=== PATIENT | female | born 1980 | race Hispanic/Latino ===

== ENCOUNTER 2017-07-19 12:28 | Inpatient (IN) | payer MEDICAID, SELFPAY ==
[2017-07-19] MEDS ORDERED: Sodium Chloride 0.9% 100 ML ONE (12:53)
[2017-07-19] MEDS ORDERED: cefTRIAXone\\ROCEPHIN 2 GM VIAL ONE (12:53)
[2017-07-19 12:58] LABS: Oxyhemoglobin 93.2 % (94.0-97.0); Sodium 129 mmol/L (135-148)
[2017-07-19 12:59] LABS: Mode RA; Modified Allen's Test POSITIVE; Vent NO
[2017-07-19 13:22] LABS: #Lymphocytes 0.6 thou/uL (1.20-3.40); #Monocytes 0.1 thou/uL (0.11-0.59); #Neutrophils 3.4 thou/uL (1.40-6.50); %Basophils 0.3 % (0.0-1.0); %Eosinophils 0.2 % (0.0-10.0); %Monocytes 2.4 % (0.0-10.0); Hematocrit 30.3 % (36.0-47.0); Mean Platelet Volume 7.8 fL (7.4-10.4); Red Blood Cell (RBC) Count 3.73 mill/uL (4.20-5.40); White Blood Cell (WBC) Count 4.1 thou/uL (4.8-10.8)
[2017-07-19] MEDS ORDERED: Dexamethasone 4 mg/ml Vial ONE (13:22)
[2017-07-19] MEDS ORDERED: Albuterol Sulfate 1.25 MG/3 ML NEB ONE (13:32)
[2017-07-19 13:33] LABS: PTT 41.7 SEC (22.9-36.1)
[2017-07-19] MEDS ORDERED: Albuterol Sulfate 2.5 mg/0.5 ml Neb ONE (13:33)
[2017-07-19 13:34] LABS: Prothrombin Time 13.9 SEC (12.0-14.7)
[2017-07-19 13:36] LABS: Lactic Acid - Sepsis 1.5 mmol/L (0.5-2.2)
[2017-07-19 13:45] LABS: ALT (SGPT) 10 U/L (8-55); AST (SGOT) 33 U/L (5-34); Acetaminophen Less than 6.0 mcg/mL (10.0-30.0); Alkaline Phosphatase 41 U/L (40-150); Anion Gap 12 mmol/L (10-20); BUN (Urea Nitrogen) 30 mg/dL (7.0-18.7); Bilirubin, Total 0.4 mg/dL (0.2-1.2); CK (CPK) 84 U/L (29-168); Calc. Creatinine Clearance 0 mL/min (70-130); Calcium 7.7 mg/dL (7.8-10.44); Carbon Dioxide 19 mmol/L (22-29); Chloride 98 mmol/L (98-107); Estimated GFR-MDRD 48; Globulin 6.5 g/dL (2.4-3.5); Lipase 135 U/L (8-78); Protein, Total 9.1 g/dL (6.0-8.3); Salicylate Less than 8.0 mg/dL (15.0-30.0)
[2017-07-19 13:47] LABS: Troponin I Less than 0.010 ng/mL (< 0.028)
--- NOTE | 2017-07-19 13:49 | RAD ---
PORTABLE CHEST: HISTORY: Cough. COMPARISON: 06/26/2017 FINDINGS: Heart size is enlarged. No signs of overt failure or any confluent infiltrative process. The film is of suboptimal inspiration. IMPRESSION: Cardiomegaly. No definite acute process. POS: [facility]
[2017-07-19] MEDS ORDERED: Norepinephrine 8 MG/0.9% NS 250 ML ONE (14:24)
--- NOTE | 2017-07-19 15:06 | CT ---
CTA OF THE CHEST WITH CONTRAST: COMPARISON: 06/26/17. HISTORY: Dyspnea and cough for the past several days. Shortness of breath. Chest pain. TECHNIQUE: Multiple contiguous axial images were obtained in a CTA of the chest with contrast. Three-D oblique MIP reformats and direct coronal reformats were performed. FINDINGS: The pulmonary arteries are well opacified without filling defect to suggest pulmonary emboli. The h eart is normal in size. There is a moderate pericardial effusion which appears high-density with a mean Hounsfield unit value of 40. There is no significant compression of the right atrium by the pe ricardial effusion. No obvious hilar or mediastinal lymphadenopathy are seen. Atelectasis is seen in the lung bases with a small adjacent pleural effusion. No focal infiltrates are seen in the lungs. No pneumothorax is seen. The visualized subdiaphragmatic structures are unremarkable. Degenerative changes are seen in the s pine. The chest wall soft tissues are unremarkable. IMPRESSION: 1. There has been development of a higher density pericardial effusion. This is nonspecific and co uld represent purulent material or hemopericardium. 2. Small bilateral pleural effusions with adjacent atelectasis. 3. No evidence of pulmonary thromboembolism. POS: [facility]
[2017-07-19] MEDS ORDERED: Midazolam HCl 2 mg/2 ml Vial ONE (16:26)
[2017-07-19] MEDS ORDERED: Fentanyl 100 MCG/2 ML VIAL ONE (16:26)
[2017-07-19] MEDS ORDERED: Hydrocortisone Sod Succ/PF 100 mg/2 ml Vial ONE ×2 (16:54→17:10)
[2017-07-19] MEDS ORDERED: PHENYLEPHRINE-NS 100 MCG/ML 10 ML SYRINGE ONE (16:54)
[2017-07-19] MEDS ORDERED: Propofol 200 MG/20 ML VIAL ONE (16:54)
[2017-07-19] MEDS ORDERED: Lidocaine 1% PF 5 ML VIAL ONE (16:54)
[2017-07-19] MEDS ORDERED: Succinylcholine Chloride 20 MG/ML 10 ml SYRINGE FS ONE (16:54)
[2017-07-19] MEDS ORDERED: Hydrocortisone Sod Succ/PF 250 mg/2 ml Vial ONE (17:10)
[2017-07-19 18:03] LABS: Sodium 133 mmol/L (135-148)
[2017-07-19 18:04] LABS: Mechanical Tidal Volume 400 ml; Mode SIMV; Pressure Support 10 cmH2O; Vent YES
[2017-07-19] MEDS ORDERED: Fentanyl 20 MCG/ML 250 ML ONE (18:15)
[2017-07-19] MEDS ORDERED: Sedation Protocol FS ONE (18:20)
[2017-07-19] MEDS ORDERED: Ondansetron HCl/PF 4 MG/2 ML Vial IVP PRN ×2 (18:22→19:51)
[2017-07-19] MEDS ORDERED: Calcium Chloride 1 GM/10 ML Abboject SYRINGE IVP SCH (18:30)
[2017-07-19] MEDS ORDERED: Sodium Chloride 0.9% 1,000 ML IV SCH ×2 (18:30)
[2017-07-19] MEDS ORDERED: Fentanyl 20 MCG/ML 250 ML IVPB SCH (18:35)
[2017-07-19] MEDS ORDERED: Morphine Sulfate 2 MG/ML SYRINGE SLOW IVP PRN (18:35)
[2017-07-19] MEDS ORDERED: DISCONTINUE PREVIOUS NARCOTIC PAIN MEDICATIONS AND BENZODIAZEPINES FS SCH (18:35)
[2017-07-19] MEDS ORDERED: Sodium Bicarb 50 MEQ/50 ML Abboject 8.4% SYRINGE IVP SCH (18:45)
--- NOTE | 2017-07-19 18:50 | CON ---
EMERGENCY ROOM CONSULTATION NOTE DATE OF CONSULTATION: 07/19/2017 HISTORY OF PRESENT ILLNESS: Ms. Byrd presented to the Emergency Department tonight with sever e shortness of breath and bilateral pleuritic type chest pain. She has been placed on noninvasive v entilation in the Emergency Department. She was recently diagnosed with lupus and placed on steroids at home. Her other discharge diagnosis of note was community-acquired pneumonia. She was sent home on 500 mg of Levaquin q. day and predn isone 10 mg q. day at home. At presentation she was worrisome for having had a pulmonary embolism, a CT angio of the chest was obtained, which shows no evidence of pulmonary embolism. She did have a pericardial effusion and a follow up echocardiogram has been performed, which shows some evidence o f tamponade with right ventricular and right atrial compression. On my arrival, she had 3 liters of fluid, 10 mg of Decadron, 2 grams of Rocephin and 500 mg of Levaquin. She was on a Levophed drip a t 16 mcg/kg/minute. She had a pulse of 100 and a blood pressure of 94/76. Her oxygen saturations w ere 100% on noninvasive ventilation. PAST MEDICAL HISTORY: 1. Lupus. 2. ? thyroid dysfunction. PAST SURGICAL HISTORY: 1. Tubal ligation. 2. Thyroid surgery. ALLERGIES: None. MEDICATIONS AT HOME: 1. Levothyroxine. 2. Prednisone 10 mg q. day. 3. Hydroxychloroquine. 4. Ibuprofen. SOCIAL HISTORY: She does not use tobacco or alcohol. She is accompanied by her who is inte rpreted for me. PHYSICAL EXAMINATION: GENERAL: She is resting fairly comfortably on the stretcher, although I cannot really speak much wi th the noninvasive ventilator functioning. NECK: Supple, with no adenopathy. LUNGS: Have very diminished breath sounds due to little air movement. HEART: Rhythm is regular. ABDOMEN: Soft and nontender. EXTREMITIES: There is no edema. IMAGING DATA: I have reviewed the echocardiogram and CT angiogram myself. LABORATORY DATA: White blood cell count is 4.1, which is up from 2.2 at discharge, hemoglobin is 9. 7 and platelet count is 116,000. Creatinine is 1.24, potassium is 4.2, PT/INR is 1.1. On her arter ial blood gas, her pH is 7.47, pCO2 is 26 and pO2 is 68. ASSESSMENT AND PLAN: I was asked to see her for pericardial tamponade. She has early tamponade on echocardiogram, but I did not think this is the total of what is causing her severe pulmonary dysfun ction and cardiovascular near collapse. We will continue giving her IV fluid and plan for an urgent pericardial window. She has received 10 mg of Decadron very recently and been given Rocephin and L evaquin. After the window, she can be further worked up for sepsis or other lupus related issues.
[2017-07-19] MEDS ORDERED: Sodium Chloride 0.9% 2,000 ML IV SCH (19:00)
[2017-07-19 19:29] LABS: Oxyhemoglobin 96.1 % (94.0-97.0); Sodium 136 mmol/L (135-148)
[2017-07-19 19:39] LABS: Mechanical Tidal Volume 400 ml; Pressure Support 10 cmH2O
[2017-07-19 19:40] LABS: Mode SIMV
[2017-07-19] MEDS ORDERED: Ondansetron ODT 4 MG TAB PO PRN (19:51)
[2017-07-19] MEDS ORDERED: Acetaminophen 650 MG Suppository PR PRN (19:51)
--- NOTE | 2017-07-19 20:01 | OP ---
DATE OF OPERATION: 07/19/2017 PREOPERATIVE DIAGNOSES: History of lupus with pericardial effusion and early tamponade. POSTOPERATIVE DIAGNOSES: History of lupus with pericardial effusion and early tamponade. PROCEDURE: Pericardial window. DRAINS: 24-Turkish Jonathon drain. SPECIMEN: Fluid sent for Gram stain, culture, AFB, and cytology. SURGEON: Ab Kumari M.D. ANESTHESIA: General endotracheal. DESCRIPTION OF PROCEDURE: The patient was brought to the operating room urgently and placed under g eneral anesthesia. Chest was prepped and draped in usual sterile fashion. Skin incision was made o do the xiphoid. Xiphoid was resected. The fascia overlying the pericardium was incised. The ster num had to be retracted superiorly to access the pericardium. Pericardium was grasped with an Allis clamp and withdrawn. A 15 blade was used to enter the pericardium and fluid extracted. 300 mL tot al fluid was aspirated. Fluid was sent for both cultures. A 24-Turkish drain was placed within the pericardium. Fascia was closed with 0 Vicryl suture. Wounds were then irrigated, closed in multipl e layers, and Dermabond applied to the skin. Patient tolerated procedure well and was transferred t o the Intensive Care Unit in critical condition.
--- NOTE | 2017-07-19 20:05 | RAD ---
PORTABLE AP CHEST X-RAY 07/19/17 HISTORY: Post pericardial window. COMPARISON: 07/19/17. Endotracheal tube is noted in place with the tip overlying the T3 vertebral body and above the level of the erika. Nasogastric tube has been placed in the interim with tip overlying the expected loca tion of the gastric body. The custom harvester leads overlie the chest. Radiopaque catheter overlies the midline lower mediastinum. The cardiac silhouette is magnified by projection but does appear mil dly enlarged. There is atelectasis present at the left lung base. Right lung is clear. IMPRESSION: 1. Lines and tubes in place as described above. 2. Cardiomegaly. 3. Atelectasis left lung base. POS: [facility]
[2017-07-19] MEDS ORDERED: Hydrocortisone Sod Succ/PF 100 mg/2 ml Vial IVP SCH ×2 (20:15→21:00)
[2017-07-19] MEDS ORDERED: Piperacillin/Tazobactam 3.375 GM in Sodium Chloride 0.9% 100 ML IVPB SCH (20:15)
[2017-07-19] MEDS: Sodium Chloride 0.9% 1,000 ML IV SCH ×2 (20:29→20:56)
[2017-07-19] MEDS: Albumin 25% 25 GM/100 ML BOT IVPB SCH (20:33)
[2017-07-19] MEDS: Famotidine/PF 20 mg/2ml Vial SLOW IVP SCH (20:37)
[2017-07-19] MEDS: Vancomycin HCl 1 GM in Premix Bag 1 BAG IVPB SCH (20:43)
--- NOTE | 2017-07-19 20:48 | HP ---
DATE OF ADMISSION: 07/19/2017 PRIMARY CARE PHYSICIAN: Obed eddy. CHIEF COMPLAINT: Shortness of breath. HISTORY OF PRESENT ILLNESS: This is a 37-year-old female with significant history of syste yeni lupus erythematosus recently diagnosed presenting with increased shortness of breath, cough, and fever. The patient states these symptoms began over the last 2-3 days prior to this evaluation wit h associated chest pain when taking a deep breath. The patient denied any known sick contacts, rece nt travel history or prior history of pneumonia. The patient's history is significant for recent ad mission and discharge on 06/29/2017 for questionable community-acquired pneumonia with bibasilar ate lectasis in the context of new diagnosis of systemic lupus erythematosus. The patient was apparentl y treated with IV antibiotics and released on Levaquin, Synthroid, prednisone, and Plaquenil. The p atient states she had done fairly well after discharge, presenting to the emergency room on 07/19/20 17 with symptoms as described previously. Patient underwent extensive evaluation in the emergency r oom including chest imaging showing no acute infiltrate. CT angiogram of the chest was undertaken a fter D-dimer was noted elevated showing a questionable density consistent with pericardial effusion. The patient was also noted with small bilateral pleural effusions with associated atelectasis. Th e patient underwent a 2D transthoracic echocardiogram in the emergency room showing evidence of medi um sized pericardial effusion with mild right atrial collapse suggesting early tamponade. Consultat ion was obtained by the Cardiovascular Surgery service for consideration of pericardiocentesis versu s pericardial window. The patient was noted hypotensive in the emergency room, treated with IV flui ds x2 liters and initiated on Levophed infusion. The patient also was placed on BiPAP noninvasive m echanical ventilation, given IV Levaquin and vancomycin, and Rocephin, bronchodilator therapy and Bi PAP noninvasive mechanical ventilation. PAST MEDICAL HISTORY: 1. Systemic lupus erythematosus. 2. Hypothyroidism, status post thyroidectomy. 3. Recent community-acquired pneumonia in 06/2017. 4. Normocytic anemia. PAST SURGICAL HISTORY: 1. Status post bilateral tubal ligation. 2. Status post thyroidectomy. CURRENT MEDICATIONS: 1. Feosol 325 mg 1 tablet p.o. b.i.d. 2. Plaquenil 200 mg p.o. b.i.d. 3. Levothyroxine 50 mcg 1 tablet p.o. daily. ALLERGIES: No known drug allergies. FAMILY HISTORY: No inheritable diseases per patient report. SOCIAL HISTORY: The patient is , accompanied by her in the hospital. No current alc ohol, tobacco or illicit drug use. Smoked for approximately 2 years, quitting in the last 5 years. REVIEW OF SYSTEMS: The following complete review of systems was negative, unless otherwise mentione d in the HPI or below: Constitutional: Weight loss or gain, ability to conduct usual activities. Skin: Rash, itching. Eyes: Double vision, pain. ENT/Mouth: Nose bleeding, neck stiffness, pain, tenderness. Cardiovascular: Palpitations, dyspnea on exertion, orthopnea. Respiratory: Shortness of breath, wheezing, cough, hemoptysis, fever or night sweats. Gastrointestinal: Poor appetite, abdominal pain, heartburn, nausea, vomiting, constipation, or diar mary. Genitourinary: Urgency, frequency, dysuria, nocturia. Musculoskeletal: Pain, swelling. Neurologic/Psychiatric: Anxiety, depression. Allergy/Immunologic: Skin rash, bleeding tendency. Otherwise negative except as stated per HPI. PHYSICAL EXAMINATION: VITAL SIGNS: On admission, blood pressure 83/57, pulse 107, respiratory rate is 42, temperature 100 degrees Fahrenheit, O2 saturation 98% on BiPAP noninvasive mechanical ventilation at 50% FiO2. GENERAL APPEARANCE: This is a 37-year-old female on current noninvasive mechanical ventila tion with BiPAP, lethargic, but opens eyes to questions and name. HEENT: Pupils are equal, round, and reactive to light and accommodation. Extraocular muscles are i ntact. No scleral icterus, no conjunctival injection. Nares patent. OP is clear. BiPAP noninvasi ve mechanical ventilation, face mask in place. NECK: Supple, no cervical adenopathy, no thyromegaly, no carotid bruits, no JVD appreciated. Cervi erik spine with full active and passive range of motion. CHEST: Diminished breath sounds in the bases bilaterally. CARDIOVASCULAR: S1 and S2 with distant heart sounds. No audible friction rub noted. ABDOMEN: Rounded, soft, nontender, nondistended. Bowel sounds are positive in all four quadrants. There is no hepatosplenomegaly, no abdominal bruits, no rebound or guarding appreciated. EXTREMITIES: Warm and dry with fair turgor. No clubbing, cyanosis or asymmetric edema appreciated. Pulses palpable distally at the dorsalis pedis, posterior tibial, and popliteal arteries bilateral ly. Capillary refill less than 2 seconds. NEUROLOGIC: Cranial nerves II-XII are grossly intact. No focal or lateralizing signs appreciated. PERTINENT LABORATORY DATA AND X-RAY FINDINGS: Sodium 125, potassium 4.2, chloride 98, CO2 of 19, an ion gap of 12, BUN 30, creatinine 1.24 with estimated GFR of 48, glucose 110. Lactic acid level 1.5 . Calcium 7.7. LFTs within normal limits. Troponin I negative x1. Serum ammonia level 20. BNP 2 01, albumin 2.6, and lipase 135. TSH 15.2, previously noted at 10.7 on 06/28/2017. CBC showed whit e blood cell count 4.1, hemoglobin 9.7, hematocrit 30, platelet count 116 with 82% neutrophils. PT 13.9, INR 1.1, PTT 41.7, D-dimer 19.21. ABG dated 07/19/2017 at 12:40 p.m. showed pH 7.47, pCO2 of 26, pO2 of 69, bicarbonate of 18.6, O2 saturation 95% on room air. Plasma alcohol level less than 1 0. Portable chest x-ray dated 07/19/2017 showed cardiomegaly without acute infiltrate. CT angiogra m of the chest dated 07/19/2017 showed questionable development of pericardial effusion. Small bila teral pleural effusions with adjacent atelectasis. No evidence for pulmonary embolus. A 2D transth oracic echocardiogram dated 07/19/2017 showed ejection fraction of 55%-60%. Mild right atrial colla pse in diastole. Medium pericardial effusion noted. Question of early tamponade. EKG dated 2016 by my interpretation shows sinus tachycardia with heart rates in the 130s. Normal R-wave progr ession noted in the precordial leads. Normal axis. No acute ST-T wave changes appreciated. ASSESSMENT AND PLAN: 1. Acute hypoxic respiratory failure secondary to #2. 2. We will continue bilevel positive airway pressure noninvasive mechanical ventilation at 10/5 wit h FIO2 of 50%. Continue general pulmonary supportive measures and see treatment plan as outlined in #2. Portable chest x-ray in the a.m. Consult Pulmonology Service for further evaluation. 3. Question of acute cardiac tamponade. Cardiovascular Surgery Service consulted for evaluation an d potential surgical intervention. Plan for surgical intervention with transfer to critical care un it postoperatively. 4. Hypotension. Suspect secondary to #2. Continue Levaquin to titrate for systolic greater than 1 00. Continue intravenous normal saline at 125 mL per hour. Hydrocortisone 150 mg IV x1 dose now fo llowed by hydrocortisone 25 mg IV q.6 hours. 5. Question of sepsis. Exact etiology unclear. Continue vancomycin 1 gram IV q.12 hours with harpreet tional Zosyn 3.375 grams IV q.6 hours. Blood cultures pending. Continue general sepsis protocol. 6. Systemic lupus erythematosus. Suspect component of presentation due to lupus. Continue hydroco rtisone as outlined previously. Consider Rheumatology consult. 7. Hyponatremia. We will continue intravenous normal saline and repeat sodium level in the a.m. 9. Acute kidney injury. Suspect secondary to volume depletion and sepsis. Avoid nephrotoxic agent s and contrast media. Repeat creatinine in the a.m. Continue IV fluids as outlined previously. 10. Hypothyroidism. Resume home Synthroid and check free T4 level. Appears patient may be undertr eated with current thyroid replacement. 11. Chronic pancytopenia. Suspect secondary to lupus as stated previously. Repeat CBC and monitor trend. 12. Prophylaxis. Sequential compression devices while in bed and Pepcid 20 mg IV q.12 hours. 13. Code status is FULL. Surrogate medical decision maker is patient's spouse. Total critical care time is 45 minutes.
[2017-07-19] MEDS ORDERED: Norepinephrine 8 MG/250 ML BAG IVPB PRN (20:52)
[2017-07-19] MEDS ORDERED: Famotidine/PF 20 mg/2ml Vial SLOW IVP SCH (21:00)
[2017-07-19] MEDS ORDERED: Vancomycin HCl 1.25 GM in Sodium Chloride 0.9% 250 ML 250 ML IVPB SCH (21:00)
--- NOTE | 2017-07-19 22:51 | CON ---
DATE OF CONSULTATION: 07/19/2017 REASON FOR CONSULTATION: Pericardial effusion, now status post drainage. HISTORY OF PRESENT ILLNESS: Ms. Byrd is a 37-year-old female who presented to the hospital today with apparent shortness of breath. She was found to have rapid heart rate and lo w blood pressure and a pericardial effusion. Echocardiogram revealed early tamponade that she went to the operating room for drainage of the pericardial fluid, which was done. She is currently intub ated on the ventilator. The other history is not available to me. Other past history available [place] by oral report that she had a history of lupus, but I do not have documentation of that. Her ma in symptom initially was shortness of breath. REVIEW OF SYSTEMS: Not obtainable now, she is intubated on the ventilator. PAST MEDICAL HISTORY: Thyroidectomy, hysterectomy, lupus. ALLERGIES: None known. MEDICATIONS: She is on thyroid, she is also on prednisone. Initial blood pressure was 90/60, now s he is on Levophed, it is 114/57, pulse 130. PHYSICAL EXAMINATION: GENERAL: She is intubated on the ventilator. VITAL SIGNS: Blood pressure 120/60, pulse 130 - it is sinus. HEENT: Eyes, sclerae nonicteric. Mouth, mucous membranes moist. NECK: Supple, no lymphadenopathy. LUNGS: Clear anteriorly and laterally. CARDIAC: She is tachycardic. No murmur, rub or gallop. ABDOMEN: Soft, nontender, no hepatosplenomegaly. EXTREMITIES: No clubbing, no cyanosis or edema. SKIN: Currently warm and dry. LABORATORY AND X-RAY FINDINGS: The hemoglobin is 9.7, potassium 4.2, sodium is 125, albumin 2.6. T SH is 15.1. BNP 200. Echocardiogram showed normal left ventricular function with a moderate sized pericardial effusion with evidence of early tamponade. ASSESSMENT: 1. Tamponade, status post drainage. 2. Pattern suggest sepsis syndrome. PLAN: 1. The pericardial fluid has been drained. 2. Antibiotics. 3. Pressors were given to maintain blood pressure.
[2017-07-19] MEDS: Piperacillin/Tazobactam 3.375 GM in Sodium Chloride 0.9% 100 ML IVPB SCH (23:06)
[2017-07-19] MEDS: Hydrocortisone Sod Succ/PF 100 mg/2 ml Vial IVP SCH (23:07)
[2017-07-20] MEDS: Albumin 25% 25 GM/100 ML BOT IVPB SCH ×3 (01:40→13:29)
--- NOTE | 2017-07-20 01:47 | CON ---
DATE OF CONSULTATION: 07/19/2017 HISTORY: She was just recently discharged from the hospital. An echocardiogram done on the showed no pericardial effusion. She presented today with hypertension. An echocardiogram was repeated showing a large pericardial effusion with early tamponade and small b ilateral effusions are seen on CT. The pericardial effusion was picked up on CT at 1356 and an ech o was done after that. She subsequently is being scheduled for an operative procedure i.e., pericardial window. She was no ninvasively ventilated. PAST MEDICAL HISTORY: 1. Remarkable for community-acquired pneumonia diagnosed last admission. 2. Lupus. 3. History of pancytopenia. 4. History of hypothyroidism. 5. History of strep pneumonia with bacteremia in the past. 6. History of resection of thyroid nodule. 7. History of tubal ligation. SOCIAL HISTORY: Nonsmoker, nondrinker. FAMILY HISTORY: Negative for any disease at an early age. PHYSICAL EXAMINATION: VITAL SIGNS: Blood pressure is in the 90s, she has had 3 liters of fluid, 4th liter has been ordere d. She is on pressors. GENERAL: She is awake. She nods. She is reasonably comfortable. She has noninvasive mask in plac e. NECK: Supple. LUNGS: Clear anteriorly. HEART: Regular rhythm. ABDOMEN: Soft. EXTREMITIES: Without asymmetry. IMPRESSION: 1. Impending tamponade with hypertension. 2. Rule out sepsis with a history of bacteremia in the past with pneumococcus. 3. Lupus possibly because of her pericardial effusion. 4. Rule out adrenal crisis with stress dose steroids for surgery. I will be happy to follow will h er, she should remain intubated postoperatively.
[2017-07-20] MEDS: Lorazepam 2 MG/ML VIAL SLOW IVP PRN ×2 (02:22→08:33)
[2017-07-20] MEDS: Sodium Chloride 0.9% 1,000 ML IV SCH ×2 (02:49→19:11)
[2017-07-20] MEDS ORDERED: Vancomycin HCl 1.25 GM in Sodium Chloride 0.9% 250 ML 250 ML IVPB SCH (03:00)
[2017-07-20] MEDS ORDERED: Cefepime 2 GM in Sodium Chloride 0.9% 100 ML IVPB SCH (04:00)
[2017-07-20] MEDS ORDERED: Vancomycin HCl 1 GM in Premix Bag 1 BAG IVPB SCH (04:00)
[2017-07-20 04:13] LABS: Band 10 % (5-11); Elliptocytes SLIGHT = 2-5 cells (100X) (0-1/hpf); Hematocrit 20.4 % (36.0-47.0); Mean Platelet Volume 7.5 fL (7.4-10.4); Neutrophil 76 % (42-75); White Blood Cell (WBC) Count 1.6 thou/uL (4.8-10.8)
[2017-07-20 04:48] LABS: ALT (SGPT) 17 U/L (8-55); AST (SGOT) 30 U/L (5-34); Alkaline Phosphatase 43 U/L (40-150); Anion Gap 12 mmol/L (10-20); BUN (Urea Nitrogen) 16 mg/dL (7.0-18.7); Bilirubin, Total 0.2 mg/dL (0.2-1.2); Calc. Creatinine Clearance 103 mL/min (70-130); Calcium 6.9 mg/dL (7.8-10.44); Carbon Dioxide 12 mmol/L (22-29); Chloride 113 mmol/L (98-107); Estimated GFR-MDRD 74; Globulin 4.2 g/dL (2.4-3.5); Protein, Total 6.9 g/dL (6.0-8.3)
[2017-07-20] MEDS ORDERED: Dextrose 5% in Water 1,000 ML IV PRN ×2 (05:06→08:34)
[2017-07-20] MEDS ORDERED: Insulin Regular 300 UNITS/3 ML VIAL SC PRN (05:06)
[2017-07-20] MEDS ORDERED: Dextrose 50% Abboject 50 ML SYRINGE IVP PRN (05:06)
[2017-07-20] MEDS ORDERED: Potassium Phosphate 9 MMOL in Sodium Chloride 0.9% 100 ML IVPB PRN (05:08)
[2017-07-20] MEDS ORDERED: Potassium Chloride 40 MEQ in Sodium Chloride 0.9% 250 ML 250 ML IVPB PRN (05:08)
[2017-07-20] MEDS ORDERED: Potassium Chloride 20 MEQ TAB PO PRN (05:08)
[2017-07-20] MEDS ORDERED: Magnesium Oxide 400 MG TAB PO PRN ×2 (05:08)
[2017-07-20] MEDS ORDERED: Potassium Chloride 40 MEQ in Premix Bag 1 BAG IVPB PRN (05:08)
[2017-07-20] MEDS ORDERED: CCU ELECTROLYTE REPLACEMENT PROTOCOL FS PRN (05:08)
[2017-07-20] MEDS ORDERED: Potassium Phosphate 15 MMOL in Sodium Chloride 0.9% 250 ML 250 ML IV PRN (05:08)
[2017-07-20] MEDS ORDERED: Magnesium 2 GM/NS 0.9% 100 ML 2 GM in Premix Bag 1 BAG IVPB PRN (05:08)
[2017-07-20] MEDS ORDERED: Potassium Phosphate 12 MMOL in Sodium Chloride 0.9% 250 ML 250 ML IV PRN (05:08)
[2017-07-20] MEDS: Piperacillin/Tazobactam 3.375 GM in Sodium Chloride 0.9% 100 ML IVPB SCH ×4 (05:34→23:39)
[2017-07-20] MEDS: Hydrocortisone Sod Succ/PF 100 mg/2 ml Vial IVP SCH (05:40)
[2017-07-20 07:05] LABS: Oxyhemoglobin 98.5 % (94.0-97.0); Sodium 138 mmol/L (135-148)
[2017-07-20 07:06] LABS: Mechanical Tidal Volume 400 ml; Mode SIMV; Pressure Support 10 cmH2O; Vent YES
--- NOTE | 2017-07-20 07:56 | RAD ---
SINGLE VIEW CHEST: Date: 07/20/17 COMPARISON: 07/19/17. HISTORY: Status post pericardial window. FINDINGS: Single view of the chest shows an enlarged but stable cardiomediastinal silhouette. The endotracheal tube and NG tube are unchanged in position. There appear to be small bilateral pleural effusions. N o pneumothorax is appreciated. IMPRESSION: Bilateral pleural effusions. POS: [facility]
[2017-07-20] MEDS: Vancomycin HCl 1 GM in Premix Bag 1 BAG IVPB SCH (08:31)
[2017-07-20] MEDS: Famotidine/PF 20 mg/2ml Vial SLOW IVP SCH ×2 (08:33→22:01)
[2017-07-20] MEDS ORDERED: Dextrose 50% Abboject 50 ML SYRINGE SLOW IVP PRN (08:34)
--- NOTE | 2017-07-20 09:03 | PDOC.PN ---
- Subjective Encounter Start Date: 07/20/17 Encounter Start Time: 09:01 Ms. Byrd is post Pericardial Window. She is intubated, and has light sedation. She is able to answer a questions by shaking or nodding her head. She indicates that she is not having pain in her chest or trouble breathing. - Objective Resuscitation Status: Resuscitation Status FULL:Full Resuscitation MAR Reviewed: Yes Vital Signs & Weight: Vital Signs (12 hours) Temp Pulse Resp Pulse Ox 07/20/17 07:42 98 F 100 24 H 100 07/20/17 06:53 58 L 07/20/17 06:44 97.7 F 07/20/17 06:30 97.7 F 07/20/17 06:00 24 H 07/20/17 04:00 97.8 F 24 H 07/20/17 02:00 24 H 07/20/17 00:00 98.1 F 24 H 07/19/17 23:37 91 24 H 100 07/19/17 22:00 24 H Weight Weight 161 lb 9.581 oz Most Recent Monitor Data Heart Rate from ECG 59 NIBP 110/75 NIBP BP-Mean 87 Respiration from ECG 24 SpO2 100 I&O: 07/19/17 07/20/17 07/21/17 06:59 06:59 06:59 Intake Total 4822.4 Output Total 1245 Balance 3577.4 Result Diagrams: 07/20/17 03:28 07/20/17 03:28 Additional Labs: Accuchecks 07/20/17 05:50 POC Glucose 336 H Phys Exam - Physical Examination HEENT: PERRLA Respiratory: no wheezing + coarse breath sounds Cardiovascular: RRR, no significant murmur Gastrointestinal: soft, positive bowel sounds trace edema Dx/Plan (1) Pericardial effusion Code(s): I31.3 - PERICARDIAL EFFUSION (NONINFLAMMATORY) Status: Acute (2) Hypotension Status: Acute (3) Pancytopenia Code(s): D61.818 - OTHER PANCYTOPENIA Status: Acute (4) Systemic lupus erythematosus Code(s): M32.9 - SYSTEMIC LUPUS ERYTHEMATOSUS, UNSPECIFIED Status: Chronic - Plan * Pericardial effusion- thought to be due to SLE- in review of her records she does not have an elevated Double stranded DNA level documented- will check- it should be elevated during an acute illness. Will also check her complement levels * Pancytopenia- this is likely from SLE, but as above will check her titers- and will also consult Hematology once again * ? sepsis- will consult ID to aid in antibiotic choice * Elevated glucose- from steroids * Hypotension- she is now off pressors- she has responded to fluids * Hypothyroidism- patient had a significantly elevated TSH on her previous admission, as well as a low free T4, will go ahead and replace her thyroid IV while she is intubated given her low blood pressure * Ventilator wean as per Pulmonology. * DVT prophylaxis is being held due to Low Platelet count and anemia- SCD's only for now
[2017-07-20] MEDS: Propofol 1,000 MG/100 ML VIAL IV PRN (10:04)
[2017-07-20] MEDS: Levothyroxine Sodium 200 MCG VIAL IVP SCH ×2 (12:11→13:22)
[2017-07-20] MEDS: HumaLOG 300 UNITS/3 ML VIAL SC PRN ×2 (12:18→18:20)
[2017-07-20] MEDS: Levothyroxine Sodium 100 MCG VIAL IVP SCH (14:10)
[2017-07-20] MEDS ORDERED: Sodium Chloride 0.9% 1,000 ML IV SCH (14:36)
[2017-07-20] MEDS ORDERED: Insulin Detemir 100 UNITS/ML 15 UNITS in Pre-Filled Syringe 1 EACH SC SCH (14:45)
--- NOTE | 2017-07-20 14:46 | PRG ---
DATE OF SERVICE: 07/20/2017 SERVICE: Pulmonary Medicine. INTERVAL HISTORY: The patient did well overnight. Her oxygen requirements are decreasing. She has been weaned off of her Levophed. Her blood pressures remain stable. Her creatinine is stable, and her urine output remains good. She remains under the influence a little bit of sedation. She is mechanically ventilated. Otherwise, there has been no significant change in her condition and there were no overnight events. She did tolerate the pericardial window quite well. PHYSICAL EXAMINATION: VITAL SIGNS: Afebrile, pulse 61, blood pressure 87/59, respirations 22, saturation 100% on 40% FiO2 and PEEP of 5. HEENT: Normocephalic, atraumatic. Sclerae are white, conjunctivae pink. Oral and nasal mucosa is moist without lesions. LUNGS: Decent air entry bilaterally. Dependent crackles are present, but I do not appreciate wheezing or rhonchi. There is no prolonged expiratory phase. HEART: Normal rate, regular. ABDOMEN: Soft, nontender, and nondistended. Bowel sounds positive. MUSCULOSKELETAL: No cyanosis or clubbing. No pitting in the bilateral lower extremities. NEUROLOGIC: Grossly nonfocal. LABORATORY DATA: WBC 1.6, hemoglobin 6.7, platelets 62,000. INR 1.1, D-dimer 19.21. A pH 7.42, pCO2 20, pO2 203 on 50% FiO2 with a PEEP of 5. Potassium 3.3. Basic metabolic profile is otherwise unremarkable. Creatinine is down trending to 0.85. Blood sugar 343. Lactate is negative. Liver function studies are unremarkable. TSH is elevated with a free T4 just below the lower limits of normal. Lipase was minimally elevated previously. BNP was elevated on presentation. Urine drug screen is unremarkable. C3 and C4 levels are both low. Serologies are currently pending. Blood cultures x2 and pericardial fluid culture is currently negative to date. IMAGING: Chest x-ray demonstrates bilateral pleural effusions with other findings consistent with some volume overload. Endotracheal tube is in good position. ASSESSMENT: 1. Acute hypoxic respiratory failure. 2. Shock. 3. Severe sepsis, possible. 4. Pancytopenia. 5. Systemic lupus erythematosus. PLAN: We will continue supportive care. The patient's ins and outs are positive 4 liters over the last 24 hours. She got an additional 4-6 liters in the emergency department. As such, we will need to let the dust settle over the next 24-48 hours before we consider extubation. For this period of time, antibiotics and ventilator support will be continued. In the morning, we will introduced a small dose of Lasix. Hematology consultation is currently pending. The etiology of this shock is currently unknown. I believe tamponade played a role here, but I cannot exclude the possibility of sepsis. Pulmonary or Critical Care will continue to follow. IV fluids will be minimized today. Critical care time: 30 minutes. MTDD
--- NOTE | 2017-07-20 15:20 | CON ---
DATE OF CONSULTATION: 07/20/2017 HISTORY OF PRESENT ILLNESS: A 37-year-old whom I had seen a couple of times prior to this visit who has a history of systemic lupus erythematous managed with prednisone, mostly with joint and skin ma nifestations. She has had 2 episodes of strep pneumonia bacteremia in 2016 and 2014. Those were tr eated without any major complications. Following that, the patient was seen on 06/26/2017 with dysp sin and fever for 2 days and at that time, she had experienced a 22 pound of weight loss with anorex ia. She had been on acyclovir, acetaminophen and some prednisone as well. The patient was discharg ed 2 days later with the diagnosis of dyspnea on exertion, community-acquired pneumonia, bibasilar a telectases, hypotension on Levaquin. HIV was negative. White cell count 2.2, hemoglobin 8.9, plate lets 121. CT angio was negative for PE. Echocardiogram was normal. This time, she is admitted wit h worsening of dyspnea again, cough, and fever and a CT angio showed an effusion in the pericardial space which was moderate. Echocardiogram showed findings that were consistent with early tamponade; therefore, Cardiovascular Surgery was consulted and she underwent pericardial window placement, abou t 300 mL was aspirated and a drain placed. Currently, she is intubated in the ICU where she has had no diarrhea, no seizure activity. It is not clear if the patient has seen a biometric technician or ad lam any sort of formal followup for her systemic lupus. MEDICAL HISTORY: Includes SLE with mostly joint manifestations in the past, hypothyroidism, pneumon ia x2 with strep pneumonia with bacteremia. PAST SURGICAL HISTORY: Includes tubal ligation, thyroidectomy. MEDICATIONS: She had been on Plaquenil, Feosol and levofloxacin. ALLERGIES: None. FAMILY HISTORY: Noncontributory. SOCIAL HISTORY: , former smoker. PHYSICAL EXAMINATION: VITAL SIGNS: T-max 99, now 98, blood pressure 87/59, pulse 61, respirations 22. I's and O's have be en positive, particularly yesterday with 3500. SKIN: With no areas of skin breakdown, no petechiae or purpura. Peripheral IV access. She has the chest tubes after the pericardial window placement, Aiken catheter in place and a ET tube. HEENT: No lymphadenopathy, sclerae are white. Pupils are miotic and symmetric. LUNGS: Sounds with diminished sounds at bases. HEART: S1, S2 with diminished heart sounds. ABDOMEN: Soft. Not distended. EXTREMITIES: Moves all extremities. NEUROLOGICAL: She is sedated at this time, could not test her neurological function. LABORATORY DATA: White cell count is 4.1. INR 1.6, hemoglobin 9.7 and 6.7 with an MCV 81, platelet s 62,000, 76% neutrophils and INR 1.1. PH 7.4, pCO2 20, po2 203. Sodium 134, creatinine 10.85 with normal transaminases, calcium 6.9, glucose 236. Albumin 2.7 and toxicology was negative. Co mplements were low, C4 was very low. The cultures and pathology from these pericardial fluid are pe nding. ASSESSMENT: Systemic lupus erythematosus with mostly joint manifestations on Plaquenil now, develop ing more aggressive form most likely with pericarditis. We will wait for the final cultures, but I believe that this will garment turner to be just activity from the systemic lupus erythematosus and probab ly she will have to be managed with more aggressive immunosuppression going forward. Evidently, if the cultures turn positive, then we will have to change our assessment and frame changer, but co ntinuation of corticosteroids and eventually she will have to be transitioned to steroid sparing imm unosuppressive regimen in the outpatient setting.
--- NOTE | 2017-07-20 20:06 | CON ---
DATE OF CONSULTATION: 07/20/2017 REASON FOR CONSULTATION: Pancytopenia. HISTORY OF PRESENT ILLNESS: Ms. Byrd is a 37-year-old female with a 7-year history of systemic lupus erythematosus and hypothyroidism, who presented to the emergency room on 07/19/2017 with chest pain and shortness of breath. The patient was discharged from this facility on 06/29/2017 with community-acquired pneumonia. She was pancytopenic during that admission. In the ER, she had a CT angiogram of the chest, which showed small bilateral pleural effusions and a pericardial effusion. Dr. Kumari was consulted and performed a pericardial window. She had acute respiratory failure and remains intubated after the procedure. On admission at this visit, the patient had a white count of 4.1, hemoglobin of 9.7 and a platelet count of 116,000. She had 82% neutrophils. Overnight, her white count dropped to 1.6 with 76% neutrophils and 10% bands, her hemoglobin dropped to 6.7 and her platelet count dropped to 62,000. We were asked to see the patient regarding her pancytopenia. PAST MEDICAL HISTORY: 1. Systemic lupus, erythematosus. 2. Hypothyroidism. 3. Recent community-acquired pneumonia. 4. History of pancytopenia. PAST SURGICAL HISTORY: 1. Thyroidectomy. 2. Bilateral tubal ligation. HOME MEDICATIONS: 1. Ferrous sulfate 325 mg daily. 2. Hydroxychloroquine sulfate 200 mg daily. 3. Levothyroxine 50 mcg daily. FAMILY HISTORY: Positive for coronary artery disease. SOCIAL HISTORY: , 4 children, prior smoker. No alcohol or illicit drug use. REVIEW OF SYSTEMS: Unable to obtain secondary to intubation and sedation. PHYSICAL EXAMINATION: VITAL SIGNS: Temperature is 98.2, pulse is 61, respiratory rate is 18, blood pressure is 100/57, O2 saturation 100% on 50% FiO2. GENERAL: Well-developed female, in no acute distress. HEENT: Normocephalic, atraumatic. Pupils are equal and reactive to light. NECK: Supple. CARDIOVASCULAR: Regular rate and rhythm. RASTA drain in place with serous drainage. LUNGS: Diminished throughout. ABDOMEN: Soft, nontender, bowel sounds are positive. She has an NG tube in place.. GENITOURINARY: Aiken catheter with yellow urine. EXTREMITIES: No clubbing, cyanosis or edema. SKIN: No rash. HEMATOLOGIC: No petechia or purpura. NEUROLOGIC: The patient is sedated with propofol. PERTINENT LABORATORY AND X-RAYS: Current WBCs are 1.6, hemoglobin 6.7, hematocrit 20.4, platelet count is 62,000, 76% neutrophils, 10% bands. PT is 13.9, INR is 1.1, PTT is 41.7. D-dimer is 19.2. Sodium is 134, potassium is 3.3, chloride 113, CO2 is 12, BUN is 6, creatinine is 0.85. Lactic acid is 1.5 , calcium 6.9, total bilirubin is 0.4, AST is 33, ALT is 10, alkaline phosphatase is 41. BNP is 200. Serum total protein is 9.1, albumin 2.6, globulin 6.5. Lipase is 135. B12 was 593, folic acid is 9.2. TSH is 15.188. Troponin is negative. Radiology per HPI. ASSESSMENT: 1. Pericardial effusion status post window. 2. Acute respiratory failure. 3. Pancytopenia. 4. History of lupus erythematosus. DISCUSSION: The patient has been transfused 2 units packed RBCs. Her low hemoglobin is likely dilutional. She is not neutropenic at this time as her ANC is 1.376. The dramatic drop overnight is unclear; however, we will follow over the next few days and hopefully she will recover. The patient's pancytopenia is probably a combination of lupus, immunosuppressive medication, and acute illness. She has a hyperglobulinemia which can be seen with lupus and is likely polyclonal. Prior x-ray showed no evidence of any osteolytic lesions. We will follow her CBC closely during the hospital stay. Thank you for the consult. KANA
[2017-07-21] MEDS: Propofol 1,000 MG/100 ML VIAL IV PRN ×2 (05:01→15:19)
[2017-07-21] MEDS: Piperacillin/Tazobactam 3.375 GM in Sodium Chloride 0.9% 100 ML IVPB SCH ×3 (05:01→17:14)
[2017-07-21] MEDS: Furosemide 20 MG/2 ML VIAL SLOW IVP SCH (05:01)
[2017-07-21 05:16] LABS: #Lymphocytes 0.4 thou/uL (1.20-3.40); #Monocytes 0.2 thou/uL (0.11-0.59); %Basophils 0.2 % (0.0-1.0); %Monocytes 4.7 % (0.0-10.0); Anion Gap 11 mmol/L (10-20); BUN (Urea Nitrogen) 14 mg/dL (7.0-18.7); Calc. Creatinine Clearance 103 mL/min (70-130); Carbon Dioxide 14 mmol/L (22-29); Chloride 116 mmol/L (98-107); Estimated GFR-MDRD 74; Hematocrit 27.8 % (36.0-47.0); Magnesium 1.7 mg/dL (1.6-2.6); Mean Platelet Volume 11.8 fL (7.4-10.4); Red Blood Cell (RBC) Count 3.31 mill/uL (4.20-5.40); White Blood Cell (WBC) Count 4.6 thou/uL (4.8-10.8)
[2017-07-21 07:24] LABS: Oxyhemoglobin 97.3 % (94.0-97.0); Sodium 141 mmol/L (135-148)
[2017-07-21 07:25] LABS: Modified Allen's Test NOT DONE; Vent YES
[2017-07-21 07:26] LABS: Mechanical Tidal Volume 330 ml; Mode SIMV.PSV; Pressure Support 19 cmH2O
--- NOTE | 2017-07-21 08:35 | PRG ---
DATE OF SERVICE: 07/21/2017 Ms. Byrd remains intubated on the ventilator. PHYSICAL EXAMINATION: VITAL SIGNS: Her blood pressure 126/75, pulse 72. She is off pressors. LUNGS: Clear. CARDIAC: Normal S1 and S2. ABDOMEN: Soft, nontender. EXTREMITIES: There is no significant edema. Chest x-ray yesterday showed bilateral pleural effusions. ASSESSMENT: 1. Pericardial and pleural effusions thought to be likely related to lupus. 2. Cardiac status appears stable. 3. Left ventricular function was normal. EKG initially had relatively low voltage due to pericardi al effusion, otherwise normal. The voltage on the monitor now looks normal. The patient's cardiac status is stable at this time. We will sign off. Please consultation if need ed.
[2017-07-21] MEDS ORDERED: Sodium Bicarbonate Tab 325 MG TAB PER TUBE PRN (09:30)
[2017-07-21] MEDS ORDERED: Pancrelipase DR 12000 1 CAP FS PRN (09:30)
[2017-07-21] MEDS: Famotidine/PF 20 mg/2ml Vial SLOW IVP SCH ×2 (09:45→21:04)
[2017-07-21] MEDS: Insulin Detemir 100 UNITS/ML 15 UNITS in Pre-Filled Syringe 1 EACH SC SCH (09:45)
[2017-07-21] MEDS ORDERED: Magnesium 2 GM/NS 0.9% 100 ML 2 GM in Premix Bag 1 BAG IVPB SCH (09:45)
--- NOTE | 2017-07-21 09:53 | PRG ---
DATE OF SERVICE: 07/21/2017 SERVICE: Pulmonary Medicine. INTERVAL HISTORY: The patient is doing fantastic from a cardiovascular and respiratory standpoint. She denies any current fevers, chills, nausea or vomiting. She is on mechanical ventilation. Whenever we dropped her pressure support a little bit, her volumes go from 400 down to 150. She is very sensitive to these drops in volume. Otherwise, there were no overnight events. She has been weaned off her pressors. PHYSICAL EXAMINATION: VITAL SIGNS: Afebrile, pulse 70, blood pressure 118/71, respirations 20, saturation 98% on 27% FIO2 with a PEEP of 5. GENERAL: Patient is awake, alert, no apparent distress. LUNGS: Excellent air entry. It is clear to auscultation on the right. She is having some left-sided and bibasilar crackles. HEART: Normal rate, regular. ABDOMEN: Soft, nontender, nondistended. Bowel sounds positive. MUSCULOSKELETAL: No cyanosis or clubbing. There is pitting edema that is 1-2+ at the hip. No pitting in the bilateral lower extremities or upper extremities at this time. GENITOURINARY: Aiken catheter in place. NEUROLOGIC: Grossly nonfocal. LABORATORY DATA: WBC 4.6, hemoglobin 9.1. Platelets 101,000. Neutrophil count is 86%, lymphocytes are 9% and decreasing. PH 7.33, pCO2 of 28 and improving. PO2 134, this was on 37% FiO2 and a PEEP of 5 at that time. Creatinine 0.85. Bicarbonate has improved to 14. Anion gap remains normal. Chloride 116, sodium is increasing to 137. Phosphorus 2.0, magnesium 1.7. All culture results are negative and unremarkable to date. ASSESSMENT: 1. Acute hypoxic respiratory failure, improving. 2. Shock, likely secondary to tamponade, but sepsis profile has not been completely excluded. 3. Septic shock, possible. 4. Pancytopenia. 5. Systemic lupus erythematosus. 6. 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 PLAN: The patient certainly does not have any interstitial changes. There is a possibility she could be suffering from a vanishing lung type of syndrome. That being said, that would not cause any significant hypotension. She would be certainly ill-equipped to compensate for anything that puts anymore demands on her respiratory system. She remains 7 liters up for this hospital stay. We will continue diuresing her 1-2 times on a daily basis. Potassium, phosphorus, and magnesium will once again be replaced this morning. Adjustments to the ventilator had been made in order to decrease support slightly. Empiric antibiotics will be continued, but I will back off of her Levaquin. Critical care time: 30 minutes. KANA
[2017-07-21] MEDS ORDERED: Potassium Phosphate 15 MMOL in Sodium Chloride 0.9% 250 ML 250 ML IVPB SCH (10:00)
--- NOTE | 2017-07-21 10:33 | PDOC.PN ---
- Subjective Encounter Start Date: 07/21/17 Encounter Start Time: 10:32 Ms. Byrd indicates that she was feeling a little bt short of breath, she denies any chest pain. - Objective Resuscitation Status: Resuscitation Status FULL:Full Resuscitation MAR Reviewed: Yes Vital Signs & Weight: Vital Signs (12 hours) Temp Pulse Resp BP Pulse Ox 07/21/17 08:00 97.7 F 70 19 07/21/17 06:45 60 24 H 99 07/21/17 06:38 58 L 111/67 07/21/17 06:00 16 07/21/17 04:00 98.9 F 30 H 07/21/17 02:00 25 H 07/21/17 00:00 98.5 F 24 H 07/20/17 23:28 61 24 H 100 Weight Admit Weight 161 lb 9.581 oz Weight 165 lb 5.547 oz Most Recent Monitor Data Heart Rate from ECG 52 NIBP 104/73 NIBP BP-Mean 83 Respiration from ECG 26 SpO2 90 I&O: 07/20/17 07/21/17 07/22/17 06:59 06:59 06:59 Intake Total 4822.4 1207.2 0 Output Total 1245 847 135 Balance 3577.4 360.2 -135 Result Diagrams: 07/21/17 04:15 07/21/17 04:15 Additional Labs: Accuchecks 07/21/17 07/20/17 07/20/17 04:17 22:00 18:18 POC Glucose 131 H 145 H 166 H 07/20/17 12:14 POC Glucose 269 H Phys Exam - Physical Examination HEENT: PERRLA Respiratory: no wheezing, no rales, no rhonchi, clear to auscultation bilateral Cardiovascular: RRR, no significant murmur, no rub Gastrointestinal: soft, non-tender, positive bowel sounds Musculoskeletal: no edema Dx/Plan (1) Pericardial effusion Code(s): I31.3 - PERICARDIAL EFFUSION (NONINFLAMMATORY) Status: Acute (2) Hypotension Status: Acute (3) Pancytopenia Code(s): D61.818 - OTHER PANCYTOPENIA Status: Acute (4) Systemic lupus erythematosus Code(s): M32.9 - SYSTEMIC LUPUS ERYTHEMATOSUS, UNSPECIFIED Status: Chronic - Plan * Pericardial effusion- s/p pericardial window- stable- with minimal output from the drain * SLE- will consult Rheumatology to help with her management- continue Solumedrol * Respiratory failure- 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
[2017-07-21] MEDS: Levothyroxine Sodium 100 MCG VIAL IVP SCH (13:17)
[2017-07-21] MEDS: Lorazepam 2 MG/ML VIAL SLOW IVP PRN (21:06)
[2017-07-22] MEDS: Piperacillin/Tazobactam 3.375 GM in Sodium Chloride 0.9% 100 ML IVPB SCH ×5 (00:29→23:49)
[2017-07-22 04:48] LABS: Anion Gap 10 mmol/L (10-20); BUN (Urea Nitrogen) 24 mg/dL (7.0-18.7); Calc. Creatinine Clearance 98 mL/min (70-130); Calcium 6.9 mg/dL (7.8-10.44); Carbon Dioxide 15 mmol/L (22-29); Chloride 118 mmol/L (98-107); Estimated GFR-MDRD 69; Magnesium 2.2 mg/dL (1.6-2.6); Phosphorus 2.4 mg/dL (2.3-4.7)
[2017-07-22] MEDS: Propofol 1,000 MG/100 ML VIAL IV PRN ×2 (05:05→23:49)
[2017-07-22] MEDS: Furosemide 20 MG/2 ML VIAL SLOW IVP SCH (05:05)
[2017-07-22] MEDS: HumaLOG 300 UNITS/3 ML VIAL SC PRN ×2 (05:06→15:09)
[2017-07-22 05:34] LABS: #Lymphocytes 0.3 thou/uL (1.20-3.40); #Monocytes 0.2 thou/uL (0.11-0.59); #Neutrophils 5.3 thou/uL (1.40-6.50); %Basophils 0.4 % (0.0-1.0); %Lymphocytes 4.7 % (21.0-51.0); %Monocytes 3.7 % (0.0-10.0); Hematocrit 28.5 % (36.0-47.0); Mean Platelet Volume 9.2 fL (7.4-10.4); Red Blood Cell (RBC) Count 3.41 mill/uL (4.20-5.40); White Blood Cell (WBC) Count 5.8 thou/uL (4.8-10.8)
[2017-07-22 07:16] LABS: Oxyhemoglobin 95.6 % (94.0-97.0); Sodium 142 mmol/L (135-148)
[2017-07-22 07:17] LABS: Mechanical Tidal Volume 330 ml; Modified Allen's Test NOT DONE; Pressure Support 19 cmH2O; Vent YES
[2017-07-22 07:18] LABS: Mode SIMV.PSV
--- NOTE | 2017-07-22 08:28 | PDOC.PN ---
- Subjective Encounter Start Date: 07/22/17 Encounter Start Time: 08:26 Ms. Byrd is awake and alert. She seems agitated, but can be calmed down. - Objective Resuscitation Status: Resuscitation Status FULL:Full Resuscitation MAR Reviewed: Yes Vital Signs & Weight: Vital Signs (12 hours) Temp Pulse Resp BP Pulse Ox 07/22/17 07:30 98.8 F 77 24 H 07/22/17 07:00 98.8 F 07/22/17 06:53 92 113/73 07/22/17 06:51 59 L 22 H 97 07/22/17 06:00 20 07/22/17 04:00 98.4 F 26 H 07/22/17 02:00 30 H 07/22/17 00:00 97.9 F 28 H 07/21/17 23:18 75 19 97 07/21/17 22:00 20 Weight Admit Weight 161 lb 9.581 oz Weight 168 lb 3.403 oz Most Recent Monitor Data Heart Rate from ECG 79 NIBP 109/84 NIBP BP-Mean 91 Respiration from ECG 31 SpO2 97 I&O: 07/21/17 07/22/17 07/23/17 06:59 06:59 06:59 Intake Total 1207.2 2163.9 Output Total 1047 680 25 Balance 160.2 1483.9 -25 Result Diagrams: 07/22/17 04:00 07/22/17 04:00 Additional Labs: Accuchecks 07/22/17 07/21/17 07/21/17 03:59 21:10 16:12 POC Glucose 197 H 146 H 140 H 07/21/17 09:39 POC Glucose 132 H Phys Exam - Physical Examination HEENT: PERRLA Respiratory: no wheezing, no rales, no rhonchi, clear to auscultation bilateral Cardiovascular: RRR, no significant murmur Gastrointestinal: soft + mild distention trace edema Dx/Plan (1) Pericardial effusion Code(s): I31.3 - PERICARDIAL EFFUSION (NONINFLAMMATORY) Status: Acute (2) Hypotension Status: Acute (3) Pancytopenia Code(s): D61.818 - OTHER PANCYTOPENIA Status: Acute (4) Systemic lupus erythematosus Code(s): M32.9 - SYSTEMIC LUPUS ERYTHEMATOSUS, UNSPECIFIED Status: Chronic - Plan * Pericardial effusion due to SLE- s/p pericardial window. * She remains intubated. 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 Nesbitt's Office yesterday, and left the information for Consult- will call back on Monday * Renal function is stable
[2017-07-22] MEDS: Famotidine/PF 20 mg/2ml Vial SLOW IVP SCH ×2 (08:52→21:51)
[2017-07-22] MEDS: Insulin Detemir 100 UNITS/ML 15 UNITS in Pre-Filled Syringe 1 EACH SC SCH (08:52)
[2017-07-22] MEDS: Sodium Bicarbonate 50 MEQ, Admixture Fee 1 EACH in Sodium Chloride 0.45% 1,000 ML IV SCH ×2 (09:42→23:47)
--- NOTE | 2017-07-22 09:47 | PRG ---
DATE OF SERVICE: 07/22/2017 A 35 minutes critical care time. SUBJECTIVE: The patient remains intubated on mechanical ventilation. I tried her on spontaneous br eathing trial this morning and she could not pull any tidal volume and began desaturating. PHYSICAL EXAMINATION: VITAL SIGNS: Temperature 98.8, pulse 79, blood pressure 134/85. She is off Levophed. A 24-hour in take was 2163, output 680. HEENT: Unremarkable. NECK: No JVD. LUNGS: She has coarse rhonchi. CARDIOVASCULAR: S1, S2 regular. ABDOMEN: Soft, protuberant with hypoactive bowel sounds. EXTREMITIES: Trace edema. LABORATORY DATA: White blood cell count 5.8, hemoglobin 9.4, hematocrit 28.5, platelet count 141. PH 7.39, pCO2 24, pO2 76 on SIMV rate 13, tidal volume 330, PEEP 5, pressure support 19, FIO2 23%. Sodium 139, potassium 3.9, chloride 118, CO2 15, BUN 24, creatinine 0.9, glucose 201. X-RAY FINDINGS: No chest x-ray was done today. ASSESSMENT: 1. Acute hypoxic respiratory failure. 2. Shock, most likely obstructive in nature secondary to tamponade. 3. Pancytopenia. 4. Systemic lupus erythematosus. 5. 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 6. Right femoral central line. 8. Right radial arterial line. PLAN: 1. Discontinue the arterial line. 2. Obtain consent to move the central line and anticipated she will need IV access for much longer. 3. Not weanable at this time. 4. Need a laxative for gut stimulation. 5. I would hold Lasix and actually give her some volume. 6. Following with you.
[2017-07-22] MEDS: Levothyroxine Sodium 100 MCG VIAL IVP SCH (13:28)
[2017-07-22] MEDS: Lorazepam 2 MG/ML VIAL SLOW IVP PRN (16:20)
[2017-07-23] MEDS: Lorazepam 2 MG/ML VIAL SLOW IVP PRN ×3 (00:03→15:06)
[2017-07-23 04:31] LABS: #Lymphocytes 0.3 thou/uL (1.20-3.40); #Monocytes 0.2 thou/uL (0.11-0.59); #Neutrophils 4.5 thou/uL (1.40-6.50); %Eosinophils 0.2 % (0.0-10.0); %Lymphocytes 6.7 % (21.0-51.0); %Monocytes 4.2 % (0.0-10.0); Hematocrit 31.3 % (36.0-47.0); Mean Platelet Volume 11.7 fL (7.4-10.4); Red Blood Cell (RBC) Count 3.72 mill/uL (4.20-5.40); White Blood Cell (WBC) Count 5.1 thou/uL (4.8-10.8)
[2017-07-23 04:47] LABS: Anion Gap 11 mmol/L (10-20); BUN (Urea Nitrogen) 27 mg/dL (7.0-18.7); Calc. Creatinine Clearance 120 mL/min (70-130); Calcium 6.9 mg/dL (7.8-10.44); Carbon Dioxide 16 mmol/L (22-29); Chloride 116 mmol/L (98-107); Estimated GFR-MDRD 85; Magnesium 2.2 mg/dL (1.6-2.6); Phosphorus 2.3 mg/dL (2.3-4.7)
[2017-07-23] MEDS: Piperacillin/Tazobactam 3.375 GM in Sodium Chloride 0.9% 100 ML IVPB SCH ×4 (05:13→23:31)
[2017-07-23 07:33] LABS: Oxyhemoglobin 95.2 % (94.0-97.0); Sodium 143 mmol/L (135-148)
[2017-07-23 07:34] LABS: Mechanical Tidal Volume 330 ml; Mode SIMV.PSV; Modified Allen's Test POSITIVE; Pressure Support 19 cmH2O; Vent YES
--- NOTE | 2017-07-23 08:52 | PRG ---
DATE OF SERVICE: 07/23/2017 PULMONARY OR CRITICAL CARE PROGRESS NOTE Thirty-five minutes of critical care time. SUBJECTIVE: The patient remains intubated on mechanical ventilation. PHYSICAL EXAMINATION: VITAL SIGNS: Temperature 98.0, pulse 79, blood pressure 108/73, A 24-hour intake 3070, output 770, currently not requiring any vasopressors. HEENT: Unremarkable. NECK: No adenopathy or JVD. LUNGS: Diminished breath sounds in the bases. CARDIAC: S1 and S2 regular. She has a pericardial drain in place. ABDOMEN: Distended and tympanic. EXTREMITIES: No edema. LABORATORY DATA AND IMAGING: Sodium 139, potassium 3.6, chloride 116, CO2 16, BUN 27, creatinine 0. 7, glucose 158, white blood cell count 5.1, hemoglobin 10, hematocrit 31, platelet count 147. ABG; pH 7.40, pCO2 of 25, pO2 of 64 on SIMV rate 13, tidal volume of 330, PEEP 5, pressure support 19, Fi O2 23%. Chest x-ray demonstrates atelectasis in both lung bases, prominent distention. ASSESSMENT: 1. Acute respiratory failure requiring mechanical ventilation. 2. Shock, which has resolved. 3. Pancytopenia. 4. Systemic lupus erythematosus. 5. Bowel distention. 6. Right femoral central line has been discontinued. 7. Right radial art line has been discontinued. PLAN: 1. Continue IV antibiotics. 2. Continue IV fluid infusion with bicarbonate. 3. Continue methylprednisolone. 4. Not weanable yet.
--- NOTE | 2017-07-23 09:13 | PDOC.PN ---
- Subjective Encounter Start Date: 07/23/17 Encounter Start Time: 09:12 Ms. Byrd is intubated and sedated. - Objective Resuscitation Status: Resuscitation Status FULL:Full Resuscitation MAR Reviewed: Yes Vital Signs & Weight: Vital Signs (12 hours) Temp Pulse Resp BP Pulse Ox 07/23/17 08:00 98.4 F 27 H 07/23/17 07:00 98.4 F 07/23/17 06:33 79 115/77 07/23/17 06:31 65 28 H 99 07/23/17 06:00 30 H 07/23/17 04:00 98.0 F 21 H 07/23/17 02:19 63 07/23/17 02:00 23 H 07/23/17 00:27 57 L 27 H 93 L 07/23/17 00:00 98.9 F 31 H 07/22/17 22:12 60 07/22/17 22:00 34 H Weight Admit Weight 161 lb 9.581 oz Weight 168 lb 3.403 oz Most Recent Monitor Data Heart Rate from ECG 79 NIBP 108/73 NIBP BP-Mean 79 Respiration from ECG 20 SpO2 96 I&O: 07/22/17 07/23/17 07/24/17 06:59 06:59 06:59 Intake Total 2163.9 3070.6 Output Total 740 770 130 Balance 1423.9 2300.6 -130 Result Diagrams: 07/23/17 03:59 07/23/17 03:59 Additional Labs: Accuchecks 07/23/17 07/22/17 07/22/17 04:12 21:50 15:02 POC Glucose 149 H 132 H 153 H Phys Exam - Physical Examination HEENT: PERRLA Respiratory: no wheezing, no rales, no rhonchi, clear to auscultation bilateral Cardiovascular: RRR, no significant murmur Gastrointestinal: soft + distended, tympanic to percussion Musculoskeletal: edema present trace pedal edema Dx/Plan (1) Pericardial effusion Code(s): I31.3 - PERICARDIAL EFFUSION (NONINFLAMMATORY) Status: Acute (2) Hypotension Status: Acute (3) Pancytopenia Code(s): D61.818 - OTHER PANCYTOPENIA Status: Acute (4) Systemic lupus erythematosus Code(s): M32.9 - SYSTEMIC LUPUS ERYTHEMATOSUS, UNSPECIFIED Status: Chronic - Plan * Pericardial Effusion due to SLE, s/p Pericardial Window * Respiratory failure- continue to wean slowly as per Pulmonology * SLE- continue Solumedrol * Bowel Distention- She is tolerating tube feeds, there has not been fever, or Leukocytosis- will give a trial of Mylicon
[2017-07-23] MEDS: Famotidine/PF 20 mg/2ml Vial SLOW IVP SCH ×2 (09:37→20:49)
[2017-07-23] MEDS: Insulin Detemir 100 UNITS/ML 15 UNITS in Pre-Filled Syringe 1 EACH SC SCH (09:37)
[2017-07-23] MEDS: HumaLOG 300 UNITS/3 ML VIAL SC PRN ×3 (09:41→23:31)
--- NOTE | 2017-07-23 10:15 | RAD ---
RADIOGRAPH CHEST 1 VIEW: Date: 07/23/17 Time: 0526 HOURS HISTORY: 37-year-old female in respiratory failure. COMPARISON: 07/20/17 at 0445 hours. FINDINGS: Shallow inspiration. Cardiomegaly. No evidence of pneumothorax. Diffusely prominent interstitial mar kings. Endotracheal tube and NG tube. Large amount of bowel gas in distended loops in the upper abdo men, incompletely visualized. This is worse than on prior study. IMPRESSION: 1. Interval worsening of bowel dilation, incompletely imaged. 2. No interval change in the appearance of the chest. 3. Cardiomegaly. 4. Mild interstitial densities. LUCIE [] POS: VALENTIN
[2017-07-23] MEDS: Sodium Bicarbonate 50 MEQ, Admixture Fee 1 EACH in Sodium Chloride 0.45% 1,000 ML IV SCH ×2 (11:47→19:52)
[2017-07-23] MEDS: Levothyroxine Sodium 100 MCG VIAL IVP SCH (13:17)
[2017-07-23] MEDS ORDERED: Simethicone Chewable 80 MG TAB PER TUBE SCH (15:00)
[2017-07-23] MEDS: Propofol 1,000 MG/100 ML VIAL IV PRN ×2 (15:16→23:42)
[2017-07-24] MEDS: Lorazepam 2 MG/ML VIAL SLOW IVP PRN (01:28)
[2017-07-24 04:54] LABS: #Lymphocytes 0.4 thou/uL (1.20-3.40); #Monocytes 0.2 thou/uL (0.11-0.59); #Neutrophils 2.9 thou/uL (1.40-6.50); %Eosinophils 0.2 % (0.0-10.0); %Lymphocytes 10.9 % (21.0-51.0); %Monocytes 5.7 % (0.0-10.0); Hematocrit 32.5 % (36.0-47.0); Mean Platelet Volume 11.4 fL (7.4-10.4); White Blood Cell (WBC) Count 3.5 thou/uL (4.8-10.8)
[2017-07-24 05:28] LABS: Anion Gap 8 mmol/L (10-20); BUN (Urea Nitrogen) 28 mg/dL (7.0-18.7); Calc. Creatinine Clearance 137 mL/min (70-130); Calcium 6.8 mg/dL (7.8-10.44); Carbon Dioxide 19 mmol/L (22-29); Chloride 114 mmol/L (98-107); Estimated GFR-MDRD Greater than 90; Magnesium 2.2 mg/dL (1.6-2.6); Phosphorus 2.1 mg/dL (2.3-4.7)
[2017-07-24] MEDS: Piperacillin/Tazobactam 3.375 GM in Sodium Chloride 0.9% 100 ML IVPB SCH ×4 (06:18→23:26)
[2017-07-24] MEDS: HumaLOG 300 UNITS/3 ML VIAL SC PRN (06:19)
[2017-07-24] MEDS: Sodium Bicarbonate 50 MEQ, Admixture Fee 1 EACH in Sodium Chloride 0.45% 1,000 ML IV SCH ×2 (07:15→11:16)
--- NOTE | 2017-07-24 09:26 | RAD ---
PORTABLE AP CHEST: Date: 07/24/17 HISTORY: On ventilator. COMPARISON: 07/23/17. FINDINGS: Endotracheal tube and nasogastric tubes remain in place and unchanged in position. Tip of the endotr acheal tube is difficult to visualize, but does appear at or just above the level of the erika. Med iastinal drain remains in place. This exam is obtained in shallow depth of inspiration which accentu ates the cardiac silhouette and bronchovascular markings. However, there is mild atelectasis at the left lung base. No pneumothorax or definite pleural effusion is seen. There has been no significant interval change from the prior exam. IMPRESSION: Stable chest with volume loss at the left lung base. POS: VALENTIN
[2017-07-24] MEDS: Insulin Detemir 100 UNITS/ML 15 UNITS in Pre-Filled Syringe 1 EACH SC SCH (09:59)
[2017-07-24] MEDS: Famotidine/PF 20 mg/2ml Vial SLOW IVP SCH ×2 (09:59→20:57)
--- NOTE | 2017-07-24 10:20 | PDOC.PN ---
- Subjective Encounter Start Date: 07/24/17 Encounter Start Time: 10:19 is intubated and sedated. - Objective Resuscitation Status: Resuscitation Status FULL:Full Resuscitation MAR Reviewed: Yes Vital Signs & Weight: Vital Signs (12 hours) Temp Pulse Resp BP Pulse Ox 07/24/17 10:11 63 113/76 07/24/17 08:00 97.7 F 79 28 H 99 07/24/17 06:00 25 H 07/24/17 04:00 97.9 F 30 H 07/24/17 02:44 75 07/24/17 02:00 28 H 07/24/17 00:26 69 28 H 99 07/24/17 00:00 98.1 F 21 H 07/23/17 22:38 71 Weight Admit Weight 161 lb 9.581 oz Weight 177 lb 14.609 oz Most Recent Monitor Data Heart Rate from ECG 73 NIBP 109/81 NIBP BP-Mean 92 Respiration from ECG 28 SpO2 100 I&O: 07/23/17 07/24/17 07/25/17 06:59 06:59 06:59 Intake Total 3070.6 3758 30 Output Total 770 900 181 Balance 2300.6 2858 -151 Result Diagrams: 07/24/17 03:46 07/24/17 03:46 Additional Labs: Accuchecks 07/23/17 07/23/17 23:29 15:44 POC Glucose 198 H 169 H Phys Exam - Physical Examination HEENT: PERRLA Respiratory: no wheezing + coarse breath sounds Cardiovascular: RRR, no significant murmur, no rub Gastrointestinal: soft Distended Musculoskeletal: edema present + edema in her upper extremities Dx/Plan (1) Pericardial effusion Code(s): I31.3 - PERICARDIAL EFFUSION (NONINFLAMMATORY) Status: Acute (2) Hypotension Status: Acute (3) Pancytopenia Code(s): D61.818 - OTHER PANCYTOPENIA Status: Acute (4) Systemic lupus erythematosus Code(s): M32.9 - SYSTEMIC LUPUS ERYTHEMATOSUS, UNSPECIFIED Status: Chronic - Plan * Pericardial Effusion from SLE with Cardiac Tamponade. She is s/p Pericardial Window * She remain intubated- ? Vanishing Lung Syndrome- will continue treatment as per Pulmonary Medicine * Will try Contacting Rheumatology again today * Thrombocytopenia has improved * Her HBG has been stable.
[2017-07-24] MEDS ORDERED: Sterile Water 10 ML ONE (11:44)
[2017-07-24] MEDS: Levothyroxine Sodium 100 MCG VIAL IVP SCH (13:58)
[2017-07-24] MEDS ORDERED: Potassium Chloride 20 MEQ TAB PO SCH (16:30)
--- NOTE | 2017-07-24 16:30 | PRG ---
DATE OF SERVICE: 07/24/2017 SERVICE: Pulmonary Medicine. INTERVAL HISTORY: The patient is doing okay from a respiratory standpoint. That being said, her lungs are fairly stiff and once again whenever we decrease her pressure support, her tidal volumes are typically 200 and a rate goes up to 44. She looks visibly a little bit less comfortable and we abort the spontaneous breathing trial. She currently denies any fevers, chills, nausea, or vomiting. There were no overnight events. PHYSICAL EXAMINATION: VITAL SIGNS: Afebrile, pulse 88, blood pressure 106/76, respirations 36, saturation 98% on 21% FiO2 and a PEEP of 5. GENERAL: The patient is awake and alert. No apparent distress. LUNGS: Decent air entry. I do not appreciate crackles today. No wheezing or rhonchi are significant. ABDOMEN: Distended. Soft. Bowel sounds are hyperactive with some that are bordering on high pitch. No rebound or guarding is appreciated. HEART: Normal rate, regular. MUSCULOSKELETAL: No cyanosis or clubbing. There is trace pitting at the sacral region. GENITOURINARY: Aiken catheter in place. LABORATORY DATA: WBC 3.5, hemoglobin 10.7 and roughly stable. Platelets 155, 000 and improving. INR 1.1. PH 7.4, pCO2 25.9, pO2 of 64 on 23% FiO2 at that time. Potassium 3.3, chloride 114, bicarbonate 19, anion gap 8, BUN 28, creatinine 0.70. Phosphorus 2.1, calcium 6.8. All culture results remain negative to date. IMAGING: Chest x-ray demonstrates volume loss in the left lung base. Cardiomegaly is evident on this AP film though there are smaller lung volumes. There is a significant amount of air throughout and what I can only assume is the colon. Endotracheal tube remains in place. I cannot really see the tip. There is an enteric catheter in good position below the level of the diaphragm. ASSESSMENT: 1. Acute hypoxic respiratory failure, resolved. 2. Shock, improved. 3. Severe sepsis, possible. 4. Pancytopenia, improving. 5. Systemic lupus erythematosus. 6. Vanishing lung syndrome, possible. PLAN: We will continue working on promoting a bowel movement in this patient. I will start on Precedex, Seroquel, and Klonopin. We will reattempt a sedation holiday, and spontaneous breathing trial first thing in the morning. Pulmonary and Critical Care will continue to follow. CRITICAL CARE TIME: 30 minutes. MTDD
[2017-07-24] MEDS: SODIUM CHLORIDE IVPB SCH ×2 (16:34→22:32)
[2017-07-24] MEDS: ADMIXTURE FEE IVPB SCH ×2 (16:34→22:32)
[2017-07-24] MEDS: DEXMEDETOMIDINE IVPB SCH ×2 (16:34→22:32)
[2017-07-24] MEDS ORDERED: Potassium Phosphate 15 MMOL in Sodium Chloride 0.9% 250 ML 250 ML IVPB SCH (17:30)
[2017-07-24] MEDS: clonazePAM 1 MG TAB PO SCH (20:56)
[2017-07-24] MEDS: Senokot S 8.6-50 MG TAB PO SCH (20:57)
[2017-07-24] MEDS ORDERED: Enoxaparin Sodium 40 MG/0.4 ML SYRINGE SC SCH (21:00)
[2017-07-25 04:51] LABS: Anion Gap 12 mmol/L (10-20); BUN (Urea Nitrogen) 27 mg/dL (7.0-18.7); Band 3 % (5-11); Calc. Creatinine Clearance 139 mL/min (70-130); Calcium 6.9 mg/dL (7.8-10.44); Carbon Dioxide 16 mmol/L (22-29); Chloride 115 mmol/L (98-107); Elliptocytes SLIGHT = 2-5 cells (100X) (0-1/hpf); Estimated GFR-MDRD Greater than 90; Hematocrit 37.1 % (36.0-47.0); Magnesium 2.3 mg/dL (1.6-2.6); Mean Platelet Volume 11.8 fL (7.4-10.4); Neutrophil 83 % (42-75); Phosphorus 3.1 mg/dL (2.3-4.7); Red Blood Cell (RBC) Count 4.43 mill/uL (4.20-5.40); White Blood Cell (WBC) Count 3.9 thou/uL (4.8-10.8)
[2017-07-25] MEDS: Piperacillin/Tazobactam 3.375 GM in Sodium Chloride 0.9% 100 ML IVPB SCH ×3 (05:10→17:31)
[2017-07-25] MEDS: HumaLOG 300 UNITS/3 ML VIAL SC PRN (06:20)
[2017-07-25 08:18] LABS: Smith IgG Autoabs >8.0 AI (0.0-0.9)
[2017-07-25] MEDS: clonazePAM 1 MG TAB PO SCH ×2 (08:44→21:06)
[2017-07-25] MEDS: Famotidine 20 MG TAB PER TUBE SCH ×2 (08:45→21:06)
[2017-07-25] MEDS: Enoxaparin Sodium 40 MG/0.4 ML SYRINGE SC SCH (08:45)
[2017-07-25] MEDS: Insulin Detemir 100 UNITS/ML 15 UNITS in Pre-Filled Syringe 1 EACH SC SCH (08:46)
[2017-07-25] MEDS: Senokot S 8.6-50 MG TAB PO SCH ×2 (08:47→21:05)
--- NOTE | 2017-07-25 08:51 | PDOC.PN ---
- Subjective Encounter Start Date: 07/25/17 Encounter Start Time: 08:50 Ms. Byrd is currently on CPAP trial. She appears comfortable. She indicates no complaints. - Objective Resuscitation Status: Resuscitation Status FULL:Full Resuscitation MAR Reviewed: Yes Vital Signs & Weight: Vital Signs (12 hours) Temp Pulse Resp Pulse Ox 07/25/17 08:00 26 H 07/25/17 07:26 97.6 F 51 L 22 H 100 07/25/17 07:25 50 L 07/25/17 07:00 97.6 F 07/25/17 04:00 97.7 F 07/25/17 02:00 19 07/25/17 00:00 97.6 F 24 H 07/24/17 23:18 59 L 13 100 07/24/17 22:00 20 Weight Admit Weight 161 lb 9.581 oz Weight 182 lb 1.629 oz Most Recent Monitor Data Heart Rate from ECG 65 NIBP 102/73 NIBP BP-Mean 82 Respiration from ECG 27 SpO2 100 I&O: 07/24/17 07/25/17 07/26/17 06:59 06:59 06:59 Intake Total 3758 2952.8 30 Output Total 900 1227 65 Balance 2858 1725.8 -35 Result Diagrams: 07/25/17 04:08 07/25/17 04:08 Additional Labs: Accuchecks 07/25/17 07/24/17 07/24/17 06:18 21:29 16:29 POC Glucose 222 H 120 H 145 H 07/24/17 11:13 POC Glucose 122 H Phys Exam - Physical Examination HEENT: PERRLA Respiratory: no wheezing, no rales, no rhonchi, clear to auscultation bilateral Cardiovascular: RRR, no significant murmur Gastrointestinal: soft, non-tender, positive bowel sounds + distended, and high pitched bowel sounds Musculoskeletal: edema present Dx/Plan (1) Pericardial effusion Code(s): I31.3 - PERICARDIAL EFFUSION (NONINFLAMMATORY) Status: Acute (2) Hypotension Status: Acute (3) Pancytopenia Code(s): D61.818 - OTHER PANCYTOPENIA Status: Acute (4) Systemic lupus erythematosus Code(s): M32.9 - SYSTEMIC LUPUS ERYTHEMATOSUS, UNSPECIFIED Status: Chronic - Plan * Pericardial Effusion with Cardiac Tamponade due to SLE- s/p Pericardial window * Acute respiratory failure- ? Vanishing Lung Syndrome- continue IV steroids * DM- blood glucose is stable * Continue wean from ventilator as tolerated.
--- NOTE | 2017-07-25 09:25 | RAD ---
PORTABLE AP CHEST: Date: 07-25-17 History: On ventilator. Follow up evaluation. Comparison: 07-24-17 FINDINGS/IMPRESSION: Endotracheal tube, nasogastric tube, and what appears to be a mediansternotomy drain again overlie t he chest. There are small bilateral pleural effusions and associated bibasilar atelectasis. Cardiac silhouette is enlarged. Bronchovascular markings are accentuated by the shallow depth of inspiration . There is gaseous distention of multiple loops of bowel overlying the upper abdomen, also noted on prior study. Given the large amount of bowel gas, findings could be related to either bowel obstruct ion or ileus. Views of the abdomen may be helpful for further evaluation. POS: [facility]
[2017-07-25] MEDS: Sodium Bicarbonate 150 MEQ in Dextrose 5% in Water 1,000 ML IV SCH ×2 (10:06)
--- NOTE | 2017-07-25 12:22 | PRG ---
DATE OF SERVICE: 07/25/2017 SERVICE: Pulmonary Medicine. INTERVAL HISTORY: The patient is doing really quite well from a cardiovascular and respiratory matias dpoint. Her breathing is much improved today. On Precedex, she is taking jimenes volumes. She cont inues to breathe a little bit rapidly but this is also much improved. She denies any fevers, chills , nausea, vomiting. There were no overnight events. She has had multiple bowel movements overnight and they are all liquidy. Nothing has been sent off for analysis to date. PHYSICAL EXAMINATION: VITAL SIGNS: Afebrile, pulse 80, blood pressure 106/80, respirations 17, saturation 100% on 21% FiO 2 and a PEEP of 5. HEENT: Normocephalic, atraumatic. Sclerae are white, conjunctivae pink. Oral and nasal mucosa is moist without lesions. LUNGS: Excellent air entry. There is no prolonged expiratory phase, wheezing, rhonchi or crackles. HEART: Normal rate, regular. ABDOMEN: Soft, nontender, and nondistended. Bowel sounds positive. They are actually hyperactive with high pitch to them. MUSCULOSKELETAL: No cyanosis or clubbing. There is diffuse trace to 1+ pitting throughout. GENITOURINARY: Aiken catheter in place. NEUROLOGIC: Grossly nonfocal. LABORATORY DATA: WBC 3.9, hemoglobin 11.9, and platelets 150,000. INR 1.1. Bicarbonate 16, anion gap 12. Chloride 115. Basic metabolic profile is otherwise unremarkable. Magnesium and phosphorus fall within the normal range. Her double stranded DNA is greater than greater than the assay limit of 300. Anti-nelson and anti-UNP antibodies are all abnormal. Blood cultures x2, anaerobic culture s, urine cultures are all negative to date. IMAGING: Chest x-ray demonstrates stable endotracheal tube, nasogastric tube, and mediastinal drain . Small bilateral pleural effusions with associated bibasilar atelectasis. Decreased inspiration. ASSESSMENT: 1. Acute hypoxic respiratory failure, resolved. 2. Bowel obstruction, suspected. 3. Shock, resolved. 4. Severe sepsis, possible. 5. Systemic lupus erythematosus. 6. Vanishing lung syndrome, possible. PLAN: We will check the residuals. If they are considerably elevated, we will put the NG tube to l ow intermittent suction. A stool sample will be collected and sent off for analysis including C. di ff, ova and parasite, and lactoferrin. She was previously tolerating tube feeds and continues to rivero ve multiple bowel movements. As such, my suspicion is for dealing with a partial obstruction. Her clinical exam of the belly is actually slightly improved today compared to yesterday. As such, we w ill continue supportive care. CRITICAL CARE TIME: 30 minutes.
--- NOTE | 2017-07-25 13:01 | RAD ---
ABDOMEN ONE VIEW: History: Abdominal pain and distention. Comparison: 06-26-17 FINDINGS: There is prominent gaseous distention of the colon. No dilated gas filled loops of small bowel are a lso present throughout the abdomen. Radiopaque wire overlies the urinary bladder. IMPRESSION: Gaseous distention of the colon. POS: [facility]
[2017-07-25 13:16] LABS: Anti-Striation AB Negative (Neg:<1:40); Complement C4 3 mg/dL (14-44); Mitochondrial (M2) ABS 28.7 Units (0.0-20.0); SCL-70 IgG AutoAb 0.2 AI (0.0-0.9); Smith IgG AutoAb >8.0 AI (0.0-0.9); Smooth Muscle AB 37 Units (0-19); Thyroid Peroxidase Abs 12 IU/mL (0-34); U1 RNP/SNRNP IgG AutoAb >8.0 AI (0.0-0.9)
[2017-07-25] MEDS: Levothyroxine Sodium 100 MCG VIAL IVP SCH (13:32)
[2017-07-26] MEDS: Piperacillin/Tazobactam 3.375 GM in Sodium Chloride 0.9% 100 ML IVPB SCH ×4 (00:06→17:50)
[2017-07-26] MEDS: Furosemide 40 MG/4 ML VIAL SLOW IVP SCH (05:36)
[2017-07-26 06:48] LABS: #Lymphocytes 0.5 thou/uL (1.20-3.40); #Monocytes 0.5 thou/uL (0.11-0.59); #Neutrophils 5.5 thou/uL (1.40-6.50); %Eosinophils 0.1 % (0.0-10.0); %Lymphocytes 8.1 % (21.0-51.0); %Monocytes 7.3 % (0.0-10.0); Hematocrit 42.2 % (36.0-47.0); Mean Platelet Volume 9.7 fL (7.4-10.4); Red Blood Cell (RBC) Count 4.95 mill/uL (4.20-5.40); White Blood Cell (WBC) Count 6.5 thou/uL (4.8-10.8)
[2017-07-26 07:08] LABS: Anion Gap 13 mmol/L (10-20); BUN (Urea Nitrogen) 25 mg/dL (7.0-18.7); Calc. Creatinine Clearance 156 mL/min (70-130); Calcium 7.4 mg/dL (7.8-10.44); Carbon Dioxide 20 mmol/L (22-29); Chloride 112 mmol/L (98-107); Estimated GFR-MDRD Greater than 90; Magnesium 2.1 mg/dL (1.6-2.6); Phosphorus 3.7 mg/dL (2.3-4.7)
--- NOTE | 2017-07-26 07:36 | RAD ---
AP VIEW OF CHEST: Date: 07/26/17 INDICATION: Intubation. COMPARISON: Prior exam dated 07/25/17. FINDINGS: Gastric catheter and ET tube is unchanged. Cardiomegaly with pulmonary vascular congestion is simila r. There are low lung volumes present. There is increasing opacity within both lower lobes, possibly related to atelectasis; however, developing pneumonia cannot be excluded. There is a suspected surg ical drain within the upper abdomen. Osseous structures are similar. IMPRESSION: 1. Low lung volumes. 2. Increased opacity both lower lobes may reflect developing atelectasis or pneumonia. Recommend co ntinued follow-up. 3. ET tube and gastric catheter are unchanged. There is a catheter within the upper abdomen that ma y reflect a surgical drain. 4. No pneumothorax. POS: LINDA
[2017-07-26] MEDS: clonazePAM 1 MG TAB PO SCH ×2 (08:56→21:04)
[2017-07-26] MEDS: Famotidine 20 MG TAB PER TUBE SCH ×2 (08:56→21:03)
[2017-07-26] MEDS: Enoxaparin Sodium 40 MG/0.4 ML SYRINGE SC SCH (08:56)
[2017-07-26] MEDS: Senokot S 8.6-50 MG TAB PO SCH ×2 (08:56→21:04)
[2017-07-26] MEDS: Insulin Detemir 100 UNITS/ML 15 UNITS in Pre-Filled Syringe 1 EACH SC SCH (08:57)
--- NOTE | 2017-07-26 09:45 | PRG ---
DATE OF SERVICE: 07/26/2017 SERVICE: Pulmonary Medicine INTERVAL HISTORY: The patient is doing okay overnight. After having multiple bowel movements, we o rdered some stool studies. Then she subsequently has not had any bowel movements. She currently is a little under the influence of some sedation and cannot provide any elements of the history. Ther e were no reported events overnight. She continues to have increasing abdominal distention. PHYSICAL EXAMINATION: VITAL SIGNS: Afebrile, pulse 85, blood pressure 85/63, respirations 30, saturation 93% on 21% FiO2 and a PEEP of 5. HEENT: Normocephalic, atraumatic. Sclerae are white, conjunctivae pink. Oral and nasal mucosa is moist without lesions. LUNGS: Decent air entry. There is no prolonged expiratory phase, wheezing or crackles. HEART: Normal rate, regular. ABDOMEN: Soft. Distended. Bowel sounds are hyperactive and bordering on high pitch. GENITOURINARY: Aiken catheter in place. NEUROLOGIC: Grossly nonfocal. LABORATORY: WBC 6.5, hemoglobin 13.4, platelets 166,000. Chloride is improved to 112, bicarbonate is improved to 20. Basic metabolic profile, magnesium and phosphorus are otherwise unremarkable. A ll culture results are negative to date. IMAGING: Chest x-ray demonstrates no acute cardiopulmonary abnormality. There are some low lung vo lumes, which accentuate the interstitial markings. There are dilated loops of bowel identified. KUB demonstrates dilated loops of large bowel. There is no obvious small bowel dilation. ASSESSMENT: 1. Acute hypoxic respiratory failure, resolved. 2. Bowel obstruction, possible. 3. Shock, resolved. 4. Severe sepsis, possible. 5. Systemic lupus erythematosus. 6. Vanishing lung syndrome, versus abdominal distention causing low lung volumes. PLAN: We will put a rectal tube in to see if we can decompress the bowel. A GI consultation will b e performed. We will hold tube feeds for the time being. Potassium will be replaced. We will cont inue to diurese the patient to keep her close to the volume neutral over the next 24-48 hours. I wi ll return her mechanical ventilation from her spontaneous breathing trial until the GI issue is reso lved, we are not going to be able to extubate her. Critical care time: 30 minutes.
[2017-07-26] MEDS: Sodium Bicarbonate 75 MEQ in Dextrose 5% in Water 1,000 ML IV SCH ×2 (10:35)
[2017-07-26 11:32] LABS: Oxyhemoglobin 93.7 % (94.0-97.0); Sodium 143 mmol/L (135-148)
[2017-07-26 11:52] LABS: Mechanical Tidal Volume 330 ml; Modified Allen's Test POSITIVE; Pressure Support 19 cmH2O; Vent YES
[2017-07-26 11:53] LABS: Mode SIMV.PSV
[2017-07-26] MEDS: Sodium Bicarbonate 150 MEQ in Dextrose 5% in Water 1,000 ML IV SCH ×2 (13:18)
--- NOTE | 2017-07-26 13:18 | PDOC.PN ---
- Subjective Encounter Start Date: 07/26/17 Encounter Start Time: 13:16 pt doing good had multiple bm still intubated has increasing abd distention - Objective Resuscitation Status: Resuscitation Status FULL:Full Resuscitation MAR Reviewed: Yes Vital Signs & Weight: Vital Signs (12 hours) Temp Pulse Resp BP Pulse Ox 07/26/17 12:00 98.7 F 26 H 07/26/17 10:43 69 85/68 L 07/26/17 10:00 26 H 07/26/17 08:00 98.5 F 73 25 H 96 07/26/17 07:00 98.5 F 07/26/17 06:40 77 114/86 07/26/17 06:36 74 34 H 99 07/26/17 06:00 31 H 07/26/17 04:00 97.6 F 32 H 07/26/17 02:00 21 H Weight Admit Weight 161 lb 9.581 oz Weight 190 lb 4.143 oz Most Recent Monitor Data Heart Rate from ECG 68 NIBP 96/69 NIBP BP-Mean 78 Respiration from ECG 18 SpO2 95 I&O: 07/25/17 07/26/17 07/27/17 06:59 06:59 06:59 Intake Total 2952.8 2987 Output Total 1227 1059 1045 Balance 1725.8 1928 -1045 Result Diagrams: 07/26/17 06:24 07/26/17 06:24 Additional Labs: Accuchecks 07/26/17 07/26/17 07/25/17 10:14 04:05 22:14 POC Glucose 114 H 110 122 H Phys Exam - Physical Examination intubated HEENT: moist MMs Neck: no JVD Respiratory: no wheezing Cardiovascular: RRR Gastrointestinal: soft distented sedated on vent Dx/Plan (1) Acute hypoxemic respiratory failure Code(s): J96.01 - ACUTE RESPIRATORY FAILURE WITH HYPOXIA Status: Resolved (2) Bowel obstruction Code(s): K56.609 - UNSP INTESTNL OBST, UNSP TO PARTIAL VERSUS COMPLETE OBST Status: Acute (3) Shock Code(s): R57.9 - SHOCK, UNSPECIFIED Status: Resolved (4) Hypothyroidism Code(s): E03.9 - HYPOTHYROIDISM, UNSPECIFIED Status: Chronic (5) Normocytic anemia Code(s): D64.9 - ANEMIA, UNSPECIFIED Status: Chronic (6) Systemic lupus erythematosus Code(s): M32.9 - SYSTEMIC LUPUS ERYTHEMATOSUS, UNSPECIFIED Status: Chronic (7) Pericardial effusion Code(s): I31.3 - PERICARDIAL EFFUSION (NONINFLAMMATORY) Status: Acute - Plan * f/u gi consult * f/u geometry professor plan * Pericardial Effusion with Cardiac Tamponade due to SLE- s/p Pericardial window * Acute respiratory failure- ? Vanishing Lung Syndrome- continue IV steroids * DM- blood glucose is stable * Continue wean from ventilator as tolerated.
[2017-07-26] MEDS: Levothyroxine Sodium 100 MCG VIAL IVP SCH (14:39)
[2017-07-27] MEDS: Piperacillin/Tazobactam 3.375 GM in Sodium Chloride 0.9% 100 ML IVPB SCH ×5 (00:17→23:37)
[2017-07-27] MEDS: Furosemide 40 MG/4 ML VIAL SLOW IVP SCH ×2 (05:04→13:53)
[2017-07-27 05:15] LABS: Anion Gap 11 mmol/L (10-20); BUN (Urea Nitrogen) 23 mg/dL (7.0-18.7); Calc. Creatinine Clearance 177 mL/min (70-130); Calcium 7.2 mg/dL (7.8-10.44); Carbon Dioxide 23 mmol/L (22-29); Chloride 110 mmol/L (98-107); Estimated GFR-MDRD Greater than 90
[2017-07-27 05:34] LABS: Anisocytosis MODERATE=16-30 cells (100X) (0-5/hpf); Band 4 % (5-11); Hematocrit 34.8 % (36.0-47.0); Mean Platelet Volume 11.4 fL (7.4-10.4); Neutrophil 77 % (42-75); Reactive Lymphocytes 1 % (0-10); Red Blood Cell (RBC) Count 4.12 mill/uL (4.20-5.40); Spherocytes SLIGHT = 1-5 cells (100X) (None Seen); Tear Drops SLIGHT = 2-5 cells (100X) (0-1/hpf); White Blood Cell (WBC) Count 6.2 thou/uL (4.8-10.8)
[2017-07-27] MEDS: clonazePAM 1 MG TAB PO SCH (09:18)
[2017-07-27] MEDS: Enoxaparin Sodium 40 MG/0.4 ML SYRINGE SC SCH (09:18)
[2017-07-27] MEDS: Insulin Detemir 100 UNITS/ML 15 UNITS in Pre-Filled Syringe 1 EACH SC SCH (09:19)
[2017-07-27] MEDS: Senokot S 8.6-50 MG TAB PO SCH (09:19)
[2017-07-27] MEDS: Famotidine 20 MG TAB PER TUBE SCH (09:19)
[2017-07-27] MEDS: Sodium Bicarbonate 75 MEQ in Dextrose 5% in Water 1,000 ML IV SCH ×2 (09:19)
[2017-07-27] MEDS ORDERED: Insulin Detemir 100 UNITS/ML 10 UNITS in Pre-Filled Syringe 1 EACH SC SCH (10:22)
[2017-07-27] MEDS ORDERED: Potassium Chloride 40 MEQ in Sodium Chloride 0.9% 250 ML 250 ML IVPB SCH (10:30)
--- NOTE | 2017-07-27 10:44 | PRG ---
DATE OF SERVICE: 07/27/2017 SERVICE: Pulmonary Medicine. INTERVAL HISTORY: The patient has done very well from a respiratory standpoint. The compliance of her lungs has greatly improved. This is likely secondary to decompression of her large bowel with placement of the rectal tube yesterday. She currently denies any abdominal discomfort, chest pain, or difficulty breathing. She is on a CPAP trial this morning, and is already doing quite well. PHYSICAL EXAMINATION: VITAL SIGNS: Afebrile, pulse 86, blood pressure 128/96, respirations 33, saturation 100% on 21% FIO2 and PEEP of 5. GENERAL: Patient is awake and alert, in no apparent distress. LUNGS: Excellent air entry with no prolonged expiratory phase, wheezing, rhonchi, or crackles. HEART: Normal rate, regular. ABDOMEN: Soft, nontender, nondistended. Bowel sounds positive. MUSCULOSKELETAL: No cyanosis or clubbing. Diffuse 1+ to 2+ pitting throughout. LABORATORY DATA: WBC 6.2, hemoglobin 11.4, platelets 117. Creatinine 0.59, BUN 23. Chloride is down trending to 110. Potassium 3.7, calcium 7.2. All stool cultures are unremarkable at this time. ASSESSMENT: 1. Acute hypoxic respiratory failure, resolved. 2. Partial bowel obstruction, possible. 3. Systemic lupus erythematosus, poorly controlled. 4. Shock secondary to possible tamponade versus septic shock. 5. Vanishing lung syndrome, possible. PLAN: The patient is doing much, much better on her spontaneous breathing trial with decompression of the bowel yesterday. As such, we will consider her for extubation at the end of her CPAP trial. If she tolerates this, rectal tube will be removed and we will start focusing on mobilizing the patient as much as tolerated. I will transition her off of the bicarbonate drip. We will intensify her diuretic. Pulmonary Critical Care will continue to follow and she will certainly remain in the ICU today. Critical care time: 30 minutes. KANA
--- NOTE | 2017-07-27 13:00 | PDOC.PN ---
- Subjective Encounter Start Date: 07/27/17 Encounter Start Time: 12:58 extubated doing well no f/c no n/v - Objective Resuscitation Status: Resuscitation Status FULL:Full Resuscitation MAR Reviewed: Yes Vital Signs & Weight: Vital Signs (12 hours) Temp Pulse Resp BP Pulse Ox 07/27/17 09:07 89 35 H 99 07/27/17 08:00 97 F L 90 19 97 07/27/17 07:00 97 F L 07/27/17 06:53 92 105/79 07/27/17 06:46 72 16 99 07/27/17 06:00 19 07/27/17 04:00 97.7 F 20 07/27/17 02:00 25 H Weight Admit Weight 161 lb 9.581 oz Weight 193 lb 4.8 oz Most Recent Monitor Data Heart Rate from ECG 76 NIBP 125/88 NIBP BP-Mean 104 Respiration from ECG 27 SpO2 100 I&O: 07/26/17 07/27/17 07/28/17 06:59 06:59 06:59 Intake Total 2987 1577 Output Total 5172 1965 540 Balance 1928 -388 -540 Result Diagrams: 07/27/17 04:06 07/27/17 04:06 Additional Labs: Accuchecks 07/27/17 07/27/17 07/26/17 10:09 04:04 21:15 POC Glucose 72 82 75 07/26/17 16:59 POC Glucose 98 Phys Exam - Physical Examination Constitutional: NAD HEENT: PERRLA Neck: no JVD Respiratory: no wheezing decreased at bases Cardiovascular: RRR Gastrointestinal: soft Musculoskeletal: pulses present Neurological: moves all 4 limbs Dx/Plan (1) Acute hypoxemic respiratory failure Code(s): J96.01 - ACUTE RESPIRATORY FAILURE WITH HYPOXIA Status: Resolved (2) Bowel obstruction Code(s): K56.609 - UNSP INTESTNL OBST, UNSP TO PARTIAL VERSUS COMPLETE OBST Status: Acute (3) Shock Code(s): R57.9 - SHOCK, UNSPECIFIED Status: Resolved (4) Hypothyroidism Code(s): E03.9 - HYPOTHYROIDISM, UNSPECIFIED Status: Chronic (5) Normocytic anemia Code(s): D64.9 - ANEMIA, UNSPECIFIED Status: Chronic (6) Systemic lupus erythematosus Code(s): M32.9 - SYSTEMIC LUPUS ERYTHEMATOSUS, UNSPECIFIED Status: Chronic (7) Pericardial effusion Code(s): I31.3 - PERICARDIAL EFFUSION (NONINFLAMMATORY) Status: Acute - Plan * doing well * extubated * f/u business transformation analyst plan * pt/ot as tolerated * Pericardial Effusion with Cardiac Tamponade due to SLE- s/p Pericardial window * Acute respiratory failure- ? Vanishing Lung Syndrome- continue IV steroids * DM- blood glucose is stable
[2017-07-27] MEDS: Levothyroxine Sodium 100 MCG VIAL IVP SCH (13:53)
[2017-07-27] MEDS: Famotidine 20 MG TAB PO SCH (20:49)
--- NOTE | 2017-07-27 21:19 | CON ---
DATE OF CONSULTATION: 07/27/2017 REQUESTING PHYSICIAN: Dr. Brenner. REASON FOR CONSULTATION: Abdominal distention. HISTORY OF PRESENT ILLNESS: Kimberley Byrd is a 37-year-old woman who speaks Bulgarian only, here today on hospital day 9. We were consulted for acute abdominal distention over the past few days, which is actually improved today. Briefly, she had a recent diagnoses of systemic lupus erythematos us as well as community-acquired pneumonia. She presented on 07/19/2017 with increasing shortness o f breath and pleuritic chest pain and was diagnosed with a pericardial effusion and cardiac tamponad e. She subsequently underwent a pericardial window. She has been treated with broad-spectrum antib iotics, is briefly on the ventilator and then several days ago, she was noted to have significantly increasing abdominal distention and worsening respiratory status. Abdominal x-ray from 2 days ago d emonstrated massive dilation of the loops of the colon with relative nondistention of the small katrina l loops. A rectal tube was placed yesterday and there was quite a bit of output in terms of gas and stool from the rectal tube and actually the patient's abdominal distention seems to have significan tly improved. With reduction in the distention, her respiratory status improved and she was actuall y able to be extubated and is breathing quite comfortably now. She is actually started on a full li quid diet today and seems to be tolerating this well. Nursing report she had a large bowel movement earlier today. Currently, the patient denies any abdominal pain, nausea or vomiting. REVIEW OF SYSTEMS: Full review of systems including constitutional, head, eyes, ears, nose, throat, GI, , cardiovascular, respiratory, musculoskeletal and neurologic systems is negative except as n oted in the HPI. PAST MEDICAL HISTORY: Systemic lupus erythematosus; hypothyroidism, status post thyroidectomy; rece nt community-acquired pneumonia 06/2017; normocytic anemia; bilateral tubal ligation; pericardial ef fusion with cardiac tamponade, status post pericardial window. ALLERGIES: No known drug allergies. OUTPATIENT MEDICATIONS: Feosol, Plaquenil, levothyroxine. INPATIENT MEDICATIONS: DuoNeb, Lovenox, Pepcid, Lasix, insulin sliding scale, Synthroid, IV methylp rednisolone 40 mg twice daily, and Zosyn. FAMILY HISTORY: Noncontributory. SOCIAL HISTORY: No current alcohol, tobacco or drug use. She is a former smoker. PHYSICAL EXAMINATION: VITAL SIGNS: Temperature 98.5, pulse 76, blood pressure 125/88 and 100% oxygen saturation on room a ir. GENERAL: A 37-year-old woman lying in bed comfortably, in no distress. SKIN: No jaundice. EYES: No scleral icterus. Extraocular movements intact. ENT: Mucous membranes moist, no oral lesions. LYMPH: No submandibular, supraclavicular lymphadenopathy. THYROID: Nontender to palpation. HEART: Regular rate and rhythm. LUNGS: Clear to auscultation bilaterally. ABDOMEN: Obese, mild distention but soft and nontender to deep palpation throughout. Bowel sounds are normoactive throughout. EXTREMITIES: No peripheral edema. VESSELS: Radial pulses 2+ bilaterally. NEUROLOGICAL: Cranial nerves II through XII intact bilaterally. No focal deficits. LABORATORY STUDIES: WBC 6.2, hemoglobin 11.4, platelets 117. BUN is 23, creatinine 0.59, sodium 14 0, potassium 3.7, glucose 72. IMAGING STUDIES: Abdominal plain film from 07/25/2017 showed massive dilation essentially the entir e colon with small bowel loops also filled with gas, but relatively nondistended. ASSESSMENT AND PLAN: 1. Abdominal distention, improved. 2. Ileus, resolving. It appears the patient has already had great success after rectal tube placement yesterday. I think she must have just had an acute colonic ileus, which appears to have resolved now. Would mobilize her as much as possible. Advance diet as tolerated. Avoid narcotic or benzodiazepine medications i f possible. No further recommendations from a GI perspective at this time. GI will go ahead and si gn off, but please call back with questions or concerns.
[2017-07-28 05:18] LABS: Band 9 % (5-11); Hematocrit 38.8 % (36.0-47.0); Mean Platelet Volume 7.3 fL (7.4-10.4); Myelocyte 1 % (0-0); Neutrophil 82 % (42-75); Nucleated RBC 2 % (0); Red Blood Cell (RBC) Count 4.56 mill/uL (4.20-5.40); White Blood Cell (WBC) Count 6.8 thou/uL (4.8-10.8)
[2017-07-28 05:27] LABS: Anion Gap 13 mmol/L (10-20); BUN (Urea Nitrogen) 20 mg/dL (7.0-18.7); Calc. Creatinine Clearance 158 mL/min (70-130); Calcium 7.8 mg/dL (7.8-10.44); Carbon Dioxide 25 mmol/L (22-29); Chloride 106 mmol/L (98-107); Estimated GFR-MDRD Greater than 90; Magnesium 2.3 mg/dL (1.6-2.6); Phosphorus 3.6 mg/dL (2.3-4.7)
[2017-07-28] MEDS: Piperacillin/Tazobactam 3.375 GM in Sodium Chloride 0.9% 100 ML IVPB SCH (06:06)
[2017-07-28] MEDS: Furosemide 40 MG/4 ML VIAL SLOW IVP SCH ×2 (06:06→09:39)
--- NOTE | 2017-07-28 08:59 | PDOC.PN ---
- Subjective Encounter Start Date: 07/28/17 Encounter Start Time: 08:57 Patient seen and examined. No new complaints. No overnight events - Objective Resuscitation Status: Resuscitation Status FULL:Full Resuscitation MAR Reviewed: Yes Vital Signs & Weight: Vital Signs (12 hours) Temp Pulse Resp Pulse Ox 07/28/17 07:36 93 28 H 99 07/28/17 04:00 98.5 F 07/28/17 00:00 98.4 F 07/27/17 23:29 81 28 H 100 Weight Admit Weight 161 lb 9.581 oz Weight 190 lb 4.143 oz Most Recent Monitor Data Heart Rate from ECG 86 NIBP 131/91 NIBP BP-Mean 107 Respiration from ECG 28 SpO2 98 I&O: 07/27/17 07/28/17 07/29/17 06:59 06:59 06:59 Intake Total 1577 1418 Output Total 1965 2760 Balance -388 1347 Result Diagrams: 07/28/17 04:14 07/28/17 04:14 Additional Labs: Accuchecks 07/28/17 07/27/17 07/27/17 04:13 21:45 21:20 POC Glucose 95 105 52 L* 07/27/17 07/27/17 07/27/17 20:46 16:25 10:09 POC Glucose 54 L* 95 72 Phys Exam - Physical Examination Constitutional: NAD HEENT: PERRLA Neck: no JVD Respiratory: no wheezing Cardiovascular: no significant murmur Gastrointestinal: non-tender Musculoskeletal: pulses present Neurological: moves all 4 limbs Psychiatric: A&O x 3 Dx/Plan (1) Acute hypoxemic respiratory failure Code(s): J96.01 - ACUTE RESPIRATORY FAILURE WITH HYPOXIA Status: Resolved (2) Bowel obstruction Code(s): K56.609 - UNSP INTESTNL OBST, UNSP TO PARTIAL VERSUS COMPLETE OBST Status: Resolved Comment: rectal tube removed (3) Shock Code(s): R57.9 - SHOCK, UNSPECIFIED Status: Resolved (4) Hypothyroidism Code(s): E03.9 - HYPOTHYROIDISM, UNSPECIFIED Status: Chronic (5) Normocytic anemia Code(s): D64.9 - ANEMIA, UNSPECIFIED Status: Chronic (6) Systemic lupus erythematosus Code(s): M32.9 - SYSTEMIC LUPUS ERYTHEMATOSUS, UNSPECIFIED Status: Chronic (7) Pericardial effusion Code(s): I31.3 - PERICARDIAL EFFUSION (NONINFLAMMATORY) Status: Resolved (8) Physical deconditioning Code(s): R53.81 - OTHER MALAISE Status: Acute - Plan gi consult appreciated advance diet pt/ot
[2017-07-28] MEDS: Famotidine 20 MG TAB PO SCH ×2 (09:37→20:54)
[2017-07-28] MEDS: Enoxaparin Sodium 40 MG/0.4 ML SYRINGE SC SCH (09:37)
--- NOTE | 2017-07-28 09:52 | PRG ---
DATE OF SERVICE: 07/28/2017 SERVICE: Pulmonary Medicine INTERVAL HISTORY: The patient is doing really well from a respiratory standpoint. She tolerated extubation just fine yesterday. She denies any shortness of breath or chest discomfort, though she does remain a little tachypneic. She is weak, but otherwise, her strength is improving a little bit. Her color is much improved. PHYSICAL EXAMINATION: VITAL SIGNS: Afebrile, pulse 93, blood pressure 131/91, respirations 28, saturation 99% on room air. GENERAL: The patient is awake and alert, in no apparent distress. LUNGS: Decent air entry with no prolonged expiratory phase, wheezing, rhonchi or crackles. HEART: Normal rate, regular. ABDOMEN: Soft, nontender, nondistended. Bowel sounds positive. MUSCULOSKELETAL: No cyanosis or clubbing. No pitting in the bilateral lower extremities. NEUROLOGIC: Grossly nonfocal. LABORATORY DATA: WBC 6.8, hemoglobin 12.9, platelets 127,000. Basic metabolic profile, magnesium, and phosphorus are unremarkable. Blood sugars were 52 and 54 yesterday evening. Culture results are unremarkable at this time. ASSESSMENT: 1. Acute hypoxic respiratory failure, resolved. 2. Systemic lupus erythematosus. 3. Pericardial effusion with tamponade, status post window and subsequent removal of drain. 4. Ileus versus a partial large bowel obstruction, resolved. 5. Shock, likely secondary to tamponade, but septic shock was not ruled out. 6. Septic shock, possible, resolved with no source ever identified, s/p empiric Zosyn x 8 days. 7. Vanishing lung syndrome, possible. PLAN: The patient will remain on her glucocorticoids. She will need to be discharged on these medications. Once she recovers and is fully tolerating p.o. , she can be switched over to an oral steroid. She will need to have close followup in the outpatient setting with Rheumatology. Ultimately, she failed Plaquenil therapy and is going to require a different combination of disease modifying therapy. We will continue our efforts at mobilizing the patient. She will be [facility]ed to the [facility] as she is still a little bit weak and would not do well on the floor at this time. KANA
[2017-07-28 12:45] VITALS: BMI 37.1
[2017-07-28] MEDS ORDERED: Sterile Water 10 ML ONE (14:37)
[2017-07-28] MEDS: Levothyroxine Sodium 100 MCG VIAL IVP SCH (14:39)
[2017-07-29] MEDS: Famotidine 20 MG TAB PO SCH ×2 (08:56→20:57)
[2017-07-29] MEDS: Furosemide 40 MG/4 ML VIAL SLOW IVP SCH (08:56)
[2017-07-29] MEDS: Enoxaparin Sodium 40 MG/0.4 ML SYRINGE SC SCH (08:56)
[2017-07-29 12:23] LABS: Anion Gap 10 mmol/L (10-20); BUN (Urea Nitrogen) 20 mg/dL (7.0-18.7); Calc. Creatinine Clearance 130 mL/min (70-130); Calcium 8.8 mg/dL (7.8-10.44); Carbon Dioxide 30 mmol/L (22-29); Chloride 101 mmol/L (98-107); Estimated GFR-MDRD Greater than 90
--- NOTE | 2017-07-29 14:00 | PDOC.PN ---
- Subjective Encounter Start Date: 07/29/17 Encounter Start Time: 13:58 doing good eating no sob/cp no f/c - Objective Resuscitation Status: Resuscitation Status FULL:Full Resuscitation MAR Reviewed: Yes Vital Signs & Weight: Vital Signs (12 hours) Temp Pulse Resp BP Pulse Ox 07/29/17 11:41 98.2 F 100 18 100/74 100 07/29/17 08:00 98.4 F 94 18 100 07/29/17 07:00 98.4 F 94 18 107/77 100 07/29/17 06:31 95 20 99 07/29/17 03:35 98.8 F 84 20 123/71 98 Weight Admit Weight 161 lb 9.581 oz Weight 165 lb 6.4 oz Most Recent Monitor Data Heart Rate from ECG 116 NIBP 115/90 NIBP BP-Mean 99 Respiration from ECG 34 SpO2 97 I&O: 07/28/17 07/29/17 07/30/17 06:59 06:59 06:59 Intake Total 1418 862 240 Output Total 0820 0245 Balance -1392 -1324 240 Result Diagrams: 07/28/17 04:14 07/29/17 11:41 Additional Labs: Accuchecks 07/29/17 07/29/17 07/28/17 10:20 05:34 20:36 POC Glucose 101 84 95 07/28/17 07/28/17 19:45 16:53 POC Glucose 91 63 L Phys Exam - Physical Examination Constitutional: NAD HEENT: PERRLA Neck: no JVD Respiratory: no rales Cardiovascular: no significant murmur Gastrointestinal: no distention Musculoskeletal: pulses present Neurological: moves all 4 limbs Psychiatric: A&O x 3 Dx/Plan (1) Acute hypoxemic respiratory failure Code(s): J96.01 - ACUTE RESPIRATORY FAILURE WITH HYPOXIA Status: Resolved (2) Bowel obstruction Code(s): K56.609 - UNSP INTESTNL OBST, UNSP TO PARTIAL VERSUS COMPLETE OBST Status: Resolved Comment: rectal tube removed (3) Shock Code(s): R57.9 - SHOCK, UNSPECIFIED Status: Resolved (4) Hypothyroidism Code(s): E03.9 - HYPOTHYROIDISM, UNSPECIFIED Status: Chronic (5) Normocytic anemia Code(s): D64.9 - ANEMIA, UNSPECIFIED Status: Chronic (6) Systemic lupus erythematosus Code(s): M32.9 - SYSTEMIC LUPUS ERYTHEMATOSUS, UNSPECIFIED Status: Chronic (7) Pericardial effusion Code(s): I31.3 - PERICARDIAL EFFUSION (NONINFLAMMATORY) Status: Resolved (8) Physical deconditioning Code(s): R53.81 - OTHER MALAISE Status: Acute - Plan * cont current care * pt/ot
[2017-07-29] MEDS: Levothyroxine Sodium 100 MCG VIAL IVP SCH (14:41)
--- NOTE | 2017-07-29 16:15 | PRG ---
DATE OF SERVICE: 07/29/2017 SUBJECTIVE: Mr. Byrd had no complaints. She is resting comfortably. OBJECTIVE: VITAL SIGNS: She is afebrile, heart rate is 92, respiratory rate is 18, oximetry is 100%. LUNGS: Clear. HEART: Regular rhythm. ABDOMEN: Soft. EXTREMITIES: Without asymmetry. IMPRESSION: 1. Lupus with recent tamponade, most likely related to a lupus flare. 2. ?lupus-induced diaphragm dysfunction. 3. Deconditioning. PLAN: Continue current supportive care. She is stable to move out of a monitor bed.
[2017-07-30 05:12] LABS: #Lymphocytes 0.4 thou/uL (1.20-3.40); #Monocytes 0.1 thou/uL (0.11-0.59); #Neutrophils 4.2 thou/uL (1.40-6.50); %Eosinophils 0.2 % (0.0-10.0); %Lymphocytes 8.8 % (21.0-51.0); Hematocrit 32.4 % (36.0-47.0); Red Blood Cell (RBC) Count 3.72 mill/uL (4.20-5.40); White Blood Cell (WBC) Count 4.7 thou/uL (4.8-10.8)
[2017-07-30 05:46] LABS: Anion Gap 9 mmol/L (10-20); BUN (Urea Nitrogen) 21 mg/dL (7.0-18.7); BUN/Creatinine Ratio 33.33; Calc. Creatinine Clearance 137 mL/min (70-130); Calcium 8.4 mg/dL (7.8-10.44); Carbon Dioxide 28 mmol/L (22-29); Chloride 104 mmol/L (98-107); Estimated GFR-MDRD Greater than 90; Phosphorus 3.8 mg/dL (2.3-4.7)
[2017-07-30] MEDS: Enoxaparin Sodium 40 MG/0.4 ML SYRINGE SC SCH (08:50)
[2017-07-30] MEDS: Famotidine 20 MG TAB PO SCH ×2 (08:50→20:19)
[2017-07-30] MEDS: Furosemide 40 MG/4 ML VIAL SLOW IVP SCH (08:50)
--- NOTE | 2017-07-30 15:28 | PRG ---
DATE OF SERVICE: 07/30/2017 SUBJECTIVE: Ms. Byrd is afebrile. OBJECTIVE: VITAL SIGNS: Heart rate 81, respiratory rate 16, blood pressure 107/69, oximetry is 96% on room air . IMPRESSION: Lupus flare with tamponade. PLAN: Ongoing treatment of her lupus. Follow up for her severe lupus will be the next priority.
[2017-07-30] MEDS: Levothyroxine Sodium 100 MCG VIAL IVP SCH (16:26)
--- NOTE | 2017-07-30 17:33 | PDOC.PN ---
- Subjective Encounter Start Date: 07/30/17 Encounter Start Time: 17:32 Patient seen and examined. No new complaints. No overnight events - Objective Resuscitation Status: Resuscitation Status FULL:Full Resuscitation MAR Reviewed: Yes Vital Signs & Weight: Vital Signs (12 hours) Temp Pulse Resp BP Pulse Ox 07/30/17 14:17 81 16 96 07/30/17 08:00 98.4 F 81 18 107/69 93 L 07/30/17 07:08 88 18 95 Weight Admit Weight 161 lb 9.581 oz Weight 160 lb 0.184 oz Most Recent Monitor Data Heart Rate from ECG 116 NIBP 115/90 NIBP BP-Mean 99 Respiration from ECG 34 SpO2 97 I&O: 07/29/17 07/30/17 07/31/17 06:59 06:59 06:59 Intake Total 862 480 720 Output Total 3875 Balance -3013 480 720 Result Diagrams: 07/30/17 04:54 07/30/17 04:54 Additional Labs: Accuchecks 07/30/17 07/30/17 07/30/17 16:45 11:55 04:03 POC Glucose 121 H 98 112 H 07/29/17 07/29/17 20:48 17:28 POC Glucose 189 H 108 Phys Exam - Physical Examination Constitutional: NAD HEENT: moist MMs Neck: no JVD Respiratory: no rales Cardiovascular: no significant murmur Gastrointestinal: no distention Musculoskeletal: pulses present Neurological: normal sensation Psychiatric: A&O x 3 Dx/Plan (1) Acute hypoxemic respiratory failure Code(s): J96.01 - ACUTE RESPIRATORY FAILURE WITH HYPOXIA Status: Resolved (2) Bowel obstruction Code(s): K56.609 - UNSP INTESTNL OBST, UNSP TO PARTIAL VERSUS COMPLETE OBST Status: Resolved Comment: rectal tube removed (3) Shock Code(s): R57.9 - SHOCK, UNSPECIFIED Status: Resolved (4) Hypothyroidism Code(s): E03.9 - HYPOTHYROIDISM, UNSPECIFIED Status: Chronic (5) Normocytic anemia Code(s): D64.9 - ANEMIA, UNSPECIFIED Status: Chronic (6) Systemic lupus erythematosus Code(s): M32.9 - SYSTEMIC LUPUS ERYTHEMATOSUS, UNSPECIFIED Status: Chronic (7) Pericardial effusion Code(s): I31.3 - PERICARDIAL EFFUSION (NONINFLAMMATORY) Status: Resolved Comment: s/p window (8) Physical deconditioning Code(s): R53.81 - OTHER MALAISE Status: Acute - Plan * doing well * cont pt/ot
[2017-07-31 06:36] LABS: Anion Gap 11 mmol/L (10-20); BUN (Urea Nitrogen) 22 mg/dL (7.0-18.7); BUN/Creatinine Ratio 34.92; Calc. Creatinine Clearance 139 mL/min (70-130); Calcium 8.5 mg/dL (7.8-10.44); Carbon Dioxide 26 mmol/L (22-29); Chloride 105 mmol/L (98-107); Estimated GFR-MDRD Greater than 90; Phosphorus 3.8 mg/dL (2.3-4.7)
[2017-07-31] MEDS ORDERED: predniSONE 20 MG TAB PO SCH (08:00)
[2017-07-31] MEDS: Enoxaparin Sodium 40 MG/0.4 ML SYRINGE SC SCH (10:02)
[2017-07-31] MEDS: Famotidine 20 MG TAB PO SCH (10:03)
[2017-07-31] MEDS: Furosemide 40 MG/4 ML VIAL SLOW IVP SCH (10:04)
[2017-07-31] MEDS ORDERED: traMADol HCl 50 MG TAB PO PRN (12:59)
[2017-07-31 14:59] VITALS: BP 107/75; TEMP 98.7
--- NOTE | 2017-07-31 16:56 | PRG ---
DATE OF SERVICE: 07/31/2017 SERVICE: Pulmonary Medicine. INTERVAL HISTORY: The patient is doing fine from a cardiovascular and respiratory standpoint. She denies any current fevers, chills, nausea, vomiting , shortness of breath or chest discomfort. She has returned to her usual state of health. She is being considered for discharge from the hospital today. PHYSICAL EXAMINATION: VITAL SIGNS: Afebrile, pulse 94, blood pressure 107/75, respirations 20, saturation 95% on room air. GENERAL: The patient is awake, alert, in no apparent distress. LUNGS: Excellent air entry with prolonged expiratory phase, wheezing, rhonchi or crackles. HEART: Normal rate, regular. ABDOMEN: Soft, nontender, nondistended, bowel sounds positive. MUSCULOSKELETAL: No cyanosis or clubbing. No pitting in the bilateral lower extremities. NEUROLOGIC: Grossly nonfocal. LABORATORY DATA: Blood sugars ranged from 89-145. Basic metabolic profile, phosphorus is unremarkable. ASSESSMENT: 1. Acute hypoxic respiratory failure, resolved. 2. Systemic lupus erythematosus with acute flare. 3. Tamponade secondary to pericardial effusion from lupus. 4. Ileus versus partial large bowel obstruction, resolved. 5. Shock, resolved. 6. Vanishing lung syndrome, possible. PLAN: The patient will remain on glucocorticoids in the outpatient setting. I told her and her family members that it is absolutely imperative that she touch base with a soft sugar operator head so that she gets good disease modifying therapy. Plaquenil will not be adequate as she had a flare on it previously. At this point, she has no further requirement for inpatient Pulmonary or Critical Care opinion. As such, we will sign off. I would like to see her in my clinic within 4 weeks in the outpatient setting. KANA
--- NOTE | 2017-08-01 05:58 | DIS ---
DATE OF ADMISSION: 07/19/2017 DATE OF DISCHARGE: 07/31/2017 DISCHARGE DIAGNOSES: 1. Acute hypoxic respiratory failure, resolved. 2. Pericardial effusion, status post window, stable. 3. Lupus exacerbation, stable. 4. Bowel obstruction, resolved. 5. Shock, resolved. 6. Hypothyroidism, stable. 7. Physical deconditioning, improved. DISCHARGE MEDICATIONS: Include all home medications plus tramadol 50 mg p.o. q.6 hours p.r.n. for p ain, prednisone 20 mg p.o. daily, omeprazole 40 mg p.o. daily. CONSULTANTS ON THE CASE: Cardiovascular thoracic surgeon garment inspector, Dr. Rosales. BRIEF HOSPITAL COURSE: A 37-year-old pleasant lady came into the hospital with shortness of breath. Please refer to the admitting physician's H and P for further details. The patient was admitted a nd was found to have pericardial effusion on the CT scan. Cardiovascular thoracic surgeon was consu lted, they put the window. The patient had episode of respiratory failure after that she was intuba philip, she took some time to be extubated, but she did well and then she was transferred to the floor. The patient did have some small-bowel obstruction which resolved when a rectal tube was placed. G I was consulted and they were happy with the recovery and did not recommend anything else. Patient right now is doing much better. She is walking with physical therapy. She is asked [facility] managed care manager as an outpatient and told lack of insurance would be a problem. She understands a ll this, but she also understands the importance of following up with managed care manager. The patient i s doing well. Right now, her systemic lupus erythematosus is under control. Her shock probably sec ondary to tamponade was resolved and back in the ICU. The patient right now is medically stable to be discharged on oral prednisone. She is asked to follow up with managed care manager and come back to [facility] emergency room in case symptoms recur. Total time for this discharge took 35 minutes.
== END 2017-07-31 15:55 | disposition home or self-care (01) | DRG 270 ==
LOC: ERS 12:28 → CCU 18:13 → IMCU/EMU 07-28 13:19 → T4-A 07-29 15:17
PROVIDERS: ADMIT Thoracic Surgery (Cardiothoracic Vascular Surgery); ATTEND Thoracic Surgery (Cardiothoracic Vascular Surgery)
PROC: 0W9D0ZZ Drainage of Pericardial Cavity, Open Approach (ICD-10-PCS; principal; 2017-07-19)
PROC: 5A1955Z Respiratory Ventilation, Greater than 96 Consecutive Hours (ICD-10-PCS; 2017-07-19)
PROC: 06HM33Z Insertion of Infusion Device into Right Femoral Vein, Percutaneous Approach (ICD-10-PCS; 2017-07-19)
PROC: 5A09357 Assistance with Respiratory Ventilation, Less than 24 Consecutive Hours, Continuous Positive Airway Pressure (ICD-10-PCS; 2017-07-19)
PROC: 30233N1 Transfusion of Nonautologous Red Blood Cells into Peripheral Vein, Percutaneous Approach (ICD-10-PCS; 2017-07-20)
DX: I30.8 Other forms of acute pericarditis (principal); J96.01 Acute respiratory failure with hypoxia; R57.0 Cardiogenic shock; I31.4 Cardiac tamponade; N17.9 Acute kidney failure, unspecified; K56.609 Unspecified intestinal obstruction, unspecified as to partial versus complete obstruction; D61.818 Other pancytopenia; E87.1 Hypo-osmolality and hyponatremia; J98.11 Atelectasis; M32.12 Pericarditis in systemic lupus erythematosus; M32.13 Lung involvement in systemic lupus erythematosus; E03.9 Hypothyroidism, unspecified; Z87.01 Personal history of pneumonia (recurrent); Z87.891 Personal history of nicotine dependence; E86.9 Volume depletion, unspecified; M32.19 Other organ or system involvement in systemic lupus erythematosus; I10 Essential (primary) hypertension; J44.9 Chronic obstructive pulmonary disease, unspecified
CPT/HCPCS: 36415; 36416; 36430; 36556; 71010; 71275; 74000; 80048; 80053; 80069; 80307; 82140; 82550; 82553; 82805; 83520; 83605; 83630; 83690; 83735; 83880; 84100; 84439; 84443; 84484; 85007; 85025; 85027; 85379; 85610; 85652; 85730; 86160; 86225; 86235; 86376; 86431; 86850; 86900; 86901; 87015; 87040; 87045; 87046; 87070; 87086; 87116; 87205; 87206; 87324; 87328; 87329; 87449; 87899; 88112; 88305; 93005; 93010; 93306; 94002; 94003; 94640; 94660; 94760; 96365; 96366; 96367; 96368; 96375; 99292; A4216; C1751; G8978-GP-CL; G8979-GP-CJ; J0692; J0696; J1100; J1650; J1720; J1815; J1940; J1956; J2001; J2060; J2250; J2543; J2704; J2920; J3010; J3370; J3475; J3480; J7050; J7070; J7506; J7611; J7620; P9016; P9047; S0028

== ENCOUNTER 2018-10-29 00:12 | Inpatient (IN) | payer MEDICAID, SELFPAY ==
[2018-10-29 01:31] LABS: ALT (SGPT) 23 U/L (8-55); AST (SGOT) 60 U/L (5-34); Albumin 2.4 g/dL (3.5-5.0); Alkaline Phosphatase 138 U/L (40-150); Anion Gap 16 mmol/L (10-20); BUN (Urea Nitrogen) 11 mg/dL (7.0-18.7); Bilirubin, Total 0.6 mg/dL (0.2-1.2); Calc. Creatinine Clearance 0 mL/min (70-130); Calcium 7.9 mg/dL (7.8-10.44); Carbon Dioxide 18 mmol/L (22-29); Chloride 105 mmol/L (98-107); Estimated GFR-MDRD Greater than 90; Glucose 66 mg/dL (70-105); Lipase 20 U/L (8-78); Potassium 3.6 mmol/L (3.5-5.1); Protein, Total 7.4 g/dL (6.0-8.3); Sodium 135 mmol/L (136-145)
[2018-10-29 01:47] LABS: #Lymphocytes 0.5 thou/uL (1.20-3.40); #Monocytes 0.3 thou/uL (0.11-0.59); #Neutrophils 3.5 thou/uL (1.40-6.50); %Eosinophils 0.3 % (0.0-10.0); %Lymphocytes 11.4 % (21.0-51.0); %Neutrophils 81.3 % (42.0-75.0); Anisocytosis SLIGHT = 6-15 cells (100X) (0-5/hpf); Hemoglobin 10.3 g/dL (12.0-16.0); MDiff Complete? YES; Mean Corpuscular HGB CONC 33.7 g/dL (32.0-36.0); Mean Corpuscular Hemoglobin 30.3 pg (27.0-31.0); Mean Corpuscular Volume 89.8 fL (78.0-98.0); Mean Platelet Volume 8.1 fL (7.4-10.4); Ovalocytes SLIGHT = 2-5 cells (100X) (0-1/hpf); Platelet Count 81 thou/uL (130-400); Platelet Morphology Comment Appears Decreased; RBC Distribution Width 15.4 % (11.5-14.5); Red Blood Cell (RBC) Count 3.41 mill/uL (4.20-5.40); White Blood Cell (WBC) Count 4.4 thou/uL (4.8-10.8)
[2018-10-29] MEDS ORDERED: Piperacillin/Tazobactam 3.375 GM VIAL ONE (01:49)
[2018-10-29] MEDS ORDERED: Acetaminophen 500 MG TAB ONE (01:49)
[2018-10-29] MEDS ORDERED: Ibuprofen 800 MG TAB ONE (01:49)
[2018-10-29] MEDS ORDERED: Midazolam HCl 2 mg/2 ml Vial ONE ×2 (02:45→05:16)
[2018-10-29] MEDS ORDERED: Vancomycin HCl 1.25 GM in Sodium Chloride 0.9% 250 ML 250 ML IVPB SCH (03:00)
[2018-10-29] MEDS ORDERED: Midazolam HCl 5 mg/ml Vial ONE (05:16)
[2018-10-29] MEDS ORDERED: KETAMINE 100 MG/ML (5ML VIAL) ONE (05:26)
[2018-10-29 05:50] LABS: Bilirubin Negative (Negative); Blood, Urine Negative (Negative); Clarity CLEAR (Clear); Glucose, Urine (Dipstick) Negative (Negative); Leukocyte Negative (Negative); Nitrite Negative (Negative); Protein, Urine (Dipstick) Negative (Neg-Trace); Specific Gravity, Urine 1.012 (1.002-1.036); pH, Urine 7.5 (5.0-9.0)
[2018-10-29] MEDS ORDERED: Norepinephrine 8 MG/0.9% NS 250 ML ONE (05:50)
[2018-10-29] MEDS ORDERED: Loperamide HCl 2 MG CAP PO PRN (07:15)
[2018-10-29] MEDS ORDERED: Eucerin (Mineral Oil/Petrolatum,White) 30 gm Jar TOP PRN (07:15)
[2018-10-29] MEDS ORDERED: Senokot S 8.6-50 MG TAB PO PRN (07:15)
[2018-10-29] MEDS ORDERED: Sodium Chloride 0.65% Nasal 44 ML BOT EA NARE PRN (07:15)
[2018-10-29] MEDS ORDERED: VANCOMYCIN IVPB PRN (07:15)
[2018-10-29] MEDS ORDERED: Ondansetron ODT 4 MG TAB PO PRN (07:15)
[2018-10-29] MEDS ORDERED: Acetaminophen 650 MG Suppository PR PRN (07:15)
[2018-10-29] MEDS ORDERED: Calcium Carbonate 500 MG ChewTAB PO PRN (07:15)
[2018-10-29] MEDS ORDERED: Acetaminophen 325 MG TAB PO PRN (07:15)
[2018-10-29] MEDS ORDERED: Bisacodyl 10 MG SUPP PR PRN (07:15)
[2018-10-29] MEDS ORDERED: Artificial Tears 18 DROP/0.9 ML EA EYE PRN (07:15)
[2018-10-29] MEDS ORDERED: Diabetic Tussin 200 MG/10 ML UDCUP PO PRN (07:15)
[2018-10-29] MEDS ORDERED: Ondansetron PF 4 MG/2 ML Vial IVP PRN (07:15)
[2018-10-29] MEDS ORDERED: Loratadine 10 MG TAB PO PRN (07:15)
[2018-10-29] MEDS ORDERED: Cepastat Lozenges 1 LOZ PO PRN (07:15)
--- NOTE | 2018-10-29 07:58 | CT ---
HEAD CT NONCONTRAST: Indication: Altered mental status. FINDINGS: There is added CSF density overlying the right convexity. No significant mass effect or midline shift . There is mild prominence of the ventricular system. Parenchymal atrophy is present, advanced for pa tient's age. There are scattered punctate calcifications of the left basal ganglia. There is no fluid level of the paranasal sinuses. IMPRESSION: 1. Added CSF density overlying the right convexity which could relate to subdural hydroma versus drying room attendant mariel subdural hematoma. No acute intracranial hemorrhage is identified. 2. Parenchymal atrophy, not typical for the patient's age. Correlate clinically. 3. Multifocal punctate calcification of the left basal ganglia. Given constellation of findings, consider follow up with brain MRI to fully evaluate. Neurology consu ltation would also prove useful. POS: DANIELLE
[2018-10-29] MEDS: Sodium Chloride 0.9% 1,000 ML IV SCH ×2 (08:15→18:12)
[2018-10-29] MEDS: Famotidine/PF 20 mg/2ml Vial SLOW IVP SCH ×2 (08:21→21:11)
[2018-10-29] MEDS: Piperacillin/Tazobactam 3.375 GM in Sodium Chloride 0.9% 100 ML IVPB SCH ×3 (08:21→21:09)
[2018-10-29] MEDS: Albumin 5% 500 ML ONE (08:35)
--- NOTE | 2018-10-29 08:40 | CT ---
PRELIMINARY REPORT/[facility]/EMERGENTY AFTER-HOURS PROCEDURE CT Angiography Chest With Contrast EXAM DATE/TIME: 10/29/2018 3:43 AM CLINICAL HISTORY: 38 years old, female; Pain; Chest pain; Type not specified; Patient HX: PT is non-verbal, HX of lupus , recent HX of degenerative changes, thyroid removal, chest pain that started this evening. No shortn ess of breath. Daughter states she said her "heart hurts". TECHNIQUE: Axial computed tomographic angiography images of the chest with intravenous contrast using CT angiogr aphy protocol. MIP reconstructed images were created and reviewed. COMPARISON: No relevant prior studies available. FINDINGS: Pulmonary arteries: Normal. No pulmonary emboli. Aorta: Normal. No aortic aneurysm. No aortic dissection. Lungs: Lungs are clear aside from mild multifocal subsegmental atelectasis. Pleural space: Normal. No pneumothorax. No pleural effusion. Heart: Normal. No cardiomegaly. No pericardial effusion. Mediastinum: Esophagus is unremarkable. Liver: Hepatic steatosis. Spleen: Spleen is incompletely visualized; however, there is suggestion of splenomegaly. Lymph nodes: Unremarkable. No enlarged lymph nodes. Bones/joints: Unremarkable. No acute fracture. Soft tissues: Unremarkable. Other findings: IMPRESSION: Spleen is incompletely visualized; however, there is suggestion of splenomegaly. Thank you for allowing us to participate in the care of your patient. Dictated and Authenticated by: Venkatesh Hadley MD 10/29/2018 4:54 AM Central Time ([place] & [place]) FINAL REPORT CT ANGIOGRAM OF THE CHEST WITH CONTRAST: History: Pulmonary embolism. Chest pain. Comparison: Radiograph same day. Technique: CT angiogram of the chest was performed after the intravenous administration of contrast. 3D rendering was provided. FINDINGS: Findings and impression are concordant with the preliminary report. Code QA. POS: CET
--- NOTE | 2018-10-29 08:51 | RAD ---
CHEST RADIOGRAPH: HISTORY: Shortness of breath. COMPARISON: Radiograph 07/26/2017. FINDINGS: No pneumothorax. No large effusion. Heart size was within normal limits. Atelectatic changes of the lung bases. IMPRESSION: No acute intrathoracic abnormality. POS: CET
[2018-10-29] MEDS ORDERED: Enoxaparin Sodium 40 MG/0.4 ML SYRINGE SC SCH (09:00)
--- NOTE | 2018-10-29 09:08 | RAD ---
SINGLE VIEW OF THE CHEST: Comparison: 10-29-18 at 1:37 a.m. History: Central line placement. FINDINGS: Single view of the chest shows a normal sized cardiomediastinal silhouette. There is left IJ central venous catheter with its tip at the aortocaval junction. No pneumothorax is seen. There is no evidenc e of consolidation, mass, or pleural effusion. IMPRESSION: Status post central line placement without evidence of complication. POS: LINDA
--- NOTE | 2018-10-29 09:34 | CON ---
DATE OF CONSULTATION: HISTORY OF PRESENT ILLNESS: Kimberley Byrd is a 38-year-old female, in spite of getting a superintendent gas distribution, she is unable to verbally give any significant history. She came into the hospital at 5:30 this morning. She is in the ICU, hypotensive with presumed sepsis secondary to a large decubitus. Her daughter was at the bedside. She is no longer here in the ER, stated that she has had fever, large decubitus for several weeks, unable to walk, unable to eat, unable to communicate now. Unclear who her primary care physician is. PAST MEDICAL HISTORY: Pertinent for lupus, hypothyroidism PAST SURGICAL HISTORY: Thyroid surgeries, hysterectomy. SOCIAL HISTORY: No alcohol or tobacco abuse. She had been in the hospital here numerous times with sepsis, has been seen by several different physician. Last time was almost about a year ago. She had presented at that time once again with respiratory failure, pneumonia, pericardial tamponade, shock. MEDICATIONS: List of medicines from home include; 1. Meclizine. 2. Synthroid 50. 3. Plaquenil 200 twice a day. 4. Iron tablets. ALLERGIES: NONE. REVIEW OF SYSTEMS: Otherwise unobtainable. PHYSICAL EXAMINATION: VITAL SIGNS: Cachectic looking female. Blood pressure is 80/60, on Levophed. Pulse is 95, saturations 100% on room air, respiratory rate 9. GENERAL: Appears to be in no acute distress, but is unable to communicate verbally in spite of getting a Romanian-speaking superintendent gas distribution at the bedside. CHEST: Decreased breath sounds. No wheezing. CARDIAC: Normal S1 and S2. No gallop or murmurs. ABDOMEN: Soft. NEUROLOGIC: Unremarkable. Large decubitus ulcer. LABORATORY DATA: Platelet count 81,000, white count 4,000, and hemoglobin and hematocrit of 10 and 30. Otherwise, lytes are normal. Albumin is 2.4. Urine was negative. She had a CT done of her chest at 2:00 in the morning. No acute CHF changes were seen. Emergency CT head and CT chest were ordered. Initial chest x-ray was normal. No obvious pulmonary emboli were seen with nonspecific bibasilar infiltrates, I doubt gross pneumonia was noted. IMPRESSION: 1. Sepsis syndrome, probably secondary to a large decubitus. 2. Cachexia. 3. History of lupus. 4. Thrombocytopenia. We will try and get additional information, once the patient's family arrives. In the meantime, I agree with broad-spectrum antibiotics. I have started stress dose of steroids, volume replacement. When blood pressure is stabilized, transferred out of the ICU, input from Surgery. This is a 45 minute critical time. Job ID: [id number]
[2018-10-29] MEDS ORDERED: Iopamidol 370 76% 100 ML VIAL ONE (11:53)
[2018-10-29] MEDS: Hydrocortisone Sod Succ/PF 100 mg/2 ml Vial IVP SCH ×2 (11:57→18:12)
--- NOTE | 2018-10-29 12:52 | HP ---
PRIMARY CARE PHYSICIAN: [facility]. REASON FOR ADMISSION: Septic shock. HISTORY OF PRESENT ILLNESS: A 38-year-old female who speaks Omani only, who is an extremely poor historian. Even with office professionals, she is not able to provide good history. The patient came to emergency room with fever, generalized weakness. The patient was found with large decubitus sacral ulcer. As per the patient's daughter, she was recently hospitalized at [facility] for low platelet count. She was discharged about a week ago and since then, the patient is going downhill. The patient was altered from her baseline. She was having very poor appetite. She was not ambulatory. The patient did not have any flu-like illness. She did not have any constipation, diarrhea, or UTI symptoms. In the emergency room, the patient was found with pancytopenia. She was hypotensive. She required a central line and Levophed support and subsequently, the patient was admitted to ICU. REVIEW OF SYSTEMS: CONSTITUTIONAL: Negative for weight loss or gain, ability to conduct usual activities. SKIN: Negative for rash, itching. EYES: Negative for double vision, pain. ENT/MOUTH: Negative for nose bleeding, neck stiffness, pain, tenderness. CARDIOVASCULAR: Negative for palpitations, dyspnea on exertion, orthopnea. RESPIRATORY: Negative for shortness of breath, wheezing, cough, hemoptysis, fever or night sweats. GASTROINTESTINAL: Negative for poor appetite, abdominal pain, heartburn, nausea , vomiting, constipation, or diarrhea. GENITOURINARY: Negative for urgency, frequency, dysuria, nocturia. MUSCULOSKELETAL: Negative for pain, swelling. NEUROLOGIC/PSYCHIATRIC: Negative for anxiety, depression. ALLERGY/IMMUNOLOGIC: Negative for skin rash, bleeding tendency. Please see my HPI for pertinent positive and negative. All other review of systems reviewed and negative except as mentioned in the HPI. PAST MEDICAL HISTORY: Systemic lupus erythematosus, hypothyroidism, pancytopenia. PAST SURGICAL HISTORY: Thyroidectomy, bilateral tubal ligation. PAST PSYCHIATRIC HISTORY: Reviewed and negative. SOCIAL HISTORY: The patient is , lives at home with her . No history of tobacco, alcohol, or illicit drug abuse. FAMILY HISTORY: No family history of coronary artery disease, stroke, or cancer. ALLERGIES: NO KNOWN DRUG ALLERGIES CURRENT HOME MEDICATION: SYNTHROID 50 mcg po daily, Prednisone daily EMERGENCY ROOM COURSE: The patient has received Levophed, vancomycin, Zosyn, Tylenol, IV fluid, ibuprofen. PHYSICAL EXAMINATION: VITAL SIGNS: On arrival, blood pressure lowest 84/57, pulse 137, respiratory rate 18, temperature 100.6, saturation 100% on room air, weight 52.2 kg. GENERAL: The patient is currently emaciated, appears chronically ill, hypotensive, poorly groomed, confused, cachectic. HEENT: Normocephalic, atraumatic. Eyes; pupils round, reactive to light. Extraocular muscle intact. ENT; dry mucous membranes. Dental caries noted. No oral thrush. NECK: Supple. No JVD. No thyromegaly. No carotid bruit. LUNGS: Clear to auscultation without any rhonchi or rales. CARDIAC: S1 and S2. Regular. Tachycardia. No murmur. No gallop. No rub. ABDOMEN: Soft. Bowel sounds present. Nontender. Nondistended. No organomegaly. No mass. No suprapubic tenderness. BACK: The patient does have stage IV large decubitus ulcer with the areas of necrosis. EXTREMITIES: Upper extremity; passive movement of all joints are normal. Lower extremity; no edema. Good distal pulsation. SKIN: The patient does have many bruises on her skin. PSYCHIATRIC: Normal affect. NEUROLOGIC: Nonfocal examination. She is moving all 4 limbs. No focal neurological deficit noted. SIGNIFICANT LABORATORY DATA: EKG showing sinus tachycardia. CT angiography showed no evidence of pulmonary embolism, possible splenomegaly, fatty liver. CT brain showed parenchymal atrophy. Multifocal punctate calcification in the left basal ganglia. Added CSF density overlying right convexity, which could relate to subdural hydroma versus chronic subdural hematoma. Chest x-ray, based on my review; no acute cardiopulmonary process. CBC; WBC 4.4, hemoglobin 10.3, platelets 81. D-dimer 1.62. BMP; sodium 135, potassium 3.6, chloride 105, carbon dioxide 18, BUN 11, creatinine 0.60, glucose 66, calcium 7.9. Lactic acid 1.9. LFT; AST 60 , ALT 23, alkaline phosphatase 138, albumin 2.4. Lipase normal. Random cortisol 7.9. TSH 2.09. Cardiac enzyme negative. Urinalysis unremarkable. ASSESSMENT AND PLAN: 1. Septic shock, likely due to infected decubitus ulcer. Currently, the patient has central line. She was given enough IV fluid in the emergency room despite she was hypotensive and that is why she is requiring vasopressor. We will titrate and wean the Levophed as tolerated. The patient was already started on broad-spectrum antibiotic therapy with vancomycin, Zosyn, and levofloxacin. 2. Infected stage IV decubitus ulcer on sacrum, present on admission, associated with sepsis with septic shock. The patient was already treated with broad- spectrum antibiotic therapy with vancomycin, Zosyn, and Levaquin for broad coverage. Wound Care Team will be consulted. We will decide if the patient needs any General Surgery consultation for possible debridement. 3. Hypoalbuminemia, related with severe protein-calorie malnutrition. Albumin is given. The patient will need nutritional support with Ensure and Babak b.i.d. 4. Pancytopenia, likely due to lupus. Because of low platelet count, we will avoid heparin product. The patient will be given folic acid and vitamin B12 therapy. We will check B12 and folate level. 5. Hypothyroidism. We will continue Synthroid 50 mcg p.o. daily. 6. Deep venous thrombosis prophylaxis, SCD boots; gastrointestinal prophylaxis, Pepcid 20 mg IV b.i.d. CODE STATUS: The patient is full code. The patient's is surrogate decision maker. DISPOSITION PLAN: Based on clinical course, we are expecting the patient's stay in hospital more than two midnights. Plan of care discussed with the patient in detail. Job ID: [id number] MTDD
[2018-10-29] MEDS: Vancomycin HCl 750 MG in Sodium Chloride 0.9% 250 ML 250 ML IVPB SCH (15:09)
[2018-10-30] MEDS: Sodium Chloride 0.9% 1,000 ML IV SCH ×3 (00:41→18:21)
[2018-10-30] MEDS: Hydrocortisone Sod Succ/PF 100 mg/2 ml Vial IVP SCH ×4 (00:41→17:34)
[2018-10-30] MEDS: Vancomycin HCl 750 MG in Sodium Chloride 0.9% 250 ML 250 ML IVPB SCH ×2 (02:12→15:16)
[2018-10-30] MEDS: Piperacillin/Tazobactam 3.375 GM in Sodium Chloride 0.9% 100 ML IVPB SCH ×4 (02:12→20:40)
[2018-10-30 05:42] LABS: ALT (SGPT) 43 U/L (8-55); AST (SGOT) 113 U/L (5-34); Albumin 2.1 g/dL (3.5-5.0); Alkaline Phosphatase 153 U/L (40-150); Anion Gap 16 mmol/L (10-20); BUN (Urea Nitrogen) 6 mg/dL (7.0-18.7); Bilirubin, Total 0.4 mg/dL (0.2-1.2); Calc. Creatinine Clearance 90 mL/min (70-130); Calcium 6.4 mg/dL (7.8-10.44); Carbon Dioxide 12 mmol/L (22-29); Chloride 119 mmol/L (98-107); Estimated GFR-MDRD Greater than 90; Globulin 3.4 g/dL (2.4-3.5); Glucose 190 mg/dL (70-105); Protein, Total 5.5 g/dL (6.0-8.3); Sodium 144 mmol/L (136-145)
[2018-10-30 06:02] LABS: #Lymphocytes 0.4 thou/uL (1.20-3.40); #Monocytes 0.2 thou/uL (0.11-0.59); #Neutrophils 6.3 thou/uL (1.40-6.50); %Basophils 0.2 % (0.0-1.0); %Eosinophils 0.1 % (0.0-10.0); %Lymphocytes 6.3 % (21.0-51.0); %Monocytes 3.2 % (0.0-10.0); %Neutrophils 90.2 % (42.0-75.0); Elliptocytes SLIGHT = 2-5 cells (100X) (0-1/hpf); Hemoglobin 9.3 g/dL (12.0-16.0); MDiff Complete? YES; Mean Corpuscular HGB CONC 32.5 g/dL (32.0-36.0); Mean Corpuscular Volume 92.1 fL (78.0-98.0); Mean Platelet Volume 11.3 fL (7.4-10.4); Platelet Count 72 thou/uL (130-400); Platelet Morphology Comment Appears Decreased; RBC Distribution Width 15.7 % (11.5-14.5)
[2018-10-30] MEDS: Famotidine/PF 20 mg/2ml Vial SLOW IVP SCH ×2 (08:01→20:40)
[2018-10-30] MEDS: Levothyroxine Sodium 50 MCG TAB PO SCH (08:01)
[2018-10-30] MEDS: Norepinephrine 8 MG/0.9% NS 250 ML IVPB SCH (08:11)
[2018-10-30] MEDS ORDERED: Albumin 25% 25 GM/100 ML BOT IVPB SCH (08:45)
[2018-10-30] MEDS ORDERED: Levothyroxine Sodium 50 MCG TAB PO SCH (09:00)
--- NOTE | 2018-10-30 09:24 | PRG ---
DATE OF SERVICE: 10/30/2018 SUBJECTIVE: Kimberley Byrd is a 38-year-old Russian female, remains in the ICU. PHYSICAL EXAMINATION: VITAL SIGNS: Blood pressure of 89/61 on Levophed, pulse , sats 100% on room air, respiratory rate 21. The temperature has been normal. GENERAL: No significant verbal communication. She speaks only Russian. I's and O's have been good. CHEST: Decreased breath sounds. No wheezing. CARDIAC: Normal S1 and S2. No gallops. ABDOMEN: No masses. LABORATORY DATA: White count 70,000; H and H 9 and 28; and platelet count is 72,000, low. Lytes are normal. Albumin is 2.1. IMPRESSION: 1. Sepsis syndrome. Rule out decubitus. 2. Adrenal insufficiency. Try and wean Levophed. Continue hydrocortisone, steroids, antibiotics input from surgery. Job ID: [id number]
--- NOTE | 2018-10-30 13:51 | PDOC.PN ---
- Subjective Encounter Start Date: 10/30/18 Encounter Start Time: 10:00 Patient seen and examined. pt is confused, very weak, still on levophed. No overnight events - Objective Resuscitation Status - Order Detail: 10/29/18 07:10 Resuscitation Status Routine Resuscitation Status: FULL: Full Resuscitation MAR Reviewed: Yes Vital Signs & Weight: Vital Signs (12 hours) Temp Pulse Ox 10/30/18 12:00 98.8 F 10/30/18 08:00 100 10/30/18 07:25 97.9 F 10/30/18 03:00 98 F Weight Admit Weight 95 lb Weight 95 lb 10.89 oz Most Recent Monitor Data Heart Rate from ECG 69 NIBP 120/80 NIBP BP-Mean 93 Respiration from ECG 17 SpO2 100 I&O: 10/29/18 10/30/18 10/31/18 06:59 06:59 06:59 Intake Total 4203.1 850 Output Total 3255 527 Balance 948.1 323 Result Diagrams: 10/30/18 04:30 10/30/18 04:30 Additional Labs: Accuchecks 10/29/18 20:05 POC Glucose 77 EKG Reviewed by me: Yes (nsr) Phys Exam - Physical Examination Constitutional: NAD cachectic HEENT: moist MMs, sclera anicteric Neck: no JVD, supple Respiratory: no wheezing, no rales, no rhonchi Cardiovascular: RRR, no significant murmur, no rub Gastrointestinal: soft, non-tender, no distention, positive bowel sounds Musculoskeletal: no edema, pulses present pressure ulcer with dressing Neurological: non-focal, normal sensation Lymphatic: no nodes Psychiatric: normal affect Skin: no rash, normal turgor Dx/Plan (1) Decubitus ulcer of coccygeal region, stage 4 Code(s): L89.154 - PRESSURE ULCER OF SACRAL REGION, STAGE 4 Status: Acute (2) Hypokalemia Code(s): E87.6 - HYPOKALEMIA Status: Acute (3) Septic shock Code(s): A41.9 - SEPSIS, UNSPECIFIED ORGANISM; R65.21 - SEVERE SEPSIS WITH SEPTIC SHOCK Status: Acute (4) Thrombocytopenia Code(s): D69.6 - THROMBOCYTOPENIA, UNSPECIFIED Status: Acute (5) Hypothyroidism Code(s): E03.9 - HYPOTHYROIDISM, UNSPECIFIED Status: Chronic (6) Normocytic anemia Code(s): D64.9 - ANEMIA, UNSPECIFIED Status: Chronic (7) Protein-calorie malnutrition, severe Code(s): E43 - UNSPECIFIED SEVERE PROTEIN-CALORIE MALNUTRITION Status: Chronic (8) Systemic lupus erythematosus Code(s): M32.9 - SYSTEMIC LUPUS ERYTHEMATOSUS, UNSPECIFIED Status: Chronic - Plan cont current plan of care, continue antibiotics * continue vancomycin, zosyn and levaquin * levophed drip weaning as tolerated * medication reviewed as below * symptomatic treatment * continue albumin * wound care * surgery consulted for possible debridement. * will consult ID Review of Systems - Review of Systems Constitutional: weakness. negative: fever, chills, sweats, malaise, other ENT: negative: Ear Pain, Ear Discharge, Nose Pain, Nose Discharge, Nose Congestion, Mouth Pain, Mouth Swelling, Throat Pain, Throat Swelling, Other Respiratory: negative: Cough, Dry, Shortness of Breath, Hemoptysis, SOB with Excertion, Pleuritic Pain, Sputum, Wheezing Cardiovascular: negative: chest pain, palpitations, orthopnea, paroxysmal nocturnal dyspnea, edema, light headedness, other Gastrointestinal: negative: Nausea, Vomiting, Abdominal Pain, Diarrhea, Constipation, Melena, Hematochezia, Other Genitourinary: negative: Dysuria, Frequency, Incontinence, Hematuria, Retention , Other Musculoskeletal: negative: Neck Pain, Shoulder Pain, Arm Pain, Back Pain, Hand Pain, Leg Pain, Foot Pain, Other Other: not reliable due to her level of cognitive status - Medications/Allergies Allergies/Adverse Reactions: Allergies Allergy/AdvReac Type Severity Reaction Status Date / Time No Known Allergies Allergy Verified 07/19/17 21:49 Medications: Current Medications Acetaminophen (Tylenol) 650 mg PO Q4H PRN PRN Reason: Headache/Fever/Mild Pain (1-3) Last Admin: 10/29/18 11:57 Dose: 650 mg Acetaminophen (Tylenol) 650 mg MI Q4H PRN PRN Reason: Headache/Fever/Mild Pain (1-3) Artificial Tears (Tears Naturale) 2 drop EA EYE PRN PRN PRN Reason: Dry Eyes Bisacodyl (Dulcolax) 10 mg MI DAILYPRN PRN PRN Reason: Constipation Calcium Carbonate (Tums) 1,000 mg PO Q4H PRN PRN Reason: Heartburn or Indigestion Famotidine (Pepcid) 20 mg SLOW IVP Q12HR [facility] Last Admin: 10/30/18 08:01 Dose: 20 mg Guaifenesin (Robitussin Sf) 200 mg PO Q4H PRN PRN Reason: Cough Hydrocortisone Sodium Succinate (Solu-Cortef) 50 mg IVP Q6HR [facility] Stop: 11/05/18 12:01 Last Admin: 10/30/18 12:10 Dose: 50 mg Norepinephrine Bitartrate (Levophed) 250 mls @ 0 mls/hr IVPB INF [facility]; Protocol Last Admin: 10/30/18 08:11 Dose: 250 mls Sodium Chloride (Normal Saline 0.9%) 1,000 mls @ 125 mls/hr IV .Q8H [facility] Last Admin: 10/30/18 08:42 Dose: 1,000 mls Piperacillin Sod/Tazobactam (Sod 3.375 gm/ Sodium Chloride) 100 mls @ 200 mls/ hr IVPB 0200,0800,1400,2000 [facility] Last Admin: 10/30/18 08:01 Dose: 100 mls Levofloxacin 500 mg/ Device 100 mls @ 100 mls/hr IVPB 0800 [facility] Last Admin: 10/30/18 08:32 Dose: 100 mls Vancomycin HCl 750 mg/ Sodium (Chloride) 250 mls @ 250 mls/hr IVPB 0300,1500 [facility] Last Admin: 10/30/18 02:12 Dose: 250 mls Levothyroxine Sodium (Synthroid) 50 mcg PO 0600 [facility] Last Admin: 10/30/18 08:01 Dose: 50 mcg Loperamide HCl (Imodium) 2 mg PO PRN PRN PRN Reason: Diarrhea/Loose Stools Loratadine (Claritin) 10 mg PO DAILYPRN PRN PRN Reason: Sinus Symptoms Mineral Oil/White Petrolatum (Eucerin Cream) 0 gm TOP BIDPRN PRN PRN Reason: Dry Skin Miscellaneous Medication (Pharmacy To Dose) 1 each IVPB PRN PRN PRN Reason: Pharmacy to dose Ondansetron HCl (Zofran Odt) 4 mg PO Q6H PRN PRN Reason: Nausea/Vomiting Ondansetron HCl (Zofran) 4 mg IVP Q6H PRN PRN Reason: Nausea/Vomiting Senna/Docusate Sodium (Senokot S) 2 tab PO BID PRN PRN Reason: Constipation Sodium Chloride ([place] Nasal [place] 0.65%) 0 ml EA NARE QIDPRN PRN PRN Reason: Nasal Congestion Throat Lozenges (Cepastat Lozenges) 1 qing PO Q2H PRN PRN Reason: Sore Throat
[2018-10-30] MEDS ORDERED: Potassium Chloride 20 MEQ in Premix Bag 1 BAG IVPB SCH (15:00)
--- NOTE | 2018-10-30 19:53 | CON ---
DATE OF CONSULTATION: REASON FOR CONSULTATION: Bradycardia. HISTORY OF PRESENT ILLNESS: Ms. Byrd is an unfortunate 38-year-old woman, who is a patient of Dr. Alma Shi. She recently presented with failure to thrive. She was initially found to be bradycardic. She was initially admitted for septic shock. She also has had failure to thrive. She has a large decubitus ulcer present. During my visit, her rhythm appeared stable. She is currently not on a beta rodolfo or calcium channel rodolfo. PAST MEDICAL HISTORY: Lupus, hypothyroidism, and hysterectomy. SOCIAL HISTORY: No current tobacco or alcohol use. HOME MEDICATIONS: Include; 1. Synthroid. 2. Meclizine. 3. Plaquenil. 4. Iron. ALLERGIES: NONE. REVIEW OF SYSTEMS: Difficult to obtain. She is difficult to understand. PHYSICAL EXAMINATION: GENERAL: She is nonverbal. VITAL SIGNS: Blood pressure 108/74, pulse 66, temperature afebrile. NEUROLOGIC: The patient is alert and oriented x3 with no focal neurologic deficits. HEENT: Sclerae without icterus. Mouth has moist mucous membranes with normal pallor. NECK: No JVD. Carotid upstroke brisk. No bruits bilaterally. LUNGS: Clear to auscultation with unlabored respirations. BACK: No scoliosis or kyphosis. CARDIAC: Regular rate and rhythm with normal S1 and S2. No S3 or S4 noted. No significant rubs, murmurs, thrills, or gallops noted throughout the precordium. PMI is not displaced. There is no parasternal heave. ABDOMEN: Soft, nontender, nondistended. No peritoneal signs present. No hepatosplenomegaly. No abnormal striae. EXTREMITIES: 2+ femoral and 2+ dorsalis pedis pulses. No cyanosis, clubbing, or edema. SKIN: No gross abnormalities. LABORATORY DATA: Hemoglobin 9.3, white blood cell count 7.0, creatinine 0.57. IMPRESSION: 1. Bradycardia. 2. Sepsis. RECOMMENDATIONS: Bradycardia likely related to underlying sepsis. This is currently resolved. We will continue close observation. At this point, I have no further recommendation. She is currently on Levophed for blood pressure support and may switch to epinephrine if bradycardia recurs. Otherwise, I have no recommendations. Close observation recommended. Job ID: [id number]
--- NOTE | 2018-10-30 22:39 | CON ---
DATE OF CONSULTATION: REASON FOR CONSULTATION: Change in mental status and decubitus ulcers. HISTORY OF PRESENT ILLNESS: Ms. Byrd is a 38-year-old patient who has a history of systemic lupus erythematosus, hypothyroidism, and has been admitted a few times to [facility] with complications related to immunosuppression, probably secondary to the treatment for systemic lupus. 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 At this time, she was brought in with fever, weakness, and a large sacral decubitus ulcer. Reportedly, had been admitted recently to a hospital in [place] with thrombocytopenia. I do not have records from that admission. She has developed a decrease in oral intake. On arrival, she had a BP of 84/57, pulse 137, respiratory rate 18, and temperature 100.6. She was emaciated chronically ill appearing, confused. Lungs are clear to auscultation. Heart examination with tachycardia, but no murmurs. Abdomen is soft. She appeared diffusely weak, but no focal weakness. CT of the brain showed punctate calcification in basal ganglia and a possible subdural hygroma versus chronic subdural hematoma. Chest x-ray with no infiltrates. LABORATORY DATA: White cell count 4.4, hemoglobin 10.3, platelets 81,000. Carbon oxide 18, creatinine 0.6, glucose 66, lactic acid 1.9. Transaminases with an AST elevated at 60, ALT was normal at 23, alkaline phosphatase 138. Lipase normal. Cortisol 7.9. Urinalysis was normal. We have one set of blood cultures positive for coagulase negative staphylococci, likely contaminant, and she had a chest CT which showed no evidence of pulmonary embolism and no infiltrates, possible splenomegaly. Currently, Ms. Byrd is in the ICU. She is awake, but has quite, significant expressive aphasia even though I am able to speak Kazakh, I was not able to understand. She may have just dysarthria, but it was not clear to me that she was able to understand what I was telling her. The ability to follow commands was limited. According to the nurse, no diarrhea was identified in the unit. PAST MEDICAL HISTORY: Systemic lupus erythematosus managed basically just with corticosteroids due to lack of insurance, two episodes of Streptococcus pneumoniae infection, one with bacteremia and the second with knee infection, herpes simplex stomatitis. PAST SURGICAL HISTORY: Includes thyroidectomy and tubal ligation. SOCIAL HISTORY: . Never smoker. FAMILY HISTORY: Noncontributory. ALLERGIES: NONE. CURRENT MEDICATIONS: Include p.r.n. medications; 1. Hydrocortisone. 2. Levofloxacin. 3. Claritin. 4. Zosyn. 5. Vancomycin. PHYSICAL EXAMINATION: VITAL SIGNS: T-max 98.2, blood pressure 116/79, pulse 67, respiratory rate 24, heart rate 70, O2 saturation 100%. SKIN: Shows the round-shaped, about 2 cm decubitus ulcer with what appears to be fresh hemorrhagic tissue at the base with significant undermining noted. The patient has peripheral IV access and a Aiken catheter, 3200 mL were obtained over the past 24 hours. The balance was positives about 1000 mL. She has some element of temporal wasting. HEENT: The ocular movements are conjugate. Sclerae white. Pupils are equal. Conjunctivae normal. Nasal passages are patent. Oral cavity with no thrush. She has few teeth in place with marked decay and gum disease. NECK: Supple. No jugular venous distention. LUNGS: Symmetric air entry with no obvious crackles or wheezing. HEART: S1 and S2, regular rate. No murmurs. ABDOMEN: Soft, not distended. There are quite prominent abdominal striae. EXTREMITIES: Atrophy of musculature in lower extremity. She is able to move extremities with some limitations. Plantar responses are indifferent. Pulses 1+ in dorsalis pedis. She does that with eye contact, but has a hard time in replying to questions, not sure that she understands what I am saying even when I speak in Kazakh. LABORATORY FINDINGS: Followup white cell count 7.0, hemoglobin 9.3, platelets 72,000 with 90% neutrophils. AST is at 113, ALT 43, alkaline phosphatase 153. ASSESSMENT: 1. Systemic lupus erythematosus with longstanding treatment with corticosteroids due to lack of insurance and inability to be followed by college and career counselor. 2. Immunosuppressed state due to chronic corticosteroid use. 3. 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 4. Hypotension. 5. Decubitus ulcer. 6. Possible dysphagia and other neurological findings described above. DISCUSSION: Differential diagnosis includes opportunistic infectious process including cryptococcus meningitis, disseminated histoplasma capsulatum infection, mycobacterium tuberculosis extrapulmonary, recurrence of bacteremia is possible, lupus cerebritis is an another possibility. We will order MRI of brain. May need a CSF evaluation to submit for cryptococcus antigen in other opportunistic pathogen workup. Submit crypto antigen in serum, CMV, DNA, PCR, and histoplasma antigen in urine. Monitor blood cultures. Job ID: [id number]
[2018-10-31] MEDS: Sodium Chloride 0.9% 1,000 ML IV SCH ×3 (00:13→20:29)
[2018-10-31] MEDS: Hydrocortisone Sod Succ/PF 100 mg/2 ml Vial IVP SCH ×4 (00:14→17:47)
[2018-10-31] MEDS: Vancomycin HCl 750 MG in Sodium Chloride 0.9% 250 ML 250 ML IVPB SCH ×2 (02:12→15:41)
[2018-10-31] MEDS: Piperacillin/Tazobactam 3.375 GM in Sodium Chloride 0.9% 100 ML IVPB SCH ×4 (02:12→20:35)
--- NOTE | 2018-10-31 05:26 | HP ---
HISTORY OF PRESENT ILLNESS: Kimberley Byrd is a 38-year-old female, severely depressed, apparently malnourished, at home, failure to thrive, immobile, bedridden, very weaken. She is an undocumented citizen. She has been cared for by family at home. Reported that she has been severely depressed. She does swallow and will take Ensure. I have been asked to see her regarding an advanced sacral decubitus with involvement of the sacrum and coccyx. This is a clinical diagnosis. She has exposed bone, is moth-eaten. Plan is to go to the operating room tomorrow to debride the sacral decubitus and remove an involved moth-eaten sacrum and coccyx. ALLERGIES: NONE. SOCIAL HISTORY: Tobacco, none. Alcohol, none. She is , lives at home. MEDICATIONS: At home: 1. Prednisone. 2. Synthroid. Current medications: 1. Vancomycin. 2. Zosyn. 3. Solu-Cortef. PAST SURGICAL HISTORY: Thyroidectomy and bilateral tubal ligation per report. The patient does not communicate with me. PAST MEDICAL HISTORY: Depression. PHYSICAL EXAMINATION: GENERAL: Cachectic, height 5 feet 3 inches, 95 pounds, 16 BMI. VITAL SIGNS: Blood pressure 120/80 and pulse 93. HEAD, EARS, EYES, NOSE AND THROAT: Unremarkable. LUNGS: Clear to auscultation. CARDIAC: Regular rate and rhythm without murmur or gallop. ABDOMEN: Soft, nontender, nondistended, scaphoid. MUSCULOSKELETAL: Sacral decubitus, granulating base but irregular sacrum, moth-eaten sacrum. Osteomyelitis sacrum, coccyx. ASSESSMENT AND PLAN: Sacral decubitus stage IV with osteomyelitis. Plan debridement in the operating room tomorrow. Plan local wound care. Ask Dr. Rosales to see her as she will need prolonged intravenous antibiotics and this will need to be arranged in a care facility. Job ID: [id number]
[2018-10-31] MEDS: Levothyroxine Sodium 50 MCG TAB PO SCH (05:33)
[2018-10-31] MEDS ORDERED: Albumin 25% 25 GM/100 ML BOT IVPB SCH (07:48)
[2018-10-31] MEDS: Famotidine/PF 20 mg/2ml Vial SLOW IVP SCH (08:02)
[2018-10-31] MEDS: Famotidine 20 MG TAB PO SCH ×2 (08:03→20:36)
[2018-10-31] MEDS: Albumin 5% 500 ML ONE (08:05)
--- NOTE | 2018-10-31 09:34 | PRG ---
DATE OF SERVICE: 10/31/2018 SUBJECTIVE: Kimberley Byrd remained in the ICU. She is due to go for debridement of her decubitus ulcer. OBJECTIVE: VITAL SIGNS: Pulse is 47, blood pressure is 96/70, respiratory rate 18. GENERAL: Still not much verbal communication. CHEST: Decreased breath sounds. No wheezing. CARDIAC: Normal S1 and S2. No gallops. ABDOMEN: No masses. IMPRESSION: 1. Hypotension, sepsis, culture negative. 2. Extensive decubitus ulcer. 3. Hypertension. 4. Relative adrenal insufficiency. 5. Severe deconditioning. 6. Poor nutritional status. PLAN: Plan is to go for debridement of her decubitus. Continue broad-spectrum antibiotics, stress dose of steroids. We will follow. Job ID: [id number]
--- NOTE | 2018-10-31 11:08 | PDOC.PN ---
- Subjective Encounter Start Date: 10/31/18 Encounter Start Time: 09:50 Patient seen and examined. No new complaints. No overnight events still confused and weak, levophed off - Objective Resuscitation Status - Order Detail: 10/29/18 07:10 Resuscitation Status Routine Resuscitation Status: FULL: Full Resuscitation MAR Reviewed: Yes Vital Signs & Weight: Vital Signs (12 hours) Temp Pulse Ox 10/31/18 08:00 100 10/31/18 07:00 97.8 F 10/31/18 03:00 98.2 F Weight Admit Weight 95 lb Weight 95 lb 10.89 oz Most Recent Monitor Data Heart Rate from ECG 84 NIBP 105/74 NIBP BP-Mean 84 Respiration from ECG 16 SpO2 99 I&O: 10/30/18 10/31/18 11/01/18 06:59 06:59 06:59 Intake Total 4203.1 4869 700 Output Total 3255 1612 255 Balance 948.1 3257 445 Result Diagrams: 10/30/18 04:30 10/30/18 04:30 EKG Reviewed by me: Yes (nsr) Phys Exam - Physical Examination Constitutional: NAD cachectic HEENT: moist MMs, sclera anicteric Neck: no JVD, supple Respiratory: no wheezing, no rales, no rhonchi Cardiovascular: RRR, no significant murmur, no rub Gastrointestinal: soft, non-tender, no distention, positive bowel sounds decubitus ulcer with dressing Musculoskeletal: no edema, pulses present Neurological: non-focal, normal sensation, moves all 4 limbs Lymphatic: no nodes Psychiatric: normal affect Skin: no rash, normal turgor Dx/Plan (1) Decubitus ulcer of coccygeal region, stage 4 Code(s): L89.154 - PRESSURE ULCER OF SACRAL REGION, STAGE 4 Status: Acute (2) Hypokalemia Code(s): E87.6 - HYPOKALEMIA Status: Acute (3) Septic shock Code(s): A41.9 - SEPSIS, UNSPECIFIED ORGANISM; R65.21 - SEVERE SEPSIS WITH SEPTIC SHOCK Status: Resolved (4) Thrombocytopenia Code(s): D69.6 - THROMBOCYTOPENIA, UNSPECIFIED Status: Acute (5) Hypothyroidism Code(s): E03.9 - HYPOTHYROIDISM, UNSPECIFIED Status: Chronic (6) Normocytic anemia Code(s): D64.9 - ANEMIA, UNSPECIFIED Status: Chronic (7) Protein-calorie malnutrition, severe Code(s): E43 - UNSPECIFIED SEVERE PROTEIN-CALORIE MALNUTRITION Status: Chronic (8) Systemic lupus erythematosus Code(s): M32.9 - SYSTEMIC LUPUS ERYTHEMATOSUS, UNSPECIFIED Status: Chronic (9) Encephalopathy in sepsis Code(s): G93.41 - METABOLIC ENCEPHALOPATHY Status: Acute - Plan cont current plan of care, plan discussed w/ family, continue antibiotics, social 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 Review of Systems - Review of Systems Constitutional: weakness. negative: fever, chills, sweats, malaise, other ENT: negative: Ear Pain, Ear Discharge, Nose Pain, Nose Discharge, Nose Congestion, Mouth Pain, Mouth Swelling, Throat Pain, Throat Swelling, Other Respiratory: negative: Cough, Dry, Shortness of Breath, Hemoptysis, SOB with Excertion, Pleuritic Pain, Sputum, Wheezing Cardiovascular: negative: chest pain, palpitations, orthopnea, paroxysmal nocturnal dyspnea, edema, light headedness, other Gastrointestinal: negative: Nausea, Vomiting, Abdominal Pain, Diarrhea, Constipation, Melena, Hematochezia, Other Genitourinary: negative: Dysuria, Frequency, Incontinence, Hematuria, Retention , Other Musculoskeletal: negative: Neck Pain, Shoulder Pain, Arm Pain, Back Pain, Hand Pain, Leg Pain, Foot Pain, Other Other: not reliable due to cognitive deficit - Medications/Allergies Allergies/Adverse Reactions: Allergies Allergy/AdvReac Type Severity Reaction Status Date / Time No Known Allergies Allergy Verified 07/19/17 21:49 Medications: Current Medications Acetaminophen (Tylenol) 650 mg PO Q4H PRN PRN Reason: Headache/Fever/Mild Pain (1-3) Last Admin: 10/29/18 11:57 Dose: 650 mg Acetaminophen (Tylenol) 650 mg NC Q4H PRN PRN Reason: Headache/Fever/Mild Pain (1-3) Albumin Human (Albumin 5%) 25 gm IVPB NOW KENY Stop: 10/31/18 14:00 Last Admin: 10/31/18 08:19 Dose: 25 gm Artificial Tears (Tears Naturale) 2 drop EA EYE PRN PRN PRN Reason: Dry Eyes Bisacodyl (Dulcolax) 10 mg NC DAILYPRN PRN PRN Reason: Constipation Calcium Carbonate (Tums) 1,000 mg PO Q4H PRN PRN Reason: Heartburn or Indigestion Famotidine (Pepcid) 20 mg PO Q12HR [facility] Last Admin: 10/31/18 08:03 Dose: Not Given Guaifenesin (Robitussin Sf) 200 mg PO Q4H PRN PRN Reason: Cough Hydrocortisone Sodium Succinate (Solu-Cortef) 50 mg IVP Q6HR [facility] Stop: 11/05/18 12:01 Last Admin: 10/31/18 05:34 Dose: 50 mg Norepinephrine Bitartrate (Levophed) 250 mls @ 0 mls/hr IVPB INF [facility]; Protocol Last Admin: 10/30/18 08:11 Dose: 250 mls Sodium Chloride (Normal Saline 0.9%) 1,000 mls @ 125 mls/hr IV .Q8H [facility] Last Admin: 10/31/18 00:13 Dose: 1,000 mls Piperacillin Sod/Tazobactam (Sod 3.375 gm/ Sodium Chloride) 100 mls @ 200 mls/ hr IVPB 0200,0800,1400,2000 [facility] Last Admin: 10/31/18 07:44 Dose: 100 mls Levofloxacin 500 mg/ Device 100 mls @ 100 mls/hr IVPB 0800 [facility] Last Admin: 10/31/18 08:19 Dose: 100 mls Vancomycin HCl 750 mg/ Sodium (Chloride) 250 mls @ 250 mls/hr IVPB 0300,1500 [facility] Last Admin: 10/31/18 02:12 Dose: 250 mls Levothyroxine Sodium (Synthroid) 50 mcg PO 0600 [facility] Last Admin: 10/31/18 05:33 Dose: 50 mcg Loperamide HCl (Imodium) 2 mg PO PRN PRN PRN Reason: Diarrhea/Loose Stools Loratadine (Claritin) 10 mg PO DAILYPRN PRN PRN Reason: Sinus Symptoms Mineral Oil/White Petrolatum (Eucerin Cream) 0 gm TOP BIDPRN PRN PRN Reason: Dry Skin Miscellaneous Medication (Pharmacy To Dose) 1 each IVPB PRN PRN PRN Reason: Pharmacy to dose Ondansetron HCl (Zofran Odt) 4 mg PO Q6H PRN PRN Reason: Nausea/Vomiting Ondansetron HCl (Zofran) 4 mg IVP Q6H PRN PRN Reason: Nausea/Vomiting Senna/Docusate Sodium (Senokot S) 2 tab PO BID PRN PRN Reason: Constipation Sodium Chloride ([employer] Nasal [place] 0.65%) 0 ml EA NARE QIDPRN PRN PRN Reason: Nasal Congestion Throat Lozenges (Cepastat Lozenges) 1 qing PO Q2H PRN PRN Reason: Sore Throat
[2018-10-31 12:26] LABS: Color Of CSF Supernatant COLORLESS (Colorless); Tube # 2; Unspun CSF Color COLORLESS (Colorless)
[2018-10-31 12:27] LABS: CSF Source CSF; Clarity Clear (Clear)
[2018-10-31 12:28] LABS: RBC Count - Manual 105 /cumm (None Seen); Tube # 4; WBC/NonHematics Count - Manual 0 /cumm (0-5)
[2018-10-31 12:38] LABS: CSF, Glucose 79 mg/dl (40-70); CSF, Protein 145 mg/dL (15-40)
--- NOTE | 2018-10-31 13:53 | RAD ---
FLUOROSCOPIC GUIDED LUMBAR PUNCTURE: Date: 10/31/18 INDICATION: History of immunosuppression with altered mental status. Concern for meningitis. TECHNIQUE: Informed consent was obtained. Preprocedure real estate valuer images were obtained for guidance purposes. Site ov erlying the left L3-4 interlaminar space was marked. The site was prepped and draped in the usual daniela rile fashion. Buffered 1% lidocaine was administered to the overlying subcutaneous tissues and parasp inal musculature. Under fluoroscopic guidance, a 20 gauge spinal needle was guided down through the l eft L3-4 interlaminar space within the thecal sac. There was spontaneous return of normal appearing C SF fluid. Following this, 9.5 mL of CSF was removed in four separate aliquots. The inner stylette was placed and the needle was removed. Total fluoroscopic time was 0.5 minutes. Total exposure was 95 mG y*M^2. The patient tolerated the procedure without difficulty. IMPRESSION: Successful fluoroscopically guided lumbar puncture with removal of 9.5 mL of normal appearing CSF. POS: VALENTIN
--- NOTE | 2018-10-31 15:08 | MRI ---
MRI BRAIN WITH AND WITHOUT CONTRAST: Date: 10-31-18 Comparison: None. History: Altered mental status with asphyxia and possible encephalitis. Technique: Multiplanar, multisequence MR imaging of the brain is obtained with and without contrast. FINDINGS: Detailed assessment is quite limited secondary to persistent motion artifact throughout the examinati on. There is no evidence for intracranial hemorrhage on the gradient echo imaging. There is a degree of diffuse cerebral volume loss with associated prominence of the CSF containing sp aces and prominence of the subdural space bilaterally. FLAIR imaging demonstrates a few scattered subcentimeter foci of increased signal intensity within th e subcortical and deep white matter, left greater than right. The T1 weighted imaging is quite limite d secondary to motion. On CT examination there is calcification in the region of the basal ganglia on the left. On this exam ination there is increased signal intensity down the pre and post contrast T1 weighted imaging in thi s region, likely associated with fat nonspecific calcification. No midline shift or mass effect is no philip. On the diffusion weighted imaging there is a focus of increased signal intensity on the left measurin g approximately 6 mm superior to and lateral to the left thalamus. This may represent a punctate focu s of acute infarction or could represent T2 shine through. This distinction is difficult to make seco ndary to the marked degree of motion artifact. Post contrast imaging demonstrates no definitive abnormal intraaxial enhancement although motion limi ts detailed assessment. There is nonspecific diffuse mild dural enhancement. There is mild mucosal thickening involving the sphenoid sinus on the right. Arterial flow voids at th e axial level of the skull base appear grossly unremarkable on the T2 weighted imaging. IMPRESSION: Markedly limited study secondary to persistent patient motion artifact. There is a questionable punct ate focus of restricted diffusion in the left deep white matter which could present an area of acute infarction but could also represent T2 shine through. If symptoms persist, when the patient is able, repeat imaging is advised. POS: VALENTIN
[2018-10-31 15:30] LABS: Vancomycin, Trough 12.8 ug/mL
[2018-11-01] MEDS: Sodium Chloride 0.9% 1,000 ML IV SCH (00:04)
[2018-11-01] MEDS: Hydrocortisone Sod Succ/PF 100 mg/2 ml Vial IVP SCH ×5 (00:06→23:39)
[2018-11-01] MEDS: Piperacillin/Tazobactam 3.375 GM in Sodium Chloride 0.9% 100 ML IVPB SCH ×4 (02:59→21:41)
[2018-11-01] MEDS: Vancomycin HCl 750 MG in Sodium Chloride 0.9% 250 ML 250 ML IVPB SCH ×2 (03:00→14:36)
[2018-11-01 04:57] LABS: Mean Corpuscular HGB CONC 31.6 g/dL (32.0-36.0); Mean Corpuscular Hemoglobin 28.8 pg (27.0-31.0); Mean Corpuscular Volume 91.1 fL (78.0-98.0); Mean Platelet Volume 14.6 fL (7.4-10.4); Platelet Count 29 thou/uL (130-400); RBC Distribution Width 15.6 % (11.5-14.5); Red Blood Cell (RBC) Count 2.42 mill/uL (4.20-5.40)
[2018-11-01 05:01] LABS: Band 15 % (5-11); Elliptocytes SLIGHT = 2-5 cells (100X) (0-1/hpf); Lymphocytes 15 % (21-51); MDiff Complete? YES; Monocytes 4 % (0-10); Neutrophil 66 % (42-75); Platelet Morphology Comment Appears Decreased
[2018-11-01 05:06] LABS: ALT (SGPT) 45 U/L (8-55); AST (SGOT) 113 U/L (5-34); Albumin 2.3 g/dL (3.5-5.0); Alkaline Phosphatase 265 U/L (40-150); Anion Gap 10 mmol/L (10-20); BUN (Urea Nitrogen) 7 mg/dL (7.0-18.7); Bilirubin, Total 0.5 mg/dL (0.2-1.2); Calc. Creatinine Clearance 90 mL/min (70-130); Calcium 6.2 mg/dL (7.8-10.44); Carbon Dioxide 25 mmol/L (22-29); Chloride 115 mmol/L (98-107); Estimated GFR-MDRD Greater than 90; Globulin 2.6 g/dL (2.4-3.5); Glucose 167 mg/dL (70-105); Protein, Total 4.9 g/dL (6.0-8.3); Sodium 148 mmol/L (136-145)
[2018-11-01 05:24] LABS: Potassium 1.8 mmol/L (3.5-5.1)
[2018-11-01] MEDS: Levothyroxine Sodium 50 MCG TAB PO SCH (05:35)
[2018-11-01] MEDS ORDERED: Potassium Chloride 40 MEQ in Premix Bag 1 BAG IVPB SCH (06:00)
[2018-11-01] MEDS ORDERED: Potassium Chloride 20 MEQ TAB PO SCH (06:00)
[2018-11-01 06:52] LABS: INR-International Normal Ratio 1.1; PTT 33.1 SEC (22.9-36.1)
[2018-11-01 06:53] LABS: D-Dimer Test 1.54 *mcg/mL (0.27-0.43)
[2018-11-01 07:03] LABS: Fibrinogen 138 mg/dL (253-463)
[2018-11-01] MEDS ORDERED: Potassium Chloride 40 MEQ in Sodium Chloride 0.9% 250 ML 250 ML IVPB SCH (07:15)
[2018-11-01] MEDS ORDERED: Magnesium Sulfate 3 GM in Sodium Chloride 0.9% 100 ML IVPB SCH (07:30)
[2018-11-01 07:49] LABS: FSP-Qualitative ABNORMAL (Normal); FSP-Semiquantitative >=5 & <20 mcg/mL (Less than 5)
[2018-11-01] MEDS: D5 1/2 NS w/20 mEq KCL 1,000 ML IV SCH (08:21)
[2018-11-01] MEDS: Potassium Chloride 20 MEQ TAB PO SCH (08:22)
[2018-11-01] MEDS: Calcium Carbonate + Vit D 1 TAB PO SCH ×2 (08:22→17:35)
[2018-11-01] MEDS: Famotidine 20 MG TAB PO SCH ×2 (08:23→21:47)
[2018-11-01] MEDS: Saccharomyces boulardii 250 MG CAP PO SCH (08:23)
[2018-11-01 09:09] LABS: Phosphorus Less than 1.0 mg/dL (2.3-4.7)
[2018-11-01] MEDS ORDERED: Sodium Phosphate 30 MMOL in Sodium Chloride 0.9% 250 ML 250 ML IVPB SCH (09:30)
--- NOTE | 2018-11-01 09:41 | PRG ---
DATE OF SERVICE: 11/01/2018 DISCUSSION: Remains in the ICU. She is scheduled for debridement of her decubitus today. OBJECTIVE: VITAL SIGNS: Pulse is 53, blood pressure is 90/60, respiratory rate 28, sats 98% on room air. Remains encephalopathic, but in no respiratory distress. She had lumbar puncture done which was essentially normal except for an elevated protein of nonsignificant. CHEST: Decreased breath sounds. No wheezing CARDIAC: Normal S1, S2 ABDOMEN: No masses LABORATORY DATA: White count 2000, H and H of 7 and 22, and platelet count is 29,000, big left shift 1.8. Albumin remains low 2.3. IMPRESSION: 1. Metabolic encephalopathy. 2. Sepsis syndrome. 3. Severe thrombocytopenia. 4. History of lupus. PLAN: Remains on hydrocortisone, Levaquin, Zosyn and vancomycin, is followed by Infectious Disease. Once surgery is completed and she is stable, she can be transferred out of the ICU. Job ID: [id number]
--- NOTE | 2018-11-01 10:02 | PDOC.PN ---
- Subjective Encounter Start Date: 11/01/18 Encounter Start Time: 09:40 Patient seen and examined. No new complaints. No overnight events - Objective Resuscitation Status - Order Detail: 10/29/18 07:10 Resuscitation Status Routine Resuscitation Status: FULL: Full Resuscitation MAR Reviewed: Yes Vital Signs & Weight: Vital Signs (12 hours) Temp Pulse Resp BP Pulse Ox 11/01/18 09:47 97.9 F 11/01/18 09:46 97.9 F 60 16 97/71 95 11/01/18 08:45 98.5 F 56 L 16 84/62 L 93 L 11/01/18 08:30 98.5 F 56 L 15 86/62 L 95 11/01/18 07:58 98 11/01/18 07:00 98.3 F 11/01/18 06:32 99 11/01/18 03:00 98 F 10/31/18 23:00 98.2 F Weight Admit Weight 95 lb Weight 95 lb 10.89 oz Most Recent Monitor Data Heart Rate from ECG 73 NIBP 92/68 NIBP BP-Mean 76 Respiration from ECG 16 SpO2 97 I&O: 10/31/18 11/01/18 11/02/18 06:59 06:59 06:59 Intake Total 4869 4043 1005 Output Total 1612 4585 175 Balance 3257 -542 830 Result Diagrams: 11/01/18 04:32 11/01/18 04:32 EKG Reviewed by me: Yes (nsr) Phys Exam - Physical Examination Constitutional: NAD HEENT: PERRLA, moist MMs, sclera anicteric Neck: no JVD, supple Respiratory: no wheezing, no rales, no rhonchi Cardiovascular: RRR, no significant murmur, no rub Gastrointestinal: soft, non-tender, no distention, positive bowel sounds wound with dressing Musculoskeletal: no edema, pulses present Neurological: moves all 4 limbs Lymphatic: no nodes Psychiatric: normal affect Skin: no rash, normal turgor Dx/Plan (1) Decubitus ulcer of coccygeal region, stage 4 Code(s): L89.154 - PRESSURE ULCER OF SACRAL REGION, STAGE 4 Status: Acute (2) Hypokalemia Code(s): E87.6 - HYPOKALEMIA Status: Acute (3) Septic shock Code(s): A41.9 - SEPSIS, UNSPECIFIED ORGANISM; R65.21 - SEVERE SEPSIS WITH SEPTIC SHOCK Status: Resolved (4) Thrombocytopenia Code(s): D69.6 - THROMBOCYTOPENIA, UNSPECIFIED Status: Acute (5) Hypothyroidism Code(s): E03.9 - HYPOTHYROIDISM, UNSPECIFIED Status: Chronic (6) Normocytic anemia Code(s): D64.9 - ANEMIA, UNSPECIFIED Status: Chronic (7) Protein-calorie malnutrition, severe Code(s): E43 - UNSPECIFIED SEVERE PROTEIN-CALORIE MALNUTRITION Status: Chronic (8) Systemic lupus erythematosus Code(s): M32.9 - SYSTEMIC LUPUS ERYTHEMATOSUS, UNSPECIFIED Status: Chronic (9) Abnormal blood electrolyte level Code(s): E87.8 - OTH DISORDERS OF ELECTROLYTE AND FLUID BALANCE, NEC Status: Acute (10) Encephalopathy in sepsis Code(s): G93.41 - METABOLIC ENCEPHALOPATHY Status: Acute - Plan cont current plan of care, continue antibiotics * replace magneisum sulfate * replace sodium phosphate * replace potassium chloride * change IVF dext with 1/2 ns with KCL * continue current IV antibiotics * wound care * nutritional support * transfuse 1 unit PRBC * repeat labs tomorrow. Review of Systems - Review of Systems Other: not reliable due to her level of cognitive status - Medications/Allergies Allergies/Adverse Reactions: Allergies Allergy/AdvReac Type Severity Reaction Status Date / Time No Known Allergies Allergy Verified 07/19/17 21:49 Medications: Current Medications Acetaminophen (Tylenol) 650 mg PO Q4H PRN PRN Reason: Headache/Fever/Mild Pain (1-3) Last Admin: 10/29/18 11:57 Dose: 650 mg Acetaminophen (Tylenol) [address] Q4H PRN PRN Reason: Headache/Fever/Mild Pain (1-3) Artificial Tears (Tears Naturale) 2 drop EA EYE PRN PRN PRN Reason: Dry Eyes Bisacodyl (Dulcolax) [address] DAILYPRN PRN PRN Reason: Constipation Calcium Carbonate (Tums) 1,000 mg PO Q4H PRN PRN Reason: Heartburn or Indigestion Calcium/Vitamin D (Caltrate 600 + Vit D) 1 tab PO BID-[facility] Last Admin: 11/01/18 08:22 Dose: Not Given Cholecalciferol (Vitamin D3) 1,000 units PO BID [facility] Famotidine (Pepcid) 20 mg PO Q12HR [facility] Last Admin: 11/01/18 08:23 Dose: Not Given Guaifenesin (Robitussin Sf) 200 mg PO Q4H PRN PRN Reason: Cough Hydrocortisone Sodium Succinate (Solu-Cortef) 50 mg IVP Q6HR [facility] Stop: 11/05/18 12:01 Last Admin: 11/01/18 05:34 Dose: 50 mg Norepinephrine Bitartrate (Levophed) 250 mls @ 0 mls/hr IVPB INF [facility]; Protocol Last Admin: 10/30/18 08:11 Dose: 250 mls Piperacillin Sod/Tazobactam (Sod 3.375 gm/ Sodium Chloride) 100 mls @ 200 mls/ hr IVPB 0200,0800,1400,2000 [facility] Last Admin: 11/01/18 08:22 Dose: 100 mls Levofloxacin 500 mg/ Device 100 mls @ 100 mls/hr IVPB 0800 [facility] Last Admin: 11/01/18 08:22 Dose: 100 mls Vancomycin HCl 750 mg/ Sodium (Chloride) 250 mls @ 250 mls/hr IVPB 0300,1500 [facility] Last Admin: 11/01/18 03:00 Dose: 250 mls Potassium Chloride/Dextrose/Sod Cl (D5 1/2 Ns W/20 Meq Kcl) 1,000 mls @ 75 mls/ hr IV .[id number] [facility] Last Admin: 11/01/18 08:21 Dose: 1,000 mls Sodium Phosphate 30 mmol/ (Sodium Chloride) 260 mls @ 43.333 mls/hr IVPB NOW [facility] Stop: 11/01/18 13:00 Levothyroxine Sodium (Synthroid) 50 mcg PO 0600 [facility] Last Admin: 11/01/18 05:35 Dose: 50 mcg Loperamide HCl (Imodium) 2 mg PO PRN PRN PRN Reason: Diarrhea/Loose Stools Loratadine (Claritin) 10 mg PO DAILYPRN PRN PRN Reason: Sinus Symptoms Mineral Oil/White Petrolatum (Eucerin Cream) 0 gm TOP BIDPRN PRN PRN Reason: Dry Skin Miscellaneous Medication (Pharmacy To Dose) 1 each IVPB PRN PRN PRN Reason: Pharmacy to dose Ondansetron HCl (Zofran Odt) 4 mg PO Q6H PRN PRN Reason: Nausea/Vomiting Ondansetron HCl (Zofran) 4 mg IVP Q6H PRN PRN Reason: Nausea/Vomiting Potassium Chloride (K-Dur) 20 meq PO QAM-[facility] Last Admin: 11/01/18 08:22 Dose: Not Given Saccharomyces Boulardii (Florastor) 250 mg PO DAILY [facility] Last Admin: 11/01/18 08:23 Dose: Not Given Senna/Docusate Sodium (Senokot S) 2 tab PO BID PRN PRN Reason: Constipation Sodium Chloride ([employer] Nasal [place] 0.65%) 0 ml EA NARE QIDPRN PRN PRN Reason: Nasal Congestion Throat Lozenges (Cepastat Lozenges) 1 qing PO Q2H PRN PRN Reason: Sore Throat
[2018-11-01] MEDS ORDERED: Potassium Phosphate 30 MMOL in Sodium Chloride 0.9% 250 ML 250 ML IVPB SCH (10:30)
[2018-11-01] MEDS ORDERED: Fentanyl 100 MCG/2 ML VIAL ONE ×2 (14:58→15:32)
--- NOTE | 2018-11-01 15:01 | PDOC.CTH ---
Cardiology Progress Note - Subjective No new changes noted overnight. Pt more alert today. - Objective Vital Signs Temp Pulse Resp BP Pulse Ox 11/01/18 11:53 98.0 F 11/01/18 09:47 97.9 F 11/01/18 09:46 97.9 F 60 16 97/71 95 11/01/18 08:45 98.5 F 56 L 16 84/62 L 93 L 11/01/18 08:30 98.5 F 56 L 15 86/62 L 95 11/01/18 07:58 98 11/01/18 07:00 98.3 F 11/01/18 06:32 99 Admit Weight 95 lb Weight 95 lb 10.89 oz 10/31/18 11/01/18 11/02/18 06:59 06:59 06:59 Intake Total 4869 4043 1355 Output Total 1612 4585 445 Balance 3257 -542 910 - Physical Examination General/Neuro: NAD Neck: no JVD present Lungs: CTA, unlabored respirations Heart: PMI normal, RRR Abdomen: NT/ND, soft Extremities: + femoral B - Labs Result Diagrams: 11/01/18 04:32 11/01/18 04:32 Troponin/CKMB Troponin I Less than 0.010 ng/mL (< 0.028) 10/29/18 01:01 - Assessment/Plan Bradycardia Sepsis Thrombocytopenia Currently on Abx Off pressors HR in the 50-60 range No malignant rhythms present No further CV recommendations I will sign off. Reconsult if CV changes occur
[2018-11-01] MEDS ORDERED: Midazolam HCl 2 mg/2 ml Vial ONE (15:32)
--- NOTE | 2018-11-01 15:33 | PRG ---
DATE OF SERVICE: 11/01/2018 SUBJECTIVE: The patient is in the ICU still. She is going for debridement under Dr. Ch's care, this is of the sacral decubitus and the heel area. Still with quite pronounced expressive aphasia. She is able to establish eye contact. She has had no diarrhea, no respiratory symptoms. OBJECTIVE: VITAL SIGNS: She has been afebrile. Other vital signs are not remarkable. MUSCULOSKELETAL: Wasting syndrome noted. HEENT: Ocular movements conjugate. LUNGS: Symmetric air entry with few rhonchi. HEART: S1 and S2. Regular rate with a soft aortic murmur. ABDOMEN: Soft, not distended. Abdominal striae noted. The patient has an indwelling Aiken catheter. LABORATORY DATA: White cell count 2.0; hemoglobin 7.0; MCV is 91; platelets 29,000; 66% neutrophils; 15% bands. Sodium 148, potassium is down to 1.8, phosphorus is less than 1, magnesium is 1.4. The complement C3 was 27 and C4 was only 4, which has markedly decreased both elements. CSF was not remarkable. Glucose was a little high. 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 The MRI was not helpful because of motion abnormalities. Microbiology; cryptococcus antigen was negative twice in serum and in CSF. Other opportunistic workup is pending. ASSESSMENT AND DISCUSSION: History of systemic lupus erythematosus with poor followup and treatment due to lack of insurance and immunosuppressed state, wasting syndrome, severe hypophosphatemia, hypomagnesemia, hypocalcemia, and hypokalemia, which could be related to the effects of poorly treated lupus in the kidneys with loss of those electrolytes, also an element of refeeding syndrome could be in play as well. Vitamin D deficiency is another consideration. It seems like the main issue here is the activity of the systemic lupus erythematosus, which continues unimpeded for the past many years. She may have some element of myositis and neuropathy, but part of her weakness is probably from the electrolyte abnormalities and should improve with correction. 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 We will continue checking the final results of the opportunistic infection workup. Job ID: [id number]
[2018-11-01] MEDS ORDERED: KETAMINE 100 MG/ML (5ML VIAL) ONE (15:55)
--- NOTE | 2018-11-01 22:54 | OP ---
DATE OF PROCEDURE: 11/01/2018 PREOPERATIVE DIAGNOSES: 1. Severe depression. 2. Malnutrition. 3. Catatonic state. 4. Sacral decubitus stage IV involving the sacrum and coccyx. ANESTHESIA: Ketamine sedation. PROCEDURE: Debridement of skin, subcutaneous tissue, fascia, muscle, removal of the coccyx, debridement of the sacrum, Wound Care Team placed her in a wound VAC, preoperative thrombocytopenia, 1 unit of platelets pack given intraoperatively and 1 unit of blood (preoperative anemia), bleeding inherent to the procedure. DESCRIPTION OF PROCEDURE: The patient was taken to the operating room, while in right lateral decubitus position using rojas bag in proper position and padding. Under ketamine anesthesia, libby-sacral area prepared with Betadine. Necrotic skin, subcutaneous tissue, connective tissue, fascia, and muscle debrided sharply. She has severe osteomyelitis of the lower sacrum and coccyx. Coccyx was free-floating and from the sacrum. Rongeur was used to debride bony tissues. Coccyx was excised. Sacrum debrided proximally. There was inherent bleeding in the procedure, controlled with cautery and local pressure. Good hemostasis noted, wound irrigated. Wound Care Team placed a wound VAC. Job ID: [id number]
[2018-11-02] MEDS: Piperacillin/Tazobactam 3.375 GM in Sodium Chloride 0.9% 100 ML IVPB SCH ×4 (02:37→20:52)
[2018-11-02] MEDS: D5 1/2 NS w/20 mEq KCL 1,000 ML IV SCH (02:37)
[2018-11-02] MEDS: Norepinephrine 8 MG/0.9% NS 250 ML IVPB SCH (02:43)
[2018-11-02 02:52] LABS: #Lymphocytes 0.3 thou/uL (1.20-3.40); #Monocytes 0.2 thou/uL (0.11-0.59); #Neutrophils 2.8 thou/uL (1.40-6.50); %Eosinophils 0.1 % (0.0-10.0); %Lymphocytes 8.9 % (21.0-51.0); %Monocytes 6.5 % (0.0-10.0); %Neutrophils 84.5 % (42.0-75.0); Hemoglobin 7.7 g/dL (12.0-16.0); Mean Corpuscular HGB CONC 34.5 g/dL (32.0-36.0); Mean Corpuscular Hemoglobin 29.9 pg (27.0-31.0); Mean Corpuscular Volume 86.7 fL (78.0-98.0); Mean Platelet Volume 11.3 fL (7.4-10.4); Platelet Count 41 thou/uL (130-400); RBC Distribution Width 15.1 % (11.5-14.5); Red Blood Cell (RBC) Count 2.58 mill/uL (4.20-5.40); White Blood Cell (WBC) Count 3.3 thou/uL (4.8-10.8)
[2018-11-02 03:06] LABS: Anion Gap 9 mmol/L (10-20); BUN (Urea Nitrogen) 10 mg/dL (7.0-18.7); Calc. Creatinine Clearance 100 mL/min (70-130); Carbon Dioxide 25 mmol/L (22-29); Chloride 116 mmol/L (98-107); Estimated GFR-MDRD Greater than 90; Glucose 211 mg/dL (70-105); Magnesium 2.1 mg/dL (1.6-2.6); Sodium 147 mmol/L (136-145)
[2018-11-02 03:09] LABS: Calcium 5.7 mg/dL (7.8-10.44); Potassium 2.7 mmol/L (3.5-5.1)
[2018-11-02 03:10] LABS: Phosphorus 1.4 mg/dL (2.3-4.7)
[2018-11-02] MEDS ORDERED: Potassium Chloride 40 MEQ in Premix Bag 1 BAG IVPB ONE (04:00)
[2018-11-02] MEDS ORDERED: Calcium Gluc 4.6 MEQ/10 ML (100 MG/ML) SLOW IVP SCH (04:00)
[2018-11-02] MEDS ORDERED: Potassium Phosphate 30 MMOL in Sodium Chloride 0.9% 500 ML IVPB ONE (04:15)
[2018-11-02] MEDS: Vancomycin HCl 750 MG in Sodium Chloride 0.9% 250 ML 250 ML IVPB SCH ×2 (04:27→14:49)
[2018-11-02] MEDS ORDERED: Calcium Gluconate 4.6 MEQ in Sodium Chloride 0.9% 100 ML IVPB SCH (04:30)
[2018-11-02] MEDS: Hydrocortisone Sod Succ/PF 100 mg/2 ml Vial IVP SCH (05:13)
[2018-11-02] MEDS: Levothyroxine Sodium 50 MCG TAB PO SCH (07:42)
[2018-11-02] MEDS ORDERED: Calcium Chloride 1 GM/10 ML Abboject SYRINGE IVP SCH (08:30)
[2018-11-02] MEDS: Hydroxychloroquine Sulfate 200 MG TAB PO SCH ×2 (08:52→20:58)
[2018-11-02] MEDS: Magnesium Oxide 250 MG TAB PO SCH (08:55)
[2018-11-02] MEDS: Ferrous Sulfate 325 MG TAB PO SCH (08:59)
[2018-11-02] MEDS: Saccharomyces boulardii 250 MG CAP PO SCH (09:00)
[2018-11-02] MEDS: Famotidine 20 MG TAB PO SCH ×2 (09:00→20:58)
[2018-11-02] MEDS: Folic Acid 1 MG TAB PO SCH (09:01)
[2018-11-02] MEDS: Potassium Chloride 20 MEQ TAB PO SCH (09:03)
--- NOTE | 2018-11-02 09:18 | PRG ---
DATE OF SERVICE: 11/02/2018 SUBJECTIVE: A 38-year-old female remains in the ICU, status post extensive surgical debridement of her decubitus ulcer. OBJECTIVE: VITAL SIGNS: Pulse is 75, blood pressure is 120/81. She is on Levophed. Saturations 100%, respiratory rate 13. GENERAL: She appears to be in no distress. CHEST: Decreased breath sounds. No wheezing. CARDIAC: Normal S1 and S2. No gallops. ABDOMEN: No masses. LABORATORY DATA: Creatinine is normal. Potassium is 5.7. Phosphorus is 1. Magnesium is normal. IMPRESSION: Status post extensive debridement of her decubitus ulcer. Apparently, her coccyx was excised. Sacral debridement was done. PLAN: Continue supportive care. Try and wean Levophed. Once she is off, she can be transferred out of the ICU. Continue stress doses of steroids, antibiotics as per Infectious Disease. Job ID: [id number]
[2018-11-02] MEDS: Calcium Carbonate + Vit D 1 TAB PO SCH ×2 (09:27→16:13)
[2018-11-02] MEDS: Multivitamin W/ Minerals 1 TAB PO SCH (09:28)
[2018-11-02] MEDS: Cyanocobalamin (Vitamin B-12) 1,000 MCG TAB PO SCH (09:36)
[2018-11-02] MEDS: Pot Chloride/Pot Bicarb/Cit Ac 25 mEq Effervescent Tablet PO SCH ×2 (09:38→20:57)
[2018-11-02] MEDS: K-Phos Neutral 250 MG TAB PO SCH ×2 (09:38→17:19)
[2018-11-02] MEDS ORDERED: Norepinephrine 8 MG/250 ML BAG IVPB PRN (10:42)
--- NOTE | 2018-11-02 10:45 | PDOC.PN ---
- Subjective Encounter Start Date: 11/02/18 Encounter Start Time: 09:00 pt is very weak, barely able to talk, she had debridement yesterday, today she has abnormal electrolytes she is back on levophed again - Objective Resuscitation Status - Order Detail: 10/29/18 07:10 Resuscitation Status Routine Resuscitation Status: FULL: Full Resuscitation MAR Reviewed: Yes Vital Signs & Weight: Vital Signs (12 hours) Temp Pulse Ox 11/02/18 07:33 100 11/02/18 07:00 98.5 F 11/02/18 04:00 97.8 F 11/02/18 00:00 98.0 F Weight Admit Weight 95 lb Weight 95 lb 10.89 oz Most Recent Monitor Data Heart Rate from ECG 71 NIBP 116/77 NIBP BP-Mean 90 Respiration from ECG 16 SpO2 100 I&O: 11/01/18 11/02/18 11/03/18 06:59 06:59 06:59 Intake Total 4043 4665.7 95 Output Total 4585 1750 50 Balance -542 2915.7 45 Result Diagrams: 11/02/18 02:35 11/02/18 02:35 EKG Reviewed by me: Yes (nsr) Phys Exam - Physical Examination Constitutional: NAD cachectic HEENT: PERRLA, moist MMs, sclera anicteric poor dentition Neck: no JVD, supple Respiratory: no wheezing, no rales, no rhonchi Cardiovascular: RRR, no significant murmur, no rub Gastrointestinal: soft, non-tender, no distention, positive bowel sounds wound vac over decubitus ulcer Musculoskeletal: no edema, pulses present Neurological: moves all 4 limbs Lymphatic: no nodes Psychiatric: normal affect Skin: no rash, normal turgor Dx/Plan (1) Septic shock Code(s): A41.9 - SEPSIS, UNSPECIFIED ORGANISM; R65.21 - SEVERE SEPSIS WITH SEPTIC SHOCK Status: Acute Comment: due to infected decubitus ulcer (2) Abnormal blood electrolyte level Code(s): E87.8 - OTH DISORDERS OF ELECTROLYTE AND FLUID BALANCE, NEC Status: Acute (3) Encephalopathy in sepsis Code(s): G93.41 - METABOLIC ENCEPHALOPATHY Status: Acute (4) Decubitus ulcer of coccygeal region, stage 4 Code(s): L89.154 - PRESSURE ULCER OF SACRAL REGION, STAGE 4 Status: Acute (5) Thrombocytopenia Code(s): D69.6 - THROMBOCYTOPENIA, UNSPECIFIED Status: Acute (6) Hypothyroidism Code(s): E03.9 - HYPOTHYROIDISM, UNSPECIFIED Status: Chronic (7) Normocytic anemia Code(s): D64.9 - ANEMIA, UNSPECIFIED Status: Chronic (8) Protein-calorie malnutrition, severe Code(s): E43 - UNSPECIFIED SEVERE PROTEIN-CALORIE MALNUTRITION Status: Chronic (9) Systemic lupus erythematosus Code(s): M32.9 - SYSTEMIC LUPUS ERYTHEMATOSUS, UNSPECIFIED Status: Chronic Comment: with acute exacerbation - Plan cont current plan of care, 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 Review of Systems - Review of Systems Other: not reliable due to her cognitive deficit - Medications/Allergies Allergies/Adverse Reactions: Allergies Allergy/AdvReac Type Severity Reaction Status Date / Time No Known Allergies Allergy Verified 07/19/17 21:49 Medications: Current Medications Acetaminophen (Tylenol) 650 mg PO Q4H PRN PRN Reason: Headache/Fever/Mild Pain (1-3) Last Admin: 10/29/18 11:57 Dose: 650 mg Acetaminophen (Tylenol) 650 mg [place] Q4H PRN PRN Reason: Headache/Fever/Mild Pain (1-3) Artificial Tears (Tears Naturale) 2 drop EA EYE PRN PRN PRN Reason: Dry Eyes Bisacodyl (Dulcolax) 10 mg [place] DAILYPRN PRN PRN Reason: Constipation Calcium Carbonate (Tums) 1,000 mg PO Q4H PRN PRN Reason: Heartburn or Indigestion Calcium/Vitamin D (Caltrate 600 + Vit D) 1 tab PO BID-[facility] Last Admin: 11/02/18 09:27 Dose: 1 tab Cholecalciferol (Vitamin D3) 1,000 units PO BID [facility] Last Admin: 11/02/18 09:36 Dose: 1,000 units Cyanocobalamin (Vitamin B-12) 1,000 mcg PO DAILY [facility] Last Admin: 11/02/18 09:36 Dose: 1,000 mcg Famotidine (Pepcid) 20 mg PO Q12HR [facility] Last Admin: 11/02/18 09:00 Dose: 20 mg Ferrous Sulfate (Feosol) 325 mg PO QAM-WM [facility] Last Admin: 11/02/18 08:59 Dose: 325 mg Folic Acid (Folvite) 1 mg PO DAILY [facility] Last Admin: 11/02/18 09:01 Dose: 1 mg Guaifenesin (Robitussin Sf) 200 mg PO Q4H PRN PRN Reason: Cough Hydroxychloroquine Sulfate (Plaquenil) 200 mg PO BID [facility] Last Admin: 11/02/18 08:52 Dose: 200 mg Piperacillin Sod/Tazobactam (Sod 3.375 gm/ Sodium Chloride) 100 mls @ 200 mls/ hr IVPB 0200,0800,1400,2000 [facility] Last Admin: 11/02/18 08:58 Dose: 100 mls Vancomycin HCl 750 mg/ Sodium (Chloride) 250 mls @ 250 mls/hr IVPB 0300,1500 [facility] Last Admin: 11/02/18 04:27 Dose: 250 mls Norepinephrine Bitartrate (Levophed) 250 mls @ 0 mls/hr IVPB INF PRN; Protocol PRN Reason: Blood Pressure Iron/Minerals/Multivitamins (Theragran M) 1 tab PO DAILY [facility] Last Admin: 11/02/18 09:28 Dose: 1 tab Levothyroxine Sodium (Synthroid) 50 mcg PO 0600 [facility] Last Admin: 11/02/18 07:42 Dose: 50 mcg Loperamide HCl (Imodium) 2 mg PO PRN PRN PRN Reason: Diarrhea/Loose Stools Loratadine (Claritin) 10 mg PO DAILYPRN PRN PRN Reason: Sinus Symptoms Magnesium Oxide (Magnesium Oxide) 250 mg PO DAILY [facility] Last Admin: 11/02/18 08:55 Dose: 250 mg Methylprednisolone Sodium Succinate (Solu-Medrol) 20 mg IVP Q6HR [facility] Mineral Oil/White Petrolatum (Eucerin Cream) 0 gm TOP BIDPRN PRN PRN Reason: Dry Skin Miscellaneous Medication (Pharmacy To Dose) 1 each IVPB PRN PRN PRN Reason: Pharmacy to dose Ondansetron HCl (Zofran Odt) 4 mg PO Q6H PRN PRN Reason: Nausea/Vomiting Ondansetron HCl (Zofran) 4 mg IVP Q6H PRN PRN Reason: Nausea/Vomiting Phosphorus (Kphos Neutral) 500 mg PO BID-[facility] Last Admin: 11/02/18 09:38 Dose: Not Given Potassium Bicarb/Potassium Chloride (K-Lyte Cl) 25 meq PO BID [facility] Last Admin: 11/02/18 09:38 Dose: Not Given Potassium Chloride (K-Dur) 20 meq PO QAM-[facility] Last Admin: 11/02/18 09:03 Dose: 20 meq Saccharomyces Boulardii (Florastor) 250 mg PO DAILY [facility] Last Admin: 11/02/18 09:00 Dose: 250 mg Senna/Docusate Sodium (Senokot S) 2 tab PO BID PRN PRN Reason: Constipation Sodium Chloride ([place] Nasal [place] 0.65%) 0 ml EA NARE QIDPRN PRN PRN Reason: Nasal Congestion Sodium Chloride (Flush - Normal Saline) 10 ml IVF Q12HR [facility] Last Admin: 11/02/18 09:38 Dose: 10 ml Sodium Chloride (Flush - Normal Saline) 10 ml IVF PRN PRN PRN Reason: Saline Flush Thiamine HCl (Thiamine) 100 mg PO DAILY [facility] Last Admin: 11/02/18 09:27 Dose: 100 mg Throat Lozenges (Cepastat Lozenges) 1 qing PO Q2H PRN PRN Reason: Sore Throat
--- NOTE | 2018-11-02 12:25 | PRG ---
DATE OF SERVICE: 11/02/2018 Rosaura Byrd is doing well today. 113/76, 88. Her hemoglobin is 7.7, platelet count 41,000. I did give her a unit of platelets yesterday for a platelet count of 29,000. We did this during her operation. The patient is status post resection of her coccyx, debridement of her sacrum for stage IV sacral decubitus. Wound VAC is in place. Dr. Rosales is awaiting intraoperative wound cultures, which were submitted, bone and soft tissues. We will await his recommendation as far as long-term intravenous antibiotics. I will see the patient as needed this weekend. Dr. Kay is covering, please call if necessary. I will Monday. Job ID: [id number]
[2018-11-02] MEDS: Sodium Chloride 0.9% 1,000 ML IV SCH (12:40)
[2018-11-02 14:33] LABS: Vancomycin, Trough 12.1 ug/mL
[2018-11-03] MEDS: Piperacillin/Tazobactam 3.375 GM in Sodium Chloride 0.9% 100 ML IVPB SCH ×4 (04:50→20:05)
[2018-11-03] MEDS: Vancomycin HCl 1 GM in Premix Bag 1 BAG IVPB SCH ×2 (04:50→16:09)
[2018-11-03 05:44] LABS: #Lymphocytes 0.3 thou/uL (1.20-3.40); #Monocytes 0.2 thou/uL (0.11-0.59); #Neutrophils 2.2 thou/uL (1.40-6.50); %Basophils 0.9 % (0.0-1.0); %Eosinophils 0.2 % (0.0-10.0); %Lymphocytes 12.2 % (21.0-51.0); %Monocytes 6.8 % (0.0-10.0); Hemoglobin 7.3 g/dL (12.0-16.0); Mean Corpuscular HGB CONC 33.7 g/dL (32.0-36.0); Mean Corpuscular Hemoglobin 29.6 pg (27.0-31.0); Mean Corpuscular Volume 88.1 fL (78.0-98.0); Mean Platelet Volume 14.2 fL (7.4-10.4); Platelet Count 28 thou/uL (130-400); RBC Distribution Width 15.6 % (11.5-14.5); Red Blood Cell (RBC) Count 2.45 mill/uL (4.20-5.40); White Blood Cell (WBC) Count 2.8 thou/uL (4.8-10.8)
[2018-11-03 05:57] LABS: Anion Gap 8 mmol/L (10-20); BUN (Urea Nitrogen) 17 mg/dL (7.0-18.7); CRP (Inflammatory) 1.34 mg/dL (= or < 0.5); Calc. Creatinine Clearance 116 mL/min (70-130); Carbon Dioxide 27 mmol/L (22-29); Chloride 114 mmol/L (98-107); Estimated GFR-MDRD Greater than 90; Glucose 166 mg/dL (70-105); Potassium 3.3 mmol/L (3.5-5.1); Sodium 146 mmol/L (136-145)
[2018-11-03 06:02] LABS: Calcium 5.6 mg/dL (7.8-10.44); Phosphorus 1.4 mg/dL (2.3-4.7)
[2018-11-03] MEDS ORDERED: Potassium Phosphate 12 MMOL in Sodium Chloride 0.9% 250 ML 250 ML IV PRN (06:27)
[2018-11-03] MEDS ORDERED: Potassium Chloride 40 MEQ in Premix Bag 1 BAG IVPB PRN (06:27)
[2018-11-03] MEDS ORDERED: Potassium Phosphate 15 MMOL in Sodium Chloride 0.9% 250 ML 250 ML IV PRN (06:27)
[2018-11-03] MEDS ORDERED: Magnesium 2 GM/NS 0.9% 100 ML 2 GM in Premix Bag 1 BAG IVPB PRN (06:27)
[2018-11-03] MEDS ORDERED: Potassium Chloride 40 MEQ in Sodium Chloride 0.9% 250 ML 250 ML IVPB PRN (06:27)
[2018-11-03] MEDS ORDERED: Potassium Phosphate 9 MMOL in Sodium Chloride 0.9% 100 ML IVPB PRN (06:27)
[2018-11-03] MEDS ORDERED: Magnesium Oxide 400 MG TAB PO PRN ×2 (06:27)
[2018-11-03] MEDS ORDERED: Potassium Chloride 20 MEQ TAB PO PRN (06:27)
[2018-11-03] MEDS ORDERED: CCU ELECTROLYTE REPLACEMENT PROTOCOL FS PRN (06:27)
[2018-11-03] MEDS: Levothyroxine Sodium 50 MCG TAB PO SCH (06:59)
[2018-11-03] MEDS: Saccharomyces boulardii 250 MG CAP PO SCH (08:58)
[2018-11-03] MEDS: Potassium Chloride 20 MEQ TAB PO SCH (09:00)
[2018-11-03] MEDS: Folic Acid 1 MG TAB PO SCH (09:00)
[2018-11-03] MEDS: Cyanocobalamin (Vitamin B-12) 1,000 MCG TAB PO SCH (09:01)
[2018-11-03] MEDS: Calcium Carbonate + Vit D 1 TAB PO SCH ×2 (09:02→17:19)
[2018-11-03] MEDS: Ferrous Sulfate 325 MG TAB PO SCH (09:02)
[2018-11-03] MEDS: Famotidine 20 MG TAB PO SCH ×2 (09:02→20:45)
[2018-11-03] MEDS: Multivitamin W/ Minerals 1 TAB PO SCH (09:02)
[2018-11-03] MEDS: K-Phos Neutral 250 MG TAB PO SCH ×2 (09:22→17:30)
[2018-11-03] MEDS: Magnesium Oxide 250 MG TAB PO SCH (09:23)
[2018-11-03] MEDS: Pot Chloride/Pot Bicarb/Cit Ac 25 mEq Effervescent Tablet PO SCH ×2 (09:23→20:41)
[2018-11-03] MEDS: Hydroxychloroquine Sulfate 200 MG TAB PO SCH ×2 (09:53→20:41)
--- NOTE | 2018-11-03 10:48 | PRG ---
DATE OF SERVICE: 11/03/2018 SUBJECTIVE: This morning, she remains hypotensive on a Levophed drip. OBJECTIVE: VITAL SIGNS: Blood pressure is 90/60, pulse 70, respiratory rate 18. GENERAL: Remains encephalopathic. CHEST: Decreased breath sounds. No wheezing. CARDIAC: Normal S1 and S2. No gallops. ABDOMEN: No masses. LABORATORY STUDIES: White count is only 2.8, platelet count is only 28,000, hemoglobin and hematocrit of 7 and 21. Lytes are normal. IMPRESSION: 1. Extensive decubitus ulcer with sepsis syndrome. 2. Relative adrenal insufficiency. 3. Anemia. 4. Thrombocytopenia. PLAN: Antibiotics per Infectious Disease. Continue stress dose steroids. We will follow while in the ICU. Job ID: [id number]
--- NOTE | 2018-11-03 11:18 | PDOC.PN ---
- Subjective Encounter Start Date: 11/03/18 Encounter Start Time: 09:20 Patient seen and examined. No new complaints. No overnight events her BP dropped this morning, so levophed started - Objective Resuscitation Status - Order Detail: 10/29/18 07:10 Resuscitation Status Routine Resuscitation Status: FULL: Full Resuscitation MAR Reviewed: Yes Vital Signs & Weight: Vital Signs (12 hours) Temp Pulse Ox 11/03/18 08:00 100 11/03/18 07:25 100 11/03/18 07:00 98.3 F 11/03/18 04:00 98.9 F 11/03/18 00:00 98.7 F Weight Admit Weight 95 lb Weight 95 lb 10.89 oz Most Recent Monitor Data Heart Rate from ECG 78 NIBP 111/77 NIBP BP-Mean 88 Respiration from ECG 28 SpO2 100 I&O: 11/02/18 11/03/18 11/04/18 06:59 06:59 06:59 Intake Total 4665.7 4174 Output Total 1750 1110 420 Balance 2915.7 3064 -420 Result Diagrams: 11/03/18 05:06 11/03/18 05:05 EKG Reviewed by me: Yes (nsr) Phys Exam - Physical Examination Constitutional: NAD HEENT: PERRLA, moist MMs, sclera anicteric poor dentition Neck: no JVD, supple Respiratory: no wheezing, no rales, no rhonchi Cardiovascular: RRR, no significant murmur, no rub Gastrointestinal: soft, non-tender, no distention, positive bowel sounds Musculoskeletal: no edema, pulses present wound vac in place Neurological: non-focal Lymphatic: no nodes Psychiatric: normal affect Skin: no rash, normal turgor Dx/Plan (1) Septic shock Code(s): A41.9 - SEPSIS, UNSPECIFIED ORGANISM; R65.21 - SEVERE SEPSIS WITH SEPTIC SHOCK Status: Acute Comment: due to infected decubitus ulcer (2) Abnormal blood electrolyte level Code(s): E87.8 - OTH DISORDERS OF ELECTROLYTE AND FLUID BALANCE, NEC Status: Acute (3) Encephalopathy in sepsis Code(s): G93.41 - METABOLIC ENCEPHALOPATHY Status: Acute (4) Decubitus ulcer of coccygeal region, stage 4 Code(s): L89.154 - PRESSURE ULCER OF SACRAL REGION, STAGE 4 Status: Acute (5) Thrombocytopenia Code(s): D69.6 - THROMBOCYTOPENIA, UNSPECIFIED Status: Acute (6) Hypothyroidism Code(s): E03.9 - HYPOTHYROIDISM, UNSPECIFIED Status: Chronic (7) Normocytic anemia Code(s): D64.9 - ANEMIA, UNSPECIFIED Status: Chronic (8) Protein-calorie malnutrition, severe Code(s): E43 - UNSPECIFIED SEVERE PROTEIN-CALORIE MALNUTRITION Status: Chronic (9) Systemic lupus erythematosus Code(s): M32.9 - SYSTEMIC LUPUS ERYTHEMATOSUS, UNSPECIFIED Status: Chronic Comment: with acute exacerbation - Plan cont current plan of care, continue antibiotics * continue vancomycin and zosyn * replace calcium * medication reviewed as below * symptomatic treatment * continue levophed as tolerated * wound care * continue solumedrol * prognosis is poor. Review of Systems - Review of Systems Other: not reliable due to her cognitive status - Medications/Allergies Allergies/Adverse Reactions: Allergies Allergy/AdvReac Type Severity Reaction Status Date / Time No Known Allergies Allergy Verified 07/19/17 21:49 Medications: Current Medications Acetaminophen (Tylenol) 650 mg [place] Q4H PRN PRN Reason: Headache/Fever/Mild Pain (1-3) Artificial Tears (Tears Naturale) 2 drop EA EYE PRN PRN PRN Reason: Dry Eyes Bisacodyl (Dulcolax) 10 mg [place] DAILYPRN PRN PRN Reason: Constipation Calcium Carbonate (Tums) 1,000 mg PO Q4H PRN PRN Reason: Heartburn or Indigestion Calcium/Vitamin D (Caltrate 600 + Vit D) 1 tab PO BID-[facility] Last Admin: 11/03/18 09:02 Dose: 1 tab Cholecalciferol (Vitamin D3) 1,000 units PO BID [facility] Last Admin: 11/03/18 09:01 Dose: 1,000 units Cyanocobalamin (Vitamin B-12) 1,000 mcg PO DAILY [facility] Last Admin: 11/03/18 09:01 Dose: 1,000 mcg Famotidine (Pepcid) 20 mg PO Q12HR [facility] Last Admin: 11/03/18 09:02 Dose: 20 mg Ferrous Sulfate (Feosol) 325 mg PO QAM-[facility] Last Admin: 11/03/18 09:02 Dose: 325 mg Folic Acid (Folvite) 1 mg PO DAILY [facility] Last Admin: 11/03/18 09:00 Dose: 1 mg Guaifenesin (Robitussin Sf) 200 mg PO Q4H PRN PRN Reason: Cough Hydroxychloroquine Sulfate (Plaquenil) 200 mg PO BID [facility] Last Admin: 11/03/18 09:53 Dose: 200 mg Piperacillin Sod/Tazobactam (Sod 3.375 gm/ Sodium Chloride) 100 mls @ 200 mls/ hr IVPB 0200,0800,1400,2000 [facility] Last Admin: 11/03/18 08:58 Dose: 100 mls Norepinephrine Bitartrate (Levophed) 250 mls @ 0 mls/hr IVPB INF PRN; Protocol PRN Reason: Blood Pressure Sodium Chloride (Normal Saline 0.9%) 1,000 mls @ 50 mls/hr IV .Q20H [facility] Last Admin: 11/02/18 12:40 Dose: 1,000 mls Vancomycin HCl 1 gm/ Device 200 mls @ 200 mls/hr IVPB 0400,1600 [facility] Last Admin: 11/03/18 04:50 Dose: 200 mls Potassium Chloride 40 meq/ (Sodium Chloride) 270 mls @ 135 mls/hr IVPB ASDIR PRN PRN Reason: FOR SERUM K+ 2.5 - 3.5 Potassium Chloride 40 meq/ (Device) 100 mls @ 50 mls/hr IVPB ASDIR PRN PRN Reason: FOR SERUM K+ 2.5 - 3.5 Magnesium Sulfate 1 gm/ Sodium (Chloride) 102 mls @ 102 mls/hr IV PRN PRN PRN Reason: MAG LEVEL 1.4 - 2.0 Magnesium Sulfate 2 gm/ Device 100 mls @ 100 mls/hr IVPB ASDIR PRN PRN Reason: MAGNESIUM < 1.4 Potassium Phosphate 9 mmol/ (Sodium Chloride) 103 mls @ 25.75 mls/hr IVPB ASDIR PRN PRN Reason: Phosphate 1.0-1.8 Potassium Phosphate 12 mmol/ (Sodium Chloride) 254 mls @ 63.5 mls/hr IV ASDIR PRN PRN Reason: Serum phosphate 0.5-0.9 Potassium Phosphate 15 mmol/ (Sodium Chloride) 255 mls @ 63.75 mls/hr IV ASDIR PRN PRN Reason: Serum Phos < 0.5 Iron/Minerals/Multivitamins (Theragran M) 1 tab PO DAILY [facility] Last Admin: 11/03/18 09:02 Dose: 1 tab Levothyroxine Sodium (Synthroid) 50 mcg PO 0600 [facility] Last Admin: 11/03/18 06:59 Dose: 50 mcg Loperamide HCl (Imodium) 2 mg PO PRN PRN PRN Reason: Diarrhea/Loose Stools Loratadine (Claritin) 10 mg PO DAILYPRN PRN PRN Reason: Sinus Symptoms Magnesium Oxide (Magnesium Oxide) 250 mg PO DAILY [facility] Last Admin: 11/03/18 09:23 Dose: Not Given Magnesium Oxide (Magnesium Oxide) 400 mg PO BIDPRN PRN PRN Reason: FOR SERUM MAG 1.4 - 2.0 Magnesium Oxide (Magnesium Oxide) 800 mg PO PRN PRN PRN Reason: FOR SERUM MAG < 1.4 Methylprednisolone Sodium Succinate (Solu-Medrol) 20 mg IVP Q6HR [facility] Last Admin: 11/03/18 06:59 Dose: 20 mg Mineral Oil/White Petrolatum (Eucerin Cream) 0 gm TOP BIDPRN PRN PRN Reason: Dry Skin Miscellaneous Medication (Pharmacy To Dose) 1 each IVPB PRN PRN PRN Reason: Pharmacy to dose Miscellaneous Medication (Phos-Nak) 1 pkt PO TIDPRN PRN PRN Reason: FOR PHOS LEVEL 1.0 - 1.8 Miscellaneous Medication (Phos-Nak) 2 pkt PO TIDPRN PRN PRN Reason: FOR PHOS LEVEL 0.5 - 1.0 Ccu Electrolyte (Replacement Protocol) 0 each FS PRN PRN PRN Reason: FOR ELECTROLYTE REPLACEMENT Ondansetron HCl (Zofran Odt) 4 mg PO Q6H PRN PRN Reason: Nausea/Vomiting Ondansetron HCl (Zofran) 4 mg IVP Q6H PRN PRN Reason: Nausea/Vomiting Phosphorus (Kphos Neutral) 500 mg PO BID-[facility] Last Admin: 11/03/18 09:22 Dose: Not Given Potassium Bicarb/Potassium Chloride (K-Lyte Cl) 25 meq PO BID [facility] Last Admin: 11/03/18 09:23 Dose: Not Given Potassium Chloride (K-Dur) 20 meq PO QAM-[facility] Last Admin: 11/03/18 09:00 Dose: 20 meq Potassium Chloride (K-Dur) 40 meq PO ASDIR PRN PRN Reason: FOR SERUM K+ 2.5 - 3.5 Potassium Chloride (Klor-Con) 40 meq PER TUBE ASDIR PRN PRN Reason: FOR SERUM K+ 2.5-3.5 Saccharomyces Boulardii (Florastor) 250 mg PO DAILY [facility] Last Admin: 11/03/18 08:58 Dose: 250 mg Senna/Docusate Sodium (Senokot S) 2 tab PO BID PRN PRN Reason: Constipation Sodium Chloride ([place] Nasal [place] 0.65%) 0 ml EA NARE QIDPRN PRN PRN Reason: Nasal Congestion Sodium Chloride (Flush - Normal Saline) 10 ml IVF Q12HR [facility] Last Admin: 11/03/18 09:18 Dose: Not Given Sodium Chloride (Flush - Normal Saline) 10 ml IVF PRN PRN PRN Reason: Saline Flush Thiamine HCl (Thiamine) 100 mg PO DAILY [facility] Last Admin: 11/03/18 09:02 Dose: 100 mg Throat Lozenges (Cepastat Lozenges) 1 qing PO Q2H PRN PRN Reason: Sore Throat
[2018-11-03] MEDS: Sodium Chloride 0.9% 1,000 ML IV SCH (11:46)
--- NOTE | 2018-11-03 19:11 | EKG ---
Test Reason : Blood Pressure : / mmHG Vent. Rate : 132 BPM Atrial Rate : 132 BPM P-R Int : 120 ms QRS Dur : 074 ms QT Int : 280 ms P-R-T Axes : 028 052 007 degrees QTc Int : 414 ms Sinus tachycardia Cannot rule out Anterior infarct , age undetermined Abnormal ECG Confirmed by EMILE AL ([id number]), image editor NIMCO RENDON ([id number]) on 11/03/2018 7:10:36 PM Referred By: Confirmed By:EMILE AL
[2018-11-04] MEDS: Piperacillin/Tazobactam 3.375 GM in Sodium Chloride 0.9% 100 ML IVPB SCH ×4 (01:08→20:34)
[2018-11-04] MEDS: Vancomycin HCl 1 GM in Premix Bag 1 BAG IVPB SCH ×2 (03:13→16:20)
[2018-11-04 05:39] LABS: Band 11 % (5-11); Lymphocytes 6 % (21-51); MDiff Complete? YES; Mean Corpuscular HGB CONC 33.8 g/dL (32.0-36.0); Mean Corpuscular Hemoglobin 30.1 pg (27.0-31.0); Mean Corpuscular Volume 89.2 fL (78.0-98.0); Mean Platelet Volume 6.9 fL (7.4-10.4); Metamyelocyte 1 % (0-0); Monocytes 5 % (0-10); Neutrophil 77 % (42-75); Nucleated RBC 1 % (0); Platelet Count 62 thou/uL (130-400); Platelet Morphology Comment Appears Decreased; RBC Distribution Width 15.7 % (11.5-14.5); RBC Morphology Normal; Red Blood Cell (RBC) Count 2.33 mill/uL (4.20-5.40); White Blood Cell (WBC) Count 7.1 thou/uL (4.8-10.8)
[2018-11-04] MEDS: Sodium Chloride 0.9% 1,000 ML IV SCH ×2 (05:59→23:19)
[2018-11-04] MEDS: Levothyroxine Sodium 50 MCG TAB PO SCH (05:59)
[2018-11-04] MEDS: Cyanocobalamin (Vitamin B-12) 1,000 MCG TAB PO SCH (08:09)
[2018-11-04] MEDS: Folic Acid 1 MG TAB PO SCH (08:09)
[2018-11-04] MEDS: Saccharomyces boulardii 250 MG CAP PO SCH (08:09)
[2018-11-04] MEDS: Ferrous Sulfate 325 MG TAB PO SCH (08:10)
[2018-11-04] MEDS: Multivitamin W/ Minerals 1 TAB PO SCH (08:10)
[2018-11-04] MEDS: Calcium Carbonate + Vit D 1 TAB PO SCH ×2 (08:10→17:02)
[2018-11-04] MEDS: Famotidine 20 MG TAB PO SCH ×2 (08:10→20:35)
[2018-11-04] MEDS: Potassium Chloride 20 MEQ TAB PO SCH (08:11)
[2018-11-04] MEDS: K-Phos Neutral 250 MG TAB PO SCH ×2 (08:12→17:02)
[2018-11-04] MEDS: Hydroxychloroquine Sulfate 200 MG TAB PO SCH ×2 (08:13→20:36)
[2018-11-04] MEDS: Magnesium Oxide 250 MG TAB PO SCH (08:14)
[2018-11-04] MEDS: Pot Chloride/Pot Bicarb/Cit Ac 25 mEq Effervescent Tablet PO SCH ×2 (08:15→20:37)
--- NOTE | 2018-11-04 10:01 | PDOC.PN ---
- Subjective Encounter Start Date: 11/04/18 Encounter Start Time: 08:30 Patient seen and examined. No new complaints. No overnight events - Objective Resuscitation Status - Order Detail: 10/29/18 07:10 Resuscitation Status Routine Resuscitation Status: FULL: Full Resuscitation MAR Reviewed: Yes Vital Signs & Weight: Vital Signs (12 hours) Temp Pulse Resp BP Pulse Ox 11/04/18 09:57 98.7 F 77 20 105/76 96 11/04/18 08:00 99 11/04/18 07:34 100 11/04/18 07:00 98.7 F 11/04/18 04:00 98.6 F 11/04/18 00:00 99.0 F Weight Admit Weight 95 lb Weight 95 lb 10.89 oz Most Recent Monitor Data Heart Rate from ECG 76 NIBP 108/75 NIBP BP-Mean 86 Respiration from ECG 28 SpO2 100 I&O: 11/03/18 11/04/18 11/05/18 06:59 06:59 06:59 Intake Total 4174 2430 75 Output Total 1110 2220 145 Balance 3064 210 -70 Result Diagrams: 11/04/18 05:10 11/03/18 05:05 EKG Reviewed by me: Yes (nsr) Phys Exam - Physical Examination Constitutional: NAD HEENT: PERRLA, moist MMs, sclera anicteric Neck: no JVD, supple Respiratory: no wheezing, no rales, no rhonchi Cardiovascular: RRR, no significant murmur, no rub Gastrointestinal: soft, non-tender, no distention, positive bowel sounds wound vac in place Musculoskeletal: no edema, pulses present Neurological: non-focal Lymphatic: no nodes Psychiatric: normal affect Skin: no rash, normal turgor Dx/Plan (1) Septic shock Code(s): A41.9 - SEPSIS, UNSPECIFIED ORGANISM; R65.21 - SEVERE SEPSIS WITH SEPTIC SHOCK Status: Acute Comment: due to infected decubitus ulcer (2) Abnormal blood electrolyte level Code(s): E87.8 - OTH DISORDERS OF ELECTROLYTE AND FLUID BALANCE, NEC Status: Acute (3) Encephalopathy in sepsis Code(s): G93.41 - METABOLIC ENCEPHALOPATHY Status: Acute (4) Decubitus ulcer of coccygeal region, stage 4 Code(s): L89.154 - PRESSURE ULCER OF SACRAL REGION, STAGE 4 Status: Acute (5) Thrombocytopenia Code(s): D69.6 - THROMBOCYTOPENIA, UNSPECIFIED Status: Acute (6) Hypothyroidism Code(s): E03.9 - HYPOTHYROIDISM, UNSPECIFIED Status: Chronic (7) Normocytic anemia Code(s): D64.9 - ANEMIA, UNSPECIFIED Status: Chronic (8) Protein-calorie malnutrition, severe Code(s): E43 - UNSPECIFIED SEVERE PROTEIN-CALORIE MALNUTRITION Status: Chronic (9) Systemic lupus erythematosus Code(s): M32.9 - SYSTEMIC LUPUS ERYTHEMATOSUS, UNSPECIFIED Status: Chronic Comment: with acute exacerbation - Plan cont current plan of care, continue antibiotics * I have updated plan of care and current condition to her daughter who speaks taiwanese * today will transfuse 1 unit prbc. * wean off levophed as tolerated * medication reviewed as below * symptomatic treatment * nutritional support * wound care * continue vancomycin and zosyn * continue solumedrol Review of Systems - Review of Systems Other: unable to review due to pt's level of cognitive status - Medications/Allergies Allergies/Adverse Reactions: Allergies Allergy/AdvReac Type Severity Reaction Status Date / Time No Known Allergies Allergy Verified 07/19/17 21:49 Medications: Current Medications Acetaminophen (Tylenol) 650 mg [place] Q4H PRN PRN Reason: Headache/Fever/Mild Pain (1-3) Acetaminophen (Tylenol) 650 mg PO Q6H PRN PRN Reason: Fever>101/(Mi/Mod/Sev) Pain Artificial Tears (Tears Naturale) 2 drop EA EYE PRN PRN PRN Reason: Dry Eyes Bisacodyl (Dulcolax) 10 mg [place] DAILYPRN PRN PRN Reason: Constipation Calcium Carbonate (Tums) 1,000 mg PO Q4H PRN PRN Reason: Heartburn or Indigestion Calcium/Vitamin D (Caltrate 600 + Vit D) 1 tab PO BID-[facility] Last Admin: 11/04/18 08:10 Dose: 1 tab Cholecalciferol (Vitamin D3) 1,000 units PO BID [facility] Last Admin: 11/04/18 08:11 Dose: 1,000 units Cyanocobalamin (Vitamin B-12) 1,000 mcg PO DAILY [facility] Last Admin: 11/04/18 08:09 Dose: 1,000 mcg Famotidine (Pepcid) 20 mg PO Q12HR [facility] Last Admin: 11/04/18 08:10 Dose: 20 mg Ferrous Sulfate (Feosol) 325 mg PO QAM-WM [facility] Last Admin: 11/04/18 08:10 Dose: 325 mg Folic Acid (Folvite) 1 mg PO DAILY [facility] Last Admin: 11/04/18 08:09 Dose: 1 mg Guaifenesin (Robitussin Sf) 200 mg PO Q4H PRN PRN Reason: Cough Hydroxychloroquine Sulfate (Plaquenil) 200 mg PO BID [facility] Last Admin: 11/04/18 08:13 Dose: 200 mg Piperacillin Sod/Tazobactam (Sod 3.375 gm/ Sodium Chloride) 100 mls @ 200 mls/ hr IVPB 0200,0800,1400,2000 [facility] Last Admin: 11/04/18 08:11 Dose: 100 mls Norepinephrine Bitartrate (Levophed) 250 mls @ 0 mls/hr IVPB INF PRN; Protocol PRN Reason: Blood Pressure Last Admin: 11/04/18 06:59 Dose: 250 mls Sodium Chloride (Normal Saline 0.9%) 1,000 mls @ 50 mls/hr IV .Q20H [facility] Last Admin: 11/04/18 05:59 Dose: 1,000 mls Vancomycin HCl 1 gm/ Device 200 mls @ 200 mls/hr IVPB 0400,1600 [facility] Last Admin: 11/04/18 03:13 Dose: 200 mls Potassium Chloride 40 meq/ (Sodium Chloride) 270 mls @ 135 mls/hr IVPB ASDIR PRN PRN Reason: FOR SERUM K+ 2.5 - 3.5 Potassium Chloride 40 meq/ (Device) 100 mls @ 50 mls/hr IVPB ASDIR PRN PRN Reason: FOR SERUM K+ 2.5 - 3.5 Magnesium Sulfate 1 gm/ Sodium (Chloride) 102 mls @ 102 mls/hr IV PRN PRN PRN Reason: MAG LEVEL 1.4 - 2.0 Magnesium Sulfate 2 gm/ Device 100 mls @ 100 mls/hr IVPB ASDIR PRN PRN Reason: MAGNESIUM < 1.4 Potassium Phosphate 9 mmol/ (Sodium Chloride) 103 mls @ 25.75 mls/hr IVPB ASDIR PRN PRN Reason: Phosphate 1.0-1.8 Potassium Phosphate 12 mmol/ (Sodium Chloride) 254 mls @ 63.5 mls/hr IV ASDIR PRN PRN Reason: Serum phosphate 0.5-0.9 Potassium Phosphate 15 mmol/ (Sodium Chloride) 255 mls @ 63.75 mls/hr IV ASDIR PRN PRN Reason: Serum Phos < 0.5 Iron/Minerals/Multivitamins (Theragran M) 1 tab PO DAILY [facility] Last Admin: 11/04/18 08:10 Dose: 1 tab Levothyroxine Sodium (Synthroid) 50 mcg PO 0600 [facility] Last Admin: 11/04/18 05:59 Dose: 50 mcg Loperamide HCl (Imodium) 2 mg PO PRN PRN PRN Reason: Diarrhea/Loose Stools Loratadine (Claritin) 10 mg PO DAILYPRN PRN PRN Reason: Sinus Symptoms Magnesium Oxide (Magnesium Oxide) 250 mg PO DAILY [facility] Last Admin: 11/04/18 08:14 Dose: 250 mg Magnesium Oxide (Magnesium Oxide) 400 mg PO BIDPRN PRN PRN Reason: FOR SERUM MAG 1.4 - 2.0 Magnesium Oxide (Magnesium Oxide) 800 mg PO PRN PRN PRN Reason: FOR SERUM MAG < 1.4 Methylprednisolone Sodium Succinate (Solu-Medrol) 20 mg IVP Q6HR [facility] Last Admin: 11/04/18 05:59 Dose: 20 mg Mineral Oil/White Petrolatum (Eucerin Cream) 0 gm TOP BIDPRN PRN PRN Reason: Dry Skin Miscellaneous Medication (Pharmacy To Dose) 1 each IVPB PRN PRN PRN Reason: Pharmacy to dose Miscellaneous Medication (Phos-Nak) 1 pkt PO TIDPRN PRN PRN Reason: FOR PHOS LEVEL 1.0 - 1.8 Miscellaneous Medication (Phos-Nak) 2 pkt PO TIDPRN PRN PRN Reason: FOR PHOS LEVEL 0.5 - 1.0 Ccu Electrolyte (Replacement Protocol) 0 each FS PRN PRN PRN Reason: FOR ELECTROLYTE REPLACEMENT Ondansetron HCl (Zofran Odt) 4 mg PO Q6H PRN PRN Reason: Nausea/Vomiting Ondansetron HCl (Zofran) 4 mg IVP Q6H PRN PRN Reason: Nausea/Vomiting Phosphorus (Kphos Neutral) 500 mg PO BID-[facility] Last Admin: 11/04/18 08:12 Dose: 500 mg Potassium Bicarb/Potassium Chloride (K-Lyte Cl) 25 meq PO BID [facility] Last Admin: 11/04/18 08:15 Dose: 25 meq Potassium Chloride (K-Dur) 20 meq PO QAM-WM [facility] Last Admin: 11/04/18 08:11 Dose: 20 meq Potassium Chloride (K-Dur) 40 meq PO ASDIR PRN PRN Reason: FOR SERUM K+ 2.5 - 3.5 Potassium Chloride (Klor-Con) 40 meq PER TUBE ASDIR PRN PRN Reason: FOR SERUM K+ 2.5-3.5 Saccharomyces Boulardii (Florastor) 250 mg PO DAILY [facility] Last Admin: 11/04/18 08:09 Dose: 250 mg Senna/Docusate Sodium (Senokot S) 2 tab PO BID PRN PRN Reason: Constipation Sodium Chloride ([place] Nasal [place] 0.65%) 0 ml EA NARE QIDPRN PRN PRN Reason: Nasal Congestion Sodium Chloride (Flush - Normal Saline) 10 ml IVF Q12HR [facility] Last Admin: 11/04/18 08:16 Dose: 10 ml Sodium Chloride (Flush - Normal Saline) 10 ml IVF PRN PRN PRN Reason: Saline Flush Thiamine HCl (Thiamine) 100 mg PO DAILY [facility] Last Admin: 11/04/18 08:09 Dose: 100 mg Throat Lozenges (Cepastat Lozenges) 1 qing PO Q2H PRN PRN Reason: Sore Throat
--- NOTE | 2018-11-04 10:08 | PRG ---
DATE OF SERVICE: 11/04/2018 SUBJECTIVE: No verbal communication. Cachectic, malnourished female, still hypotensive on low-dose Levophed. OBJECTIVE: VITAL SIGNS: Blood pressure 111/75, pulse 80, respirations 18, and saturations 97%. CHEST: Decreased breath sounds. No wheezing. CARDIAC: Normal S1 and S2. No gallops. ABDOMEN: No masses. LABORATORY DATA: H and H are 7 and 20, she is going to get a unit of packed cells and platelet count of 62,000. IMPRESSION: Sepsis syndrome, cachexia, decubitus, and relative adrenal insufficiency. PLAN: She can be transferred out of the ICU once the blood pressure resolved. Antibiotics as per Infectious Disease. Job ID: [id number]
[2018-11-04 15:17] LABS: Vancomycin, Trough 17.8 ug/mL
[2018-11-04] MEDS: Acetaminophen 325 MG TAB PO PRN (20:47)
[2018-11-05] MEDS: Piperacillin/Tazobactam 3.375 GM in Sodium Chloride 0.9% 100 ML IVPB SCH ×4 (02:30→20:09)
[2018-11-05] MEDS: Vancomycin HCl 1 GM in Premix Bag 1 BAG IVPB SCH (03:46)
[2018-11-05] MEDS: Levothyroxine Sodium 50 MCG TAB PO SCH (05:22)
[2018-11-05 07:21] LABS: Hemoglobin 10.4 g/dL (12.0-16.0); Mean Corpuscular HGB CONC 32.4 g/dL (32.0-36.0); Mean Corpuscular Hemoglobin 27.5 pg (27.0-31.0); Mean Corpuscular Volume 84.9 fL (78.0-98.0); Mean Platelet Volume 10.2 fL (7.4-10.4); Platelet Count 73 thou/uL (130-400); RBC Distribution Width 20.1 % (11.5-14.5); Red Blood Cell (RBC) Count 3.76 mill/uL (4.20-5.40)
[2018-11-05 07:44] LABS: Anisocytosis MODERATE=16-30 cells (100X) (0-5/hpf); Band 14 % (5-11); Lymphocytes 7 % (21-51); MDiff Complete? YES; Monocytes 3 % (0-10); Myelocyte 1 % (0-0); Neutrophil 73 % (42-75); Nucleated RBC 2 % (0); Platelet Morphology Comment Appears Decreased; Polychromasia MODERATE = 3-4 cells (100X) (0-2/hpf); Reactive Lymphocytes 2 % (0-10)
[2018-11-05] MEDS: Calcium Carbonate + Vit D 1 TAB PO SCH ×2 (09:25→18:05)
[2018-11-05] MEDS: Potassium Chloride 20 MEQ TAB PO SCH (09:25)
[2018-11-05] MEDS: K-Phos Neutral 250 MG TAB PO SCH ×2 (09:25→18:07)
[2018-11-05] MEDS: Pot Chloride/Pot Bicarb/Cit Ac 25 mEq Effervescent Tablet PO SCH ×2 (09:30→20:31)
[2018-11-05] MEDS: Ferrous Sulfate 325 MG TAB PO SCH (09:30)
[2018-11-05] MEDS: Saccharomyces boulardii 250 MG CAP PO SCH (09:30)
[2018-11-05] MEDS: Famotidine 20 MG TAB PO SCH ×2 (09:44→20:31)
[2018-11-05] MEDS: Folic Acid 1 MG TAB PO SCH (09:45)
[2018-11-05] MEDS: Multivitamin W/ Minerals 1 TAB PO SCH (09:45)
[2018-11-05] MEDS: Hydroxychloroquine Sulfate 200 MG TAB PO SCH ×2 (09:46→20:32)
[2018-11-05] MEDS: Magnesium Oxide 250 MG TAB PO SCH (09:47)
[2018-11-05] MEDS: Cyanocobalamin (Vitamin B-12) 1,000 MCG TAB PO SCH (09:54)
--- NOTE | 2018-11-05 10:02 | PDOC.PN ---
- Subjective Encounter Start Date: 11/05/18 Encounter Start Time: 08:30 Patient seen and examined. No new complaints. No overnight events - Objective Resuscitation Status - Order Detail: 10/29/18 07:10 Resuscitation Status Routine Resuscitation Status: FULL: Full Resuscitation MAR Reviewed: Yes Vital Signs & Weight: Vital Signs (12 hours) Temp 11/05/18 04:00 99.6 F 11/05/18 00:00 99.1 F Weight Admit Weight 95 lb Weight 117 lb 1.047 oz Most Recent Monitor Data Heart Rate from ECG 73 NIBP 114/85 NIBP BP-Mean 94 Respiration from ECG 24 SpO2 100 I&O: 11/04/18 11/05/18 11/06/18 06:59 06:59 06:59 Intake Total 2430 3826 Output Total 2220 2255 Balance 210 1571 Result Diagrams: 11/05/18 05:00 11/03/18 05:05 EKG Reviewed by me: Yes (nsr) Phys Exam - Physical Examination Constitutional: NAD HEENT: PERRLA, moist MMs, sclera anicteric Neck: no JVD, supple Respiratory: no wheezing, no rales, no rhonchi Cardiovascular: RRR, no significant murmur, no rub Gastrointestinal: soft, non-tender, no distention, positive bowel sounds Musculoskeletal: no edema, pulses present wound vac in place Neurological: non-focal Lymphatic: no nodes Psychiatric: normal affect Skin: no rash, normal turgor Dx/Plan (1) Septic shock Code(s): A41.9 - SEPSIS, UNSPECIFIED ORGANISM; R65.21 - SEVERE SEPSIS WITH SEPTIC SHOCK Status: Acute Comment: due to infected decubitus ulcer (2) Abnormal blood electrolyte level Code(s): E87.8 - OTH DISORDERS OF ELECTROLYTE AND FLUID BALANCE, NEC Status: Acute (3) Encephalopathy in sepsis Code(s): G93.41 - METABOLIC ENCEPHALOPATHY Status: Acute (4) Decubitus ulcer of coccygeal region, stage 4 Code(s): L89.154 - PRESSURE ULCER OF SACRAL REGION, STAGE 4 Status: Acute (5) Thrombocytopenia Code(s): D69.6 - THROMBOCYTOPENIA, UNSPECIFIED Status: Acute (6) Hypothyroidism Code(s): E03.9 - HYPOTHYROIDISM, UNSPECIFIED Status: Chronic (7) Normocytic anemia Code(s): D64.9 - ANEMIA, UNSPECIFIED Status: Chronic (8) Protein-calorie malnutrition, severe Code(s): E43 - UNSPECIFIED SEVERE PROTEIN-CALORIE MALNUTRITION Status: Chronic (9) Systemic lupus erythematosus Code(s): M32.9 - SYSTEMIC LUPUS ERYTHEMATOSUS, UNSPECIFIED Status: Chronic Comment: with acute exacerbation - Plan cont 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 Review of Systems - Review of Systems Other: not reliable with pt due to her level of cognitive status - Medications/Allergies Allergies/Adverse Reactions: Allergies Allergy/AdvReac Type Severity Reaction Status Date / Time No Known Allergies Allergy Verified 07/19/17 21:49 Medications: Current Medications Acetaminophen (Tylenol) 650 mg [place] Q4H PRN PRN Reason: Headache/Fever/Mild Pain (1-3) Acetaminophen (Tylenol) 650 mg PO Q6H PRN PRN Reason: Fever>101/(Mi/Mod/Sev) Pain Last Admin: 11/04/18 20:47 Dose: 650 mg Artificial Tears (Tears Naturale) 2 drop EA EYE PRN PRN PRN Reason: Dry Eyes Bisacodyl (Dulcolax) 10 mg [place] DAILYPRN PRN PRN Reason: Constipation Calcium Carbonate (Tums) 1,000 mg PO Q4H PRN PRN Reason: Heartburn or Indigestion Calcium/Vitamin D (Caltrate 600 + Vit D) 1 tab PO BID-[facility] Last Admin: 11/05/18 09:25 Dose: 1 tab Cholecalciferol (Vitamin D3) 1,000 units PO BID [facility] Last Admin: 11/05/18 09:54 Dose: 1,000 units Cyanocobalamin (Vitamin B-12) 1,000 mcg PO DAILY [facility] Last Admin: 11/05/18 09:54 Dose: 1,000 mcg Famotidine (Pepcid) 20 mg PO Q12HR [facility] Last Admin: 11/05/18 09:44 Dose: 20 mg Ferrous Sulfate (Feosol) 325 mg PO QAM-[facility] Last Admin: 11/05/18 09:30 Dose: 325 mg Folic Acid (Folvite) 1 mg PO DAILY [facility] Last Admin: 11/05/18 09:45 Dose: 1 mg Guaifenesin (Robitussin Sf) 200 mg PO Q4H PRN PRN Reason: Cough Hydroxychloroquine Sulfate (Plaquenil) 200 mg PO BID [facility] Last Admin: 11/05/18 09:46 Dose: 200 mg Piperacillin Sod/Tazobactam (Sod 3.375 gm/ Sodium Chloride) 100 mls @ 200 mls/ hr IVPB 0200,0800,1400,2000 [facility] Last Admin: 11/05/18 08:25 Dose: 100 mls Norepinephrine Bitartrate (Levophed) 250 mls @ 0 mls/hr IVPB INF PRN; Protocol PRN Reason: Blood Pressure Last Admin: 11/04/18 06:59 Dose: 250 mls Sodium Chloride (Normal Saline 0.9%) 1,000 mls @ 50 mls/hr IV .Q20H [facility] Last Admin: 11/04/18 23:19 Dose: 1,000 mls Vancomycin HCl 1 gm/ Device 200 mls @ 200 mls/hr IVPB 0400,1600 [facility] Last Admin: 11/05/18 03:46 Dose: 200 mls Potassium Chloride 40 meq/ (Sodium Chloride) 270 mls @ 135 mls/hr IVPB ASDIR PRN PRN Reason: FOR SERUM K+ 2.5 - 3.5 Potassium Chloride 40 meq/ (Device) 100 mls @ 50 mls/hr IVPB ASDIR PRN PRN Reason: FOR SERUM K+ 2.5 - 3.5 Last Admin: 11/04/18 13:14 Dose: 100 mls Magnesium Sulfate 1 gm/ Sodium (Chloride) 102 mls @ 102 mls/hr IV PRN PRN PRN Reason: MAG LEVEL 1.4 - 2.0 Magnesium Sulfate 2 gm/ Device 100 mls @ 100 mls/hr IVPB ASDIR PRN PRN Reason: MAGNESIUM < 1.4 Potassium Phosphate 9 mmol/ (Sodium Chloride) 103 mls @ 25.75 mls/hr IVPB ASDIR PRN PRN Reason: Phosphate 1.0-1.8 Potassium Phosphate 12 mmol/ (Sodium Chloride) 254 mls @ 63.5 mls/hr IV ASDIR PRN PRN Reason: Serum phosphate 0.5-0.9 Potassium Phosphate 15 mmol/ (Sodium Chloride) 255 mls @ 63.75 mls/hr IV ASDIR PRN PRN Reason: Serum Phos < 0.5 Iron/Minerals/Multivitamins (Theragran M) 1 tab PO DAILY [facility] Last Admin: 11/05/18 09:45 Dose: 1 tab Levothyroxine Sodium (Synthroid) 50 mcg PO 0600 [facility] Last Admin: 11/05/18 05:22 Dose: 50 mcg Loperamide HCl (Imodium) 2 mg PO PRN PRN PRN Reason: Diarrhea/Loose Stools Loratadine (Claritin) 10 mg PO DAILYPRN PRN PRN Reason: Sinus Symptoms Magnesium Oxide (Magnesium Oxide) 250 mg PO DAILY [facility] Last Admin: 11/05/18 09:47 Dose: 250 mg Magnesium Oxide (Magnesium Oxide) 400 mg PO BIDPRN PRN PRN Reason: FOR SERUM MAG 1.4 - 2.0 Magnesium Oxide (Magnesium Oxide) 800 mg PO PRN PRN PRN Reason: FOR SERUM MAG < 1.4 Methylprednisolone Sodium Succinate (Solu-Medrol) 20 mg IVP Q6HR [facility] Last Admin: 11/05/18 05:22 Dose: 20 mg Mineral Oil/White Petrolatum (Eucerin Cream) 0 gm TOP BIDPRN PRN PRN Reason: Dry Skin Miscellaneous Medication (Pharmacy To Dose) 1 each IVPB PRN PRN PRN Reason: Pharmacy to dose Miscellaneous Medication (Phos-Nak) 1 pkt PO TIDPRN PRN PRN Reason: FOR PHOS LEVEL 1.0 - 1.8 Miscellaneous Medication (Phos-Nak) 2 pkt PO TIDPRN PRN PRN Reason: FOR PHOS LEVEL 0.5 - 1.0 Ccu Electrolyte (Replacement Protocol) 0 each FS PRN PRN PRN Reason: FOR ELECTROLYTE REPLACEMENT Ondansetron HCl (Zofran Odt) 4 mg PO Q6H PRN PRN Reason: Nausea/Vomiting Ondansetron HCl (Zofran) 4 mg IVP Q6H PRN PRN Reason: Nausea/Vomiting Phosphorus (Kphos Neutral) 500 mg PO BID-[facility] Last Admin: 11/05/18 09:25 Dose: 500 mg Potassium Bicarb/Potassium Chloride (K-Lyte Cl) 25 meq PO BID [facility] Last Admin: 11/05/18 09:30 Dose: 25 meq Potassium Chloride (K-Dur) [facility] Last Admin: 11/05/18 09:25 Dose: 20 meq Potassium Chloride (K-Dur) 40 meq PO ASDIR PRN PRN Reason: FOR SERUM K+ 2.5 - 3.5 Potassium Chloride (Klor-Con) 40 meq PER TUBE ASDIR PRN PRN Reason: FOR SERUM K+ 2.5-3.5 Saccharomyces Boulardii (Florastor) 250 mg PO DAILY [facility] Last Admin: 11/05/18 09:30 Dose: 250 mg Senna/Docusate Sodium (Senokot S) 2 tab PO BID PRN PRN Reason: Constipation Sodium Chloride ([place] Nasal [place] 0.65%) 0 ml EA NARE QIDPRN PRN PRN Reason: Nasal Congestion Sodium Chloride (Flush - Normal Saline) 10 ml IVF Q12HR [facility] Last Admin: 11/05/18 08:20 Dose: 10 ml Sodium Chloride (Flush - Normal Saline) 10 ml IVF PRN PRN PRN Reason: Saline Flush Last Admin: 11/04/18 23:20 Dose: 10 ml Thiamine HCl (Thiamine) 100 mg PO DAILY [facility] Last Admin: 11/05/18 09:44 Dose: 100 mg Throat Lozenges (Cepastat Lozenges) 1 qing PO Q2H PRN PRN Reason: Sore Throat
[2018-11-05] MEDS ORDERED: Ascorbic Acid 500 mg Chewable Tablet PO SCH (10:30)
[2018-11-05] MEDS ORDERED: Zinc Sulfate 220 MG CAP PO SCH (10:45)
--- NOTE | 2018-11-05 10:57 | PRG ---
DATE OF SERVICE: 11/05/2018 SUBJECTIVE: The patient has baseline mental status, noncommunicative. I have looked at her sacral decubitus. There is little granulation tissue . ASSESSMENT AND PLAN: Malnutrition wound healing. We will add vitamin C and zinc to aid in wound healing. Continue wound VAC. I will see her as needed at this hospitalization, but will be glad to see her as an outpatient in the next 2 to 3 weeks. Please call if needed. Job ID: [id number]
[2018-11-05 17:12] LABS: CMV DNA-PCR Test Negative (Negative)
[2018-11-05] MEDS: Sodium Chloride 0.9% 1,000 ML IV SCH (20:33)
--- NOTE | 2018-11-05 22:58 | PRG ---
DATE OF SERVICE: 11/05/2018 SUBJECTIVE: Ms. Byrd was evaluated today. She had no complaints. OBJECTIVE: GENERAL: She is in no distress. VITAL SIGNS: She is afebrile, blood pressure 114/85, respiratory rate 18, heart rate was in the 70s. LUNGS: Clear. HEART: Regular rhythm. ABDOMEN: Soft. EXTREMITIES: Without edema. IMPRESSION: Clinical sepsis, cachexia, decubitus ulcers present on admission, relative adrenal insufficiency, depression, status post debridement of stage IV sacral and coccygeal ulcer. She probably will be transferred out of the Critical Care Unit soon. Job ID: [id number]
[2018-11-06] MEDS: Piperacillin/Tazobactam 3.375 GM in Sodium Chloride 0.9% 100 ML IVPB SCH ×4 (00:54→22:12)
[2018-11-06 04:51] LABS: #Lymphocytes 0.6 thou/uL (1.20-3.40); #Monocytes 0.4 thou/uL (0.11-0.59); #Neutrophils 3.9 thou/uL (1.40-6.50); %Basophils 0.4 % (0.0-1.0); %Eosinophils 0.1 % (0.0-10.0); %Lymphocytes 11.6 % (21.0-51.0); %Monocytes 7.4 % (0.0-10.0); %Neutrophils 80.4 % (42.0-75.0); Hemoglobin 8.7 g/dL (12.0-16.0); Mean Corpuscular HGB CONC 32.9 g/dL (32.0-36.0); Mean Corpuscular Hemoglobin 28.6 pg (27.0-31.0); Mean Platelet Volume 7.8 fL (7.4-10.4); Platelet Count 51 thou/uL (130-400); RBC Distribution Width 20.6 % (11.5-14.5); Red Blood Cell (RBC) Count 3.03 mill/uL (4.20-5.40); White Blood Cell (WBC) Count 4.9 thou/uL (4.8-10.8)
[2018-11-06] MEDS: Levothyroxine Sodium 50 MCG TAB PO SCH (05:36)
[2018-11-06] MEDS: Ferrous Sulfate 325 MG TAB PO SCH (09:02)
[2018-11-06] MEDS: Calcium Carbonate + Vit D 1 TAB PO SCH (09:02)
[2018-11-06] MEDS: Famotidine 20 MG TAB PO SCH ×3 (09:27→22:24)
[2018-11-06] MEDS: Zinc Sulfate 220 MG CAP PO SCH (09:28)
[2018-11-06] MEDS: Saccharomyces boulardii 250 MG CAP PO SCH (09:29)
[2018-11-06] MEDS: Hydroxychloroquine Sulfate 200 MG TAB PO SCH ×3 (09:35→22:25)
--- NOTE | 2018-11-06 09:39 | PRG ---
DATE OF SERVICE: 11/06/2018 SUBJECTIVE: Ms. Byrd has no complaints today. She just nodes. She answered everything I asked her. OBJECTIVE: VITAL SIGNS: Her blood pressure is 108/76, heart rate 62, respiratory rate 20. GENERAL: She is in no distress. LUNGS: Clear. HEART: Regular rhythm. ABDOMEN: Soft. EXTREMITIES: Without asymmetry or edema. LABORATORY DATA: White count 4.9, hemoglobin 8.7, platelets 51,000. Sodium 146, potassium 3.3, chloride 114, bicarb 27, BUN 17, creatinine 0.44. IMPRESSION: 1. Severe protein calorie malnutrition. 2. Lupus. 3. Severe sacral and coccygeal decubitus ulcer. Her cultures positive for Clostridium and Bacteroides. She needs ongoing wound care. It takes her an hour to get all of her vitamin pills down. I feel it is more appropriate to treat with IV thiamine and then give her nutritional supplements that she will drink such as Ensure or Jevity. We cannot correct her nutritional deficits quickly. Her electrolytes probably need to be checked a little more frequently. This is a difficult social situation. We will continue current care. She is stable and moved out of the critical care unit, in my opinion, she is not on pressors. I suspect she was severely intravascular volume depleted on presentation. Job ID: [id number]
[2018-11-06 09:56] LABS: Anion Gap 11 mmol/L (10-20); BUN (Urea Nitrogen) 13 mg/dL (7.0-18.7); Calc. Creatinine Clearance 127 mL/min (70-130); Calcium 7.2 mg/dL (7.8-10.44); Carbon Dioxide 26 mmol/L (22-29); Chloride 108 mmol/L (98-107); Estimated GFR-MDRD Greater than 90; Glucose 108 mg/dL (70-105); Magnesium 1.9 mg/dL (1.6-2.6); Phosphorus 3.5 mg/dL (2.3-4.7); Potassium 4.1 mmol/L (3.5-5.1); Sodium 141 mmol/L (136-145)
--- NOTE | 2018-11-06 10:49 | PDOC.PN ---
- Subjective Encounter Start Date: 11/06/18 Encounter Start Time: 09:10 Patient seen and examined. No new complaints. No overnight events - Objective Resuscitation Status - Order Detail: 10/29/18 07:10 Resuscitation Status Routine Resuscitation Status: FULL: Full Resuscitation MAR Reviewed: Yes Vital Signs & Weight: Vital Signs (12 hours) Temp Pulse Ox 11/06/18 09:00 99.3 F 11/06/18 04:00 98.9 F 11/05/18 23:45 99 11/05/18 23:00 98.4 F Weight Admit Weight 117 lb 1.047 oz Weight 118 lb 6.212 oz Most Recent Monitor Data Heart Rate from ECG 90 NIBP 91/63 NIBP BP-Mean 72 Respiration from ECG 18 SpO2 99 I&O: 11/05/18 11/06/18 11/07/18 06:59 06:59 06:59 Intake Total 3826 2317 220 Output Total 2255 1615 295 Balance 1571 702 -75 Result Diagrams: 11/06/18 04:42 11/06/18 09:20 EKG Reviewed by me: Yes (nsr) Phys Exam - Physical Examination Constitutional: NAD HEENT: PERRLA, moist MMs, sclera anicteric Neck: no JVD, supple Respiratory: no wheezing, no rales, no rhonchi Cardiovascular: RRR, no significant murmur, no rub Gastrointestinal: soft, non-tender, no distention, positive bowel sounds Musculoskeletal: no edema, pulses present Neurological: non-focal, normal sensation Lymphatic: no nodes Psychiatric: normal affect, A&O x 3 Skin: no rash, normal turgor Dx/Plan (1) Septic shock Code(s): A41.9 - SEPSIS, UNSPECIFIED ORGANISM; R65.21 - SEVERE SEPSIS WITH SEPTIC SHOCK Status: Acute Comment: due to infected decubitus ulcer (2) Abnormal blood electrolyte level Code(s): E87.8 - OTH DISORDERS OF ELECTROLYTE AND FLUID BALANCE, NEC Status: Acute (3) Encephalopathy in sepsis Code(s): G93.41 - METABOLIC ENCEPHALOPATHY Status: Acute (4) Decubitus ulcer of coccygeal region, stage 4 Code(s): L89.154 - PRESSURE ULCER OF SACRAL REGION, STAGE 4 Status: Acute (5) Thrombocytopenia Code(s): D69.6 - THROMBOCYTOPENIA, UNSPECIFIED Status: Acute (6) Hypothyroidism Code(s): E03.9 - HYPOTHYROIDISM, UNSPECIFIED Status: Chronic (7) Normocytic anemia Code(s): D64.9 - ANEMIA, UNSPECIFIED Status: Chronic (8) Protein-calorie malnutrition, severe Code(s): E43 - UNSPECIFIED SEVERE PROTEIN-CALORIE MALNUTRITION Status: Chronic (9) Systemic lupus erythematosus Code(s): M32.9 - SYSTEMIC LUPUS ERYTHEMATOSUS, UNSPECIFIED Status: Chronic Comment: with acute exacerbation - Plan cont current plan of care, plan discussed w/ family, continue antibiotics * medication reviewed as below * symptomatic treatment * continue zosyn * transfer to surgical floor * wound care * supportive care. Review of Systems - Review of Systems Other: not reliable with pt due to her cognitive status - Medications/Allergies Allergies/Adverse Reactions: Allergies Allergy/AdvReac Type Severity Reaction Status Date / Time No Known Allergies Allergy Verified 07/19/17 21:49 Medications: Current Medications Acetaminophen (Tylenol) 650 mg PO Q6H PRN PRN Reason: Fever>101/(Mi/Mod/Sev) Pain Last Admin: 11/04/18 20:47 Dose: 650 mg Artificial Tears (Tears Naturale) 2 drop EA EYE PRN PRN PRN Reason: Dry Eyes Ascorbic Acid (Vitamin C) 1,000 mg PO DAILY [facility] Bisacodyl (Dulcolax) 10 mg [place] DAILYPRN PRN PRN Reason: Constipation Calcium Carbonate (Tums) 1,000 mg PO Q4H PRN PRN Reason: Heartburn or Indigestion Famotidine (Pepcid) 20 mg PO Q12HR [facility] Last Admin: 11/06/18 09:27 Dose: 20 mg Guaifenesin (Robitussin Sf) 200 mg PO Q4H PRN PRN Reason: Cough Hydroxychloroquine Sulfate (Plaquenil) 200 mg PO BID [facility] Last Admin: 11/06/18 09:35 Dose: 200 mg Piperacillin Sod/Tazobactam (Sod 3.375 gm/ Sodium Chloride) 100 mls @ 200 mls/ hr IVPB 0200,0800,1400,2000 [facility] Last Admin: 11/06/18 09:39 Dose: 100 mls Thiamine HCl 100 mg/ Sodium (Chloride) 51 mls @ 100 mls/hr IVPB 0900 [facility] Last Admin: 01/15/19 09:38 Dose: 51 mls Levothyroxine Sodium (Synthroid) 50 mcg PO 0600 [facility] Last Admin: 11/06/18 05:36 Dose: 50 mcg Loperamide HCl (Imodium) 2 mg PO PRN PRN PRN Reason: Diarrhea/Loose Stools Loratadine (Claritin) 10 mg PO DAILYPRN PRN PRN Reason: Sinus Symptoms Methylprednisolone Sodium Succinate (Solu-Medrol) 20 mg IVP DAILY [facility] Mineral Oil/White Petrolatum (Eucerin Cream) 0 gm TOP BIDPRN PRN PRN Reason: Dry Skin Ondansetron HCl (Zofran Odt) 4 mg PO Q6H PRN PRN Reason: Nausea/Vomiting Ondansetron HCl (Zofran) 4 mg IVP Q6H PRN PRN Reason: Nausea/Vomiting Phosphorus (Kphos Neutral) 500 mg PO BID-[facility] Last Admin: 11/05/18 18:07 Dose: 500 mg Potassium Bicarb/Potassium Chloride (K-Lyte Cl) 25 meq PO BID [facility] Last Admin: 11/05/18 20:31 Dose: 25 meq Potassium Chloride (K-Dur) [facility] Last Admin: 11/05/18 09:25 Dose: 20 meq Saccharomyces Boulardii (Florastor) 250 mg PO DAILY [facility] Last Admin: 11/06/18 09:29 Dose: 250 mg Senna/Docusate Sodium (Senokot S) 2 tab PO BID PRN PRN Reason: Constipation Sodium Chloride ([place] Nasal [place] 0.65%) 0 ml EA NARE QIDPRN PRN PRN Reason: Nasal Congestion Sodium Chloride (Flush - Normal Saline) 10 ml IVF Q12HR [facility] Last Admin: 11/06/18 09:52 Dose: 10 ml Sodium Chloride (Flush - Normal Saline) 10 ml IVF PRN PRN PRN Reason: Saline Flush Last Admin: 11/04/18 23:20 Dose: 10 ml Throat Lozenges (Cepastat Lozenges) 1 qing PO Q2H PRN PRN Reason: Sore Throat Zinc Sulfate (Zinc Sulfate) 220 mg PO DAILY [facility] Last Admin: 11/06/18 09:28 Dose: 220 mg
[2018-11-06] MEDS: Ascorbic Acid 500 mg Chewable Tablet PO SCH (12:28)
[2018-11-06] MEDS: Pot Chloride/Pot Bicarb/Cit Ac 25 mEq Effervescent Tablet PO SCH (12:46)
[2018-11-06] MEDS: Potassium Chloride 20 MEQ TAB PO SCH (12:46)
[2018-11-06] MEDS: K-Phos Neutral 250 MG TAB PO SCH (12:46)
[2018-11-06] MEDS: Sodium Chloride 0.9% 1,000 ML IV SCH (18:21)
[2018-11-07] MEDS: Piperacillin/Tazobactam 3.375 GM in Sodium Chloride 0.9% 100 ML IVPB SCH ×4 (03:53→23:56)
[2018-11-07] MEDS: Sodium Chloride 0.9% 1,000 ML IV SCH ×3 (03:54→23:59)
[2018-11-07 04:38] LABS: Anion Gap 10 mmol/L (10-20); BUN (Urea Nitrogen) 17 mg/dL (7.0-18.7); Calc. Creatinine Clearance 127 mL/min (70-130); Calcium 7.2 mg/dL (7.8-10.44); Carbon Dioxide 27 mmol/L (22-29); Chloride 111 mmol/L (98-107); Estimated GFR-MDRD Greater than 90; Glucose 75 mg/dL (70-105); Potassium 3.6 mmol/L (3.5-5.1); Sodium 144 mmol/L (136-145)
[2018-11-07 04:42] LABS: Anisocytosis SLIGHT = 6-15 cells (100X) (0-5/hpf); Hemoglobin 8.5 g/dL (12.0-16.0); Hypochromia SLIGHT = 6-15 cells (100X) (0-5/hpf); Lymphocytes 4 % (21-51); MDiff Complete? YES; Mean Corpuscular HGB CONC 31.8 g/dL (32.0-36.0); Mean Corpuscular Hemoglobin 28.4 pg (27.0-31.0); Mean Corpuscular Volume 89.3 fL (78.0-98.0); Mean Platelet Volume 8.2 fL (7.4-10.4); Monocytes 5 % (0-10); Neutrophil 91 % (42-75); Platelet Count 49 thou/uL (130-400); Platelet Morphology Comment Appears Decreased; RBC Distribution Width 22.9 % (11.5-14.5); Red Blood Cell (RBC) Count 2.98 mill/uL (4.20-5.40); White Blood Cell (WBC) Count 4.3 thou/uL (4.8-10.8)
[2018-11-07] MEDS: Levothyroxine Sodium 50 MCG TAB PO SCH (06:01)
[2018-11-07] MEDS: Hydroxychloroquine Sulfate 200 MG TAB PO SCH ×2 (08:34→20:58)
[2018-11-07] MEDS: Famotidine 20 MG TAB PO SCH ×2 (08:34→20:58)
[2018-11-07] MEDS: Ascorbic Acid 500 mg Chewable Tablet PO SCH (08:34)
[2018-11-07] MEDS: Zinc Sulfate 220 MG CAP PO SCH (08:34)
[2018-11-07] MEDS: Saccharomyces boulardii 250 MG CAP PO SCH (08:34)
--- NOTE | 2018-11-07 11:11 | PDOC.PN ---
- Subjective Encounter Start Date: 11/07/18 Encounter Start Time: 09:00 Patient seen and examined. No overnight events - Objective Resuscitation Status - Order Detail: 10/29/18 07:10 Resuscitation Status Routine Resuscitation Status: FULL: Full Resuscitation MAR Reviewed: Yes Vital Signs & Weight: Vital Signs (12 hours) Temp Pulse Resp BP Pulse Ox 11/07/18 08:30 100 11/07/18 08:00 97.6 F 77 16 115/63 100 11/07/18 04:04 97.3 F L 63 20 119/81 93 L 11/07/18 00:55 97.2 F L 59 L 20 115/74 100 Weight Admit Weight 117 lb 1.047 oz Weight 118 lb 6.212 oz Most Recent Monitor Data Heart Rate from ECG 55 NIBP 114/76 NIBP BP-Mean 88 Respiration from ECG 24 SpO2 100 I&O: 11/06/18 11/07/18 11/08/18 06:59 06:59 06:59 Intake Total 2317 2704 Output Total 1615 1230 Balance 702 1474 Result Diagrams: 11/07/18 04:13 11/07/18 04:13 Phys Exam - Physical Examination Constitutional: NAD HEENT: PERRLA, moist MMs, sclera anicteric Neck: no JVD, supple Respiratory: no wheezing, no rales, no rhonchi Cardiovascular: RRR, no significant murmur, no rub Gastrointestinal: soft, non-tender, no distention Musculoskeletal: no edema, pulses present wound vac in place Neurological: moves all 4 limbs Lymphatic: no nodes Psychiatric: normal affect Skin: normal turgor Deviation from normal: bruise over leg Dx/Plan (1) Decubitus ulcer of coccygeal region, stage 4 Code(s): L89.154 - PRESSURE ULCER OF SACRAL REGION, STAGE 4 Status: Acute (2) Septic shock Code(s): A41.9 - SEPSIS, UNSPECIFIED ORGANISM; R65.21 - SEVERE SEPSIS WITH SEPTIC SHOCK Status: Resolved Comment: due to infected decubitus ulcer (3) Abnormal blood electrolyte level Code(s): E87.8 - OTH DISORDERS OF ELECTROLYTE AND FLUID BALANCE, NEC Status: Resolved (4) Encephalopathy in sepsis Code(s): G93.41 - METABOLIC ENCEPHALOPATHY Status: Resolved (5) Thrombocytopenia Code(s): D69.6 - THROMBOCYTOPENIA, UNSPECIFIED Status: Chronic (6) Hypothyroidism Code(s): E03.9 - HYPOTHYROIDISM, UNSPECIFIED Status: Chronic (7) Normocytic anemia Code(s): D64.9 - ANEMIA, UNSPECIFIED Status: Chronic (8) Protein-calorie malnutrition, severe Code(s): E43 - UNSPECIFIED SEVERE PROTEIN-CALORIE MALNUTRITION Status: Chronic (9) Systemic lupus erythematosus Code(s): M32.9 - SYSTEMIC LUPUS ERYTHEMATOSUS, UNSPECIFIED Status: Chronic Comment: with acute exacerbation - Plan cont current plan of care, continue antibiotics, PT/OT, home health care social worker * start PT/OT * 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 Review of Systems - Review of Systems Other: not reliable due to her cognitive status - Medications/Allergies Allergies/Adverse Reactions: Allergies Allergy/AdvReac Type Severity Reaction Status Date / Time No Known Allergies Allergy Verified 07/19/17 21:49 Medications: Current Medications Acetaminophen (Tylenol) 650 mg PO Q6H PRN PRN Reason: Fever>101/(Mi/Mod/Sev) Pain Last Admin: 11/04/18 20:47 Dose: 650 mg Artificial Tears (Tears Naturale) 2 drop EA EYE PRN PRN PRN Reason: Dry Eyes Ascorbic Acid (Vitamin C) 1,000 mg PO DAILY [facility] Last Admin: 11/07/18 08:34 Dose: 1,000 mg Bisacodyl (Dulcolax) 10 mg [place] DAILYPRN PRN PRN Reason: Constipation Calcium Carbonate (Tums) 1,000 mg PO Q4H PRN PRN Reason: Heartburn or Indigestion Famotidine (Pepcid) 20 mg PO Q12HR [facility] Last Admin: 11/07/18 08:34 Dose: 20 mg Guaifenesin (Robitussin Sf) 200 mg PO Q4H PRN PRN Reason: Cough Hydroxychloroquine Sulfate (Plaquenil) 200 mg PO BID [facility] Last Admin: 11/07/18 08:34 Dose: 200 mg Piperacillin Sod/Tazobactam (Sod 3.375 gm/ Sodium Chloride) 100 mls @ 200 mls/ hr IVPB 0200,0800,1400,2000 [facility] Last Admin: 11/07/18 08:35 Dose: 100 mls Thiamine HCl 100 mg/ Sodium (Chloride) 51 mls @ 100 mls/hr IVPB 0900 [facility] Last Admin: 11/07/18 09:20 Dose: 51 mls Sodium Chloride (Normal Saline 0.9%) 1,000 mls @ 100 mls/hr IV .Q10H [facility] Last Admin: 11/07/18 03:54 Dose: 1,000 mls Levothyroxine Sodium (Synthroid) 50 mcg PO 0600 [facility] Last Admin: 11/07/18 06:01 Dose: 50 mcg Loperamide HCl (Imodium) 2 mg PO PRN PRN PRN Reason: Diarrhea/Loose Stools Loratadine (Claritin) 10 mg PO DAILYPRN PRN PRN Reason: Sinus Symptoms Methylprednisolone Sodium Succinate (Solu-Medrol) 20 mg IVP DAILY [facility] Last Admin: 11/07/18 08:43 Dose: 20 mg Mineral Oil/White Petrolatum (Eucerin Cream) 0 gm TOP BIDPRN PRN PRN Reason: Dry Skin Ondansetron HCl (Zofran Odt) 4 mg PO Q6H PRN PRN Reason: Nausea/Vomiting Ondansetron HCl (Zofran) 4 mg IVP Q6H PRN PRN Reason: Nausea/Vomiting Saccharomyces Boulardii (Florastor) 250 mg PO DAILY [facility] Last Admin: 11/07/18 08:34 Dose: 250 mg Senna/Docusate Sodium (Senokot S) 2 tab PO BID PRN PRN Reason: Constipation Sertraline HCl (Zoloft) 25 mg PO DAILY [facility] Sertraline HCl (Zoloft) 25 mg PO NOW [facility] Stop: 11/07/18 12:00 Last Admin: 11/07/18 10:54 Dose: 25 mg Sodium Chloride ([place] Nasal [place] 0.65%) 0 ml EA NARE QIDPRN PRN PRN Reason: Nasal Congestion Sodium Chloride (Flush - Normal Saline) 10 ml IVF Q12HR [facility] Last Admin: 11/07/18 08:48 Dose: 10 ml Sodium Chloride (Flush - Normal Saline) 10 ml IVF PRN PRN PRN Reason: Saline Flush Last Admin: 11/04/18 23:20 Dose: 10 ml Throat Lozenges (Cepastat Lozenges) 1 iqng PO Q2H PRN PRN Reason: Sore Throat Zinc Sulfate (Zinc Sulfate) 220 mg PO DAILY [facility] Last Admin: 11/07/18 08:34 Dose: 220 mg
[2018-11-07 12:15] VITALS: BMI 20.9
[2018-11-08] MEDS: Piperacillin/Tazobactam 3.375 GM in Sodium Chloride 0.9% 100 ML IVPB SCH ×4 (04:52→23:25)
[2018-11-08] MEDS: Levothyroxine Sodium 50 MCG TAB PO SCH (05:03)
[2018-11-08 05:36] LABS: Band 12 % (5-11); Eosinophils 1 % (0-10); Hemoglobin 8.9 g/dL (12.0-16.0); Lymphocytes 7 % (21-51); MDiff Complete? YES; Mean Corpuscular HGB CONC 32.8 g/dL (32.0-36.0); Mean Corpuscular Hemoglobin 29.2 pg (27.0-31.0); Mean Corpuscular Volume 89.2 fL (78.0-98.0); Mean Platelet Volume 7.1 fL (7.4-10.4); Metamyelocyte 2 % (0-0); Monocytes 3 % (0-10); Neutrophil 75 % (42-75); Platelet Count 47 thou/uL (130-400); Platelet Morphology Comment Appears Decreased; RBC Distribution Width 22.8 % (11.5-14.5); Red Blood Cell (RBC) Count 3.05 mill/uL (4.20-5.40)
[2018-11-08 05:45] LABS: Anion Gap 7 mmol/L (10-20); BUN (Urea Nitrogen) 13 mg/dL (7.0-18.7); Calc. Creatinine Clearance 124 mL/min (70-130); Calcium 7.6 mg/dL (7.8-10.44); Carbon Dioxide 27 mmol/L (22-29); Chloride 108 mmol/L (98-107); Estimated GFR-MDRD Greater than 90; Glucose 72 mg/dL (70-105); Potassium 3.4 mmol/L (3.5-5.1); Sodium 139 mmol/L (136-145)
[2018-11-08] MEDS: Potassium Chloride 20 MEQ TAB PO SCH ×2 (08:35→08:47)
[2018-11-08] MEDS: Saccharomyces boulardii 250 MG CAP PO SCH ×2 (08:35→08:48)
[2018-11-08] MEDS: Zinc Sulfate 220 MG CAP PO SCH ×2 (08:36→08:48)
[2018-11-08] MEDS: Famotidine 20 MG TAB PO SCH ×3 (08:36→20:22)
[2018-11-08] MEDS: Hydroxychloroquine Sulfate 200 MG TAB PO SCH ×3 (08:36→20:22)
[2018-11-08] MEDS: Ascorbic Acid 500 mg Chewable Tablet PO SCH ×2 (08:36→08:47)
--- NOTE | 2018-11-08 10:17 | PRG ---
DATE OF SERVICE: 11/08/2018 SUBJECTIVE: Ms. Byrd is still nonverbal. OBJECTIVE: VITAL SIGNS: She is afebrile. Heart rate is 83, respiratory rate is 12, oximetry is 97% on room air, and blood pressure 123/97. LUNGS: Clear. HEART: Regular rhythm. ABDOMEN: Soft. LABORATORY DATA: White count 4, hemoglobin 8.9, and platelets 47,000. Sodium 139, potassium 3.4, chloride 108, bicarb 27, BUN 13, and creatinine 0.51. IMPRESSION: 1. ? Aspiration pneumonia. 2. Severe protein calorie malnutrition. 3. Lupus. 4. Severe sacral and coccygeal decubitus ulcers. Culture positive for Clostridium, Bacteroides. 5. Encephalopathy, it is unclear what her cause of her nonverbal state is to me. I will continue to follow the other physicians caring for her. Job ID: [id number]
--- NOTE | 2018-11-08 10:27 | PDOC.PN ---
- Subjective Encounter Start Date: 11/08/18 Encounter Start Time: 08:40 Patient seen and examined. No overnight events pt has difficulty with food, she is pocketing food in mouth - Objective Resuscitation Status - Order Detail: 10/29/18 07:10 Resuscitation Status Routine Resuscitation Status: FULL: Full Resuscitation MAR Reviewed: Yes Vital Signs & Weight: Vital Signs (12 hours) Temp Pulse Resp BP Pulse Ox 11/08/18 07:39 97.7 F 83 12 123/97 H 97 11/08/18 04:00 98.2 F 74 19 114/77 94 L 11/08/18 00:00 98.3 F 71 17 119/84 98 Weight Admit Weight 117 lb 1.047 oz Weight 118 lb 6.212 oz Most Recent Monitor Data Heart Rate from ECG 55 NIBP 114/76 NIBP BP-Mean 88 Respiration from ECG 24 SpO2 100 I&O: 11/07/18 11/08/18 11/09/18 06:59 06:59 06:59 Intake Total 2704 1440 Output Total 1230 3000 Balance 1474 -1560 Result Diagrams: 11/08/18 04:55 11/08/18 04:55 Phys Exam - Physical Examination Constitutional: NAD cachectic HEENT: PERRLA poor dentition Neck: no JVD, supple Respiratory: no wheezing, no rales, no rhonchi Cardiovascular: RRR, no significant murmur Gastrointestinal: soft, non-tender, no distention, positive bowel sounds Musculoskeletal: no edema, pulses present wound vac in place at pressure ulcer Neurological: moves all 4 limbs Lymphatic: no nodes Psychiatric: normal affect Skin: normal turgor Dx/Plan (1) Decubitus ulcer of coccygeal region, stage 4 Code(s): L89.154 - PRESSURE ULCER OF SACRAL REGION, STAGE 4 Status: Acute (2) Septic shock Code(s): A41.9 - SEPSIS, UNSPECIFIED ORGANISM; R65.21 - SEVERE SEPSIS WITH SEPTIC SHOCK Status: Resolved Comment: due to infected decubitus ulcer (3) Abnormal blood electrolyte level Code(s): E87.8 - OTH DISORDERS OF ELECTROLYTE AND FLUID BALANCE, NEC Status: Resolved (4) Encephalopathy in sepsis Code(s): G93.41 - METABOLIC ENCEPHALOPATHY Status: Resolved (5) Thrombocytopenia Code(s): D69.6 - THROMBOCYTOPENIA, UNSPECIFIED Status: Chronic (6) Hypothyroidism Code(s): E03.9 - HYPOTHYROIDISM, UNSPECIFIED Status: Chronic (7) Normocytic anemia Code(s): D64.9 - ANEMIA, UNSPECIFIED Status: Chronic (8) Protein-calorie malnutrition, severe Code(s): E43 - UNSPECIFIED SEVERE PROTEIN-CALORIE MALNUTRITION Status: Chronic (9) Systemic lupus erythematosus Code(s): M32.9 - SYSTEMIC LUPUS ERYTHEMATOSUS, UNSPECIFIED Status: Chronic Comment: with acute exacerbation - Plan cont current plan of care, continue antibiotics, social service assistant * I tried to call family to discuss about tube feeding option given her poor nutritional status but unable to reach * medication reviewed as below * symptomatic treatment * continue wound care * continue zosyn * await placement * replace potassium. Review of Systems - Review of Systems Other: not reliable with pt due to her cognitive status - Medications/Allergies Allergies/Adverse Reactions: Allergies Allergy/AdvReac Type Severity Reaction Status Date / Time No Known Allergies Allergy Verified 07/19/17 21:49 Medications: Current Medications Acetaminophen (Tylenol) 650 mg PO Q6H PRN PRN Reason: Fever>101/(Mi/Mod/Sev) Pain Last Admin: 11/04/18 20:47 Dose: 650 mg Artificial Tears (Tears Naturale) 2 drop EA EYE PRN PRN PRN Reason: Dry Eyes Ascorbic Acid (Vitamin C) 1,000 mg PO DAILY [facility] Last Admin: 11/08/18 08:47 Dose: Not Given Bisacodyl (Dulcolax) 10 mg [place] DAILYPRN PRN PRN Reason: Constipation Calcium Carbonate (Tums) 1,000 mg PO Q4H PRN PRN Reason: Heartburn or Indigestion Famotidine (Pepcid) 20 mg PO Q12HR [facility] Last Admin: 11/08/18 08:47 Dose: Not Given Guaifenesin (Robitussin Sf) 200 mg PO Q4H PRN PRN Reason: Cough Hydroxychloroquine Sulfate (Plaquenil) 200 mg PO BID [facility] Last Admin: 11/08/18 08:47 Dose: Not Given Thiamine HCl 100 mg/ Sodium (Chloride) 51 mls @ 100 mls/hr IVPB 0900 [facility] Last Admin: 11/08/18 09:48 Dose: 51 mls Piperacillin Sod/Tazobactam (Sod 3.375 gm/ Sodium Chloride) 100 mls @ 200 mls/ hr IVPB 0500,1100,1700,2300 [facility] Last Admin: 11/08/18 04:52 Dose: 100 mls Levothyroxine Sodium (Synthroid) 50 mcg PO 0600 [facility] Last Admin: 11/08/18 05:03 Dose: 50 mcg Loperamide HCl (Imodium) 2 mg PO PRN PRN PRN Reason: Diarrhea/Loose Stools Loratadine (Claritin) 10 mg PO DAILYPRN PRN PRN Reason: Sinus Symptoms Methylprednisolone Sodium Succinate (Solu-Medrol) 20 mg IVP DAILY [facility] Last Admin: 11/08/18 08:37 Dose: 20 mg Mineral Oil/White Petrolatum (Eucerin Cream) 0 gm TOP BIDPRN PRN PRN Reason: Dry Skin Ondansetron HCl (Zofran Odt) 4 mg PO Q6H PRN PRN Reason: Nausea/Vomiting Ondansetron HCl (Zofran) 4 mg IVP Q6H PRN PRN Reason: Nausea/Vomiting Potassium Chloride (K-Dur) 20 meq PO QAM-[facility] Last Admin: 11/08/18 08:47 Dose: Not Given Saccharomyces Boulardii (Florastor) 250 mg PO DAILY [facility] Last Admin: 11/08/18 08:48 Dose: Not Given Senna/Docusate Sodium (Senokot S) 2 tab PO BID PRN PRN Reason: Constipation Sertraline HCl (Zoloft) 25 mg PO DAILY [facility] Last Admin: 11/08/18 08:48 Dose: Not Given Sodium Chloride ([place] Nasal [place] 0.65%) 0 ml EA NARE QIDPRN PRN PRN Reason: Nasal Congestion Sodium Chloride (Flush - Normal Saline) 10 ml IVF Q12HR [facility] Last Admin: 11/08/18 08:38 Dose: 10 ml Sodium Chloride (Flush - Normal Saline) 10 ml IVF PRN PRN PRN Reason: Saline Flush Last Admin: 11/04/18 23:20 Dose: 10 ml Throat Lozenges (Cepastat Lozenges) 1 qing PO Q2H PRN PRN Reason: Sore Throat Zinc Sulfate (Zinc Sulfate) 220 mg PO DAILY [facility] Last Admin: 11/08/18 08:48 Dose: Not Given
[2018-11-09] MEDS: Levothyroxine Sodium 50 MCG TAB PO SCH (05:08)
[2018-11-09] MEDS: Piperacillin/Tazobactam 3.375 GM in Sodium Chloride 0.9% 100 ML IVPB SCH ×4 (05:08→22:10)
[2018-11-09 06:03] LABS: Anion Gap 11 mmol/L (10-20); BUN (Urea Nitrogen) 12 mg/dL (7.0-18.7); Calc. Creatinine Clearance 124 mL/min (70-130); Carbon Dioxide 23 mmol/L (22-29); Chloride 108 mmol/L (98-107); Estimated GFR-MDRD Greater than 90; Glucose 69 mg/dL (70-105); Potassium 3.3 mmol/L (3.5-5.1); Sodium 139 mmol/L (136-145)
[2018-11-09 06:16] LABS: Anisocytosis SLIGHT = 6-15 cells (100X) (0-5/hpf); Band 11 % (5-11); Elliptocytes SLIGHT = 2-5 cells (100X) (0-1/hpf); Hemoglobin 8.7 g/dL (12.0-16.0); Lymphocytes 17 % (21-51); MDiff Complete? YES; Mean Corpuscular HGB CONC 32.5 g/dL (32.0-36.0); Mean Corpuscular Hemoglobin 29.7 pg (27.0-31.0); Mean Corpuscular Volume 91.3 fL (78.0-98.0); Mean Platelet Volume 12.4 fL (7.4-10.4); Monocytes 1 % (0-10); Neutrophil 71 % (42-75); Platelet Count 53 thou/uL (130-400); RBC Distribution Width 23.2 % (11.5-14.5); Red Blood Cell (RBC) Count 2.92 mill/uL (4.20-5.40)
[2018-11-09] MEDS: Famotidine 20 MG TAB PO SCH ×2 (08:16→22:10)
[2018-11-09] MEDS: Hydroxychloroquine Sulfate 200 MG TAB PO SCH ×2 (08:16→22:10)
[2018-11-09] MEDS: Saccharomyces boulardii 250 MG CAP PO SCH (08:18)
[2018-11-09] MEDS: Zinc Sulfate 220 MG CAP PO SCH (08:18)
[2018-11-09] MEDS: Ascorbic Acid 500 mg Chewable Tablet PO SCH (08:21)
[2018-11-09] MEDS: Potassium Chloride 20 MEQ TAB PO SCH ×2 (08:26→17:36)
--- NOTE | 2018-11-09 09:45 | PDOC.PN ---
- Subjective Encounter Start Date: 11/09/18 Encounter Start Time: 08:00 Patient seen and examined. No overnight events pt is not able to communicate - Objective Resuscitation Status - Order Detail: 10/29/18 07:10 Resuscitation Status Routine Resuscitation Status: FULL: Full Resuscitation MAR Reviewed: Yes Vital Signs & Weight: Vital Signs (12 hours) Temp Pulse Resp BP Pulse Ox 11/09/18 07:38 99.3 F 76 20 99/67 100 11/09/18 04:35 98.9 F 73 19 119/80 96 11/09/18 00:20 98.8 F 68 18 107/71 100 Weight Admit Weight 117 lb 1.047 oz Weight 118 lb 6.212 oz Most Recent Monitor Data Heart Rate from ECG 55 NIBP 114/76 NIBP BP-Mean 88 Respiration from ECG 24 SpO2 100 I&O: 11/08/18 11/09/18 11/10/18 06:59 06:59 06:59 Intake Total 1440 500 Output Total 3000 700 Balance -1560 -200 Result Diagrams: 11/09/18 05:10 11/09/18 05:10 Phys Exam - Physical Examination Constitutional: NAD HEENT: PERRLA, moist MMs, sclera anicteric poor dentition Neck: no JVD, supple Respiratory: no wheezing, no rales, no rhonchi Cardiovascular: RRR, no significant murmur, no rub Gastrointestinal: soft, non-tender, no distention, positive bowel sounds Musculoskeletal: no edema, pulses present wound vac in place Neurological: moves all 4 limbs Lymphatic: no nodes Psychiatric: normal affect Skin: no rash Dx/Plan (1) Decubitus ulcer of coccygeal region, stage 4 Code(s): L89.154 - PRESSURE ULCER OF SACRAL REGION, STAGE 4 Status: Acute (2) Septic shock Code(s): A41.9 - SEPSIS, UNSPECIFIED ORGANISM; R65.21 - SEVERE SEPSIS WITH SEPTIC SHOCK Status: Resolved Comment: due to infected decubitus ulcer (3) Abnormal blood electrolyte level Code(s): E87.8 - OTH DISORDERS OF ELECTROLYTE AND FLUID BALANCE, NEC Status: Resolved (4) Encephalopathy in sepsis Code(s): G93.41 - METABOLIC ENCEPHALOPATHY Status: Resolved (5) Thrombocytopenia Code(s): D69.6 - THROMBOCYTOPENIA, UNSPECIFIED Status: Chronic (6) Hypothyroidism Code(s): E03.9 - HYPOTHYROIDISM, UNSPECIFIED Status: Chronic (7) Normocytic anemia Code(s): D64.9 - ANEMIA, UNSPECIFIED Status: Chronic (8) Protein-calorie malnutrition, severe Code(s): E43 - UNSPECIFIED SEVERE PROTEIN-CALORIE MALNUTRITION Status: Chronic (9) Systemic lupus erythematosus Code(s): M32.9 - SYSTEMIC LUPUS ERYTHEMATOSUS, UNSPECIFIED Status: Chronic Comment: with acute exacerbation - Plan cont current plan of care, continue antibiotics, PT/OT, social service assistant * at this point main concern is her oral intake, she is not taking enough to meet nutritional requirement to properly heal wound * ?she may need PEG for nutrition, will discuss with family about that. * medication reviewed as below * symptomatic treatment * continue zosyn * change KCL bid Review of Systems - Review of Systems Other: not reliable with pt due to her level of cognitive status - Medications/Allergies Allergies/Adverse Reactions: Allergies Allergy/AdvReac Type Severity Reaction Status Date / Time No Known Allergies Allergy Verified 07/19/17 21:49 Medications: Current Medications Acetaminophen (Tylenol) 650 mg PO Q6H PRN PRN Reason: Fever>101/(Mi/Mod/Sev) Pain Last Admin: 11/04/18 20:47 Dose: 650 mg Artificial Tears (Tears Naturale) 2 drop EA EYE PRN PRN PRN Reason: Dry Eyes Ascorbic Acid (Vitamin C) 1,000 mg PO DAILY [facility] Last Admin: 11/09/18 08:21 Dose: 1,000 mg Bisacodyl (Dulcolax) 10 mg [place] DAILYPRN PRN PRN Reason: Constipation Calcium Carbonate (Tums) 1,000 mg PO Q4H PRN PRN Reason: Heartburn or Indigestion Famotidine (Pepcid) 20 mg PO Q12HR [facility] Last Admin: 11/09/18 08:16 Dose: 20 mg Guaifenesin (Robitussin Sf) 200 mg PO Q4H PRN PRN Reason: Cough Hydroxychloroquine Sulfate (Plaquenil) 200 mg PO BID [facility] Last Admin: 11/09/18 08:16 Dose: 200 mg Thiamine HCl 100 mg/ Sodium (Chloride) 51 mls @ 100 mls/hr IVPB 0900 [facility] Last Admin: 11/09/18 09:19 Dose: 51 mls Piperacillin Sod/Tazobactam (Sod 3.375 gm/ Sodium Chloride) 100 mls @ 200 mls/ hr IVPB 0500,1100,1700,2300 [facility] Last Admin: 11/09/18 05:08 Dose: 100 mls Levothyroxine Sodium (Synthroid) 50 mcg PO 0600 [facility] Last Admin: 11/09/18 05:08 Dose: 50 mcg Loperamide HCl (Imodium) 2 mg PO PRN PRN PRN Reason: Diarrhea/Loose Stools Loratadine (Claritin) 10 mg PO DAILYPRN PRN PRN Reason: Sinus Symptoms Methylprednisolone Sodium Succinate (Solu-Medrol) 20 mg IVP DAILY [facility] Last Admin: 11/09/18 08:18 Dose: 20 mg Mineral Oil/White Petrolatum (Eucerin Cream) 0 gm TOP BIDPRN PRN PRN Reason: Dry Skin Ondansetron HCl (Zofran Odt) 4 mg PO Q6H PRN PRN Reason: Nausea/Vomiting Ondansetron HCl (Zofran) 4 mg IVP Q6H PRN PRN Reason: Nausea/Vomiting Potassium Chloride (K-Dur) 20 meq PO BID-[facility] Last Admin: 11/09/18 08:26 Dose: 20 meq Saccharomyces Boulardii (Florastor) 250 mg PO DAILY [facility] Last Admin: 11/09/18 08:18 Dose: 250 mg Senna/Docusate Sodium (Senokot S) 2 tab PO BID PRN PRN Reason: Constipation Sertraline HCl (Zoloft) 25 mg PO DAILY [facility] Last Admin: 11/09/18 08:16 Dose: 25 mg Sodium Chloride ([place] Nasal [place] 0.65%) 0 ml EA NARE QIDPRN PRN PRN Reason: Nasal Congestion Sodium Chloride (Flush - Normal Saline) 10 ml IVF Q12HR [facility] Last Admin: 11/09/18 08:23 Dose: 10 ml Sodium Chloride (Flush - Normal Saline) 10 ml IVF PRN PRN PRN Reason: Saline Flush Last Admin: 11/04/18 23:20 Dose: 10 ml Throat Lozenges (Cepastat Lozenges) 1 qing PO Q2H PRN PRN Reason: Sore Throat Zinc Sulfate (Zinc Sulfate) 220 mg PO DAILY [facility] Last Admin: 11/09/18 08:18 Dose: 220 mg
[2018-11-10] MEDS: Acetaminophen 325 MG TAB PO PRN ×2 (01:24→09:53)
[2018-11-10] MEDS: Piperacillin/Tazobactam 3.375 GM in Sodium Chloride 0.9% 100 ML IVPB SCH ×4 (05:27→23:04)
[2018-11-10] MEDS: Levothyroxine Sodium 50 MCG TAB PO SCH (05:27)
[2018-11-10 07:15] LABS: Hemoglobin 8.3 g/dL (12.0-16.0); Mean Corpuscular HGB CONC 31.5 g/dL (32.0-36.0); Mean Corpuscular Hemoglobin 29.5 pg (27.0-31.0); Mean Corpuscular Volume 93.6 fL (78.0-98.0); Mean Platelet Volume 12.8 fL (7.4-10.4); Platelet Count 62 thou/uL (130-400); RBC Distribution Width 23.8 % (11.5-14.5); Red Blood Cell (RBC) Count 2.79 mill/uL (4.20-5.40); White Blood Cell (WBC) Count 4.2 thou/uL (4.8-10.8)
[2018-11-10 07:18] LABS: Anion Gap 8 mmol/L (10-20); BUN (Urea Nitrogen) 17 mg/dL (7.0-18.7); Calc. Creatinine Clearance 120 mL/min (70-130); Carbon Dioxide 27 mmol/L (22-29); Chloride 107 mmol/L (98-107); Estimated GFR-MDRD Greater than 90; Glucose 115 mg/dL (70-105); Potassium 3.9 mmol/L (3.5-5.1); Sodium 138 mmol/L (136-145)
[2018-11-10 08:18] LABS: Band 12 % (5-11); Eosinophils 1 % (0-10); Lymphocytes 18 % (21-51); Monocytes 3 % (0-10); Neutrophil 66 % (42-75)
[2018-11-10 08:19] LABS: MDiff Complete? YES
--- NOTE | 2018-11-10 09:41 | PDOC.PN ---
- Subjective Encounter Start Date: 11/10/18 Encounter Start Time: 08:10 Patient seen and examined. No overnight events - Objective Resuscitation Status - Order Detail: 10/29/18 07:10 Resuscitation Status Routine Resuscitation Status: FULL: Full Resuscitation MAR Reviewed: Yes Vital Signs & Weight: Vital Signs (12 hours) Temp Pulse Resp BP BP Pulse Ox 11/10/18 07:45 98.6 F 102 H 18 91/63 97 11/10/18 04:00 98.6 F 82 20 104/75 96 11/10/18 00:30 100/60 11/10/18 00:00 98.2 F 80 20 87/58 L 94 L Weight Admit Weight 117 lb 1.047 oz Weight 118 lb 6.212 oz Most Recent Monitor Data Heart Rate from ECG 55 NIBP 114/76 NIBP BP-Mean 88 Respiration from ECG 24 SpO2 100 I&O: 11/09/18 11/10/18 11/11/18 06:59 06:59 06:59 Intake Total 500 240 961 Output Total 700 1150 Balance -200 240 -189 Result Diagrams: 11/10/18 06:45 11/10/18 06:45 Phys Exam - Physical Examination Constitutional: NAD HEENT: PERRLA, moist MMs, sclera anicteric Neck: no JVD, supple Respiratory: no wheezing, no rales, no rhonchi, clear to auscultation bilateral Cardiovascular: RRR, no significant murmur, no rub Gastrointestinal: soft, non-tender, no distention Musculoskeletal: no edema, pulses present Neurological: non-focal, normal sensation, moves all 4 limbs wound vac in place Lymphatic: no nodes Psychiatric: normal affect Skin: no rash, normal turgor Dx/Plan (1) Decubitus ulcer of coccygeal region, stage 4 Code(s): L89.154 - PRESSURE ULCER OF SACRAL REGION, STAGE 4 Status: Acute (2) Septic shock Code(s): A41.9 - SEPSIS, UNSPECIFIED ORGANISM; R65.21 - SEVERE SEPSIS WITH SEPTIC SHOCK Status: Resolved Comment: due to infected decubitus ulcer (3) Abnormal blood electrolyte level Code(s): E87.8 - OTH DISORDERS OF ELECTROLYTE AND FLUID BALANCE, NEC Status: Resolved (4) Encephalopathy in sepsis Code(s): G93.41 - METABOLIC ENCEPHALOPATHY Status: Resolved (5) Thrombocytopenia Code(s): D69.6 - THROMBOCYTOPENIA, UNSPECIFIED Status: Chronic (6) Hypothyroidism Code(s): E03.9 - HYPOTHYROIDISM, UNSPECIFIED Status: Chronic (7) Normocytic anemia Code(s): D64.9 - ANEMIA, UNSPECIFIED Status: Chronic (8) Protein-calorie malnutrition, severe Code(s): E43 - UNSPECIFIED SEVERE PROTEIN-CALORIE MALNUTRITION Status: Chronic (9) Systemic lupus erythematosus Code(s): M32.9 - SYSTEMIC LUPUS ERYTHEMATOSUS, UNSPECIFIED Status: Chronic Comment: with acute exacerbation - Plan cont current plan of care, continue antibiotics, public health social worker * now pt is eating food, her BP stable * wound care * await placement * nutritional support * will DC daily labs * supportive care * continue antibiotics for now. Review of Systems - Review of Systems Other: not reliable with pt due to her leveo of cognitive status - Medications/Allergies Allergies/Adverse Reactions: Allergies Allergy/AdvReac Type Severity Reaction Status Date / Time No Known Allergies Allergy Verified 07/19/17 21:49 Medications: Current Medications Acetaminophen (Tylenol) 650 mg PO Q6H PRN PRN Reason: Fever>101/(Mi/Mod/Sev) Pain Last Admin: 11/10/18 01:24 Dose: 650 mg Artificial Tears (Tears Naturale) 2 drop EA EYE PRN PRN PRN Reason: Dry Eyes Ascorbic Acid (Vitamin C) 1,000 mg PO DAILY [facility] Last Admin: 11/09/18 08:21 Dose: 1,000 mg Bisacodyl (Dulcolax) 10 mg [place] DAILYPRN PRN PRN Reason: Constipation Calcium Carbonate (Tums) 1,000 mg PO Q4H PRN PRN Reason: Heartburn or Indigestion Famotidine (Pepcid) 20 mg PO Q12HR [facility] Last Admin: 11/09/18 22:10 Dose: 20 mg Guaifenesin (Robitussin Sf) 200 mg PO Q4H PRN PRN Reason: Cough Hydroxychloroquine Sulfate (Plaquenil) 200 mg PO BID [facility] Last Admin: 11/09/18 22:10 Dose: 200 mg Thiamine HCl 100 mg/ Sodium (Chloride) 51 mls @ 100 mls/hr IVPB 0900 [facility] Last Admin: 11/09/18 09:19 Dose: 51 mls Piperacillin Sod/Tazobactam (Sod 3.375 gm/ Sodium Chloride) 100 mls @ 200 mls/ hr IVPB 0500,1100,1700,2300 [facility] Last Admin: 11/10/18 05:27 Dose: 100 mls Levothyroxine Sodium (Synthroid) 50 mcg PO 0600 [facility] Last Admin: 11/10/18 05:27 Dose: 50 mcg Loperamide HCl (Imodium) 2 mg PO PRN PRN PRN Reason: Diarrhea/Loose Stools Loratadine (Claritin) 10 mg PO DAILYPRN PRN PRN Reason: Sinus Symptoms Methylprednisolone Sodium Succinate (Solu-Medrol) 20 mg IVP DAILY [facility] Last Admin: 11/09/18 08:18 Dose: 20 mg Mineral Oil/White Petrolatum (Eucerin Cream) 0 gm TOP BIDPRN PRN PRN Reason: Dry Skin Ondansetron HCl (Zofran Odt) 4 mg PO Q6H PRN PRN Reason: Nausea/Vomiting Ondansetron HCl (Zofran) 4 mg IVP Q6H PRN PRN Reason: Nausea/Vomiting Potassium Chloride (K-Dur) 20 meq PO BID-[facility] Last Admin: 11/09/18 17:36 Dose: 20 meq Saccharomyces Boulardii (Florastor) 250 mg PO DAILY [facility] Last Admin: 11/09/18 08:18 Dose: 250 mg Senna/Docusate Sodium (Senokot S) 2 tab PO BID PRN PRN Reason: Constipation Sertraline HCl (Zoloft) 25 mg PO DAILY [facility] Last Admin: 11/09/18 08:16 Dose: 25 mg Sodium Chloride (Kerr Nasal [place] 0.65%) 0 ml EA NARE QIDPRN PRN PRN Reason: Nasal Congestion Sodium Chloride (Flush - Normal Saline) 10 ml IVF Q12HR [facility] Last Admin: 11/09/18 22:10 Dose: 10 ml Sodium Chloride (Flush - Normal Saline) 10 ml IVF PRN PRN PRN Reason: Saline Flush Last Admin: 11/04/18 23:20 Dose: 10 ml Throat Lozenges (Cepastat Lozenges) 1 qing PO Q2H PRN PRN Reason: Sore Throat Zinc Sulfate (Zinc Sulfate) 220 mg PO DAILY [facility] Last Admin: 11/09/18 08:18 Dose: 220 mg
[2018-11-10] MEDS: Ascorbic Acid 500 mg Chewable Tablet PO SCH (09:53)
[2018-11-10] MEDS: Potassium Chloride 20 MEQ TAB PO SCH ×2 (09:53→16:58)
[2018-11-10] MEDS: Zinc Sulfate 220 MG CAP PO SCH (09:53)
[2018-11-10] MEDS: Hydroxychloroquine Sulfate 200 MG TAB PO SCH ×2 (09:54→21:25)
[2018-11-10] MEDS: Saccharomyces boulardii 250 MG CAP PO SCH (09:54)
[2018-11-10] MEDS: Famotidine 20 MG TAB PO SCH ×2 (11:57→21:25)
[2018-11-11] MEDS: Piperacillin/Tazobactam 3.375 GM in Sodium Chloride 0.9% 100 ML IVPB SCH ×4 (05:43→23:32)
[2018-11-11] MEDS: Levothyroxine Sodium 50 MCG TAB PO SCH (05:44)
[2018-11-11] MEDS: Ascorbic Acid 500 mg Chewable Tablet PO SCH (09:14)
[2018-11-11] MEDS: Potassium Chloride 20 MEQ TAB PO SCH ×2 (09:14→17:02)
[2018-11-11] MEDS: Saccharomyces boulardii 250 MG CAP PO SCH (09:14)
[2018-11-11] MEDS: Zinc Sulfate 220 MG CAP PO SCH (09:14)
[2018-11-11] MEDS: Hydroxychloroquine Sulfate 200 MG TAB PO SCH ×2 (09:15→20:50)
[2018-11-11] MEDS: Famotidine 20 MG TAB PO SCH ×2 (11:43→20:50)
--- NOTE | 2018-11-11 19:24 | PDOC.PN ---
- Subjective Encounter Start Date: 11/11/18 Encounter Start Time: 19:23 Subjective: Seen and examined no new complaint - Objective Resuscitation Status - Order Detail: 10/29/18 07:10 Resuscitation Status Routine Resuscitation Status: FULL: Full Resuscitation Vital Signs & Weight: Vital Signs (12 hours) Temp Pulse Resp BP Pulse Ox 11/11/18 16:00 98.7 F 94 15 95/63 100 11/11/18 11:35 98.4 F 93 14 94/61 97 11/11/18 07:58 98.5 F 99 14 90/50 L 98 11/11/18 07:50 98 Weight Admit Weight 117 lb 1.047 oz Weight 118 lb 6.212 oz Most Recent Monitor Data Heart Rate from ECG 55 NIBP 114/76 NIBP BP-Mean 88 Respiration from ECG 24 SpO2 100 I&O: 11/10/18 11/11/18 11/12/18 06:59 06:59 06:59 Intake Total 240 3414 1506 Output Total 3300 1350 Balance 240 114 156 Result Diagrams: 11/10/18 06:45 11/10/18 06:45 Phys Exam - Physical Examination Constitutional: NAD HEENT: PERRLA, moist MMs, sclera anicteric, TM's clear Neck: no nodes, no JVD, supple, full ROM Respiratory: no wheezing, no rales, no rhonchi, clear to auscultation bilateral Cardiovascular: RRR, no significant murmur, no rub Gastrointestinal: soft, non-tender, no distention, positive bowel sounds Musculoskeletal: no edema, pulses present Dx/Plan (1) Decubitus ulcer of coccygeal region, stage 4 Code(s): L89.154 - PRESSURE ULCER OF SACRAL REGION, STAGE 4 Status: Acute (2) Hypothyroidism Code(s): E03.9 - HYPOTHYROIDISM, UNSPECIFIED Status: Chronic (3) Normocytic anemia Code(s): D64.9 - ANEMIA, UNSPECIFIED Status: Chronic (4) Protein-calorie malnutrition, severe Code(s): E43 - UNSPECIFIED SEVERE PROTEIN-CALORIE MALNUTRITION Status: Chronic (5) Septic shock Code(s): A41.9 - SEPSIS, UNSPECIFIED ORGANISM; R65.21 - SEVERE SEPSIS WITH SEPTIC SHOCK Status: Resolved Comment: due to infected decubitus ulcer - Plan plan discussed w/ family, PT/OT, sr. social media & mobile manager, respiratory therapy Awaiting placement * .
[2018-11-12] MEDS: Levothyroxine Sodium 50 MCG TAB PO SCH (05:42)
[2018-11-12] MEDS: Piperacillin/Tazobactam 3.375 GM in Sodium Chloride 0.9% 100 ML IVPB SCH ×4 (05:42→23:40)
[2018-11-12] MEDS: Potassium Chloride 20 MEQ TAB PO SCH ×2 (08:51→17:55)
[2018-11-12] MEDS: Ascorbic Acid 500 mg Chewable Tablet PO SCH (08:51)
[2018-11-12] MEDS: Zinc Sulfate 220 MG CAP PO SCH (08:51)
[2018-11-12] MEDS: Hydroxychloroquine Sulfate 200 MG TAB PO SCH (08:51)
[2018-11-12] MEDS: Famotidine 20 MG TAB PO SCH ×2 (08:51→20:09)
[2018-11-12] MEDS: Saccharomyces boulardii 250 MG CAP PO SCH (08:51)
--- NOTE | 2018-11-12 21:25 | PDOC.PN ---
- Subjective Encounter Start Date: 11/12/18 Encounter Start Time: 21:23 Subjective: Seen and examined - Objective Resuscitation Status - Order Detail: 10/29/18 07:10 Resuscitation Status Routine Resuscitation Status: FULL: Full Resuscitation Vital Signs & Weight: Vital Signs (12 hours) Temp Pulse Resp BP Pulse Ox 11/12/18 20:00 98.6 F 89 16 109/76 97 11/12/18 14:55 98.3 F 84 14 92/61 100 11/12/18 11:22 98.5 F 90 16 91/61 100 Weight Admit Weight 117 lb 1.047 oz Weight 118 lb 6.212 oz Most Recent Monitor Data Heart Rate from ECG 55 NIBP 114/76 NIBP BP-Mean 88 Respiration from ECG 24 SpO2 100 I&O: 11/11/18 11/12/18 11/13/18 06:59 06:59 06:59 Intake Total 3414 1506 Output Total 3300 1350 Balance 114 156 Result Diagrams: 11/10/18 06:45 11/10/18 06:45 Phys Exam - Physical Examination Constitutional: NAD HEENT: PERRLA, moist MMs, sclera anicteric Neck: no nodes, no JVD, supple, full ROM Respiratory: no wheezing, no rales, no rhonchi, clear to auscultation bilateral Cardiovascular: RRR, no significant murmur, no rub Gastrointestinal: soft, non-tender, no distention, positive bowel sounds Musculoskeletal: pulses present Dx/Plan (1) Decubitus ulcer of coccygeal region, stage 4 Code(s): L89.154 - PRESSURE ULCER OF SACRAL REGION, STAGE 4 Status: Acute (2) Hypothyroidism Code(s): E03.9 - HYPOTHYROIDISM, UNSPECIFIED Status: Chronic (3) Normocytic anemia Code(s): D64.9 - ANEMIA, UNSPECIFIED Status: Chronic (4) Protein-calorie malnutrition, severe Code(s): E43 - UNSPECIFIED SEVERE PROTEIN-CALORIE MALNUTRITION Status: Chronic (5) Septic shock Code(s): A41.9 - SEPSIS, UNSPECIFIED ORGANISM; R65.21 - SEVERE SEPSIS WITH SEPTIC SHOCK Status: Resolved Comment: due to infected decubitus ulcer - Plan plan discussed w/ family, PT/OT, sr. social media & mobile manager Accepted at [facility]-possible placement tommorrow * .
[2018-11-13] MEDS: Piperacillin/Tazobactam 3.375 GM in Sodium Chloride 0.9% 100 ML IVPB SCH ×2 (05:46→12:04)
[2018-11-13] MEDS: Levothyroxine Sodium 50 MCG TAB PO SCH (05:57)
[2018-11-13] MEDS: Ascorbic Acid 500 mg Chewable Tablet PO SCH (09:36)
[2018-11-13] MEDS: Saccharomyces boulardii 250 MG CAP PO SCH (09:36)
[2018-11-13] MEDS: Zinc Sulfate 220 MG CAP PO SCH (09:36)
[2018-11-13] MEDS: Famotidine 20 MG TAB PO SCH ×2 (09:36→20:10)
[2018-11-13] MEDS: Potassium Chloride 20 MEQ TAB PO SCH ×2 (09:36→18:05)
--- NOTE | 2018-11-13 11:45 | PDOC.PN ---
- Subjective Encounter Start Date: 11/13/18 Encounter Start Time: 11:43 Subjective: non-verbal - Objective Resuscitation Status - Order Detail: 10/29/18 07:10 Resuscitation Status Routine Resuscitation Status: FULL: Full Resuscitation MAR Reviewed: Yes Vital Signs & Weight: Vital Signs (12 hours) Temp Pulse Resp BP BP Pulse Ox 11/13/18 07:55 98.8 F 90 14 95/66 100 11/13/18 03:44 98.5 F 73 16 97/60 97 11/13/18 00:00 99.1 F 79 18 101/70 100 Weight Admit Weight 117 lb 1.047 oz Weight 118 lb 6.212 oz Most Recent Monitor Data Heart Rate from ECG 55 NIBP 114/76 NIBP BP-Mean 88 Respiration from ECG 24 SpO2 100 I&O: 11/12/18 11/13/18 11/14/18 06:59 06:59 06:59 Intake Total 1506 953 Output Total 1350 650 Balance 156 303 Result Diagrams: 11/10/18 06:45 11/10/18 06:45 Phys Exam - Physical Examination Neck: no JVD Respiratory: clear to auscultation bilateral Cardiovascular: RRR, no significant murmur Gastrointestinal: soft, positive bowel sounds Musculoskeletal: no edema Neurological: non-focal Dx/Plan (1) Encephalopathy acute Code(s): G93.40 - ENCEPHALOPATHY, UNSPECIFIED Status: Acute (2) Pancytopenia Code(s): D61.818 - OTHER PANCYTOPENIA Status: Acute (3) Decubitus ulcer of coccygeal region, stage 4 Code(s): L89.154 - PRESSURE ULCER OF SACRAL REGION, STAGE 4 Status: Acute (4) Hypothyroidism Code(s): E03.9 - HYPOTHYROIDISM, UNSPECIFIED Status: Chronic Qualifiers: Hypothyroidism type: unspecified Qualified Code(s): E03.9 - Hypothyroidism , unspecified (5) Normocytic anemia Code(s): D64.9 - ANEMIA, UNSPECIFIED Status: Chronic (6) Protein-calorie malnutrition, severe Code(s): E43 - UNSPECIFIED SEVERE PROTEIN-CALORIE MALNUTRITION Status: Chronic (7) Systemic lupus erythematosus Code(s): M32.9 - SYSTEMIC LUPUS ERYTHEMATOSUS, UNSPECIFIED Status: Chronic Qualifiers: Systemic lupus erythematosus type: unspecified Systemic lupus erythematosus organ involvement: unspecified Qualified Code(s): M32.9 - Systemic lupus erythematosus, unspecified Comment: with acute exacerbation (8) Abnormal blood electrolyte level Code(s): E87.8 - OTH DISORDERS OF ELECTROLYTE AND FLUID BALANCE, NEC Status: Resolved - Plan reviewing chart. difficult case. will discuss with Dr Ziegler * .
--- NOTE | 2018-11-13 15:53 | DIS ---
DATE OF ADMISSION: 10/29/2018 DATE OF DISCHARGE: 11/13/2018 TRANSFER OF CARE: PRIMARY CARE PROVIDER: [facility]. FINAL DIAGNOSES: Stage IV pressure ulcer on the sacral area, protein-calorie malnutrition, systemic lupus erythematosus, pancytopenia, lactic acidosis, hypothyroidism, diabetes mellitus type 2, encephalopathy, and electrolyte abnormalities. DISCHARGE MEDICATIONS: 1. Levothyroxine 50 mcg a day. 2. Prednisone 20 mg a day. 3. Florastor 250 mg p.o. b.i.d. 4. Potassium chloride 20 mEq twice a day. 5. Zofran 4 mg q.6 p.r.n. 6. Pepcid 20 mg q.12 hours. 7. Calcium carbonate 1000 mg p.o. q.4h p.r.n. 8. Vitamin C 1000 mg p.o. daily. 9. Acetaminophen 650 mg p.o. q.6 hours p.r.n. ALLERGIES: NO KNOWN DRUG ALLERGIES. CODE STATUS: Full resuscitation. DIET: As tolerated. PENDING AT THE TIME OF DISCHARGE: Nothing. HOSPITAL COURSE: The patient admitted to the [facility] through [facility] with a large decubitus ulcer. She was initially hypotensive. Central line was placed. She was started on fluids and pressure support. She had a history of systemic lupus erythematosus. EKG showed only sinus tachycardia. CT angiography revealed no evidence of pulmonary embolism. CT of the brain showed parenchymal atrophy with calcification of the basal ganglia. White count was 4.4, hemoglobin 10.3, and platelets 81. Sodium 135, potassium 3.6, chloride 105, CO2 of 18, BUN 11, creatinine 0.6, and lactic acid 1.9. The patient was seen in consultation by Dr. Sonny Gandara in the intensive care unit. She is placed on stress doses of steroids, volume replacement, also seen in consultation by Dr. Joseph Rosales, Infectious Disease. Recommendations for GENERAL TECHNICIAN workup were made. The MRI showed no acute findings. Her CSF was clear. No white cells, 105 red cells, glucose 79, and CSF protein 145. She was also seen in consultation by Dr. Joseph Vasquez for bradycardia. On 11/01/2018, she underwent debridement of her sacral wound. Past specimen demonstrated osteomyelitis and fibrosis. This patient is continued in the hospital. She is tolerating a diet. She has remained nonverbal. She had one positive blood culture, which is considered to be a contaminant coag-negative staph. Bacterial culture of her wound grew Bacteroides fragilis and Clostridium species. The patient has remained pancytopenic since her initial admission. Her cryptococcal antigen was negative. C. diff toxins were negative. The patient is currently nonverbal, has normal vital signs off support, afebrile. There is no family support and she is being moved to [facility] for penitentiary care, wound care. Following that, she will need to be involved with her primary health care provider. Job ID: [id number]
[2018-11-14] MEDS: Levothyroxine Sodium 50 MCG TAB PO SCH (05:28)
[2018-11-14] MEDS ORDERED: predniSONE 20 MG TAB PO SCH (08:00)
[2018-11-14] MEDS: Famotidine 20 MG TAB PO SCH (10:07)
[2018-11-14] MEDS: Ascorbic Acid 500 mg Chewable Tablet PO SCH (10:07)
[2018-11-14] MEDS: Potassium Chloride 20 MEQ TAB PO SCH (10:07)
[2018-11-14] MEDS: Zinc Sulfate 220 MG CAP PO SCH (10:08)
[2018-11-14] MEDS: Saccharomyces boulardii 250 MG CAP PO SCH (10:08)
[2018-11-14 12:11] VITALS: BP 93/66; TEMP 98.5
== END 2018-11-14 11:45 | DRG 853 ==
LOC: ERS 00:12 → ERHOLD 05:30 → CCU 07:34 → SURG A 11-06 22:03
PROVIDERS: ADMIT Family Medicine; ATTEND Family Medicine
PROC: 3E033XZ Introduction of Vasopressor into Peripheral Vein, Percutaneous Approach (ICD-10-PCS; 2018-10-29)
PROC: 009U3ZX Drainage of Spinal Canal, Percutaneous Approach, Diagnostic (ICD-10-PCS; 2018-10-31)
PROC: B01B1ZZ Fluoroscopy of Spinal Cord using Low Osmolar Contrast (ICD-10-PCS; 2018-10-31)
PROC: 0QB10ZZ Excision of Sacrum, Open Approach (ICD-10-PCS; principal; 2018-11-01)
PROC: 0QTS0ZZ Resection of Coccyx, Open Approach (ICD-10-PCS; 2018-11-01)
PROC: 30233R1 Transfusion of Nonautologous Platelets into Peripheral Vein, Percutaneous Approach (ICD-10-PCS; 2018-11-01)
PROC: 30233N1 Transfusion of Nonautologous Red Blood Cells into Peripheral Vein, Percutaneous Approach (ICD-10-PCS; 2018-11-01)
DX: A41.9 Sepsis, unspecified organism (principal); R65.21 Severe sepsis with septic shock; L89.154 Pressure ulcer of sacral region, stage 4; E43 Unspecified severe protein-calorie malnutrition; G93.41 Metabolic encephalopathy; M46.28 Osteomyelitis of vertebra, sacral and sacrococcygeal region; D61.818 Other pancytopenia; R64 Cachexia; E27.40 Unspecified adrenocortical insufficiency; R47.01 Aphasia; F32.9 Major depressive disorder, single episode, unspecified; Z68.21 Body mass index [BMI] 21.0-21.9, adult; R62.7 Adult failure to thrive; M32.9 Systemic lupus erythematosus, unspecified; E03.9 Hypothyroidism, unspecified; E88.09 Other disorders of plasma-protein metabolism, not elsewhere classified; D69.6 Thrombocytopenia, unspecified; E87.6 Hypokalemia; D64.9 Anemia, unspecified; E87.8 Other disorders of electrolyte and fluid balance, not elsewhere classified; Z74.01 Bed confinement status
CPT/HCPCS: 36415; 36416; 36430; 36556; 51702; 62270; 70450; 70553; 71045; 71275; 80048; 80053; 80202; 81003; 82306; 82533; 82728; 82945; 83605; 83690; 83735; 84100; 84157; 84443; 84484; 85007; 85025; 85027; 85362; 85379; 85384; 85610; 85652; 85730; 86140; 86160; 86850; 86900; 86901; 86922; 87040; 87070; 87076; 87086; 87149; 87205; 87324; 87385; 87449; 87497; 87899; 88305; 88311; 89051; 93005; 96365; 96366; 96367; 96375; J1720; J1956; J2250; J2543; J2920; J3010; J3370; J3411; J3475; J3480; J7050; J7506; P9016; P9035; P9045; P9047; S0028

== ENCOUNTER 2019-01-16 13:36 | Outpatient (CLI) | payer SELFPAY ==
[~2019-01-16 13:36] MED LIST: Lidocaine 2% PF 100 mg/5 ml Syringe ONE; Sodium Chloride 0.9% 15 ML NEB ONE
--- NOTE | 2019-01-16 18:52 | HP ---
HISTORY OF PRESENT ILLNESS: Ms. Kimberley Byrd is a 38-year-old, Slovak-speaking only female, who presents to the wound center for evaluation of pressure ulcerations of the right ischium and sacrum. The patient states with the aid of a pressure test operator that the ulcerations have been present for approximately 3 weeks. However, records indicate that the patient underwent intraoperative debridement of her sacral pressure ulceration on 11/01/[address] Vito Ch. The patient presently resides at [facility]. The patient is receiving negative pressure therapy for the sacral pressure ulceration. The patient is receiving dressing changes of Medihoney for the ischial pressure ulceration. PAST MEDICAL HISTORY: 1. Systemic lupus erythematosus. 2. Hypothyroidism. 3. Anemia. 4. History of protein calorie malnutrition. 5. History of diabetes mellitus. PAST SURGICAL HISTORY: 1. Thyroid surgery. 2. Bilateral tubal ligation. 3. Pericardial window. 4. Intraoperative debridement of sacral pressure ulceration on 11/01/[address] Vito Ch. MEDICATIONS: 1. Florastor. 2. Levothyroxine. 3. Pepcid. 4. Potassium chloride. 5. Prednisone. 6. Vitamin C. 7. Zinc. 8. Senna Plus. 9. Arginate. 10. Pro-Stat. 11. Calcium. 12. Tylenol as needed. ALLERGIES: NO KNOWN DIAGNOSED ALLERGIES. SOCIAL HISTORY: Social history is negative for tobacco or EtOH use. FAMILY HISTORY: Family history is significant for coronary artery disease. The patient's father was diagnosed with coronary artery disease. PHYSICAL EXAMINATION: VITAL SIGNS: Temperature 98.6, pulse 88, respirations 18, and blood pressure 111/67. GENERAL: A 38-year-old female, lying on stretcher in examination room, in no acute distress. HEENT: Normocephalic and atraumatic. NECK: No nuchal rigidity. CHEST: Clear to auscultation. CV: Regular rate and rhythm. ABDOMEN: Soft. EXTREMITIES: No clubbing or cyanosis. BACK: A wound of the right ischium is present, which measures approximately 5.0 x 3.7 cm. A small amount of granulation tissue is visible within the wound margins. Necrotic and nonviable tissue present within the wound margins was debrided with an excisional full-thickness debridement with the use of scissors. No purulent drainage is associated with the wound. No erythema of the skin surrounding the wound is present. No maceration of the skin of the periwound is noted. A sacral pressure ulceration is present, which measures approximately 5.0 x 4.5 cm. Granulation tissue is visible within the wound margins. No purulent drainage is associated with the wound. No erythema of the skin surrounding the wound is present. No maceration of the skin of the periwound is noted. Bone is palpable within the margins of the sacral pressure ulceration. ASSESSMENT AND PLAN: 1. Pressure ulcerations of sacrum and right ischium as described above. As stated above, bone is palpable within the margins of the sacral pressure ulceration. Arrangements will be made for plain films of the pelvis to look for findings suggestive of osteomyelitis. The patient has been told with the aid of a pressure test operator that further imaging may be necessary depending upon the results of the plain films. Orders will be transmitted to [facility] for negative pressure therapy with dressing changes of the wound VAC 3 times per week to be continued for the sacral wound and for the right ischial wound, [facility] daily basis after cleansing and irrigation are to be performed. No antibiotics will be prescribed today based upon the appearance of the wounds. 2. Systemic lupus erythematosus. 3. Hypothyroidism. 4. Anemia. 5. History of protein calorie malnutrition. 6. History of diabetes mellitus. Job ID: [id number]
== END 2019-01-16 13:37 | disposition home or self-care (01) ==
LOC: WCC 13:36
PROVIDERS: ATTEND Family Medicine
DX: L89.159 Pressure ulcer of sacral region, unspecified stage (principal); L98.419 Non-pressure chronic ulcer of buttock with unspecified severity; M32.9 Systemic lupus erythematosus, unspecified; E03.9 Hypothyroidism, unspecified; D64.9 Anemia, unspecified; Z86.39 Personal history of other endocrine, nutritional and metabolic disease; E11.9 Type 2 diabetes mellitus without complications
CPT/HCPCS: 11042; 99204; A4218; G0463; J2001

== ENCOUNTER 2019-02-06 10:49 | Emergency (ER) | payer SELFPAY ==
[2019-02-06 11:55] LABS: #Lymphocytes 0.9 thou/uL (1.20-3.40); #Monocytes 0.5 thou/uL (0.11-0.59); #Neutrophils 7.2 thou/uL (1.40-6.50); %Basophils 0.1 % (0.0-1.0); %Eosinophils 0.4 % (0.0-10.0); %Lymphocytes 10.1 % (21.0-51.0); %Monocytes 5.8 % (0.0-10.0); %Neutrophils 83.6 % (42.0-75.0); Hemoglobin 9.9 g/dL (12.0-16.0); Mean Corpuscular HGB CONC 31.6 g/dL (32.0-36.0); Mean Corpuscular Hemoglobin 28.8 pg (27.0-31.0); Mean Corpuscular Volume 91.2 fL (78.0-98.0); Mean Platelet Volume 8.6 fL (7.4-10.4); Platelet Count 236 thou/uL (130-400); RBC Distribution Width 15.1 % (11.5-14.5); Red Blood Cell (RBC) Count 3.43 mill/uL (4.20-5.40); White Blood Cell (WBC) Count 8.6 thou/uL (4.8-10.8)
[2019-02-06 12:16] LABS: ALT (SGPT) 11 U/L (8-55); AST (SGOT) 10 U/L (5-34); Alkaline Phosphatase 63 U/L (40-150); Anion Gap 10 mmol/L (10-20); BUN (Urea Nitrogen) 31 mg/dL (7.0-18.7); Bilirubin, Total 0.2 mg/dL (0.2-1.2); Calc. Creatinine Clearance 0 mL/min (70-130); Calcium 9.2 mg/dL (7.8-10.44); Carbon Dioxide 29 mmol/L (22-29); Chloride 106 mmol/L (98-107); Estimated GFR-MDRD Greater than 90; Globulin 4.4 g/dL (2.4-3.5); Glucose 94 mg/dL (70-105); Protein, Total 7.4 g/dL (6.0-8.3); Sodium 140 mmol/L (136-145)
[2019-02-06 13:15] LABS: Bilirubin Negative (Negative); Blood, Urine Negative (Negative); Clarity CLEAR (Clear); Glucose, Urine (Dipstick) Negative (Negative); Leukocyte Small (Negative); Nitrite Negative (Negative); Protein, Urine (Dipstick) Trace mg/dL (Neg-Trace); Specific Gravity, Urine 1.026 (1.002-1.036)
[2019-02-06 13:18] LABS: Bacteria/HPF None Seen HPF (None Seen); Hyaline Casts/LPF 0-3 HYALINE CAST LPF (0-3 Hyaline); Pathc Cast-AUWi Flag 0.27 (0-2.49); RBC/HPF 0-3 HPF (0-3)
[2019-02-06 13:23] LABS: Renal Epithelial None Seen HPF (0-3); Transitional Epithelial NONE SEEN HPF (0-3)
== END 2019-02-06 19:20 | disposition home or self-care (01) ==
LOC: ERS 10:49
DX: L89.159 Pressure ulcer of sacral region, unspecified stage (principal); Z45.2 Encounter for adjustment and management of vascular access device; E03.9 Hypothyroidism, unspecified; I25.2 Old myocardial infarction; Z79.899 Other long term (current) drug therapy
CPT/HCPCS: 36415; 80053; 81003; 81015; 83605; 85025; 87040; 87149; 96365; J3370

== ENCOUNTER 2019-03-11 10:52 | Outpatient (CLI) | payer MEDICAID ==
--- NOTE | 2019-03-11 12:41 | PRG ---
DATE OF SERVICE: 03/11/2019 HISTORY: Ms. Kimberley Byrd is a 39-year-old female, Montserratian-speaking only, who presents to the Wound Center for evaluation of multiple pressure ulcerations. At the time of the patient's last visit, Ms. Byrd was noted to have pressure ulcerations of the right ischium and sacrum. Today, the patient presents with a new pressure ulceration over the left ischium. The patient presently resides at [facility]. The patient is apparently receiving negative pressure therapy for the sacral pressure ulceration and the right ischial ulceration. Since the patient's last visit to the Wound Center, Ms. Byrd has undergone a PICC line placement and is apparently receiving IV antibiotics as per Dr. Rosales. MRI of the pelvis obtained on 01/30/2019 revealed right ischial osteomyelitis. PHYSICAL EXAMINATION: VITAL SIGNS: Temperature 99.0, pulse 75, respirations 20, blood pressure 120/66. EXTREMITIES: A pressure ulceration over the right ischium is present, which measures approximately 3.4 x 3.4 cm. A pressure ulceration over the sacrum is present, which measures approximately 4.3 x 4.0 cm. Granulation tissue is present within the margins of each wound. No purulent drainage is associated with either wound. No erythema of the skin surrounding either wound is present. No maceration of the skin of the periwound of either wound is noted. Bone is palpable within the margins of each wound. A new pressure ulceration of the left ischium is present, which measures approximately 2.7 x 4.0 cm. Necrotic and nonviable tissue present within the wound margins was debrided with an excisional full-thickness debridement with the use of scissors. No purulent drainage is associated with the wound. No erythema of the skin surrounding the wound is present. No maceration of the skin of the periwound is noted. No bone is palpable within the wound margins on exam today. ASSESSMENT AND PLAN: 1. Multiple pressure ulcerations as described above. The patient has pressure ulcerations of the sacrum, right ischium, and left ischium. Orders will be transmitted to [facility] for negative pressure therapy for all 3 wounds with dressing changes of the wound VAC 3 times per week after cleansing and irrigation. I will discuss the treatment plan with the patient's wound care nurse at [facility]. 2. Systemic lupus erythematosus. 3. Hypothyroidism. 4. Anemia. 5. History of protein-calorie malnutrition. 6. History of diabetes mellitus. Job ID: [id number]
[2019-03-11] MEDS ORDERED: Lidocaine 2% PF 100 mg/5 ml Syringe ONE (15:00)
[2019-03-11] MEDS ORDERED: Sodium Chloride 0.9% 15 ML NEB ONE (15:00)
== END 2019-03-11 10:53 | disposition home or self-care (01) ==
LOC: WCC 10:52
PROVIDERS: ATTEND Family Medicine
DX: L89.159 Pressure ulcer of sacral region, unspecified stage (principal); L89.899 Pressure ulcer of other site, unspecified stage; M32.9 Systemic lupus erythematosus, unspecified; E03.9 Hypothyroidism, unspecified; D64.9 Anemia, unspecified; Z86.39 Personal history of other endocrine, nutritional and metabolic disease
CPT/HCPCS: A4218; J2001

== ENCOUNTER 2019-06-19 09:13 | Outpatient (CLI) | payer MEDICAID ==
[~2019-06-19 09:13] MED LIST changes: -Lidocaine 2% PF 100 mg/5 ml Syringe ONE
--- NOTE | 2019-06-19 10:22 | PRG ---
DATE OF SERVICE: 06/19/2019 HISTORY: Ms. Kimberley Byrd is a 39-year-old female, Guatemalan-speaking only, who presents to the Wound Center for evaluation of multiple pressure ulcerations. The patient was previously noted to have pressure ulcerations of the right ischium, left ischium, and sacrum. The patient presently resides at [facility]. The patient is receiving negative pressure therapy for the sacral pressure ulceration and the left ischial ulceration. The patient underwent a PICC line placement and received IV antibiotics as per Dr. Rosales for right ischial osteomyelitis. MRI of the pelvis obtained on 01/30/2019 revealed a right ischial osteomyelitis. PHYSICAL EXAMINATION: VITAL SIGNS: Temperature 98.4, pulse 97, respirations 19, and blood pressure 97/64. EXTREMITIES: The pressure ulceration over the right ischium has healed completely. A pressure ulceration over the sacrum is present, which measures approximately 1.9 x 1.0 cm. Granulation tissue is present within the wound margins. No purulent drainage is associated with the wound. No erythema of the skin surrounding the wound is present. No maceration of the skin of the periwound is noted. No bone is palpable within the wound margins. A pressure ulceration of the left ischium is present, which measures approximately 1.5 x 1.2 cm. Granulation tissue is present within the wound margins. No purulent drainage is associated with the wound. No erythema of the skin surrounding the wound is present. No maceration of the skin of the periwound is noted. No bone is palpable within the wound margins on today's exam. ASSESSMENT AND PLAN: 1. Multiple pressure ulcerations. As stated above, the ulceration of the right ischium has healed completely. Negative pressure therapy will be continued for the sacral wound and left ischial wound with dressing changes of the wound VAC 3 times per week after cleansing and irrigation. Orders will also be transmitted to [facility] for the patient to be placed on a low air loss mattress or air fluidized bed. 2. Systemic lupus erythematosus. 3. Hypothyroidism. 4. Anemia. 5. History of protein-calorie malnutrition. 6. History of diabetes mellitus. Job ID: [id number]
== END 2019-06-19 09:14 | disposition home or self-care (01) ==
LOC: WCC 09:13
PROVIDERS: ATTEND Family Medicine
DX: L89.159 Pressure ulcer of sacral region, unspecified stage (principal); L89.229 Pressure ulcer of left hip, unspecified stage; M32.9 Systemic lupus erythematosus, unspecified; E03.9 Hypothyroidism, unspecified; D64.9 Anemia, unspecified; Z86.39 Personal history of other endocrine, nutritional and metabolic disease
CPT/HCPCS: A4218

== ENCOUNTER 2019-07-17 11:50 | Outpatient (CLI) | payer MEDICAID ==
--- NOTE | 2019-07-17 11:17 | PRG ---
DATE OF SERVICE: 07/17/2019 HISTORY: Ms. Kimberley Byrd is a 39-year-old female, Nigerian-speaking only, who presents to the Wound Center for evaluation of multiple pressure ulcerations. Previously, the patient was noted to have pressure ulcerations of the right ischium, left ischium, and sacrum. The patient continues to reside at [facility]. The patient is currently receiving negative pressure therapy for the sacral pressure ulceration and the left ischial ulceration. The patient underwent PICC line placement and received IV antibiotics as per Dr. Rosales for right ischial osteomyelitis. MRI of the pelvis obtained on 01/30/2019, revealed right ischial osteomyelitis. PHYSICAL EXAMINATION: VITAL SIGNS: Temperature, afebrile. Pulse 72, respirations 17, blood pressure 109/81. EXTREMITIES: The pressure ulceration over the right ischium has healed completely and remains healed. A pressure ulceration over the sacrum is present, which measures approximately 1.8 x 0.7 cm. Granulation tissue is present within the wound margins. No purulent drainage is associated with the wound. No erythema of the skin surrounding the wound is present. No maceration of the skin of the periwound is noted. No bone is palpable within the wound margins. A pressure ulceration of the left ischium is present, which measures approximately 1.4 x 0.6 cm. Granulation tissue is present within the wound margins. No purulent drainage is associated with the wound. No erythema of the skin surrounding the wound is present. No maceration of the skin of the periwound is noted. No exposed bone is palpable within the wound margins on exam today. ASSESSMENT AND PLAN: 1. Multiple pressure ulcerations. As stated above, the ulceration of the right ischium has healed completely and remains healed. Negative pressure therapy will be continued for the sacral wound and left ischial wound with dressing changes of the wound VAC 3 times per week after cleansing and irrigation. Orders were previously transmitted to [facility] for the patient to be placed on a low air loss mattress or air fluidized bed. 2. Systemic lupus erythematosus. 3. Hypothyroidism. 4. Anemia. 5. History of protein-calorie malnutrition. 6. History of diabetes mellitus. Job ID: [id number]
== END 2019-07-17 11:51 | disposition home or self-care (01) ==
LOC: WCC 11:50
PROVIDERS: ATTEND Family Medicine
DX: L89.159 Pressure ulcer of sacral region, unspecified stage (principal); L89.329 Pressure ulcer of left buttock, unspecified stage; M32.9 Systemic lupus erythematosus, unspecified; E03.9 Hypothyroidism, unspecified; D64.9 Anemia, unspecified; E11.9 Type 2 diabetes mellitus without complications
CPT/HCPCS: A4218

== ENCOUNTER 2019-08-05 11:42 | Outpatient (CLI) | payer MEDICAID ==
--- NOTE | 2019-08-05 16:54 | PRG ---
DATE OF SERVICE: 08/05/2019 HISTORY: Ms. Kimberley Byrd is a 39-year-old female, Senegalese-speaking only who presents to the Wound Center for evaluation of multiple pressure ulcerations. Previously, the patient was noted to have pressure ulcerations of the right ischium, left ischium, and sacrum. The patient continues to reside at [facility]. The patient is presently receiving negative pressure therapy for the sacral pressure ulceration and the left ischial ulceration. The patient underwent PICC line placement and received IV antibiotics as per Dr. Rosales for right ischial osteomyelitis. MRI of the pelvis obtained on 01/30/2019 revealed right ischial osteomyelitis. PHYSICAL EXAMINATION: VITAL SIGNS: Temperature 100.4, pulse 122, respirations 18, and blood pressure 111/64. EXTREMITIES: The pressure ulceration over the right ischium has healed completely and remains healed. A pressure ulceration over the sacrum is present, which measures approximately 0.8 x 0.4 cm. Granulation tissue was present within the wound margins. No purulent drainage is associated with the wound. No erythema of the skin surrounding the wound is present. No maceration of the skin of the periwound is noted. No bone is palpable within the wound margins. A pressure ulceration of the left ischium is present, which measures approximately 1.2 x 0.4 cm. Granulation tissue is present within the wound margins. No purulent drainage is associated with the wound. No erythema of the skin surrounding the wound is present. No maceration of the skin of the periwound is noted. No bone is palpable within the wound margins. ASSESSMENT AND PLAN: 1. Multiple pressure ulcerations. As stated above, the ulceration of the right ischium has healed completely and remains healed. Negative pressure therapy will be continued for the sacral wound and left ischial wound with dressing changes of the wound VAC 3 times per week after cleansing and irrigation. Orders were previously transmitted to [facility] for the patient to be placed on a low air loss mattress or air fluidized bed. 2. Systemic lupus erythematosus. 3. Hypothyroidism. 4. Anemia. 5. History of protein-calorie malnutrition. 6. History of diabetes mellitus. Job ID: [id number]
[2019-08-05] MEDS ORDERED: Sodium Chloride 0.9% 15 ML NEB ONE (18:00)
== END 2019-08-05 11:43 | disposition home or self-care (01) ==
LOC: WCC 11:42
PROVIDERS: ATTEND Family Medicine
DX: L89.159 Pressure ulcer of sacral region, unspecified stage (principal); L89.329 Pressure ulcer of left buttock, unspecified stage; E11.9 Type 2 diabetes mellitus without complications; M32.9 Systemic lupus erythematosus, unspecified; E03.9 Hypothyroidism, unspecified; D64.9 Anemia, unspecified
CPT/HCPCS: 97602; A4218

== ENCOUNTER 2019-09-25 13:00 | Outpatient (CLI) | payer MEDICAID ==
--- NOTE | 2019-09-25 14:10 | PRG ---
DATE OF SERVICE: 09/25/2019 SUBJECTIVE: Ms. Kimberley Byrd is a 39-year-old female, Venezuelan-speaking only, who presents to the wound center for evaluation of multiple pressure ulcerations. Previously, the patient was noted to have pressure ulcerations of the right ischium, left ischium, and sacrum. The patient continues to reside at [facility]. The patient is currently receiving negative pressure therapy for her left ischial ulceration. The patient underwent PICC line placement and received IV antibiotics as per Dr. Rosales for right ischial osteomyelitis. MRI of the pelvis obtained on 01/30/2019, revealed right ischial osteomyelitis. OBJECTIVE: VITAL SIGNS: Temperature 99.2, pulse 97, respirations 18, blood pressure 115/83. EXTREMITIES: The pressure ulceration over the right ischium and sacrum have healed completely. A pressure ulceration of the left ischium is still present, which measures approximately 1.2 x 1.0 cm. The depth of the wound is approximately 3 cm. Bone is palpable within the wound margins. Granulation tissue is present within the wound margins. No purulent drainage is associated with the wound. No erythema of the skin surrounding the wound is present. No maceration of the skin of the periwound is noted. ASSESSMENT AND PLAN: 1. Multiple pressure ulcerations. As stated above, the ulcerations of the right ischium and sacrum have healed completely. Only a pressure ulceration over the left ischium remains. Negative pressure therapy will be continued for the left ischial wound with dressing changes of the wound VAC 3 times per week after cleansing and irrigation. MRI of the pelvis with and without contrast will be obtained to look for findings suggestive of osteomyelitis of the left ischium. Orders will also be transmitted to [facility] for the patient to be placed on a Roho cushion while utilizing a wheelchair. Orders will also be transmitted to [facility] for the patient to be up in her wheelchair for meals only. The patient understands and is in agreement with the preceding treatment plan. 2. Systemic lupus erythematosus. 3. Hypothyroidism. 4. Anemia. 5. History of protein-calorie malnutrition. 6. History of diabetes mellitus. Job ID: [id number]
[2019-09-25] MEDS ORDERED: Sodium Chloride 0.9% 15 ML NEB ONE (17:09)
== END 2019-09-25 13:01 | disposition home or self-care (01) ==
LOC: WCC 13:00
PROVIDERS: ATTEND Family Medicine
DX: L89.226 Pressure-induced deep tissue damage of left hip (principal); D64.9 Anemia, unspecified; M32.9 Systemic lupus erythematosus, unspecified; E03.9 Hypothyroidism, unspecified; E11.9 Type 2 diabetes mellitus without complications; Z86.39 Personal history of other endocrine, nutritional and metabolic disease
CPT/HCPCS: A4218

== ENCOUNTER 2019-10-09 11:55 | Outpatient (CLI) | payer MEDICAID ==
[2019-10-09] MEDS ORDERED: Sodium Chloride 0.9% 15 ML NEB ONE (17:00)
--- NOTE | 2019-10-09 17:41 | PRG ---
DATE OF SERVICE: 10/09/2019 HISTORY: Ms. Kimberley Byrd is a 39-year-old female, Nicaraguan-speaking only, who presents to the Wound Center for evaluation of multiple pressure ulcerations. Previously, the patient was noted to have pressure ulcerations of the right ischium, left ischium, and sacrum. The patient continues to reside at [facility]. The patient is currently receiving negative pressure therapy for her left ischial ulceration. The patient underwent PICC line placement and received IV antibiotics as per Dr. Rosales for right ischial osteomyelitis. MRI of the pelvis obtained on 01/30/2019, revealed right ischial osteomyelitis. MRI of the pelvis with and without contrast was obtained on 10/08/2019, which revealed abnormal signal enhancement involving the left ischial tuberosity consistent with changes of worsening osteomyelitis. PHYSICAL EXAMINATION: VITAL SIGNS: Temperature 98.4, pulse 97, respirations 17, blood pressure 117/59. EXTREMITIES: The pressure ulcerations over the right ischium and sacrum have healed completely and remain healed. A pressure ulceration of the left ischium is still present, which measures approximately 1.1 x 0.7 cm. Bone is again palpable within the wound margins. Granulation tissue is present within the wound margins. No purulent drainage is associated with the wound. No erythema of the skin surrounding the wound is present. No maceration of the skin of the periwound is noted. ASSESSMENT AND PLAN: 1. Multiple pressure ulcerations. As stated above, the ulcerations of the right ischium and sacrum have healed completely and remain healed. Only, a pressure ulceration over the left ischium remains. As stated above, MRI of the pelvis with and without contrast obtained on 10/08/2019, revealed abnormal signal enhancement involving the left ischial tuberosity consistent with changes of worsening osteomyelitis. I have discussed the treatment plan with one of the patient's primary care providers, and the patient will be referred to the emergency department for admission for evaluation for PICC line placement, IV antibiotics, and surgical consultation. I have also discussed the treatment plan with one of the physicians in the emergency department. The patient understands and is in agreement with the preceding treatment plan. 2. Systemic lupus erythematosus. 3. Hypothyroidism. 4. Anemia. 5. History of protein-calorie malnutrition. 6. History of diabetes mellitus. Job ID: [id number]
[2019-10-09 21:41] VITALS: BMI 32.1
[2019-10-09 21:43] VITALS: BP 102/67; TEMP 97.9
== END 2019-10-09 11:56 | disposition home or self-care (01) ==
LOC: WCC 11:55
PROVIDERS: ATTEND Family Medicine
DX: L89.329 Pressure ulcer of left buttock, unspecified stage (principal); E03.9 Hypothyroidism, unspecified; M32.9 Systemic lupus erythematosus, unspecified; D64.9 Anemia, unspecified; E11.9 Type 2 diabetes mellitus without complications
CPT/HCPCS: A4218

== ENCOUNTER 2019-10-09 13:45 | Inpatient (IN) | payer MEDICAID, SELFPAY ==
[~2019-10-09 13:45] MED LIST changes: +Iopamidol-370 76% 500 ML 1 ML ONE; -Sodium Chloride 0.9% 15 ML NEB ONE
[2019-10-09] MEDS ORDERED: Heparin 1,000 UNITS/ML VIAL ONE (15:18)
[2019-10-09 16:05] LABS: #Basophils 0.1 thou/uL (0.0-0.2); #Monocytes 0.4 thou/uL (0.11-0.59); #Neutrophils 4.3 thou/uL (1.40-6.50); %Basophils 1.1 % (0.0-1.0); %Eosinophils 0.5 % (0.0-10.0); %Neutrophils 74.4 % (42.0-75.0); Hemoglobin 12.7 g/dL (12.0-16.0); Mean Corpuscular HGB CONC 33.4 g/dL (32.0-36.0); Mean Corpuscular Hemoglobin 29.4 pg (27.0-31.0); Mean Corpuscular Volume 88.2 fL (78.0-98.0); Mean Platelet Volume 9.7 fL (7.4-10.4); Platelet Count 180 thou/uL (130-400); RBC Distribution Width 13.8 % (11.5-14.5); Red Blood Cell (RBC) Count 4.32 mill/uL (4.20-5.40); White Blood Cell (WBC) Count 5.8 thou/uL (4.8-10.8)
[2019-10-09 16:25] LABS: ALT (SGPT) 9 U/L (8-55); AST (SGOT) 12 U/L (5-34); Albumin 3.4 g/dL (3.5-5.0); Alkaline Phosphatase 102 U/L (40-110); Anion Gap 8 mmol/L (10-20); BUN (Urea Nitrogen) 19 mg/dL (7.0-18.7); Bilirubin, Total 0.3 mg/dL (0.2-1.2); Calc. Creatinine Clearance 0 mL/min (70-130); Carbon Dioxide 28 mmol/L (22-29); Chloride 104 mmol/L (98-107); Estimated GFR-MDRD 80; Globulin 6.3 g/dL (2.4-3.5); Glucose 94 mg/dL (70-105); Potassium 4.4 mmol/L (3.5-5.1); Protein, Total 9.7 g/dL (6.0-8.3); Sodium 136 mmol/L (136-145)
[2019-10-09 16:36] LABS: CRP (Inflammatory) 1.66 mg/dL (= or < 0.5)
--- NOTE | 2019-10-09 17:46 | CT ---
CT PELVIS WITH IV CONTRAST: 10/09/19 HISTORY: Decubitus ulcer. Sacral ulcer. FINDINGS/IMPRESSION: There is a soft tissue density extending from the posterior aspect of the sacrum to the skin surface with tiny amount of air. There is air extending in the soft tissues adjacent to the left ischial tuberosity to the skin surfac e and adjacent soft tissue. No abnormally loculated fluid collection is seen to suggest abscess forma tion. The osteomyelitis of the left ischial tuberosity, distal sacrum and the right ischial tuberosity are better visualized on the MRI from previous day. POS: VALENTIN
[2019-10-09] MEDS ORDERED: Piperacillin/Tazobactam 3.375 GM VIAL ONE (18:56)
[2019-10-09] MEDS ORDERED: Morphine 4 MG/ML VIAL ONE (18:56)
[2019-10-09] MEDS ORDERED: Ondansetron PF 4 MG/2 ML Vial ONE (18:56)
[2019-10-09] MEDS ORDERED: Bisacodyl 5 MG TAB PO PRN (20:24)
[2019-10-09] MEDS ORDERED: Ondansetron PF 4 MG/2 ML Vial IVP PRN (20:24)
[2019-10-09] MEDS ORDERED: HYDROmorphone 2 MG TAB PO PRN (20:29)
[2019-10-09] MEDS ORDERED: Vancomycin HCl 1 GM in Premix Bag 1 BAG IVPB SCH (20:30)
--- NOTE | 2019-10-09 20:54 | HP ---
PRESENTING COMPLAINT: Referred from Wound Care Clinic for worsening right ischial ulcer with osteomyelitis. HISTORY OF PRESENT ILLNESS: Ms. Carson Chu is a 39-year-old speaking female with past medical history of SLE, hypothyroidism, chronic gluteal ulcer with cellulitis, status post chronic wound care at [facility]. The patient states she has been having the wound since over the last one year. She was seen in Wound Care Clinic today and an MRI done yesterday show worsening right ischial osteomyelitis. The patient is being admitted for IV antibiotics and surgical consultation. She denies any fever or chills. She admits to irregular p.o. intake. She is unable to tell where she is located and why she has been at the assisted and that information is not available at this time. She states she has family in the area, but unable to tell where the family reside. 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 PAST MEDICAL HISTORY: SLE, hypothyroidism, chronic anemia, chronic gluteal ulcer. PAST SURGICAL HISTORY: Hysterectomy as well as thyroidectomy. HOME MEDICATIONS: Reviewed, see full MAR, include; 1. Artificial Tears. 2. Ascorbic acid. 3. Synthroid 50 mcg. 4. Pepcid. 5. Potassium chloride b.i.d. 6. Prednisone 20 daily. FAMILY HISTORY: She admits to history of diabetes in the mother, but no coronary artery disease. SOCIAL HISTORY: The patient resides at the assisted apparently at [place]. She denies any tobacco, alcohol, or illicit drug use. ALLERGIES: NO KNOWN DRUG ALLERGY. REVIEW OF SYSTEMS: All systems reviewed x14 were negative except as mentioned above. PHYSICAL EXAMINATION: VITAL SIGNS: Current blood pressure of 105/65, pulse of 78, respiratory rate of 18, temp afebrile at 98, O2 saturation 96% on room air. GENERAL: Obese middle-aged female, calm, not in distress. HEENT: Head is atraumatic, normocephalic. Pupils equal, reactive to light. Anicteric. [place] conjunctivae. Moist oral mucosa. NECK: No JVD. No carotid bruit. RESPIRATORY: Good air entry. No crepitation. CARDIOVASCULAR: S1 and S2. Rate and rhythm regular. GI: Obese abdomen, but soft. Bowel sounds positive. No suprapubic fullness. : Aiken catheter in situ with clear urine. SKIN: Notable small healing granulation ulcer over the medial right gluteal cleft area. Scarring on the left side of the gluteal was noted indicating healing of previous ulcer there. No increased warmth or erythema noted. EXTREMITIES: No pedal edema. No calf tenderness. NEUROLOGICAL: The patient is alert, oriented. Cranial nerves 2 through 12 grossly intact. LABORATORY DATA: WBC 5.8, ESR 84, platelets 180. Sodium 136. C-reactive protein 1.66, glucose 94, BUN 19, creatinine 0.7. Pelvic CT from today shows osteomyelitis of the left ischial tuberosity, distal sacrum, and right ischial tuberosity as noted in MRI from yesterday. IMPRESSION: 1. Ischial and sacral osteomyelitis. 2. Right gluteal ulcer-healing. 3. History of systemic lupus erythematosus, on chronic steroid. PLAN: We will admit the patient to inpatient status to observation status C-reactive protein as well as ESR. We will plan for PICC line placement as well as continue antibiotics with vancomycin. We will consult Surgery for any need for surgical debridement, but it appears the patient may just need chronic antibiotics for 6 weeks at this time. We will arrange with Case Management to see if the patient's current assisted will be able to take the patient with prolonged antibiotics. We could do adequate pain medication. We will obtain CARLOS level and if negative CARLOS level, we will start tapering down the patient on 20 mg prednisone as this may be reducing patient's healing. We will do DVT prophylaxis with subcutaneous Lovenox. ADVANCED DIRECTIVES: The patient is a full code. TOTAL TIME SPENT: Review of record, discussion with patient and evaluation greater than 55 minutes. Job ID: [id number]
[2019-10-09] MEDS: Clindamycin 150 MG CAP PO SCH (22:25)
[2019-10-09] MEDS: Sodium Chloride 0.9% 1,000 ML IV SCH (22:25)
[2019-10-09] MEDS: Famotidine 20 MG TAB PO SCH (22:25)
[2019-10-09 22:35] VITALS: BMI 32.1
[2019-10-09] MEDS ORDERED: Vancomycin HCl 1.25 GM in Sodium Chloride 0.9% 250 ML 250 ML IVPB SCH (23:00)
[2019-10-10] MEDS: HYDROcodone/Acetaminophen 7.5/325 mg Tablet PO PRN (01:47)
[2019-10-10] MEDS: Acetaminophen 325 MG TAB PO PRN ×2 (03:44→21:08)
[2019-10-10] MEDS: Clindamycin 150 MG CAP PO SCH ×2 (05:33→12:34)
[2019-10-10] MEDS: Levothyroxine Sodium 50 MCG TAB PO SCH (05:33)
[2019-10-10 05:37] LABS: Band 2 % (5-11); Eosinophils 3 % (0-10); Hemoglobin 11.4 g/dL (12.0-16.0); Lymphocytes 5 % (21-51); MDiff Complete? YES; Mean Corpuscular HGB CONC 32.9 g/dL (32.0-36.0); Mean Corpuscular Hemoglobin 28.8 pg (27.0-31.0); Mean Corpuscular Volume 87.5 fL (78.0-98.0); Mean Platelet Volume 9.1 fL (7.4-10.4); Monocytes 5 % (0-10); Neutrophil 84 % (42-75); Platelet Count 156 thou/uL (130-400); Platelet Morphology Comment Appears Adequate; Red Blood Cell (RBC) Count 3.96 mill/uL (4.20-5.40); White Blood Cell (WBC) Count 7.2 thou/uL (4.8-10.8)
[2019-10-10 06:06] LABS: ALT (SGPT) 8 U/L (8-55); AST (SGOT) 12 U/L (5-34); Albumin 2.8 g/dL (3.5-5.0); Alkaline Phosphatase 86 U/L (40-110); Anion Gap 9 mmol/L (10-20); BUN (Urea Nitrogen) 18 mg/dL (7.0-18.7); Bilirubin, Total 0.3 mg/dL (0.2-1.2); Calc. Creatinine Clearance 129 mL/min (70-130); Calcium 8.2 mg/dL (7.8-10.44); Carbon Dioxide 24 mmol/L (22-29); Chloride 107 mmol/L (98-107); Estimated GFR-MDRD 83; Globulin 5.1 g/dL (2.4-3.5); Glucose 96 mg/dL (70-105); Potassium 3.6 mmol/L (3.5-5.1); Protein, Total 7.9 g/dL (6.0-8.3); Sodium 136 mmol/L (136-145)
[2019-10-10] MEDS ORDERED: Vancomycin HCl 1.25 GM in Sodium Chloride 0.9% 250 ML 250 ML IVPB SCH (08:00)
[2019-10-10] MEDS: Enoxaparin Sodium 40 MG/0.4 ML SYRINGE SC SCH (09:01)
[2019-10-10] MEDS: Vancomycin HCl 1.25 GM in Sodium Chloride 0.9% 250 ML 250 ML IVPB SCH ×2 (10:38→22:27)
--- NOTE | 2019-10-10 11:27 | CON ---
DATE OF CONSULTATION: HISTORY OF PRESENT ILLNESS: Kimberley Byrd is a 39-year-old female, assisted patient, Nepali speaking only, short-term memory loss, but communicates probably using a psychiatry instructor. She is admitted this hospitalization from wound care, has a left ischial decubitus wound with radiological evidence osteomyelitis. I also saw her in October 2018, where she is in a catatonic state with severe depression, sacral decubitus stage 4, undergoing debridement of the sacrum and soft tissues, muscle, and removal of coccyx. Since that time, this wound has healed. The patient is still nonambulatory, but reports she does transfer to some degree. I have been asked to see her regarding left ischial wound. Apparently radiological evidence of osteomyelitis. There is a wound tracking to the bone that I can palpate. There is radiological evidence of soft tissue in small amount. PAST SURGICAL HISTORY: Pericardial window by Dr. Kumari in June 2017 for tamponade related to lupus. On 03/06/2016, right knee arthrocentesis. As noted above, on November 01, 2018 debridement of extensive sacral decubitus wound. Thyroidectomy and bilateral tubal ligation per report. SOCIAL HISTORY: Tobacco, none. Alcohol, none. The patient lives in assisted living assisted. ALLERGIES: NONE. PAST MEDICAL HISTORY: She has a history of severe depression and lupus. The patient was referred for wound care for worsening ulcer in ischium with osteomyelitis. MEDICATIONS: 1. Artificial Tears. 2. Ascorbic acid. 3. Synthroid. 4. Pepcid. 5. Prednisone. PHYSICAL EXAMINATION: VITAL SIGNS: Height 5 foot 4 inches, 187 pounds, and 32 BMI. 98.9, 104, and 91/61. LUNGS: Clear to auscultation. CARDIAC: Regular rate and rhythm without murmur or gallop. ABDOMEN: Soft and nontender. Left ischial wound granulating but extends to the bone. No abscess noted. Osteomyelitis of the left ischial tuberosity and right ischial tuberosity. she had an MRI previously. The patient has open wound left ischial area. She has some changes in the right ischial area. LABORATORY DATA: White count 7 and hemoglobin 11. Comprehensive metabolic profile normal. ASSESSMENT: Open wound left ischial tuberosity and osteomyelitis changes radiologically. We will evaluate the right intraoperatively. PLAN: Debridement is indicated of ischial areas. She understands risks and benefits. Job ID: [id number]
[2019-10-10] MEDS: Ascorbic Acid 500 mg Chewable Tablet PO SCH (12:35)
[2019-10-10] MEDS: Saccharomyces boulardii 250 MG CAP PO SCH ×2 (12:35→21:11)
[2019-10-10] MEDS: Famotidine 20 MG TAB PO SCH ×2 (12:35→21:11)
[2019-10-10] MEDS: Potassium Chloride 20 MEQ TAB PO SCH ×2 (12:35→18:21)
[2019-10-10] MEDS ORDERED: diphenhydrAMINE 25 MG CAP PO SCH (13:45)
--- NOTE | 2019-10-10 15:14 | PDOC.HOSPP ---
- Subjective Encounter Date: 10/10/19 Encounter Time: 08:40 Subjective: Pt seen for followup re: osteomyelitis. Denies chest pain or shortness of breath. - Objective Vital Signs & Weight: Vital Signs (12 hours) Temp Pulse Resp BP Pulse Ox 10/10/19 11:46 98.6 F 94 18 92/60 96 10/10/19 07:44 98.9 F 104 H 20 91/61 94 L 10/10/19 05:10 99.8 F H 98 95 10/10/19 03:46 101.9 F H 110 H 19 110/72 95 Weight Weight 187 lb 6.287 oz I&O: 10/09/19 10/10/19 10/11/19 06:59 06:59 06:59 Intake Total 1050 Output Total 700 Balance 350 Result Diagrams: 10/10/19 05:01 10/10/19 05:01 Additional Labs: Labs and MARs reviewed by sd Hospitalist ROS - Review of Systems Cardiovascular: denies: chest pain, palpitations, orthopnea, paroxysmal noc. dyspnea, edema, light headedness Gastrointestinal: denies: nausea, vomiting, abdominal pain, diarrhea, constipation, melena, hematochezia - Medication Medications: Active Medications Generic Name Dose Route Start Last Admin Trade Name Freq PRN Reason Stop Dose Admin Acetaminophen 650 mg 10/09/19 20:24 10/10/19 03:44 Tylenol PO 650 mg Q4H PRN Administration Headache/Fever/Mild Pain (1-3) Hydrocodone Bitart/Acetaminophen 1 tab 10/09/19 20:24 10/10/19 01:47 [place] 7.5/325 PO 1 tab Q4H PRN Administration Moderate Pain (4-6) Ascorbic Acid 1,000 mg 10/10/19 09:00 10/10/19 12:35 Vitamin C PO 1,000 mg DAILY KENY Administration Clindamycin HCl 300 mg 10/09/19 23:59 10/10/19 12:34 Cleocin PO 300 mg Q6HR KENY Administration Diphenhydramine HCl 25 mg 10/10/19 13:45 10/10/19 13:46 Benadryl PO 10/10/19 15:45 25 mg NOW KENY Administration Enoxaparin Sodium 40 mg 10/10/19 09:00 10/10/19 09:01 Lovenox SC Not Given 0900 KENY Famotidine 20 mg 10/09/19 21:00 10/10/19 12:35 Pepcid PO 20 mg BID KENY Administration Sodium Chloride 1,000 mls @ 50 mls/hr 10/09/19 21:00 10/09/19 22:25 Normal Saline 0.9% IV 1,000 mls .Q20H KENY Administration Vancomycin HCl 1.25 gm/ Sodium 250 mls @ 166.667 mls/hr 10/10/19 10:00 10:38 Chloride IVPB 250 mls 1000,2200 KENY Administration Levothyroxine Sodium 50 mcg 10/10/19 06:00 10/10/19 05:33 Synthroid PO 50 mcg 0600 KENY Administration Potassium Chloride 20 meq 10/10/19 08:00 10/10/19 12:35 K-Dur PO 20 meq BID-WM KENY Administration Saccharomyces Boulardii 250 mg 10/10/19 09:00 10/10/19 12:35 Florastor PO 250 mg DAILY KENY Administration - Exam General - other findings: Obese Eye: anicteric sclera ENT: moist mucosa Neck: supple Heart: RRR Respiratory: CTAB Gastrointestinal: soft, non-tender Skin - other findings: wounds as documented Psychiatric: normal affect, normal behavior Hosp A/P (1) Osteomyelitis Code(s): M86.9 - OSTEOMYELITIS, UNSPECIFIED Status: Acute (2) Hypothyroidism Code(s): E03.9 - HYPOTHYROIDISM, UNSPECIFIED Status: Chronic Qualifiers: Hypothyroidism type: unspecified Qualified Code(s): E03.9 - Hypothyroidism , unspecified (3) Systemic lupus erythematosus Code(s): M32.9 - SYSTEMIC LUPUS ERYTHEMATOSUS, UNSPECIFIED Status: Chronic Qualifiers: Systemic lupus erythematosus type: unspecified Systemic lupus erythematosus organ involvement: unspecified Qualified Code(s): M32.9 - Systemic lupus erythematosus, unspecified - Plan continue antibiotics Continue vancomycin and clindamycin. Continue synthroid. Continue prednisone. Gen surgery and ID consulted.
[2019-10-10] MEDS ORDERED: Betamethasone Val 0.1% OINT 15 GM TUBE TOP SCH (15:30)
[2019-10-10] MEDS: Sodium Chloride 0.9% 1,000 ML IV SCH ×2 (17:43→21:07)
[2019-10-10] MEDS: cefTRIAXone\\ROCEPHIN 2 GM in Sodium Chloride 0.9% 100 ML IVPB SCH (18:22)
[2019-10-10] MEDS ORDERED: FAMOTIDINE PO SCH (21:00)
[2019-10-10] MEDS: traMADol HCl 50 MG TAB PO PRN (21:08)
[2019-10-10] MEDS: metroNIDAZOLE 500 MG TAB PO SCH (21:11)
[2019-10-10] MEDS: predniSONE 20 MG TAB PO SCH (21:11)
--- NOTE | 2019-10-10 23:42 | CON ---
DATE OF CONSULTATION: REASON FOR CONSULTATION: Decubitus ulcers. HISTORY OF PRESENT ILLNESS: A 39-year-old, history of systemic lupus erythematosus and hypothyroidism who has had complications related to immunosuppression including oral cavity herpes simplex eruption, 2 episodes of strep pneumoniae infection with bacteremia and joint infection which required protracted antimicrobial therapy, and then she developed a large sacral decubitus ulcer, had been admitted to a hospital in [place] with thrombocytopenia and then in October 30, she came in with wasting syndrome and fever. The opportunistic pathogen workup was negative and we felt that her syndrome was due to inadequate treatment of the systemic lupus erythematosus with severe hypomagnesemia, hypocalcemia, and hypophosphatemia and nephritis, and possible element of myositis and neuropathy, but we felt that the weakness was mostly from the electrolyte abnormalities. She has improved since, but now has developed worsening of one of the ischial decubitus ulcers and she was admitted. Dr. Ch is going to perform surgical debridement tomorrow, I believe to get some samples for cultures. Currently, Ms. Byrd is awake, alert, appears than when I last saw her, probably some element of it is due to iatrogenic Francia's. No headaches. No visual symptoms, sore throat, odynophagia, dysphagia. No cough or sputum production. No chest pain. No abdominal pain. No diarrhea. She has a Aiken catheter which was inserted for diversion to prevent the decubitus area from being contaminated by urine. PAST MEDICAL HISTORY: Includes systemic lupus erythematosus, managed basically just with corticosteroids due to lack of insurance, strep pneumoniae, bacteremia x2 episodes, knee septic arthritis due to Streptococcus pneumoniae, herpes simplex stomatitis, cachexia associated with severe electrolyte abnormalities, probably due to systemic lupus erythematosus, tubular nephropathy. PAST SURGICAL HISTORY: Includes thyroidectomy and tubal ligation. SOCIAL HISTORY: , never smoker. FAMILY HISTORY: Noncontributory. ALLERGIES: NONE. CURRENT MEDICATIONS: 1. P.r.n. medications. 2. Vitamin C. 3. Betamethasone. 4. Dulcolax. 5. Cleocin. 6. Lovenox. 7. Pepcid. 8. Dilaudid. 9. Synthroid. 10. Megace. 11. Morphine. 12. Zofran. 13. Prednisone. 14. Florastor. 15. Ultram. 16. Vancomycin. PHYSICAL EXAMINATION: VITAL SIGNS: T-max 101.9, BP 92/60, pulse 94, respirations 18, O2 saturation 96. SKIN: Shows a peripheral IV access in the right upper extremity. There is a shallow ulceration in the left anterior leg mid aspect with some around it. She has a left stage IV ischial ulcer which probes to bone with necrotic tissue at the base. There is a sacral one, which is improved. There is a smaller right-sided ischial ulcer. No lymphadenopathy. Cushingoid features. HEENT: Ocular movements conjugate. Sclerae white. Pupils are equal. Conjunctivae normal. Nasal passages patent. Oral cavity with no abnormalities. NECK: Supple. No jugular vein distention. LUNGS: Symmetric. Clear breath sounds. HEART: S1, S2. Regular rate. ABDOMEN: Soft, not distended or tender. No ascites. No bladder distention. The patient has a Aiken catheter in place. EXTREMITIES: No joint inflammatory activity outside the involved areas. Pulses are 1+ in dorsalis pedis. Plantar responses are flexor. She is able to lift the legs from the bed, has pretty good strength. NEURO: Cognitive function appears to be intact. LABORATORY DATA: White cell count 5.8, hemoglobin 12.7, platelets 180, 74% neutrophils. Sodium 136, creatinine 0.79. Liver profile normal. CRP 1.6, albumin 3.4. Two sets of blood cultures thus far no growth. The patient is currently receiving vancomycin, prednisone 20 mg b.i.d., clindamycin. ASSESSMENT: 1. Systemic lupus erythematosus, managed with corticosteroids only due to lack of insurance. 2. Recent admission for cachexia with severe electrolyte abnormalities, which have improved once corticosteroids were resumed. 3. Decubitus ulcers, which developed during the episode of weakness, which now has improved, which was left with decubitus ulcers in 2 ischial areas, and the central presacral region with evidence of osteomyelitis. The right ischial and presacral region bone findings are improved when one compares the successive MRIs, but the left ischial one shows a worsening osteomyelitis, but no abscess. DISCUSSION: The patient is going for surgical debridement and samples for microbiology processing need to be submitted including aerobic and anaerobic, fungal and mycobacterial cultures, but mostly aerobic and anaerobic to determine the proper antimicrobial regimen for discharge planning. Depending on the findings, she may need PICC line placement, protracted antimicrobial therapy administration associated with offloading. She is at risk for development of invasive infections from the Aiken catheterization. Ideally, one would like to remove the Aiken and allow spontaneous voiding. This would be the ideal scenario. Job ID: [id number]
[2019-10-11] MEDS: Levothyroxine Sodium 50 MCG TAB PO SCH (06:13)
[2019-10-11] MEDS: Potassium Chloride 20 MEQ TAB PO SCH ×2 (09:04→17:25)
[2019-10-11] MEDS: Ascorbic Acid 500 mg Chewable Tablet PO SCH (09:06)
[2019-10-11] MEDS: predniSONE 20 MG TAB PO SCH ×2 (09:06→20:16)
[2019-10-11] MEDS: Famotidine 20 MG TAB PO SCH ×2 (09:06→20:15)
[2019-10-11] MEDS: metroNIDAZOLE 500 MG TAB PO SCH ×3 (09:07→20:16)
[2019-10-11] MEDS: Megestrol Acetate 40 MG TAB PO SCH (09:08)
[2019-10-11] MEDS: Saccharomyces boulardii 250 MG CAP PO SCH ×3 (09:11→20:16)
[2019-10-11] MEDS: Enoxaparin Sodium 40 MG/0.4 ML SYRINGE SC SCH (09:16)
[2019-10-11] MEDS: Vancomycin HCl 1.25 GM in Sodium Chloride 0.9% 250 ML 250 ML IVPB SCH (10:01)
[2019-10-11] MEDS ORDERED: Lidocaine 1% PF 5 ML VIAL ONE (10:08)
[2019-10-11] MEDS ORDERED: Ondansetron PF 4 MG/2 ML Vial ONE (10:08)
[2019-10-11] MEDS ORDERED: ePHEDrine/0.9% NaCl/PF SYRINGE 50 mg/10 ml ONE (10:08)
[2019-10-11] MEDS ORDERED: PROPOFOL 200 MG/20 ML VIAL ONE (10:08)
[2019-10-11] MEDS ORDERED: PHENYLEPHRINE-NS 100 MCG/ML 10 ML SYRINGE ONE (10:08)
[2019-10-11] MEDS ORDERED: Rocuronium Bromide 10 MG/ML (10ML VIAL) ONE (10:08)
--- NOTE | 2019-10-11 12:41 | PDOC.HOSPP ---
- Subjective Encounter Date: 10/11/19 Encounter Time: 09:00 Subjective: pt up in bed getting ready for her surgery. - Objective Vital Signs & Weight: Vital Signs (12 hours) Temp Pulse Resp BP Pulse Ox 10/11/19 07:36 98.4 F 74 20 96/64 95 10/11/19 05:10 98.8 F 92 19 89/59 L 96 Weight Weight 187 lb 6.287 oz I&O: 10/10/19 10/11/19 10/12/19 06:59 06:59 06:59 Intake Total 1050 550 Output Total 700 2525 Balance 350 -1974 Result Diagrams: 10/10/19 05:01 10/10/19 05:01 Hospitalist ROS - Review of Systems Cardiovascular: denies: chest pain, palpitations, orthopnea, paroxysmal noc. dyspnea, edema, light headedness, other Gastrointestinal: denies: nausea, vomiting, abdominal pain, diarrhea, constipation, melena, hematochezia, other Genitourinary: denies: dysuria, frequency, incontinence, hematuria, retention, other - Medication Medications: Active Medications Generic Name Dose Route Start Last Admin Trade Name Freq PRN Reason Stop Dose Admin Acetaminophen 650 mg 10/09/19 20:24 10/10/19 21:08 Tylenol PO 650 mg Q4H PRN Administration Headache/Fever/Mild Pain (1-3) Hydrocodone Bitart/Acetaminophen 1 tab 10/09/19 20:24 10/10/19 01:47 [place] 7.5/325 PO 1 tab Q4H PRN Administration Moderate Pain (4-6) Ascorbic Acid 1,000 mg 10/10/19 09:00 10/11/19 09:06 Vitamin C PO 1,000 mg DAILY KENY Administration Enoxaparin Sodium 40 mg 10/10/19 09:00 10/11/19 09:16 Lovenox SC Not Given 09 KENY Famotidine 20 mg 10/09/19 21:00 10/11/19 09:06 Pepcid PO 20 mg BID KENY Administration Sodium Chloride 1,000 mls @ 50 mls/hr 10/09/19 21:00 10/10/19 21:07 Normal Saline 0.9% IV 1,000 mls .Q20H KENY Administration Vancomycin HCl 1.25 gm/ Sodium 250 mls @ 166.667 mls/hr 10/10/19 10:00 10:01 Chloride IVPB 250 mls 1000,2200 KENY Administration Ceftriaxone Sodium 2 gm/ 100 mls @ 200 mls/hr 10/10/19 18:00 10/10/19 18:22 Sodium Chloride IVPB 100 mls Q24HR KENY Administration Levothyroxine Sodium 50 mcg 10/10/19 06:00 10/11/19 06:13 Synthroid PO 50 mcg 0600 KENY Administration Megestrol Acetate 10 mg 10/11/19 09:00 10/11/19 09:08 Megace PO 10 mg DAILY KENY Administration Metronidazole 500 mg 10/10/19 21:00 10/11/19 09:07 Flagyl PO 500 mg TID KENY Administration Potassium Chloride 20 meq 10/10/19 08:00 10/11/19 09:04 K-Dur PO 20 meq BID-WM KENY Administration Prednisone 20 mg 10/10/19 21:00 10/11/19 09:06 Prednisone PO 20 mg BID KENY Administration Saccharomyces Boulardii 250 mg 10/10/19 21:00 10/11/19 09:11 Florastor PO 250 mg BID KENY Administration Tramadol HCl 50 mg 10/10/19 15:17 10/10/19 21:08 Ultram PO 50 mg Q4H PRN Administration Headache, Aches or Pain - Exam Neck: negative: supple, symmetric, no JVD, no thyromegaly, no lymphadenopathy, no carotid bruit, JVD Heart: negative: RRR, no murmur, no gallops, no rubs, normal peripheral pulses, irregular, diminshed peripheral pulses, murmur present, II/IV, III/IV Respiratory: negative: CTAB, no wheezes, no rales, no ronchi, normal chest expansion, no tachypnea, normal percussion, rales, rhonchi, tachypneic, wheezes Gastrointestinal: negative: soft, non-tender, non-distended, normal bowel sounds , no palpable masses, no hepatomegaly, no splenomegaly, no bruit, no guarding, no rigidity, tender to palpation, distended, diminished bowl sounds, voluntary guarding Hosp A/P (1) Osteomyelitis Code(s): M86.9 - OSTEOMYELITIS, UNSPECIFIED Status: Acute (2) Decubitus ulcer of coccygeal region, stage 4 Code(s): L89.154 - PRESSURE ULCER OF SACRAL REGION, STAGE 4 Status: Acute (3) Hypothyroidism Code(s): E03.9 - HYPOTHYROIDISM, UNSPECIFIED Status: Chronic Qualifiers: Hypothyroidism type: unspecified Qualified Code(s): E03.9 - Hypothyroidism , unspecified (4) Normocytic anemia Code(s): D64.9 - ANEMIA, UNSPECIFIED Status: Chronic (5) Protein-calorie malnutrition, severe Code(s): E43 - UNSPECIFIED SEVERE PROTEIN-CALORIE MALNUTRITION Status: Chronic (6) Systemic lupus erythematosus Code(s): M32.9 - SYSTEMIC LUPUS ERYTHEMATOSUS, UNSPECIFIED Status: Chronic Qualifiers: Systemic lupus erythematosus type: unspecified Systemic lupus erythematosus organ involvement: unspecified Qualified Code(s): M32.9 - Systemic lupus erythematosus, unspecified - Plan she is on chronic steroids may consider giving her solucortef for her low bp. will continue abx for now. unable to get on tx for her lupus due to insurance reason. she is on steroids. radha loredo, will try to remove before she leaves the hospital if it does not interfere with her wound.
[2019-10-11] MEDS ORDERED: Fentanyl 100 MCG/2 ML VIAL ONE ×2 (12:50→14:02)
[2019-10-11] MEDS ORDERED: Ibuprofen 600 MG TAB PO PRN (13:09)
[2019-10-11] MEDS ORDERED: Acetaminophen 500 MG TAB PO PRN (13:09)
[2019-10-11] MEDS ORDERED: Bupivacaine PF 0.5% 30 ML VIAL ONE (13:16)
[2019-10-11] MEDS: Sodium Chloride 0.9% 1,000 ML IV SCH (14:50)
[2019-10-11] MEDS ORDERED: Promethazine HCl 25 MG/ML VIAL IM PRN (15:39)
[2019-10-11] MEDS ORDERED: Promethazine HCl 25 MG/ML VIAL SLOW IVP PRN (15:39)
[2019-10-11] MEDS ORDERED: Ondansetron HCl/PF 4 MG/2 ML Vial IVP PRN (15:39)
[2019-10-11] MEDS: cefTRIAXone\\ROCEPHIN 2 GM in Sodium Chloride 0.9% 100 ML IVPB SCH (17:40)
--- NOTE | 2019-10-11 18:08 | OP ---
DATE OF PROCEDURE: 10/11/2019 PREOPERATIVE DIAGNOSES: Left ischial osteomyelitis; open wound from decubitus, residual. healed right ischial decubitus. No open wounds on the right. POSTOPERATIVE DIAGNOSES: Left ischial osteomyelitis; open wound from decubitus, residual. healed right ischial decubitus. No open wounds on the right. PROCEDURES PERFORMED: Excision of skin and subcutaneous tissue, left ischial decubitus. Debridement of bone submitted for culture to Microbiology. No purulence noted. ANESTHESIA: General. FINDINGS: The patient had irregular bone at the depths of the ischial decubitus. Otherwise, the wound was granulating. There was no purulence. DESCRIPTION OF PROCEDURE: The patient was taken to the operating room, where under general anesthesia, in the right lateral decubitus, properly padded with a rojas bag, left buttock wound was prepared with Betadine and draped in routine fashion. The opening was very small. It was enlarged excising some of the epithelializing skin to allow access. There was irregular bone surface debrided with a rongeur submitting bone fragments to Microbiology for culture. Good hemostasis was noted. No purulence was noted. Tissues were granulating and healthy, otherwise. Wound Care Team arrived to place a wound VAC. The patient tolerated the procedure well. Job ID: [id number]
[2019-10-11 19:36] LABS: Vancomycin, Trough 12.5 ug/mL
[2019-10-11] MEDS: HYDROcodone/Acetaminophen 7.5/325 mg Tablet PO PRN (20:16)
[2019-10-11] MEDS ORDERED: Vancomycin HCl 1.5 GM in Sodium Chloride 0.9% 250 ML 300 ML IVPB SCH (22:00)
[2019-10-12] MEDS: traMADol HCl 50 MG TAB PO PRN (04:57)
[2019-10-12] MEDS: Levothyroxine Sodium 50 MCG TAB PO SCH (04:58)
[2019-10-12 06:11] LABS: Magnesium 1.7 mg/dL (1.6-2.6); Phosphorus 3.1 mg/dL (2.3-4.7)
[2019-10-12] MEDS: Ascorbic Acid 500 mg Chewable Tablet PO SCH (09:49)
[2019-10-12] MEDS: Vancomycin 1.5 GRAM/300 ML BAG 1.5 GM in Premix Bag 1 BAG IVPB SCH ×2 (09:49→21:17)
[2019-10-12] MEDS: Potassium Chloride 20 MEQ TAB PO SCH ×2 (09:49→16:41)
[2019-10-12] MEDS: Saccharomyces boulardii 250 MG CAP PO SCH ×2 (09:49→21:17)
[2019-10-12] MEDS: metroNIDAZOLE 500 MG TAB PO SCH ×3 (09:49→21:17)
[2019-10-12] MEDS: Enoxaparin Sodium 40 MG/0.4 ML SYRINGE SC SCH (09:50)
[2019-10-12] MEDS: predniSONE 20 MG TAB PO SCH ×2 (09:50→21:17)
[2019-10-12] MEDS: Famotidine 20 MG TAB PO SCH ×2 (09:50→21:17)
[2019-10-12] MEDS: Megestrol Acetate 40 MG TAB PO SCH (09:50)
[2019-10-12] MEDS: HYDROcodone/Acetaminophen 7.5/325 mg Tablet PO PRN (09:56)
[2019-10-12] MEDS ORDERED: Vancomycin HCl 1.5 GM in Sodium Chloride 0.9% 250 ML 300 ML IVPB SCH (10:00)
[2019-10-12] MEDS: Sodium Chloride 0.9% 1,000 ML IV SCH ×2 (11:47→16:44)
--- NOTE | 2019-10-12 13:50 | PDOC.HOSPP ---
- Subjective Encounter Date: 10/12/19 Encounter Time: 10:00 Subjective: pt up in bed no complains - Objective Vital Signs & Weight: Vital Signs (12 hours) Temp Pulse Resp BP Pulse Ox 10/12/19 11:10 98.3 F 76 19 113/76 96 10/12/19 07:06 98.7 F 72 19 101/66 97 10/12/19 04:42 98.5 F 81 16 104/69 97 Weight Admit Weight 187 lb 6.287 oz Weight 187 lb 6.287 oz I&O: 10/11/19 10/12/19 10/13/19 06:59 06:59 06:59 Intake Total 550 3050 Output Total 2525 3450 Balance -1975 -400 Result Diagrams: 10/10/19 05:01 10/10/19 05:01 Hospitalist ROS - Review of Systems Cardiovascular: denies: chest pain, palpitations, orthopnea, paroxysmal noc. dyspnea, edema, light headedness, other Gastrointestinal: denies: nausea, vomiting, abdominal pain, diarrhea, constipation, melena, hematochezia, other Genitourinary: denies: dysuria, frequency, incontinence, hematuria, retention, other - Medication Medications: Active Medications Generic Name Dose Route Start Last Admin Trade Name Freq PRN Reason Stop Dose Admin Acetaminophen 1,000 mg 10/11/19 13:09 10/12/19 04:57 Tylenol PO 1,000 mg Q6H PRN Administration Moderate to Severe Pain (6-10) Hydrocodone Bitart/Acetaminophen 1 tab 10/09/19 20:24 10/12/19 09:56 [place] 7.5/325 PO 1 tab Q4H PRN Administration Moderate Pain (4-6) Ascorbic Acid 1,000 mg 10/10/19 09:00 10/12/19 09:49 Vitamin C PO 1,000 mg DAILY KENY Administration Enoxaparin Sodium 40 mg 10/10/19 09:00 10/12/19 09:50 Lovenox SC Not Given 09 KENY Famotidine 20 mg 10/09/19 21:00 10/12/19 09:50 Pepcid PO 20 mg BID KENY Administration Sodium Chloride 1,000 mls @ 50 mls/hr 10/09/19 21:00 10/12/19 11:47 Normal Saline 0.9% IV Not Given .Q20H KENY Ceftriaxone Sodium 2 gm/ 100 mls @ 200 mls/hr 10/10/19 18:00 10/11/19 17:40 Sodium Chloride IVPB 100 mls Q24HR KENY Administration Vancomycin HCl 1.5 gm/ Device 300 mls @ 200 mls/hr 10/12/19 10:00 10/12/19 09 :49 IVPB 300 mls 1000,2200 KENY Administration Levothyroxine Sodium 50 mcg 10/10/19 06:00 10/12/19 04:58 Synthroid PO 50 mcg 0600 KENY Administration Megestrol Acetate 10 mg 10/11/19 09:00 10/12/19 09:50 Megace PO 10 mg DAILY KENY Administration Metronidazole 500 mg 10/10/19 21:00 10/12/19 09:49 Flagyl PO 500 mg TID KENY Administration Potassium Chloride 20 meq 10/10/19 08:00 10/12/19 09:49 K-Dur PO 20 meq BID-WM KENY Administration Prednisone 20 mg 10/10/19 21:00 10/12/19 09:50 Prednisone PO 20 mg BID KENY Administration Saccharomyces Boulardii 250 mg 10/10/19 21:00 10/12/19 09:49 Florastor PO 250 mg BID KENY Administration Tramadol HCl 50 mg 10/10/19 15:17 10/12/19 04:57 Ultram PO 50 mg Q4H PRN Administration Headache, Aches or Pain - Exam Neck: negative: supple, symmetric, no JVD, no thyromegaly, no lymphadenopathy, no carotid bruit, JVD Heart: negative: RRR, no murmur, no gallops, no rubs, normal peripheral pulses, irregular, diminshed peripheral pulses, murmur present, II/IV, III/IV Respiratory: negative: CTAB, no wheezes, no rales, no ronchi, normal chest expansion, no tachypnea, normal percussion, rales, rhonchi, tachypneic, wheezes Hosp A/P (1) Osteomyelitis Code(s): M86.9 - OSTEOMYELITIS, UNSPECIFIED Status: Acute (2) Decubitus ulcer of coccygeal region, stage 4 Code(s): L89.154 - PRESSURE ULCER OF SACRAL REGION, STAGE 4 Status: Acute (3) Hypothyroidism Code(s): E03.9 - HYPOTHYROIDISM, UNSPECIFIED Status: Chronic Qualifiers: Hypothyroidism type: unspecified Qualified Code(s): E03.9 - Hypothyroidism , unspecified (4) Normocytic anemia Code(s): D64.9 - ANEMIA, UNSPECIFIED Status: Chronic (5) Protein-calorie malnutrition, severe Code(s): E43 - UNSPECIFIED SEVERE PROTEIN-CALORIE MALNUTRITION Status: Chronic (6) Systemic lupus erythematosus Code(s): M32.9 - SYSTEMIC LUPUS ERYTHEMATOSUS, UNSPECIFIED Status: Chronic Qualifiers: Systemic lupus erythematosus type: unspecified Systemic lupus erythematosus organ involvement: unspecified Qualified Code(s): M32.9 - Systemic lupus erythematosus, unspecified - Plan she is on chronic steroids may consider giving her solucortef for her low bp. will continue abx for now. unable to get on tx for her lupus due to insurance reason. she is on steroids. chronic loredo, will try to remove before she leaves the hospital if it does not interfere with her wound. 10/12 s/p excision of skin and subcutaneous tissue, left ischial decubitus. will continue current tx. pain controlled. will await final cx. will continue steroids. bp low normal.
[2019-10-12] MEDS: cefTRIAXone\\ROCEPHIN 2 GM in Sodium Chloride 0.9% 100 ML IVPB SCH (17:20)
[2019-10-13] MEDS: Levothyroxine Sodium 50 MCG TAB PO SCH (05:48)
[2019-10-13] MEDS: Famotidine 20 MG TAB PO SCH ×2 (08:08→21:15)
[2019-10-13] MEDS: predniSONE 20 MG TAB PO SCH ×2 (08:08→21:15)
[2019-10-13] MEDS: Potassium Chloride 20 MEQ TAB PO SCH ×2 (08:09→16:32)
[2019-10-13] MEDS: metroNIDAZOLE 500 MG TAB PO SCH ×3 (08:09→21:15)
[2019-10-13] MEDS: Ascorbic Acid 500 mg Chewable Tablet PO SCH (08:09)
[2019-10-13] MEDS: Saccharomyces boulardii 250 MG CAP PO SCH ×2 (08:09→21:15)
[2019-10-13] MEDS: Megestrol Acetate 40 MG TAB PO SCH (08:10)
[2019-10-13] MEDS: Enoxaparin Sodium 40 MG/0.4 ML SYRINGE SC SCH (08:14)
[2019-10-13 09:23] LABS: Vancomycin, Trough 15.2 ug/mL
[2019-10-13] MEDS: Vancomycin 1.5 GRAM/300 ML BAG 1.5 GM in Premix Bag 1 BAG IVPB SCH ×2 (10:02→21:15)
[2019-10-13] MEDS: HYDROcodone/Acetaminophen 7.5/325 mg Tablet PO PRN (13:09)
--- NOTE | 2019-10-13 14:24 | PDOC.HOSPP ---
- Subjective Encounter Date: 10/13/19 Encounter Time: 11:45 Subjective: pt up in bed complains of diarrhea. - Objective Vital Signs & Weight: Vital Signs (12 hours) Temp Pulse Resp BP Pulse Ox 10/13/19 11:14 98.3 F 90 18 106/60 100 10/13/19 08:00 100 10/13/19 07:33 98.6 F 68 20 113/66 96 Weight Admit Weight 187 lb 6.287 oz Weight 187 lb 6.287 oz I&O: 10/12/19 10/13/19 10/14/19 06:59 06:59 06:59 Intake Total 3050 1080 Output Total 3450 3800 Balance -400 -8200 Result Diagrams: 10/10/19 05:01 10/10/19 05:01 Hospitalist ROS - Review of Systems Cardiovascular: denies: chest pain, palpitations, orthopnea, paroxysmal noc. dyspnea, edema, light headedness, other Gastrointestinal: reports: diarrhea Genitourinary: denies: dysuria, frequency, incontinence, hematuria, retention, other - Medication Medications: Active Medications Generic Name Dose Route Start Last Admin Trade Name Freq PRN Reason Stop Dose Admin Acetaminophen 1,000 mg 10/11/19 13:09 10/12/19 04:57 Tylenol PO 1,000 mg Q6H PRN Administration Moderate to Severe Pain (6-10) Hydrocodone Bitart/Acetaminophen 1 tab 10/09/19 20:24 10/13/19 13:09 [place] 7.5/325 PO 1 tab Q4H PRN Administration Moderate Pain (4-6) Ascorbic Acid 1,000 mg 10/10/19 09:00 10/13/19 08:09 Vitamin C PO 1,000 mg DAILY KENY Administration Enoxaparin Sodium 40 mg 10/10/19 09:00 10/13/19 08:14 Lovenox SC Not Given 09 KENY Famotidine 20 mg 10/09/19 21:00 10/13/19 08:08 Pepcid PO 20 mg BID KENY Administration Sodium Chloride 1,000 mls @ 50 mls/hr 10/09/19 21:00 10/12/19 16:44 Normal Saline 0.9% IV 1,000 mls .Q20H KENY Administration Ceftriaxone Sodium 2 gm/ 100 mls @ 200 mls/hr 10/10/19 18:00 10/12/19 17:20 Sodium Chloride IVPB 100 mls Q24HR KENY Administration Vancomycin HCl 1.5 gm/ Device 300 mls @ 200 mls/hr 10/12/19 10:00 10/13/19 10 :02 IVPB 300 mls 1000,2200 KENY Administration Levothyroxine Sodium 50 mcg 10/10/19 06:00 10/13/19 05:48 Synthroid PO 50 mcg 0600 KENY Administration Megestrol Acetate 10 mg 10/11/19 09:00 10/13/19 08:10 Megace PO 10 mg DAILY KENY Administration Metronidazole 500 mg 10/10/19 21:00 10/13/19 08:09 Flagyl PO 500 mg TID KENY Administration Potassium Chloride 20 meq 10/10/19 08:00 10/13/19 08:09 K-Dur PO 20 meq BID-WM KENY Administration Prednisone 20 mg 10/10/19 21:00 10/13/19 08:08 Prednisone PO 20 mg BID KENY Administration Saccharomyces Boulardii 250 mg 10/10/19 21:00 10/13/19 08:09 Florastor PO 250 mg BID KENY Administration Tramadol HCl 50 mg 10/10/19 15:17 10/12/19 04:57 Ultram PO 50 mg Q4H PRN Administration Headache, Aches or Pain - Exam Heart: negative: RRR, no murmur, no gallops, no rubs, normal peripheral pulses, irregular, diminshed peripheral pulses, murmur present, II/IV, III/IV Respiratory: negative: CTAB, no wheezes, no rales, no ronchi, normal chest expansion, no tachypnea, normal percussion, rales, rhonchi, tachypneic, wheezes Gastrointestinal: negative: soft, non-tender, non-distended, normal bowel sounds , no palpable masses, no hepatomegaly, no splenomegaly, no bruit, no guarding, no rigidity, tender to palpation, distended, diminished bowl sounds, voluntary guarding Hosp A/P (1) Osteomyelitis Code(s): M86.9 - OSTEOMYELITIS, UNSPECIFIED Status: Acute (2) Decubitus ulcer of coccygeal region, stage 4 Code(s): L89.154 - PRESSURE ULCER OF SACRAL REGION, STAGE 4 Status: Acute (3) Hypothyroidism Code(s): E03.9 - HYPOTHYROIDISM, UNSPECIFIED Status: Chronic Qualifiers: Hypothyroidism type: unspecified Qualified Code(s): E03.9 - Hypothyroidism , unspecified (4) Normocytic anemia Code(s): D64.9 - ANEMIA, UNSPECIFIED Status: Chronic (5) Protein-calorie malnutrition, severe Code(s): E43 - UNSPECIFIED SEVERE PROTEIN-CALORIE MALNUTRITION Status: Chronic (6) Systemic lupus erythematosus Code(s): M32.9 - SYSTEMIC LUPUS ERYTHEMATOSUS, UNSPECIFIED Status: Chronic Qualifiers: Systemic lupus erythematosus type: unspecified Systemic lupus erythematosus organ involvement: unspecified Qualified Code(s): M32.9 - Systemic lupus erythematosus, unspecified - Plan she is on chronic steroids may consider giving her solucortef for her low bp. will continue abx for now. unable to get on tx for her lupus due to insurance reason. she is on steroids. chronic loredo, will try to remove before she leaves the hospital if it does not interfere with her wound. 10/12 s/p excision of skin and subcutaneous tissue, left ischial decubitus. will continue current tx. pain controlled. will await final cx. will continue steroids. bp low normal. 10/13 will check stool for leukocytes. she is on probiotic. will continue abx, so far cx is negative.
[2019-10-13] MEDS: traMADol HCl 50 MG TAB PO PRN (14:54)
[2019-10-13] MEDS: cefTRIAXone\\ROCEPHIN 2 GM in Sodium Chloride 0.9% 100 ML IVPB SCH (17:36)
[2019-10-13] MEDS: Sodium Chloride 0.9% 1,000 ML IV SCH (21:16)
[2019-10-14] MEDS: Levothyroxine Sodium 50 MCG TAB PO SCH (05:47)
[2019-10-14] MEDS: Megestrol Acetate 40 MG TAB PO SCH (08:56)
[2019-10-14] MEDS: Potassium Chloride 20 MEQ TAB PO SCH ×2 (08:56→15:36)
[2019-10-14] MEDS: Ascorbic Acid 500 mg Chewable Tablet PO SCH (08:58)
[2019-10-14] MEDS: predniSONE 20 MG TAB PO SCH ×2 (08:59→20:46)
[2019-10-14] MEDS: Famotidine 20 MG TAB PO SCH ×2 (08:59→20:46)
[2019-10-14] MEDS: metroNIDAZOLE 500 MG TAB PO SCH ×3 (08:59→20:46)
[2019-10-14] MEDS: Saccharomyces boulardii 250 MG CAP PO SCH ×2 (08:59→20:45)
[2019-10-14] MEDS: Enoxaparin Sodium 40 MG/0.4 ML SYRINGE SC SCH (09:01)
[2019-10-14] MEDS: Vancomycin 1.5 GRAM/300 ML BAG 1.5 GM in Premix Bag 1 BAG IVPB SCH (09:13)
[2019-10-14 09:37] LABS: #Monocytes 0.4 thou/uL (0.11-0.59); #Neutrophils 4.5 thou/uL (1.40-6.50); %Basophils 0.2 % (0.0-1.0); %Eosinophils 0.3 % (0.0-10.0); %Lymphocytes 16.3 % (21.0-51.0); %Neutrophils 76.1 % (42.0-75.0); Hemoglobin 11.7 g/dL (12.0-16.0); Mean Corpuscular HGB CONC 32.6 g/dL (32.0-36.0); Mean Corpuscular Hemoglobin 29.2 pg (27.0-31.0); Mean Corpuscular Volume 89.5 fL (78.0-98.0); Mean Platelet Volume 9.5 fL (7.4-10.4); Platelet Count 161 thou/uL (130-400); RBC Distribution Width 13.9 % (11.5-14.5); White Blood Cell (WBC) Count 5.9 thou/uL (4.8-10.8)
[2019-10-14 09:51] LABS: Vancomycin, Trough 13.7 ug/mL
[2019-10-14 09:53] LABS: ALT (SGPT) 9 U/L (8-55); AST (SGOT) 9 U/L (5-34); Alkaline Phosphatase 83 U/L (40-110); Anion Gap 9 mmol/L (10-20); BUN (Urea Nitrogen) 16 mg/dL (7.0-18.7); Bilirubin, Total Less than 0.2 mg/dL (0.2-1.2); Calc. Creatinine Clearance 134 mL/min (70-130); Calcium 8.2 mg/dL (7.8-10.44); Carbon Dioxide 20 mmol/L (22-29); Chloride 111 mmol/L (98-107); Estimated GFR-MDRD 86; Globulin 5.4 g/dL (2.4-3.5); Glucose 130 mg/dL (70-105); Potassium 4.1 mmol/L (3.5-5.1); Protein, Total 8.4 g/dL (6.0-8.3); Sodium 136 mmol/L (136-145)
[2019-10-14] MEDS: HYDROcodone/Acetaminophen 7.5/325 mg Tablet PO PRN ×2 (10:59→22:26)
--- NOTE | 2019-10-14 13:28 | PDOC.HOSPP ---
- Subjective Encounter Date: 10/14/19 Encounter Time: 11:45 Subjective: pt up in bed complains of pain to her left buttock area - Objective Vital Signs & Weight: Vital Signs (12 hours) Temp Pulse Resp BP Pulse Ox 10/14/19 12:39 100/60 10/14/19 07:31 99.2 F 82 17 110/73 94 L Weight Admit Weight 187 lb 6.287 oz Weight 187 lb 6.287 oz I&O: 10/13/19 10/14/19 10/15/19 06:59 06:59 06:59 Intake Total 1080 1320 Output Total 3800 3450 Balance -3873 -9748 Result Diagrams: 10/14/19 09:10 10/14/19 09:10 Hospitalist ROS - Review of Systems Cardiovascular: denies: chest pain, palpitations, orthopnea, paroxysmal noc. dyspnea, edema, light headedness, other Gastrointestinal: denies: nausea, vomiting, abdominal pain, diarrhea, constipation, melena, hematochezia, other Musculoskeletal: reports: leg pain - Medication Medications: Active Medications Generic Name Dose Route Start Last Admin Trade Name Freq PRN Reason Stop Dose Admin Acetaminophen 1,000 mg 10/11/19 13:09 10/12/19 04:57 Tylenol PO 1,000 mg Q6H PRN Administration Moderate to Severe Pain (6-10) Hydrocodone Bitart/Acetaminophen 1 tab 10/09/19 20:24 10/14/19 10:59 [place] 7.5/325 PO 1 tab Q4H PRN Administration Moderate Pain (4-6) Ascorbic Acid 1,000 mg 10/10/19 09:00 10/14/19 08:58 Vitamin C PO 1,000 mg DAILY KENY Administration Enoxaparin Sodium 40 mg 10/10/19 09:00 10/14/19 09:01 Lovenox SC Not Given 0900 KENY Famotidine 20 mg 10/09/19 21:00 10/14/19 08:59 Pepcid PO 20 mg BID KENY Administration Sodium Chloride 1,000 mls @ 50 mls/hr 10/09/19 21:00 10/13/19 21:16 Normal Saline 0.9% IV 1,000 mls .Q20H KENY Administration Ceftriaxone Sodium 2 gm/ 100 mls @ 200 mls/hr 10/10/19 18:00 10/13/19 17:36 Sodium Chloride IVPB 100 mls Q24HR KENY Administration Levothyroxine Sodium 50 mcg 10/10/19 06:00 10/14/19 05:47 Synthroid PO 50 mcg 0600 KENY Administration Megestrol Acetate 10 mg 10/11/19 09:00 10/14/19 08:56 Megace PO 10 mg DAILY KENY Administration Metronidazole 500 mg 10/10/19 21:00 10/14/19 08:59 Flagyl PO 500 mg TID KENY Administration Potassium Chloride 20 meq 10/10/19 08:00 10/14/19 08:56 K-Dur PO 20 meq BID-WM KENY Administration Prednisone 20 mg 10/10/19 21:00 10/14/19 08:59 Prednisone PO 20 mg BID KENY Administration Saccharomyces Boulardii 250 mg 10/10/19 21:00 10/14/19 08:59 Florastor PO 250 mg BID KENY Administration Tramadol HCl 50 mg 10/10/19 15:17 10/13/19 14:54 Ultram PO 50 mg Q4H PRN Administration Headache, Aches or Pain - Exam Heart: negative: RRR, no murmur, no gallops, no rubs, normal peripheral pulses, irregular, diminshed peripheral pulses, murmur present, II/IV, III/IV Respiratory: negative: CTAB, no wheezes, no rales, no ronchi, normal chest expansion, no tachypnea, normal percussion, rales, rhonchi, tachypneic, wheezes Gastrointestinal: negative: soft, non-tender, non-distended, normal bowel sounds , no palpable masses, no hepatomegaly, no splenomegaly, no bruit, no guarding, no rigidity, tender to palpation, distended, diminished bowl sounds, voluntary guarding Hosp A/P (1) Osteomyelitis Code(s): M86.9 - OSTEOMYELITIS, UNSPECIFIED Status: Acute (2) Decubitus ulcer of coccygeal region, stage 4 Code(s): L89.154 - PRESSURE ULCER OF SACRAL REGION, STAGE 4 Status: Acute (3) Hypothyroidism Code(s): E03.9 - HYPOTHYROIDISM, UNSPECIFIED Status: Chronic Qualifiers: Hypothyroidism type: unspecified Qualified Code(s): E03.9 - Hypothyroidism , unspecified (4) Normocytic anemia Code(s): D64.9 - ANEMIA, UNSPECIFIED Status: Chronic (5) Protein-calorie malnutrition, severe Code(s): E43 - UNSPECIFIED SEVERE PROTEIN-CALORIE MALNUTRITION Status: Chronic (6) Systemic lupus erythematosus Code(s): M32.9 - SYSTEMIC LUPUS ERYTHEMATOSUS, UNSPECIFIED Status: Chronic Qualifiers: Systemic lupus erythematosus type: unspecified Systemic lupus erythematosus organ involvement: unspecified Qualified Code(s): M32.9 - Systemic lupus erythematosus, unspecified - Plan she is on chronic steroids may consider giving her solucortef for her low bp. will continue abx for now. unable to get on tx for her lupus due to insurance reason. she is on steroids. chronic loredo, will try to remove before she leaves the hospital if it does not interfere with her wound. 10/12 s/p excision of skin and subcutaneous tissue, left ischial decubitus. will continue current tx. pain controlled. will await final cx. will continue steroids. bp low normal. 10/13 will check stool for leukocytes. she is on probiotic. will continue abx, so far cx is negative. 10/14 no more diarrhea, doing well. her cx are negative for now. will continue broad abx. will also keep loredo in for now.
--- NOTE | 2019-10-14 15:03 | PRG ---
DATE OF SERVICE: 10/14/2019 SUBJECTIVE: The patient had surgical debridement and has some pain in the left gluteal region, ischial region. No diarrhea. She has an indwelling Aiken catheter. OBJECTIVE: VITAL SIGNS: T-max 99.2, blood pressure 100/60, pulse 82, respirations 17. SKIN: With a fresh area after debridement in the left ischial region, and ocular movements conjugate. LUNGS: Clear. HEART: S1, S2. Regular rate. ABDOMEN: Soft, not distended. Aiken catheter in place. LABORATORY DATA: White cell count 5.9, hemoglobin 11.7, platelets 161. Creatinine 0.74, albumin 3.0. Hip bone cultures with Staphylococcus species and coagulase-negative Staph, pending full identification and susceptibility profile. CURRENT MEDICATIONS: Include ceftriaxone and vancomycin to be continued until final identification of all the microbiology from the wound site. Negative pressure dressing and then will need protracted IV antimicrobial therapy with PICC line placement. The end date of therapy will be at the end of October. Weekly labs, CBC, CRP, vancomycin trough. Job ID: [id number]
[2019-10-14] MEDS: Morphine 2 MG/ML SYRINGE SLOW IVP PRN (15:36)
[2019-10-14] MEDS: cefTRIAXone\\ROCEPHIN 2 GM in Sodium Chloride 0.9% 100 ML IVPB SCH (19:17)
[2019-10-14] MEDS: Vancomycin HCl 1.75 GM in Sodium Chloride 0.9% 500 ML IVPB SCH (20:46)
[2019-10-15] MEDS: Sodium Chloride 0.9% 1,000 ML IV SCH ×2 (00:41→17:08)
[2019-10-15] MEDS: Morphine 2 MG/ML SYRINGE SLOW IVP PRN (01:53)
[2019-10-15] MEDS: Levothyroxine Sodium 50 MCG TAB PO SCH (05:44)
[2019-10-15] MEDS: Saccharomyces boulardii 250 MG CAP PO SCH ×2 (08:55→21:14)
[2019-10-15] MEDS: Famotidine 20 MG TAB PO SCH ×2 (08:55→21:13)
[2019-10-15] MEDS: metroNIDAZOLE 500 MG TAB PO SCH ×3 (08:55→21:13)
[2019-10-15] MEDS: Ascorbic Acid 500 mg Chewable Tablet PO SCH (08:55)
[2019-10-15] MEDS: Megestrol Acetate 40 MG TAB PO SCH (08:56)
[2019-10-15] MEDS: Potassium Chloride 20 MEQ TAB PO SCH ×2 (08:57→17:06)
[2019-10-15] MEDS: predniSONE 20 MG TAB PO SCH ×2 (08:57→21:13)
[2019-10-15] MEDS: Enoxaparin Sodium 40 MG/0.4 ML SYRINGE SC SCH (08:57)
[2019-10-15] MEDS: Vancomycin HCl 1.75 GM in Sodium Chloride 0.9% 500 ML IVPB SCH ×2 (11:25→21:19)
--- NOTE | 2019-10-15 14:52 | PDOC.HOSPP ---
- Subjective Encounter Date: 10/15/19 Encounter Time: 12:45 Subjective: pt up in bed complains of pain to her left hip area. - Objective Vital Signs & Weight: Vital Signs (12 hours) Temp Pulse Resp BP Pulse Ox 10/15/19 08:52 98 10/15/19 08:00 98.8 F 71 18 95/65 98 Weight Admit Weight 187 lb 6.287 oz Weight 187 lb 6.287 oz I&O: 10/14/19 10/15/19 10/16/19 06:59 06:59 06:59 Intake Total 1320 Output Total 3450 2350 Balance -2130 -2350 Result Diagrams: 10/14/19 09:10 10/14/19 09:10 Hospitalist ROS - Review of Systems Respiratory: denies: cough, dry, shortness of breath, hemoptysis, SOB with excertion, pleuritic pain, sputum, wheezing, other Cardiovascular: denies: chest pain, palpitations, orthopnea, paroxysmal noc. dyspnea, edema, light headedness, other Gastrointestinal: denies: nausea, vomiting, abdominal pain, diarrhea, constipation, melena, hematochezia, other Skin: reports: other (wound vac on) - Medication Medications: Active Medications Generic Name Dose Route Start Last Admin Trade Name Freq PRN Reason Stop Dose Admin Acetaminophen 1,000 mg 10/11/19 13:09 10/12/19 04:57 Tylenol PO 1,000 mg Q6H PRN Administration Moderate to Severe Pain (6-10) Hydrocodone Bitart/Acetaminophen 1 tab 10/09/19 20:24 10/14/19 22:26 [place] 7.5/325 PO 1 tab Q4H PRN Administration Moderate Pain (4-6) Ascorbic Acid 1,000 mg 10/10/19 09:00 10/15/19 08:55 Vitamin C PO 1,000 mg DAILY KENY Administration Enoxaparin Sodium 40 mg 10/10/19 09:00 10/15/19 08:57 Lovenox SC 40 mg 0900 KENY Administration Famotidine 20 mg 10/09/19 21:00 10/15/19 08:55 Pepcid PO 20 mg BID KENY Administration Sodium Chloride 1,000 mls @ 50 mls/hr 10/09/19 21:00 10/15/19 00:41 Normal Saline 0.9% IV 1,000 mls .Q20H KENY Administration Ceftriaxone Sodium 2 gm/ 100 mls @ 200 mls/hr 10/10/19 18:00 10/14/19 19:17 Sodium Chloride IVPB 100 mls Q24HR KENY Administration Vancomycin HCl 1.75 gm/ Sodium 500 mls @ 250 mls/hr 10/14/19 22:00 10/15/19 11:25 Chloride IVPB 500 mls 1000,2200 KENY Administration Levothyroxine Sodium 50 mcg 10/10/19 06:00 10/15/19 05:44 Synthroid PO 50 mcg 0600 KENY Administration Megestrol Acetate 10 mg 10/11/19 09:00 10/15/19 08:56 Megace PO 10 mg DAILY KENY Administration Metronidazole 500 mg 10/10/19 21:00 10/15/19 14:44 Flagyl PO 500 mg TID KENY Administration Morphine Sulfate 2 mg 10/09/19 20:28 10/15/19 01:53 Morphine SLOW IVP 2 mg Q4H PRN Administration .BREAKTHROUGH PAIN Potassium Chloride 20 meq 10/10/19 08:00 10/15/19 08:57 K-Dur PO 20 meq BID-WM KENY Administration Prednisone 20 mg 10/10/19 21:00 10/15/19 08:57 Prednisone PO 20 mg BID KENY Administration Saccharomyces Boulardii 250 mg 10/10/19 21:00 10/15/19 08:55 Florastor PO 250 mg BID KENY Administration Tramadol HCl 50 mg 10/10/19 15:17 10/13/19 14:54 Ultram PO 50 mg Q4H PRN Administration Headache, Aches or Pain - Exam Neck: negative: supple, symmetric, no JVD, no thyromegaly, no lymphadenopathy, no carotid bruit, JVD Heart: negative: RRR, no murmur, no gallops, no rubs, normal peripheral pulses, irregular, diminshed peripheral pulses, murmur present, II/IV, III/IV Respiratory: negative: CTAB, no wheezes, no rales, no ronchi, normal chest expansion, no tachypnea, normal percussion, rales, rhonchi, tachypneic, wheezes Gastrointestinal: negative: soft, non-tender, non-distended, normal bowel sounds , no palpable masses, no hepatomegaly, no splenomegaly, no bruit, no guarding, no rigidity, tender to palpation, distended, diminished bowl sounds, voluntary guarding Skin - other findings: wound vac Hosp A/P (1) Osteomyelitis Code(s): M86.9 - OSTEOMYELITIS, UNSPECIFIED Status: Acute (2) Decubitus ulcer of coccygeal region, stage 4 Code(s): L89.154 - PRESSURE ULCER OF SACRAL REGION, STAGE 4 Status: Acute (3) Hypothyroidism Code(s): E03.9 - HYPOTHYROIDISM, UNSPECIFIED Status: Chronic Qualifiers: Hypothyroidism type: unspecified Qualified Code(s): E03.9 - Hypothyroidism , unspecified (4) Normocytic anemia Code(s): D64.9 - ANEMIA, UNSPECIFIED Status: Chronic (5) Protein-calorie malnutrition, severe Code(s): E43 - UNSPECIFIED SEVERE PROTEIN-CALORIE MALNUTRITION Status: Chronic (6) Systemic lupus erythematosus Code(s): M32.9 - SYSTEMIC LUPUS ERYTHEMATOSUS, UNSPECIFIED Status: Chronic Qualifiers: Systemic lupus erythematosus type: unspecified Systemic lupus erythematosus organ involvement: unspecified Qualified Code(s): M32.9 - Systemic lupus erythematosus, unspecified - Plan she is on chronic steroids may consider giving her solucortef for her low bp. will continue abx for now. unable to get on tx for her lupus due to insurance reason. she is on steroids. chronic loredo, will try to remove before she leaves the hospital if it does not interfere with her wound. 10/12 s/p excision of skin and subcutaneous tissue, left ischial decubitus. will continue current tx. pain controlled. will await final cx. will continue steroids. bp low normal. 10/13 will check stool for leukocytes. she is on probiotic. will continue abx, so far cx is negative. 10/14 no more diarrhea, doing well. her cx are negative for now. will continue broad abx. will also keep loredo in for now. 10/15 will continue abx for now, will wait for final cx. picc line placed.
[2019-10-15] MEDS: cefTRIAXone\\ROCEPHIN 2 GM in Sodium Chloride 0.9% 100 ML IVPB SCH (17:07)
[2019-10-15] MEDS: HYDROcodone/Acetaminophen 7.5/325 mg Tablet PO PRN (21:14)
[2019-10-16] MEDS: Levothyroxine Sodium 50 MCG TAB PO SCH (05:40)
[2019-10-16 06:25] LABS: #Lymphocytes 1.3 thou/uL (1.20-3.40); #Monocytes 0.5 thou/uL (0.11-0.59); #Neutrophils 5.1 thou/uL (1.40-6.50); %Basophils 0.3 % (0.0-1.0); %Eosinophils 0.2 % (0.0-10.0); %Lymphocytes 18.4 % (21.0-51.0); %Monocytes 7.4 % (0.0-10.0); %Neutrophils 73.7 % (42.0-75.0); Hemoglobin 11.5 g/dL (12.0-16.0); Mean Corpuscular HGB CONC 33.3 g/dL (32.0-36.0); Mean Corpuscular Hemoglobin 29.6 pg (27.0-31.0); Mean Corpuscular Volume 88.9 fL (78.0-98.0); Mean Platelet Volume 9.4 fL (7.4-10.4); Platelet Count 171 thou/uL (130-400); RBC Distribution Width 14.2 % (11.5-14.5); White Blood Cell (WBC) Count 6.8 thou/uL (4.8-10.8)
[2019-10-16 06:43] LABS: Anion Gap 8 mmol/L (10-20); BUN (Urea Nitrogen) 17 mg/dL (7.0-18.7); Calc. Creatinine Clearance 142 mL/min (70-130); Calcium 8.8 mg/dL (7.8-10.44); Carbon Dioxide 25 mmol/L (22-29); Chloride 109 mmol/L (98-107); Estimated GFR-MDRD Greater than 90; Glucose 109 mg/dL (70-105); Potassium 4.6 mmol/L (3.5-5.1); Sodium 137 mmol/L (136-145)
[2019-10-16] MEDS: Saccharomyces boulardii 250 MG CAP PO SCH ×2 (08:37→20:14)
[2019-10-16] MEDS: Famotidine 20 MG TAB PO SCH ×2 (08:37→20:14)
[2019-10-16] MEDS: Ascorbic Acid 500 mg Chewable Tablet PO SCH (08:37)
[2019-10-16] MEDS: Enoxaparin Sodium 40 MG/0.4 ML SYRINGE SC SCH (08:37)
[2019-10-16] MEDS: metroNIDAZOLE 500 MG TAB PO SCH ×3 (08:38→20:14)
[2019-10-16] MEDS: predniSONE 20 MG TAB PO SCH ×2 (08:38→20:14)
[2019-10-16] MEDS: Potassium Chloride 20 MEQ TAB PO SCH ×2 (08:38→15:58)
[2019-10-16] MEDS: Megestrol Acetate 40 MG TAB PO SCH (08:38)
[2019-10-16] MEDS: HYDROcodone/Acetaminophen 7.5/325 mg Tablet PO PRN ×2 (09:35→20:14)
[2019-10-16 09:43] LABS: Vancomycin, Trough 16.4 ug/mL
--- NOTE | 2019-10-16 11:12 | SPC ---
Left upper extremity PICC placement sonographic guided HISTORY: Infection. Need for long-term antibiotics. Findings: After explaining the procedure and answering all questions, left upper extremity was preppe d and draped in usual sterile fashion. Sterile technique, buffered local anesthesia, sonographic guidance, and a 22-gauge needle were used to carefully access the left cephalic vein. Standard techni que was used to place the tip of a 5 [place] single lumen PICC so that the tip lies at the level of the right atrium. Catheter was flushed and secured externally. Patient tolerated the procedure well a nd was returned in unchanged condition. Fluoroscopy time 0.6 minutes. IMPRESSION: Left upper extremity PICC is ready for use
[2019-10-16] MEDS: Vancomycin HCl 1.75 GM in Sodium Chloride 0.9% 500 ML IVPB SCH ×2 (11:41→22:23)
--- NOTE | 2019-10-16 12:59 | PDOC.HOSPP ---
- Subjective Encounter Date: 10/16/19 Encounter Time: 10:30 Subjective: pt up in bed complains of pain to her left hip area. Per nursing she had 3 soft stool. - Objective Vital Signs & Weight: Vital Signs (12 hours) Temp Pulse Resp BP Pulse Ox 10/16/19 08:34 95 10/16/19 07:40 98.7 F 58 L 20 98/61 95 Weight Admit Weight 187 lb 6.287 oz Weight 187 lb 6.287 oz I&O: 10/15/19 10/16/19 10/17/19 06:59 06:59 06:59 Intake Total 3730 Output Total 2350 3950 Balance -2350 -220 Result Diagrams: 10/16/19 05:58 10/16/19 05:58 Hospitalist ROS - Review of Systems Cardiovascular: denies: chest pain, palpitations, orthopnea, paroxysmal noc. dyspnea, edema, light headedness, other Gastrointestinal: reports: diarrhea Genitourinary: denies: dysuria, frequency, incontinence, hematuria, retention, other Musculoskeletal: denies: neck pain, shoulder pain, arm pain, back pain, hand pain, leg pain, foot pain, other - Medication Medications: Active Medications Generic Name Dose Route Start Last Admin Trade Name Freq PRN Reason Stop Dose Admin Acetaminophen 1,000 mg 10/11/19 13:09 10/12/19 04:57 Tylenol PO 1,000 mg Q6H PRN Administration Moderate to Severe Pain (6-10) Hydrocodone Bitart/Acetaminophen 1 tab 10/09/19 20:24 10/16/19 09:35 [place] 7.5/325 PO 1 tab Q4H PRN Administration Moderate Pain (4-6) Ascorbic Acid 1,000 mg 10/10/19 09:00 10/16/19 08:37 Vitamin C PO 1,000 mg DAILY KENY Administration Enoxaparin Sodium 40 mg 10/10/19 09:00 10/16/19 08:37 Lovenox SC Not Given 09 KENY Famotidine 20 mg 10/09/19 21:00 10/16/19 08:37 Pepcid PO 20 mg BID KENY Administration Sodium Chloride 1,000 mls @ 50 mls/hr 10/09/19 21:00 10/15/19 17:08 Normal Saline 0.9% IV 1,000 mls .Q20H KENY Administration Ceftriaxone Sodium 2 gm/ 100 mls @ 200 mls/hr 10/10/19 18:00 10/15/19 17:07 Sodium Chloride IVPB 100 mls Q24HR KENY Administration Vancomycin HCl 1.75 gm/ Sodium 500 mls @ 250 mls/hr 10/14/19 22:00 10/16/19 11:41 Chloride IVPB 500 mls 1000,2200 KENY Administration Levothyroxine Sodium 50 mcg 10/10/19 06:00 10/16/19 05:40 Synthroid PO 50 mcg 0600 KENY Administration Megestrol Acetate 10 mg 10/11/19 09:00 10/16/19 08:38 Megace PO 10 mg DAILY KENY Administration Metronidazole 500 mg 10/10/19 21:00 10/16/19 08:38 Flagyl PO 500 mg TID KENY Administration Morphine Sulfate 2 mg 10/09/19 20:28 10/15/19 01:53 Morphine SLOW IVP 2 mg Q4H PRN Administration .BREAKTHROUGH PAIN Potassium Chloride 20 meq 10/10/19 08:00 10/16/19 08:38 K-Dur PO 20 meq BID-WM KENY Administration Prednisone 20 mg 10/10/19 21:00 10/16/19 08:38 Prednisone PO 20 mg BID KENY Administration Saccharomyces Boulardii 250 mg 10/10/19 21:00 10/16/19 08:37 Florastor PO 250 mg BID KENY Administration Tramadol HCl 50 mg 10/10/19 15:17 10/13/19 14:54 Ultram PO 50 mg Q4H PRN Administration Headache, Aches or Pain - Exam Neck: negative: supple, symmetric, no JVD, no thyromegaly, no lymphadenopathy, no carotid bruit, JVD Heart: negative: RRR, no murmur, no gallops, no rubs, normal peripheral pulses, irregular, diminshed peripheral pulses, murmur present, II/IV, III/IV Respiratory: negative: CTAB, no wheezes, no rales, no ronchi, normal chest expansion, no tachypnea, normal percussion, rales, rhonchi, tachypneic, wheezes Gastrointestinal: negative: soft, non-tender, non-distended, normal bowel sounds , no palpable masses, no hepatomegaly, no splenomegaly, no bruit, no guarding, no rigidity, tender to palpation, distended, diminished bowl sounds, voluntary guarding Extremities - other findings: left hip pain, no erythema noted. Hosp A/P (1) Osteomyelitis Code(s): M86.9 - OSTEOMYELITIS, UNSPECIFIED Status: Acute (2) Decubitus ulcer of coccygeal region, stage 4 Code(s): L89.154 - PRESSURE ULCER OF SACRAL REGION, STAGE 4 Status: Acute (3) Hypothyroidism Code(s): E03.9 - HYPOTHYROIDISM, UNSPECIFIED Status: Chronic Qualifiers: Hypothyroidism type: unspecified Qualified Code(s): E03.9 - Hypothyroidism , unspecified (4) Normocytic anemia Code(s): D64.9 - ANEMIA, UNSPECIFIED Status: Chronic (5) Protein-calorie malnutrition, severe Code(s): E43 - UNSPECIFIED SEVERE PROTEIN-CALORIE MALNUTRITION Status: Chronic (6) Systemic lupus erythematosus Code(s): M32.9 - SYSTEMIC LUPUS ERYTHEMATOSUS, UNSPECIFIED Status: Chronic Qualifiers: Systemic lupus erythematosus type: unspecified Systemic lupus erythematosus organ involvement: unspecified Qualified Code(s): M32.9 - Systemic lupus erythematosus, unspecified - Plan she is on chronic steroids may consider giving her solucortef for her low bp. will continue abx for now. unable to get on tx for her lupus due to insurance reason. she is on steroids. chronic loredo, will try to remove before she leaves the hospital if it does not interfere with her wound. 10/12 s/p excision of skin and subcutaneous tissue, left ischial decubitus. will continue current tx. pain controlled. will await final cx. will continue steroids. bp low normal. 10/13 will check stool for leukocytes. she is on probiotic. will continue abx, so far cx is negative. 10/14 no more diarrhea, doing well. her cx are negative for now. will continue broad abx. will also keep loredo in for now. 10/15 will continue abx for now, will wait for final cx. picc line placed. 10/16 pt got her picc line placed today. Her final cx MRSA and staph capitis. per ID's note she will need abx until end of oct.
[2019-10-16] MEDS ORDERED: Hydrocortisone Sod Succ/PF 100 mg/2 ml Vial IVP SCH (13:15)
[2019-10-16] MEDS: Sodium Chloride 0.9% 1,000 ML IV SCH (13:55)
[2019-10-16] MEDS: cefTRIAXone\\ROCEPHIN 2 GM in Sodium Chloride 0.9% 100 ML IVPB SCH (17:17)
[2019-10-17] MEDS: HYDROcodone/Acetaminophen 7.5/325 mg Tablet PO PRN (05:20)
[2019-10-17] MEDS: Levothyroxine Sodium 50 MCG TAB PO SCH (05:20)
[2019-10-17] MEDS: predniSONE 20 MG TAB PO SCH ×2 (09:08→21:11)
[2019-10-17] MEDS: Potassium Chloride 20 MEQ TAB PO SCH ×2 (09:08→17:56)
[2019-10-17] MEDS: Ascorbic Acid 500 mg Chewable Tablet PO SCH (09:08)
[2019-10-17] MEDS: Famotidine 20 MG TAB PO SCH ×2 (09:08→21:11)
[2019-10-17] MEDS: Saccharomyces boulardii 250 MG CAP PO SCH ×2 (09:08→21:11)
[2019-10-17] MEDS: Megestrol Acetate 40 MG TAB PO SCH (09:08)
[2019-10-17] MEDS: metroNIDAZOLE 500 MG TAB PO SCH ×3 (09:08→21:11)
[2019-10-17] MEDS: Enoxaparin Sodium 40 MG/0.4 ML SYRINGE SC SCH (09:10)
[2019-10-17] MEDS: Vancomycin HCl 1.75 GM in Sodium Chloride 0.9% 500 ML IVPB SCH ×2 (09:10→21:11)
[2019-10-17] MEDS: Sodium Chloride 0.9% 1,000 ML IV SCH (17:56)
[2019-10-17] MEDS: cefTRIAXone\\ROCEPHIN 2 GM in Sodium Chloride 0.9% 100 ML IVPB SCH (17:56)
--- NOTE | 2019-10-17 18:06 | PDOC.HOSPP ---
- Subjective Encounter Date: 10/17/19 Encounter Time: 11:13 Subjective: 39 y/o female, [place] resident with SLE, hypothyroidism, chronic decubitus ulcers admitted with worsening L ischial decubitus ulcers associated with features of osteomyelitis on MRI. Started on IV antibiotics. S/p debridement and wound vac placement. No new problem. - Objective Vital Signs & Weight: Vital Signs (12 hours) Temp Pulse Resp BP Pulse Ox 10/17/19 08:31 98.5 F 68 20 92/55 L 97 10/17/19 08:00 97 Weight Admit Weight 187 lb 6.287 oz Weight 187 lb 6.287 oz I&O: 10/16/19 10/17/19 10/18/19 06:59 06:59 06:59 Intake Total 3730 3790 Output Total 3950 3075 Balance -220 715 Result Diagrams: 10/16/19 05:58 10/16/19 05:58 Hospitalist ROS - Medication Medications: Active Medications Generic Name Dose Route Start Last Admin Trade Name Freq PRN Reason Stop Dose Admin Acetaminophen 1,000 mg 10/11/19 13:09 10/12/19 04:57 Tylenol PO 1,000 mg Q6H PRN Administration Moderate to Severe Pain (6-10) Hydrocodone Bitart/Acetaminophen 1 tab 10/09/19 20:24 10/17/19 05:20 [place] 7.5/325 PO 1 tab Q4H PRN Administration Moderate Pain (4-6) Ascorbic Acid 1,000 mg 10/10/19 09:00 10/17/19 09:08 Vitamin C PO 1,000 mg DAILY KENY Administration Enoxaparin Sodium 40 mg 10/10/19 09:00 10/17/19 09:10 Lovenox SC 40 mg 0900 KENY Administration Famotidine 20 mg 10/09/19 21:00 10/17/19 09:08 Pepcid PO 20 mg BID KENY Administration Sodium Chloride 1,000 mls @ 50 mls/hr 10/09/19 21:00 10/16/19 13:55 Normal Saline 0.9% IV 1,000 mls .Q20H KENY Administration Ceftriaxone Sodium 2 gm/ 100 mls @ 200 mls/hr 10/10/19 18:00 10/16/19 17:17 Sodium Chloride IVPB 100 mls Q24HR KENY Administration Vancomycin HCl 1.75 gm/ Sodium 500 mls @ 250 mls/hr 10/14/19 22:00 10/17/19 09:10 Chloride IVPB 500 mls 1000,2200 KENY Administration Levothyroxine Sodium 50 mcg 10/10/19 06:00 10/17/19 05:20 Synthroid PO 50 mcg 0600 KENY Administration Megestrol Acetate 10 mg 10/11/19 09:00 10/17/19 09:08 Megace PO 10 mg DAILY KEYN Administration Metronidazole 500 mg 10/10/19 21:00 10/17/19 15:17 Flagyl PO 500 mg TID KENY Administration Morphine Sulfate 2 mg 10/09/19 20:28 10/15/19 01:53 Morphine SLOW IVP 2 mg Q4H PRN Administration .BREAKTHROUGH PAIN Potassium Chloride 20 meq 10/10/19 08:00 10/17/19 09:08 K-Dur PO 20 meq BID-WM KENY Administration Prednisone 20 mg 10/10/19 21:00 10/17/19 09:08 Prednisone PO 20 mg BID KENY Administration Saccharomyces Boulardii 250 mg 10/10/19 21:00 10/17/19 09:08 Florastor PO 250 mg BID KENY Administration Tramadol HCl 50 mg 10/10/19 15:17 10/13/19 14:54 Ultram PO 50 mg Q4H PRN Administration Headache, Aches or Pain - Exam General Appearance: awake alert Eye: anicteric sclera ENT: normocephalic atraumatic Neck: supple, symmetric, no JVD Heart: RRR Respiratory: no wheezes, no rales, no ronchi, normal chest expansion Gastrointestinal: soft, non-tender, non-distended, normal bowel sounds Gastrointestinal - other findings: obess Extremities: no edema Extremities - other findings: Left lateral hip wound vac and dressing noted Neurological: cranial nerve grossly intact, no new deficit Psychiatric: A&O x 3 Hosp A/P (1) Osteomyelitis Code(s): M86.9 - OSTEOMYELITIS, UNSPECIFIED Status: Acute (2) Decubitus ulcer of coccygeal region, stage 4 Code(s): L89.154 - PRESSURE ULCER OF SACRAL REGION, STAGE 4 Status: Acute (3) Hypothyroidism Code(s): E03.9 - HYPOTHYROIDISM, UNSPECIFIED Status: Chronic Qualifiers: Hypothyroidism type: unspecified Qualified Code(s): E03.9 - Hypothyroidism , unspecified (4) Normocytic anemia Code(s): D64.9 - ANEMIA, UNSPECIFIED Status: Chronic (5) Systemic lupus erythematosus Code(s): M32.9 - SYSTEMIC LUPUS ERYTHEMATOSUS, UNSPECIFIED Status: Chronic Qualifiers: Systemic lupus erythematosus type: unspecified Systemic lupus erythematosus organ involvement: unspecified Qualified Code(s): M32.9 - Systemic lupus erythematosus, unspecified (6) Thrombocytopenia Code(s): D69.6 - THROMBOCYTOPENIA, UNSPECIFIED Status: Chronic - Plan Continue IV antibiotics. Wound care to continue. Continue other treatments awaiting arrangements for IV antibiotics.
[2019-10-17] MEDS ORDERED: diphenhydrAMINE 25 MG CAP PO PRN (23:23)
[2019-10-17] MEDS ORDERED: diphenhydrAMINE 50 MG/ML VIAL IVP SCH (23:30)
[2019-10-18] MEDS: Sodium Chloride 0.9% 1,000 ML IV SCH (01:00)
[2019-10-18] MEDS: Levothyroxine Sodium 50 MCG TAB PO SCH (05:13)
[2019-10-18] MEDS: HYDROcodone/Acetaminophen 7.5/325 mg Tablet PO PRN ×2 (05:15→09:24)
[2019-10-18 07:25] VITALS: BP 93/54; TEMP 98.5
[2019-10-18] MEDS: Enoxaparin Sodium 40 MG/0.4 ML SYRINGE SC SCH (09:14)
[2019-10-18] MEDS: metroNIDAZOLE 500 MG TAB PO SCH ×2 (09:15→16:36)
[2019-10-18] MEDS: Megestrol Acetate 40 MG TAB PO SCH (09:15)
[2019-10-18] MEDS: Potassium Chloride 20 MEQ TAB PO SCH ×2 (09:15→16:36)
[2019-10-18] MEDS: Ascorbic Acid 500 mg Chewable Tablet PO SCH (09:15)
[2019-10-18] MEDS: predniSONE 20 MG TAB PO SCH (09:15)
[2019-10-18] MEDS: Saccharomyces boulardii 250 MG CAP PO SCH (09:15)
[2019-10-18] MEDS: Famotidine 20 MG TAB PO SCH (09:16)
[2019-10-18] MEDS: Vancomycin HCl 1.75 GM in Sodium Chloride 0.9% 500 ML IVPB SCH (12:07)
--- NOTE | 2019-10-22 11:01 | DIS ---
DATE OF ADMISSION: 10/09/2019 DATE OF DISCHARGE: 10/18/2019 PRIMARY CARE PHYSICIAN: Noel Lopez MD DISCHARGE DIAGNOSES: 1. Left ischial bone osteomyelitis. 2. Decubitus ulcer of left gluteal lateral hip. 3. Physical deconditioning and gait instability. 4. Hypothyroidism. 5. Normocytic anemia. 6. Systemic lupus erythematosus. 7. Thrombocytopenia. CONSULTS: 1. Infectious Diseases. 2. General Surgery. HOSPITAL COURSE: A 39-year-old female, [facility] resident, with known history of systemic lupus erythematosus, physical deconditioning, and gait instability as well as hypothyroidism and chronic decubitus ulcers, admitted with worsening left ischial decubitus ulcer associated with features of osteomyelitis noticed on MRI of the hip. The patient was started on broad-spectrum antibiotics. General Surgery consult was obtained, and the patient subsequently had debridements of the left ischial decubitus ulcer with wound VAC placement. Surgical culture obtained grew MRSA as well as Staphylococcus capitis. Infectious Diseases consult was obtained, and antibiotics were adjusted appropriately. IV antibiotics for 6 weeks were recommended with end date of November 22. The patient has PICC line placement and was subsequently [facility] completion of antibiotics. PHYSICAL EXAMINATION: VITAL SIGNS: Temperature 98.5, pulse 64, respiratory rate 20, SpO2 of 100% on room air, blood pressure is 93/54. GENERAL: Female, in no obvious distress. Afebrile. Anicteric. Acyanotic. HEENT: Normocephalic and atraumatic. Oral mucosa is moist. CARDIOVASCULAR: Regular rhythm and rate with normal heart sounds 1 and 2. RESPIRATORY: Good air entry bilaterally with no obvious crackle or rhonchi or use of accessory muscles. GI: Obese, soft, nontender, and nondistended with normal bowel sounds. EXTREMITIES: Left ischial gluteal area wound VAC. Lower extremities otherwise are grossly normal and atraumatic with no edema or erythema. S[employer] DEVELOPER: Conscious, alert, and oriented x3 with appropriate mental status. Cranial nerves 2 through 12 are grossly intact. UROGENITAL: Aiken catheter is in place draining urine. DISCHARGE CONDITION: Improved. DISCHARGE DISPOSITION: correction. DISCHARGE INSTRUCTIONS: The patient is to get IV vancomycin b.i.d., till November 22, 2019. DISCHARGE MEDICATIONS: Usual home medications were restarted with the only addition of vancomycin every 12 hours, till November 22, 2019. The patient is to get CBC and CMP every week while on antibiotics. TIME SPENT: Discharge took more than 35 minutes. Job ID: [id number]
== END 2019-10-18 16:48 | DRG 628 ==
LOC: ERS 13:45 → T4-A 19:16
PROVIDERS: ADMIT Internal Medicine; ATTEND Internal Medicine
PROC: 0QB30ZZ Excision of Left Pelvic Bone, Open Approach (ICD-10-PCS; principal; 2019-10-09)
PROC: 02HV33Z Insertion of Infusion Device into Superior Vena Cava, Percutaneous Approach (ICD-10-PCS; 2019-10-16)
PROC: B518ZZA Fluoroscopy of Superior Vena Cava, Guidance (ICD-10-PCS; 2019-10-16)
PROC: B54NZZA Ultrasonography of Left Upper Extremity Veins, Guidance (ICD-10-PCS; 2019-10-16)
DX: E11.69 Type 2 diabetes mellitus with other specified complication (principal); L89.154 Pressure ulcer of sacral region, stage 4; E43 Unspecified severe protein-calorie malnutrition; M86.18 Other acute osteomyelitis, other site; L03.317 Cellulitis of buttock; F32.2 Major depressive disorder, single episode, severe without psychotic features; M32.9 Systemic lupus erythematosus, unspecified; E03.9 Hypothyroidism, unspecified; D64.9 Anemia, unspecified; B95.62 Methicillin resistant Staphylococcus aureus infection as the cause of diseases classified elsewhere; B95.7 Other staphylococcus as the cause of diseases classified elsewhere; D69.6 Thrombocytopenia, unspecified; Z90.710 Acquired absence of both cervix and uterus; Z79.890 Hormone replacement therapy; Z79.899 Other long term (current) drug therapy; Z79.52 Long term (current) use of systemic steroids; Z79.84 Long term (current) use of oral hypoglycemic drugs; Z68.32 Body mass index [BMI] 32.0-32.9, adult; E66.9 Obesity, unspecified
CPT/HCPCS: 36415; 36569; 72193; 80048; 80053; 80202; 82550; 83630; 83735; 84100; 85007; 85025; 85027; 85610; 85652; 86140; 87040; 87070; 87077; 87186; 87205; 87324; 87449; 96365; 96367; 96375; C1751; J0696; J1200; J1650; J1720; J2001; J2270; J2405; J2543; J2704; J3010; J3370; J3490; J7050; J7512; Q0163; Q9967; S0020; S0179

== ENCOUNTER 2019-12-13 16:32 | Inpatient (IN) | payer MEDICAID, SELFPAY ==
--- NOTE | 2019-12-13 17:15 | RAD ---
Chest one view HISTORY: Chest pain. Swelling. COMPARISON: 12/13/2019. Earlier exam on the same date. FINDINGS: Cardiac silhouette is magnified by projection. Shallow inspiration accentuates pulmonary ma rkings. Mediastinum is midline. No confluent airspace consolidation or evidence of pneumothorax. patient monitor leads overlie the chest. IMPRESSION: Stable radiographic appearance of the chest.
[2019-12-13] MEDS ORDERED: Acetaminophen 500 MG TAB ONE (19:01)
[2019-12-13] MEDS ORDERED: Acetaminophen 325 MG TAB PO PRN (20:10)
[2019-12-13] MEDS ORDERED: Ondansetron PF 4 MG/2 ML Vial IVP PRN (20:10)
[2019-12-13] MEDS ORDERED: Ondansetron ODT 4 MG TAB SL PRN (20:10)
[2019-12-13 20:43] VITALS: BMI 39.6
[2019-12-13] MEDS ORDERED: Bisacodyl 5 MG TAB PO PRN (21:20)
[2019-12-13 21:22] LABS: Hemoglobin 12.1 g/dL (12.0-16.0); Platelet Count 123 thou/uL (130-400)
[2019-12-13] MEDS: Heparin 10,000 UNITS/ 10 ML VIAL SLOW IVP SCH (21:53)
[2019-12-13] MEDS: Sodium Chloride 0.9% 1,000 ML IV SCH (21:54)
[2019-12-13] MEDS: Heparin 25,000 units/D5W 500 ML IVPB SCH (21:54)
[2019-12-13] MEDS: traMADol HCl 50 MG TAB PO PRN (21:54)
--- NOTE | 2019-12-13 22:02 | PDOC.HHP ---
Hospitalist HPI - History of Present Illness lower extremity swelling History of Present Illness: 39yo F w/ MHx of SLE and chronic decubitus ulceration (wound vac in place) was transfered from [facility] for PE. Patient was noticed to have swelling of both lower extremities in the past two days. Workup showed DVT in both lower extremity and one upper extremity, and right mainstem embolism, so she was transfered to the ED. Of note, patient reportedly has limited ambulation and mostly remains in bed , which is consistent with chronic ulceration. On encounter, lying comfortably in bed and playing with her phone. Has no complaints and denies cough, hemoptysis, dizziness, lightheadedness, shortness of breath, palpitations, chest pain, pleuritic pain, prior blood clots or being on blood thinners, hypercoagulability in family ED Course: In the ED, was started on fluids. Since receved lovenox in previous institution , not started on anticoagulation. Was admitted to IMCU for close observation Hospitalist ROS - Review of Systems Constitutional: denies: fever, chills, sweats, weakness, malaise, other Respiratory: denies: cough, dry, shortness of breath, hemoptysis, SOB with excertion, pleuritic pain, sputum, wheezing, other Cardiovascular: denies: chest pain, palpitations, orthopnea, paroxysmal noc. dyspnea, edema, light headedness, other Gastrointestinal: denies: nausea, vomiting, abdominal pain, diarrhea, constipation, melena, hematochezia, other Musculoskeletal: reports: leg pain. denies: neck pain, shoulder pain, arm pain , back pain Skin: reports: lesions. denies: rash, sadia, bruising Neurological: reports: weakness. denies: change in speech, confusion, seizures - Medication Medications: Active Medications Generic Name Dose Route Start Last Admin Trade Name Freq PRN Reason Stop Dose Admin Acetaminophen 650 mg 12/13/19 20:10 12/13/19 21:54 Tylenol PO 12/14/19 05:45 650 mg Q4H PRN Administration Headache/Fever or Pain Heparin Sodium (Porcine) 0 units 12/13/19 20:53 12/13/19 21:53 Heparin 1,000 Units/Ml (10 Ml) SLOW IVP 7,856 units ASDIR KENY Administration Protocol Heparin Sodium/Dextrose 500 mls @ 0 mls/hr 12/13/19 20:53 12/13/19 21:54 Heparin 25,000 Units/D5w 500 Ml IVPB 500 mls INF KENY Administration Protocol Per Protocol Sodium Chloride 1,000 mls @ 150 mls/hr 12/13/19 20:53 12/13/19 21:54 Normal Saline 0.9% IV 1,000 mls .Q6H40M KENY Administration Sodium Chloride 10 ml 12/13/19 21:00 12/13/19 21:54 Flush - Normal Saline IVF Not Given Q12HR KENY Tramadol HCl 50 mg 12/13/19 21:26 12/13/19 21:54 Ultram PO 50 mg Q6H PRN Administration Pain Hospitalist History - Past Medical History Source: patient (PAST MEDICAL HISTORY: SLE, hypothyroidism, chronic anemia, chronic gluteal ulcer. PAST SURGICAL HISTORY: Hysterectomy as well as thyroidectomy. HOME MEDICATIONS: Reviewed, see full MAR, include; 1. Artificial Tears. 2. Ascorbic acid. 3. Synthroid 4. Pepcid. 5. Potassium chloride b.i.d. 6. Prednisone 20 daily. FAMILY HISTORY: She admits to history of diabetes in the mother, but no coronary artery disease. SOCIAL HISTORY: The patient resides at the correction apparently at [place]. She denies any tobacco, alcohol, or illicit drug use.), family - Exam General Appearance: NAD, awake alert Eye: PERRL ENT: normocephalic atraumatic, no oropharyngeal lesions, moist mucosa Neck: no JVD, no thyromegaly, no lymphadenopathy Heart: no murmur, no gallops, no rubs Heart - other findings: regular rhythm, tachycardia ~ 150 bpm Respiratory: CTAB, no wheezes, no rales, no ronchi, normal chest expansion, no tachypnea Gastrointestinal: soft, non-tender, non-distended, normal bowel sounds, no palpable masses, no bruit Extremities: 2+ LE edema Extremities - other findings: b/l pitting LE edema Neurological: cranial nerve grossly intact, normal sensation to touch, no weakness Musculoskeletal - other findings: LE: strength 2/5 b/l Psychiatric: normal affect, A&O x 3 Hospitalist Results - Labs Result Diagrams: 12/13/19 21:06 Lab results: Hgb 12.1 g/dL (12.0-16.0) 12/13/19 21:06 Hct 35.2 % (36.0-47.0) L 12/13/19 21:06 Plt Count 123 thou/uL (130-400) L 12/13/19 21:06 - EKG Interpretation EKG: sinus tachycardia, no signs of right heart strain such as right axis deviation or right sided ischemia, no [id number] - Radiology Interpretation CT scan - chest Status: report reviewed by me Hospitalist H&P A/P - Problem (1) Pulmonary embolism on right Code(s): I26.99 - OTHER PULMONARY EMBOLISM WITHOUT ACUTE COR PULMONALE Status : Acute Assessment and Plan: -also has DVT in 3/4 extremities per report -per report, mostly immobile for months but has extensive clot burden and SLE -no right heart strain on EKG, HD stable however significantly tachcardic (150s ) during encounter while lying in bed -HASBLED score low risk; started on heparin GTT in case decompensates; checking antiphospholipid since will exchange consultant (warfarin likely for life) - (2) Decubitus ulcer of coccygeal region, stage 4 Code(s): L89.154 - PRESSURE ULCER OF SACRAL REGION, STAGE 4 Status: Acute Assessment and Plan: patient has chronic decubitus ulcers with wound vac in place (3) Systemic lupus erythematosus Code(s): M32.9 - SYSTEMIC LUPUS ERYTHEMATOSUS, UNSPECIFIED Status: Chronic Qualifiers: Systemic lupus erythematosus type: unspecified Systemic lupus erythematosus organ involvement: unspecified Qualified Code(s): M32.9 - Systemic lupus erythematosus, unspecified Assessment and Plan: -on prednisone 20mg PO qd at home (4) Hypothyroidism Code(s): E03.9 - HYPOTHYROIDISM, UNSPECIFIED Status: Chronic Qualifiers: Hypothyroidism type: unspecified Qualified Code(s): E03.9 - Hypothyroidism , unspecified Assessment and Plan: will continue home regimen - Plan Plan: -started heparin drip; IVF for preload support in context of right mainstem embolism -will repeat EKG for development of right heart strain; considering heavy thrombotic burden, if decompensates, may require thrombolysis, therefore preferred heparin drip over other solutions -antiphospholipid ordered; may require warfarin for life in case positive Full code (spoke with daughter and patient) GI PPx - no Ix DVT PPx - therapeutic treatment
[2019-12-14] MEDS: Sodium Chloride 0.9% 1,000 ML IV SCH ×4 (04:09→21:24)
[2019-12-14 04:28] LABS: PTT Greater than 250.0 SEC (22.9-36.1)
[2019-12-14 04:29] LABS: ALT (SGPT) 14 U/L (8-55); AST (SGOT) 9 U/L (5-34); Albumin 2.8 g/dL (3.5-5.0); Alkaline Phosphatase 64 U/L (40-110); Anion Gap 10 mmol/L (10-20); BUN (Urea Nitrogen) 14 mg/dL (7.0-18.7); Bilirubin, Total 0.5 mg/dL (0.2-1.2); Calc. Creatinine Clearance 171 mL/min (70-130); Calcium 8.3 mg/dL (7.8-10.44); Carbon Dioxide 27 mmol/L (22-29); Chloride 106 mmol/L (98-107); Estimated GFR-MDRD Greater than 90; Globulin 3.1 g/dL (2.4-3.5); Glucose 82 mg/dL (70-105); Potassium 3.6 mmol/L (3.5-5.1); Protein, Total 5.9 g/dL (6.0-8.3); Sodium 139 mmol/L (136-145)
[2019-12-14] MEDS: Levothyroxine Sodium 100 MCG TAB PO SCH (05:13)
[2019-12-14] MEDS: predniSONE 20 MG TAB PO SCH (09:56)
[2019-12-14] MEDS: traMADol HCl 50 MG TAB PO PRN ×2 (09:57→18:42)
[2019-12-14 09:59] LABS: PTT 48.6 SEC (22.9-36.1)
[2019-12-14] MEDS: Senokot S 8.6-50 MG TAB PO SCH ×2 (09:59→21:25)
[2019-12-14] MEDS: Heparin 10,000 UNITS/ 10 ML VIAL SLOW IVP SCH (11:34)
--- NOTE | 2019-12-14 13:54 | CON ---
DATE OF CONSULTATION: 12/14/2019 CONSULTING PHYSICIAN: Hospitalist Group. REASON FOR CONSULTATION: Pulmonary embolism. HISTORY OF PRESENT ILLNESS: This is a 39-year-old female, who [facility] in a [facility]. According to the history and physical, she was brought in yesterday with lower extremity swelling. She was found to have bilateral DVTs and a DVT in one of her upper extremities. She subsequently underwent a CT pulmonary angiogram, which demonstrated a right mainstem pulmonary embolism. Surprisingly, she is not short of breath and has had no hemoptysis. PAST MEDICAL HISTORY: 1. Systemic lupus erythematosus. 2. Hypothyroidism. 3. Anemia. 4. Chronic sacral decubitus ulcer. 5. No previous history of pulmonary embolism. PAST SURGICAL HISTORY: 1. Tubal ligation. 2. Hysterectomy. 3. Thyroid surgeries. SOCIAL HISTORY: Nonsmoker. Does not consume alcohol. MEDICATIONS: Prior to admission, none are confirmed. The list is reviewed and is present under the [facility] section on the chart. Current inpatient medications are also reviewed. Notably, she is on a heparin drip. She is also on prednisone 20 mg daily and Synthroid 100 mcg daily. REVIEW OF SYSTEMS: No fever, chills, nausea, vomiting, hematemesis, melena, hematochezia, hematuria, or dysuria. PHYSICAL EXAMINATION: VITAL SIGNS: Her temperature is 98.6, pulse 91, blood pressure 130/97, O2 saturation 100%. She is 5 feet 2 inches, weighs 216 pounds. HEENT: Unremarkable. NECK: No adenopathy or JVD. LUNGS: Clear to auscultation. No wheezing or rhonchi. CARDIOVASCULAR: S1 and S2, regular without audible murmur. ABDOMEN: Soft, nontender to palpation. EXTREMITIES: No clubbing or cyanosis. She has dependent edema in both lower extremities. LABORATORY DATA: PTT is currently greater than 250. Hematocrit 35.3, platelet count 123. Sodium 139, potassium 3.6, chloride 106, CO2 of 27, BUN 14, creatinine 0.6, glucose 82, albumin 2.8. ASSESSMENT: 1. Deep venous thrombosis. 2. Pulmonary embolism. 3. Systemic lupus erythematosus. PLAN: For the time being, she is on a heparin drip. I think it is entirely reasonable to switch her over to Lovenox, Xarelto, or Eliquis at the hospitalist's discretion. Apparently, a hypercoagulable panel was drawn this morning, but I am not sure how accurate that will be with the patient currently on a heparin drip. Given her underlying lupus, I think serious consideration needs to be made for lifelong anticoagulation. The patient has seen Dr. Brenner in the past. I will notify him of her admission. Job ID: [id number]
[2019-12-14 15:41] LABS: PTT 179.4 SEC (22.9-36.1)
--- NOTE | 2019-12-14 19:15 | PDOC.HOSPP ---
- Subjective Encounter Date: 12/14/19 Encounter Time: 11:00 Subjective: Pt seen for followup re: pulmonary embolism. Feels better today. No chest pain. - Objective Vital Signs & Weight: Vital Signs (12 hours) Temp Pulse Resp BP Pulse Ox 12/14/19 16:49 100.7 F H 128 H 18 117/76 94 L 12/14/19 12:00 100.0 F H 12/14/19 08:00 100 Weight Admit Weight 216 lb 7.903 oz Weight 216 lb 7.903 oz Most Recent Monitor Data Heart Rate from ECG 119 NIBP 126/85 NIBP BP-Mean 98 Respiration from ECG 19 SpO2 93 I&O: 12/13/19 12/14/19 12/15/19 06:59 06:59 06:59 Intake Total 2417 1310.92 Output Total 1205 1980 Balance 1212 -669.08 Result Diagrams: 12/13/19 21:06 12/14/19 03:53 Additional Labs: Accuchecks 12/13/19 23:14 POC Glucose 118 H EKG Reviewed by me: Yes (Tele: sinus tachycardia) Hospitalist ROS - Review of Systems Constitutional: denies: fever, chills, sweats, weakness, malaise Respiratory: denies: cough, shortness of breath, SOB with excertion, pleuritic pain, wheezing Cardiovascular: denies: chest pain, palpitations, orthopnea, paroxysmal noc. dyspnea, edema, light headedness Gastrointestinal: denies: nausea, vomiting, abdominal pain, diarrhea, constipation, melena, hematochezia Genitourinary: denies: dysuria, frequency, incontinence, hematuria, retention - Medication Medications: Active Medications Generic Name Dose Route Start Last Admin Trade Name Freq PRN Reason Stop Dose Admin Heparin Sodium (Porcine) 0 units 12/13/19 20:53 12/14/19 11:34 Heparin 1,000 Units/Ml (10 Ml) SLOW IVP 3,928 units ASDIR KENY Administration Protocol Heparin Sodium/Dextrose 500 mls @ 0 mls/hr 12/13/19 20:53 12/13/19 21:54 Heparin 25,000 Units/D5w 500 Ml IVPB 500 mls INF KENY Administration Protocol Per Protocol Sodium Chloride 1,000 mls @ 150 mls/hr 12/13/19 20:53 12/14/19 12:38 Normal Saline 0.9% IV 1,000 mls .Q6H40M KENY Administration Levothyroxine Sodium 100 mcg 12/14/19 06:00 12/14/19 05:13 Synthroid PO 100 mcg 0600 KENY Administration Prednisone 20 mg 12/14/19 08:00 12/14/19 09:56 Prednisone PO 20 mg QAM-WM EKNY Administration Senna/Docusate Sodium 1 tab 12/14/19 09:00 12/14/19 09:59 Senokot S PO 1 tab BID KENY Administration Sodium Chloride 10 ml 12/13/19 21:00 12/14/19 10:01 Flush - Normal Saline IVF Not Given Q12HR KENY Tramadol HCl 50 mg 12/13/19 21:26 12/14/19 18:42 Ultram PO 50 mg Q6H PRN Administration Pain - Exam General - other findings: Obese Eye: anicteric sclera ENT: moist mucosa Neck: supple, symmetric, no thyromegaly, no lymphadenopathy Heart: no gallops, no rubs, normal peripheral pulses Heart - other findings: S1, S2, tachy, regular Respiratory: CTAB, no wheezes, no rales, no ronchi Gastrointestinal: soft, non-tender, non-distended, normal bowel sounds Skin - other findings: sacral wound/wound vac Psychiatric: normal affect, normal behavior Hosp A/P - Plan - Assessment/Plan: (1) Pulmonary embolism on right Code(s): I26.99 - OTHER PULMONARY EMBOLISM WITHOUT ACUTE COR PULMONALE Status : Acute -currently on heparin drip. (2) Decubitus ulcer of coccygeal region, stage 4 Code(s): L89.154 - PRESSURE ULCER OF SACRAL REGION, STAGE 4 Status: Chronic -Continue wound vac (3) Systemic lupus erythematosus Code(s): M32.9 - SYSTEMIC LUPUS ERYTHEMATOSUS, UNSPECIFIED Status: Chronic Qualifiers: Systemic lupus erythematosus type: unspecified Systemic lupus erythematosus organ involvement: unspecified Qualified Code(s): M32.9 - Systemic lupus erythematosus, unspecified -continue prednisone (4) Hypothyroidism Code(s): E03.9 - HYPOTHYROIDISM, UNSPECIFIED Status: Chronic Qualifiers: Hypothyroidism type: unspecified Qualified Code(s): E03.9 - Hypothyroidism , unspecified -continue synthroid
[2019-12-14] MEDS ORDERED: FLU VACC QS2019-20(6MOS UP)/PF 60 MCG/0.5 ML SYRINGE IM ONE (21:00)
[2019-12-14] MEDS: Heparin 25,000 units/D5W 500 ML IVPB SCH (21:24)
[2019-12-15 01:04] LABS: PTT 158.3 SEC (22.9-36.1)
[2019-12-15] MEDS: traMADol HCl 50 MG TAB PO PRN ×2 (02:22→08:44)
[2019-12-15] MEDS: Levothyroxine Sodium 100 MCG TAB PO SCH (02:22)
[2019-12-15 04:58] LABS: ALT (SGPT) 14 U/L (8-55); AST (SGOT) 11 U/L (5-34); Albumin 2.7 g/dL (3.5-5.0); Alkaline Phosphatase 59 U/L (40-110); Anion Gap 10 mmol/L (10-20); BUN (Urea Nitrogen) 12 mg/dL (7.0-18.7); Bilirubin, Total 0.3 mg/dL (0.2-1.2); Calc. Creatinine Clearance 195 mL/min (70-130); Calcium 8.3 mg/dL (7.8-10.44); Carbon Dioxide 26 mmol/L (22-29); Chloride 105 mmol/L (98-107); Estimated GFR-MDRD Greater than 90; Globulin 3.4 g/dL (2.4-3.5); Glucose 88 mg/dL (70-105); Potassium 3.9 mmol/L (3.5-5.1); Protein, Total 6.1 g/dL (6.0-8.3); Sodium 137 mmol/L (136-145)
[2019-12-15] MEDS: predniSONE 20 MG TAB PO SCH (08:44)
[2019-12-15] MEDS: Senokot S 8.6-50 MG TAB PO SCH ×2 (08:44→22:29)
[2019-12-15] MEDS: Sodium Chloride 0.9% 1,000 ML IV SCH ×3 (08:45→22:30)
--- NOTE | 2019-12-15 11:24 | PDOC.HOSPP ---
- Subjective Encounter Date: 12/15/19 Encounter Time: 11:22 Subjective: Ms. Byrd was seen today in follow-up of Pulmonary embolus. She does not have any complaints this AM. She continues to have some dyspnea and soreness in both legs. She tells me she does not walk even at home> she currently lives in a [facility]. - Objective Vital Signs & Weight: Vital Signs (12 hours) Temp Pulse Resp BP Pulse Ox 12/15/19 08:20 98.8 F 98 16 124/74 99 12/15/19 04:05 98.7 F 90 18 129/60 94 L Weight Admit Weight 216 lb 7.903 oz Weight 216 lb 7.903 oz Most Recent Monitor Data Heart Rate from ECG 119 NIBP 126/85 NIBP BP-Mean 98 Respiration from ECG 19 SpO2 93 I&O: 12/14/19 12/15/19 12/16/19 06:59 06:59 06:59 Intake Total 2417 1310.92 Output Total 1205 1980 Balance 1212 -669.08 Result Diagrams: 12/13/19 21:06 12/15/19 03:57 Hospitalist ROS - Medication Medications: Active Medications Generic Name Dose Route Start Last Admin Trade Name Freq PRN Reason Stop Dose Admin Heparin Sodium (Porcine) 0 units 12/13/19 20:53 12/14/19 11:34 Heparin 1,000 Units/Ml (10 Ml) SLOW IVP 3,928 units ASDIR KENY Administration Protocol Heparin Sodium/Dextrose 500 mls @ 0 mls/hr 12/13/19 20:53 12/14/19 21:24 Heparin 25,000 Units/D5w 500 Ml IVPB 500 mls INF KENY Administration Protocol Per Protocol Sodium Chloride 1,000 mls @ 150 mls/hr 12/13/19 20:53 12/15/19 08:45 Normal Saline 0.9% IV 1,000 mls .Q6H40M KENY Administration Levothyroxine Sodium 100 mcg 12/14/19 06:00 12/15/19 02:22 Synthroid PO 100 mcg 0600 KENY Administration Prednisone 20 mg 12/14/19 08:00 12/15/19 08:44 Prednisone PO 20 mg QAM-WM KENY Administration Senna/Docusate Sodium 1 tab 12/14/19 09:00 12/15/19 08:44 Senokot S PO 1 tab BID KENY Administration Sodium Chloride 10 ml 12/13/19 21:00 12/15/19 08:46 Flush - Normal Saline IVF Not Given Q12HR KENY Tramadol HCl 50 mg 12/13/19 21:26 12/15/19 08:44 Ultram PO 50 mg Q6H PRN Administration Pain - Exam Eye: PERRL, anicteric sclera Heart: RRR (tachycardic), no gallops, no rubs, normal peripheral pulses Respiratory: CTAB (+ mild crackles at the bases) Gastrointestinal: soft, non-tender, non-distended, normal bowel sounds, no palpable masses, no hepatomegaly Extremities: 2+ LE edema (in both lower extremities, and the right upper extremity + bruising in both lower extremities) Hosp A/P (1) Deep vein thrombosis of bilateral lower extremities Code(s): I82.403 - ACUTE EMBOLISM AND THOMBOS UNSP DEEP VEINS OF LOW EXTRM, BI Status: Acute (2) Pulmonary embolism on right Code(s): I26.99 - OTHER PULMONARY EMBOLISM WITHOUT ACUTE COR PULMONALE Status : Acute (3) Hypothyroidism Code(s): E03.9 - HYPOTHYROIDISM, UNSPECIFIED Status: Chronic Qualifiers: Hypothyroidism type: unspecified Qualified Code(s): E03.9 - Hypothyroidism , unspecified (4) Systemic lupus erythematosus Code(s): M32.9 - SYSTEMIC LUPUS ERYTHEMATOSUS, UNSPECIFIED Status: Chronic Qualifiers: Systemic lupus erythematosus type: unspecified Systemic lupus erythematosus organ involvement: unspecified Qualified Code(s): M32.9 - Systemic lupus erythematosus, unspecified (5) Acute respiratory failure with hypoxia Code(s): J96.01 - ACUTE RESPIRATORY FAILURE WITH HYPOXIA Status: Acute (6) Morbid obesity Code(s): E66.01 - MORBID (SEVERE) OBESITY DUE TO EXCESS CALORIES Status: Acute (7) Decubitus ulcer of coccygeal region, stage 4 Code(s): L89.154 - PRESSURE ULCER OF SACRAL REGION, STAGE 4 Status: Acute - Plan * Pulmonary Embolus- continue the Heparin drip, and will need to start an oral agent- Likely Eliquis or other Doac for ease of administration. She is currently residing in a correction * SLE- will chekc C3 C4, and CARLOS- unclear if this is being managed by a [facility] * Monitor her H&H while on anticoagulation * Continue local wound care * Hypothyroidism- check TSH and free T4 * Agree with PT as tolerated
[2019-12-15 12:24] LABS: #Monocytes 0.3 thou/uL (0.11-0.59); %Basophils 0.2 % (0.0-1.0); %Eosinophils 0.5 % (0.0-10.0); %Lymphocytes 13.2 % (21.0-51.0); %Monocytes 3.8 % (0.0-10.0); %Neutrophils 82.2 % (42.0-75.0); Hemoglobin 11.6 g/dL (12.0-16.0); Mean Corpuscular HGB CONC 32.9 g/dL (32.0-36.0); Mean Corpuscular Hemoglobin 30.2 pg (27.0-31.0); Mean Corpuscular Volume 91.8 fL (78.0-98.0); Mean Platelet Volume 8.9 fL (7.4-10.4); Platelet Count 136 thou/uL (130-400); RBC Distribution Width 14.2 % (11.5-14.5); Red Blood Cell (RBC) Count 3.85 mill/uL (4.20-5.40); White Blood Cell (WBC) Count 7.4 thou/uL (4.8-10.8)
[2019-12-15 12:54] LABS: Complement-C4 13.3 mg/dL (15-57)
[2019-12-15] MEDS: cefTRIAXone\\ROCEPHIN 1 GM in Sodium Chloride 0.9% 100 ML IVPB SCH (12:54)
[2019-12-15 13:13] LABS: Free T4 (Free Thyroxine) 1.05 ng/dL (0.70-1.48); Thyroid Stimulating Hormone 0.3515 uIU/mL (0.35-4.94)
--- NOTE | 2019-12-15 15:15 | PRG ---
DATE OF SERVICE: 12/15/2019 SUBJECTIVE: The patient is doing well. Has no complaints about chest pain or shortness of breath. OBJECTIVE: VITAL SIGNS: Her temperature is 98.5, pulse 112, respirations 16, O2 saturation 98% on 2 L, blood pressure 117/65. GENERAL: She is an obese female, in no acute distress. HEENT: Exam is unremarkable. NECK: No adenopathy or JVD. CHEST: Clear. CARDIAC: S1, S2. Regular. ABDOMEN: Soft. EXTREMITIES: No edema. LABORATORY DATA: Hematocrit 35.3, platelet count 136. PTT 93.7. Sodium 137, potassium 3.9, BUN 12, creatinine 0.6, glucose 88. ASSESSMENT: 1. Deep venous thrombosis. 2. Pulmonary embolism. 3. Systemic lupus erythematosus. PLAN: This patient can be cycled over to an oral anticoagulant at any time. In my opinion, she needs to be on anticoagulation lifelong given concurrent diagnosis of lupus. No further recommendations at this time. Job ID: [id number]
[2019-12-15 18:11] LABS: Cardiolipin IgA Ab Greater than 181.0 APL-U/mL (<14 Negative); Cardiolipin IgG Ab 0.9 GPL-U/mL (<10 Negative); Cardiolipin IgM Ab 2.7 MPL-U/mL (<10 Negative); EliA APS New Method **** NEW METHOD ****
[2019-12-15 19:57] LABS: ANA Symphony (Qualitative) POSITIVE (Negative); ANA Symphony (Quantitative) Greater than 32.0 Ratio (< 0.7 Negative); CENP IgG Antibody Less than 0.4 EliAU/mL (<7 Negative); Jo-1 IgG Antibody Less than 0.3 EliAU/mL (<7 Negative); SSA/Ro IgG Antibody Greater than 240.0 EliAU/mL (<7 Negative); Scleroderma-70 IgG Antibody Less than 0.6 EliAU/mL (<7 Negative); Smith D IgG Antibody Less than 0.8 EliAU/mL (<7 Negative)
[2019-12-15] MEDS: Heparin 10,000 UNITS/ 10 ML VIAL SLOW IVP SCH (19:57)
[2019-12-15] MEDS: Heparin 25,000 units/D5W 500 ML IVPB SCH (19:58)
[2019-12-15 20:38] LABS: Platelet Count 140 thou/uL (130-400)
[2019-12-16] MEDS: traMADol HCl 50 MG TAB PO PRN ×2 (01:15→08:39)
[2019-12-16 02:25] LABS: PTT 142.6 SEC (22.9-36.1)
[2019-12-16 02:37] LABS: ALT (SGPT) 14 U/L (8-55); AST (SGOT) 9 U/L (5-34); Albumin 2.6 g/dL (3.5-5.0); Alkaline Phosphatase 70 U/L (40-110); Anion Gap 11 mmol/L (10-20); BUN (Urea Nitrogen) 12 mg/dL (7.0-18.7); Bilirubin, Total 0.3 mg/dL (0.2-1.2); Calc. Creatinine Clearance 174 mL/min (70-130); Calcium 7.8 mg/dL (7.8-10.44); Carbon Dioxide 26 mmol/L (22-29); Chloride 105 mmol/L (98-107); Estimated GFR-MDRD Greater than 90; Globulin 3.3 g/dL (2.4-3.5); Glucose 107 mg/dL (70-105); Potassium 3.7 mmol/L (3.5-5.1); Protein, Total 5.9 g/dL (6.0-8.3); Sodium 138 mmol/L (136-145)
[2019-12-16] MEDS: Sodium Chloride 0.9% 1,000 ML IV SCH (05:14)
[2019-12-16] MEDS: Levothyroxine Sodium 100 MCG TAB PO SCH (05:16)
[2019-12-16] MEDS ORDERED: Simethicone Chewable 80 MG TAB PO PRN (07:40)
[2019-12-16] MEDS: Apixaban 5 MG TAB PO SCH ×2 (08:38→21:34)
[2019-12-16] MEDS: Ascorbic Acid 500 mg Chewable Tablet PO SCH (08:38)
[2019-12-16] MEDS: Senokot S 8.6-50 MG TAB PO SCH ×2 (08:39→21:50)
[2019-12-16] MEDS: predniSONE 20 MG TAB PO SCH (08:40)
[2019-12-16] MEDS ORDERED: Non-Formulary Item 1 EACH (Levothyroxine Sodium [Levothyroxine Sodium] 137 MCG) PO SCH (09:00)
[2019-12-16 11:11] LABS: Protein C Activity 126 % (78-152)
[2019-12-16] MEDS: cefTRIAXone\\ROCEPHIN 1 GM in Sodium Chloride 0.9% 100 ML IVPB SCH (12:18)
--- NOTE | 2019-12-16 12:35 | PDOC.HOSPP ---
- Subjective Encounter Date: 12/16/19 Encounter Time: 12:35 Subjective: Ms. Byrd was seen today in follow-up of PE and DVT. she says she is breathing better. She denies any chest pain. - Objective Vital Signs & Weight: Vital Signs (12 hours) Temp Pulse Resp BP Pulse Ox 12/16/19 08:00 99.7 F H 127 H 22 H 102/59 L 95 12/16/19 04:00 98.6 F 121 H 16 107/73 99 Weight Admit Weight 216 lb 7.903 oz Weight 216 lb 7.903 oz Most Recent Monitor Data Heart Rate from ECG 119 NIBP 126/85 NIBP BP-Mean 98 Respiration from ECG 19 SpO2 93 I&O: 12/15/19 12/16/19 12/17/19 06:59 06:59 06:59 Intake Total 1310.92 4920 Output Total 3403 6975 Balance -448.53 -6544 Result Diagrams: 12/15/19 20:30 12/16/19 02:05 Hospitalist ROS - Medication Medications: Active Medications Generic Name Dose Route Start Last Admin Trade Name Freq PRN Reason Stop Dose Admin Apixaban 10 mg 12/16/19 09:00 12/16/19 08:38 Eliquis PO 10 mg BID KENY Administration Ascorbic Acid 1,000 mg 12/16/19 09:00 12/16/19 08:38 Vitamin C PO 1,000 mg DAILY KENY Administration Ceftriaxone Sodium 1 gm/ 100 mls @ 200 mls/hr 12/15/19 11:30 12/16/19 12:18 Sodium Chloride IVPB 100 mls Q24HR KENY Administration Prednisone 20 mg 12/14/19 08:00 12/16/19 08:40 Prednisone PO 20 mg QAM-WM KENY Administration Senna/Docusate Sodium 1 tab 12/14/19 09:00 12/16/19 08:39 Senokot S PO 1 tab BID KENY Administration Sodium Chloride 10 ml 12/13/19 21:00 12/16/19 08:42 Flush - Normal Saline IVF 10 ml Q12HR KENY Administration Tramadol HCl 50 mg 12/13/19 21:26 12/16/19 08:39 Ultram PO 50 mg Q6H PRN Administration Pain - Exam Eye: PERRL Heart: RRR (Tachycardic) Respiratory: CTAB, no wheezes, no rales, no ronchi, normal chest expansion, no tachypnea, normal percussion Gastrointestinal: soft, non-tender, non-distended, normal bowel sounds, no palpable masses, no hepatomegaly Extremities: no cyanosis, 2+ LE edema (Bilateral lower extremity edema, and bruising in both calves, no warmth) Hosp A/P (1) Deep vein thrombosis of bilateral lower extremities Code(s): I82.403 - ACUTE EMBOLISM AND THOMBOS UNSP DEEP VEINS OF LOW EXTRM, BI Status: Acute (2) Pulmonary embolism on right Code(s): I26.99 - OTHER PULMONARY EMBOLISM WITHOUT ACUTE COR PULMONALE Status : Acute (3) Hypothyroidism Code(s): E03.9 - HYPOTHYROIDISM, UNSPECIFIED Status: Chronic Qualifiers: Hypothyroidism type: unspecified Qualified Code(s): E03.9 - Hypothyroidism , unspecified (4) Systemic lupus erythematosus Code(s): M32.9 - SYSTEMIC LUPUS ERYTHEMATOSUS, UNSPECIFIED Status: Chronic Qualifiers: Systemic lupus erythematosus type: unspecified Systemic lupus erythematosus organ involvement: unspecified Qualified Code(s): M32.9 - Systemic lupus erythematosus, unspecified (5) Acute respiratory failure with hypoxia Code(s): J96.01 - ACUTE RESPIRATORY FAILURE WITH HYPOXIA Status: Acute (6) Morbid obesity Code(s): E66.01 - MORBID (SEVERE) OBESITY DUE TO EXCESS CALORIES Status: Acute (7) Decubitus ulcer of coccygeal region, stage 4 Code(s): L89.154 - PRESSURE ULCER OF SACRAL REGION, STAGE 4 Status: Acute - Plan * Pulmonary Embolus- will transition her to [facility]. She is currently residing in a Nursing Facility ( [facility] ). It appears for an undefined period. She apparently does not have a place to stay once she is discharged from the skilled facility. This will impact what medications she can take. It is unclear her residency status- will consult Case Management to see what assistance she may be eligible for. * SLE- it appears active, with the low complement level. She also is positive for Antiphospholipid Antibody. Agree she will need life-long anticoagulation. This was explained to the patient * Monitor her H&H while on anticoagulation * Continue local wound care * Hypothyroidism- clinically stable * Continue to monitor in the hospital a few more days to assess for clinical stability
--- NOTE | 2019-12-16 16:07 | PRG ---
DATE OF SERVICE: 12/16/2019 SERVICE: Pulmonary Medicine. INTERVAL HISTORY: The patient indicates she is breathing comfortably. No complaints of chest discomfort, fevers, or chills. She has no nausea or vomiting. There were no overnight events. Otherwise, she remains in her usual state of health and has no specific complaints. PHYSICAL EXAMINATION: VITAL SIGNS: Afebrile currently with a T-max of 99.7, pulse 127, blood pressure 102/59, respirations 22, saturation 95% on 1 L nasal cannula. HEENT: Normocephalic and atraumatic. Sclerae white. Conjunctivae pink. Oral and nasal mucosa are moist and without lesions. LUNGS: Decent air entry with no prolonged expiratory phase or wheezing. HEART: Tachycardic. Regular. ABDOMEN: Soft, nontender, and nondistended. Bowel sounds are positive. MUSCULOSKELETAL: No cyanosis or clubbing. There is trace 1+ pitting in the bilateral lower extremities. ASSESSMENT: 1. Acute hypoxic respiratory failure. 2. Acute pulmonary embolism. 3. Deep venous thrombosis, bilateral. 4. Antiphospholipid antibody syndrome. DISCUSSION AND PLAN: The patient will require anticoagulation for life. At this point, she has no further requirements for inpatient Pulmonary or Critical Care opinion, and I will sign off. There was not significant right ventricular heart strain based on CT criteria, and her troponin and BNP were unremarkable. As such, from purely respiratory standpoint, the patient is stable for transition out of the hospital. Please call with additional questions or concerns through time. Job ID: [id number] MTDD
[2019-12-17 04:34] LABS: Hemoglobin 11.6 g/dL (12.0-16.0); Platelet Count 140 thou/uL (130-400)
[2019-12-17 04:59] LABS: ALT (SGPT) 16 U/L (8-55); AST (SGOT) 11 U/L (5-34); Albumin 3.1 g/dL (3.5-5.0); Alkaline Phosphatase 73 U/L (40-110); Anion Gap 10 mmol/L (10-20); BUN (Urea Nitrogen) 13 mg/dL (7.0-18.7); Bilirubin, Total 0.3 mg/dL (0.2-1.2); Calc. Creatinine Clearance 177 mL/min (70-130); Calcium 8.9 mg/dL (7.8-10.44); Carbon Dioxide 27 mmol/L (22-29); Chloride 104 mmol/L (98-107); Estimated GFR-MDRD Greater than 90; Globulin 3.8 g/dL (2.4-3.5); Glucose 83 mg/dL (70-105); Potassium 3.5 mmol/L (3.5-5.1); Protein, Total 6.9 g/dL (6.0-8.3); Sodium 137 mmol/L (136-145)
[2019-12-17] MEDS ORDERED: Levothyroxine Sodium 112 MCG TAB PO SCH (06:00)
[2019-12-17] MEDS ORDERED: Levothyroxine Sodium 25 MCG TAB PO SCH (06:00)
[2019-12-17] MEDS: predniSONE 20 MG TAB PO SCH (09:36)
[2019-12-17] MEDS: Apixaban 5 MG TAB PO SCH (09:36)
[2019-12-17] MEDS: Ascorbic Acid 500 mg Chewable Tablet PO SCH (09:36)
[2019-12-17] MEDS: Senokot S 8.6-50 MG TAB PO SCH (09:37)
--- NOTE | 2019-12-17 10:28 | PDOC.HOSPP ---
- Subjective Encounter Date: 12/17/19 Encounter Time: 10:24 Subjective: Ms. Byrd was seen today in follow-up of PE and DVT's. She is feeling better. No new complaints. - Objective Vital Signs & Weight: Vital Signs (12 hours) Temp Pulse Resp BP Pulse Ox 12/17/19 09:08 96 12/17/19 08:00 97.7 F 102 H 16 118/70 96 12/17/19 07:44 98 12/17/19 04:00 97.7 F 98 20 112/61 96 Weight Admit Weight 216 lb 7.903 oz Weight 215 lb 11.2 oz Most Recent Monitor Data Heart Rate from ECG 119 NIBP 126/85 NIBP BP-Mean 98 Respiration from ECG 19 SpO2 93 I&O: 12/16/19 12/17/19 12/18/19 06:59 06:59 06:59 Intake Total 4920 1680 Output Total 6975 4100 Balance -7442 -8117 Result Diagrams: 12/17/19 04:16 12/17/19 04:16 Hospitalist ROS - Medication Medications: Active Medications Generic Name Dose Route Start Last Admin Trade Name Freq PRN Reason Stop Dose Admin Apixaban 10 mg 12/16/19 09:00 12/17/19 09:36 Eliquis PO 10 mg BID KENY Administration Ascorbic Acid 1,000 mg 12/16/19 09:00 12/17/19 09:36 Vitamin C PO 1,000 mg DAILY KENY Administration Ceftriaxone Sodium 1 gm/ 100 mls @ 200 mls/hr 12/15/19 11:30 12/16/19 12:18 Sodium Chloride IVPB 100 mls Q24HR KENY Administration Levothyroxine Sodium 112 mcg 12/17/19 06:00 12/17/19 05:35 Synthroid PO 112 mcg 0600 KENY Administration Levothyroxine Sodium 25 mcg 12/17/19 06:00 12/17/19 05:35 Synthroid PO 25 mcg 0600 KENY Administration Prednisone 20 mg 12/14/19 08:00 12/17/19 09:36 Prednisone PO 20 mg QAM-WM KENY Administration Senna/Docusate Sodium 1 tab 12/14/19 09:00 12/17/19 09:37 Senokot S PO 1 tab BID KENY Administration Sodium Chloride 10 ml 12/13/19 21:00 12/17/19 09:38 Flush - Normal Saline IVF 10 ml Q12HR KENY Administration Tramadol HCl 50 mg 12/13/19 21:26 12/16/19 08:39 Ultram PO 50 mg Q6H PRN Administration Pain - Exam Eye: PERRL Heart: RRR (mildly tachycardic, but regular), no murmur, no gallops, no rubs, normal peripheral pulses Respiratory: CTAB, no wheezes, no rales, no ronchi, normal chest expansion, no tachypnea, normal percussion Gastrointestinal: soft, non-tender, non-distended, normal bowel sounds, no palpable masses, no hepatomegaly, no splenomegaly Extremities: no cyanosis, 2+ LE edema (bilateral lower extremity edema, and some mild bruising) Hosp A/P (1) Deep vein thrombosis of bilateral lower extremities Code(s): I82.403 - ACUTE EMBOLISM AND THOMBOS UNSP DEEP VEINS OF LOW EXTRM, BI Status: Acute (2) Pulmonary embolism on right Code(s): I26.99 - OTHER PULMONARY EMBOLISM WITHOUT ACUTE COR PULMONALE Status : Acute (3) Hypothyroidism Code(s): E03.9 - HYPOTHYROIDISM, UNSPECIFIED Status: Chronic Qualifiers: Hypothyroidism type: unspecified Qualified Code(s): E03.9 - Hypothyroidism , unspecified (4) Systemic lupus erythematosus Code(s): M32.9 - SYSTEMIC LUPUS ERYTHEMATOSUS, UNSPECIFIED Status: Chronic Qualifiers: Systemic lupus erythematosus type: unspecified Systemic lupus erythematosus organ involvement: unspecified Qualified Code(s): M32.9 - Systemic lupus erythematosus, unspecified (5) Acute respiratory failure with hypoxia Code(s): J96.01 - ACUTE RESPIRATORY FAILURE WITH HYPOXIA Status: Acute (6) Morbid obesity Code(s): E66.01 - MORBID (SEVERE) OBESITY DUE TO EXCESS CALORIES Status: Acute (7) Decubitus ulcer of coccygeal region, stage 4 Code(s): L89.154 - PRESSURE ULCER OF SACRAL REGION, STAGE 4 Status: Acute - Plan * Pulmonary Embolus- with Antiphospholipid syndrome- will continue with Eliquis * SLE- continue Prednisone * Hypothyroidism- clinically stable * Her heart rate has improved - will see if she requires supplemental oxygen- and she can return to the nursing facility. Will like for her to talk with a putty and patch worker prior to discharge
[2019-12-17 11:14] LABS: Factor VIII Test 431.9 % ACTIVE (56-157)
[2019-12-17 11:40] LABS: DRVVT Confirm 30.2; HEX PHOS LA Tube 1 54.1 SEC; HEX PHOS LA Tube 2 39.9 SEC; Hexagonal Phospholipid Neut 14.2 SEC (0-8.0)
[2019-12-17 13:47] VITALS: BP 124/86; TEMP 98.6
[2019-12-17] MEDS: cefTRIAXone\\ROCEPHIN 1 GM in Sodium Chloride 0.9% 100 ML IVPB SCH (13:48)
--- NOTE | 2019-12-18 03:45 | DIS ---
DATE OF ADMISSION: 12/13/2019 DATE OF DISCHARGE: 12/17/2019 PRIMARY CARE PHYSICIAN: Dr. Noel Lopez. DISCHARGE DISPOSITION: Back to the alf. DISCHARGE DIAGNOSES: 1. Acute respiratory failure with hypoxemia. 2. Pulmonary embolism. 3. Bilateral lower extremity deep venous thrombosis. 4. Left upper extremity deep venous thrombosis. 5. Antiphospholipid syndrome. 6. Systemic lupus. 7. Chronic bed-bound status. 8. Hypothyroidism. DISCHARGE MEDICATIONS: Include: 1. Eliquis 10 mg p.o. twice a day for 6 more days, followed by 5 mg p.o. twice a day. 2. Dulcolax 10 mg daily. 3. Vitamin C 1000 mg p.o. daily. 4. Tramadol 50 mg q.4 as needed. 5. Prednisone 20 mg twice daily. 6. Potassium chloride 20 mEq daily. 7. Zofran 4 mg q.6 as needed. 8. Loperamide 2 mg p.r.n. 9. Levothyroxine 137 mcg p.o. daily. 10. Anusol 30 g topical as needed twice a day. 11. Pepcid 20 mg p.o. twice daily. 12. Benadryl 25 mg q.4 as needed. 13. Tylenol as needed. IMAGING DONE DURING THE HOSPITAL STAY: The patient had a CT angiogram of the chest noting a large clot in the distal right main pulmonary artery with some extension into the lobar branches. CODE STATUS: Full code. ALLERGIES: NO KNOWN DRUG ALLERGIES. HOSPITAL COURSE: Ms. Byrd is a pleasant 39-year-old female, who currently resides at [facility] due to being chronically bed-bound. She had difficulty with lower extremity swelling and was evaluated in [place] showing bilateral lower extremity venous thromboembolism. She was further evaluated and found to have a pulmonary embolism in the right pulmonary artery. She was transferred to our facility for further evaluation. She was started on IV heparin, and Pulmonology was consulted and she was found to have no significant RV strain. She improved over the course of the next several days. Lupus anticoagulant was positive, and as such, she will need lifelong anticoagulation, and that is the anticardiolipin antibody was all positive. She was eventually transferred back to the nursing facility after her clinical status improved, where it is expected that she will be an indefinite resident there. Job ID: [id number]
[2019-12-18 17:26] LABS: beta-2-Glycoprotein I IgA Ab 3.5 U/mL (<7 Negative); beta-2-Glycoprotein I IgG Ab 1.2 U/mL (<7 Negative); beta-2-Glycoprotein I IgM Abs Less than 2.9 U/mL (<7 Negative)
== END 2019-12-17 16:29 | DRG 175 ==
LOC: ERS 16:32 → ERHOLD 18:01 → CCU 20:08 → 2NO 12-14 14:48
PROVIDERS: ADMIT Internal Medicine; ATTEND Internal Medicine
DX: I26.99 Other pulmonary embolism without acute cor pulmonale (principal); L89.154 Pressure ulcer of sacral region, stage 4; J96.01 Acute respiratory failure with hypoxia; I82.403 Acute embolism and thrombosis of unspecified deep veins of lower extremity, bilateral; I82.622 Acute embolism and thrombosis of deep veins of left upper extremity; D68.61 Antiphospholipid syndrome; E03.9 Hypothyroidism, unspecified; K21.9 Gastro-esophageal reflux disease without esophagitis; N31.9 Neuromuscular dysfunction of bladder, unspecified; R47.02 Dysphasia; E66.01 Morbid (severe) obesity due to excess calories; M32.9 Systemic lupus erythematosus, unspecified; Z98.51 Tubal ligation status; Z90.710 Acquired absence of both cervix and uterus; Z68.39 Body mass index [BMI] 39.0-39.9, adult; Z74.01 Bed confinement status; Z79.890 Hormone replacement therapy; Z79.52 Long term (current) use of systemic steroids; Z79.899 Other long term (current) drug therapy
CPT/HCPCS: 36415; 36416; 71045; 80053; 81240; 81241; 83090; 84439; 84443; 85014; 85018; 85025; 85049; 85240; 85250; 85300; 85303; 85305; 85307; 85379; 85598; 85613; 85730; 86038; 86146; 86147; 86160; 86225; 86235; 87077; 87086; 87186; 93005; 96360; 96361; J0696; J1644; J3490; J7512

== ENCOUNTER 2020-10-12 13:36 | Emergency (ER) | payer OTHER, SELFPAY ==
[2020-10-12 14:48] LABS: #Lymphocytes 0.8 thou/uL (1.20-3.40); #Monocytes 0.4 thou/uL (0.11-0.59); #Neutrophils 8.5 thou/uL (1.40-6.50); %Basophils 0.1 % (0.0-1.0); %Eosinophils 0.2 % (0.0-10.0); %Lymphocytes 8.2 % (21.0-51.0); %Monocytes 3.9 % (0.0-10.0); %Neutrophils 87.6 % (42.0-75.0); Hemoglobin 13.3 g/dL (12.0-16.0); Mean Corpuscular HGB CONC 32.9 g/dL (32.0-36.0); Mean Corpuscular Hemoglobin 32.5 pg (27.0-31.0); Mean Corpuscular Volume 98.5 fL (78.0-98.0); Mean Platelet Volume 9.7 fL (7.4-10.4); Platelet Count 177 thou/uL (130-400); Red Blood Cell (RBC) Count 4.09 mill/uL (4.20-5.40); White Blood Cell (WBC) Count 9.7 thou/uL (4.8-10.8)
[2020-10-12 15:10] LABS: ALT (SGPT) 25 U/L (8-55); AST (SGOT) 16 U/L (5-34); Albumin 3.4 g/dL (3.5-5.0); Alkaline Phosphatase 101 U/L (40-110); Anion Gap 14 mmol/L (10-20); BUN (Urea Nitrogen) 17 mg/dL (7.0-18.7); Bilirubin, Total 0.3 mg/dL (0.2-1.2); Calc. Creatinine Clearance 0 mL/min (70-130); Calcium 8.6 mg/dL (7.8-10.44); Carbon Dioxide 26 mmol/L (22-29); Chloride 104 mmol/L (98-107); Globulin 4.3 g/dL (2.4-3.5); Glucose 128 mg/dL (70-105); Potassium 3.7 mmol/L (3.5-5.1); Protein, Total 7.7 g/dL (6.0-8.3); Sodium 140 mmol/L (136-145)
[2020-10-12 15:59] LABS: PTT 34.7 sec (22.9-36.1); Prothrombin Time 13.5 sec (12.0-14.7)
== END 2020-10-12 23:48 | disposition home or self-care (01) ==
LOC: ERS 13:36
DX: S80.822A Blister (nonthermal), left lower leg, initial encounter (principal); R60.0 Localized edema; K21.9 Gastro-esophageal reflux disease without esophagitis; D50.9 Iron deficiency anemia, unspecified; X58.XXXA Exposure to other specified factors, initial encounter
CPT/HCPCS: 36415; 80053; 83880; 85025; 85610; 85730; 99284